=== PATIENT | male | born 1980 ===

== ENCOUNTER 2016-10-14 07:52 | Emergency (ER) | payer MEDICAID, OTHER ==
--- NOTE | 2016-10-14 08:22 | C.PDOC ---
History Of Present Illness 36 y/o male presents to the ED requesting detox from heroin. He reports using 10 bags IV /day for 5 months. Last use yesterday at 06:30. Patient also reports history of asthma and smoking cigarettes. Patient denies suicidal ideation, homicidal ideation, or other complaints. Time Seen by Provider: 10/14/16 07:56 Chief Complaint (Nursing): Substance Abuse History Per: Patient History/Exam Limitations: no limitations Onset/Duration Of Symptoms: Days, Gradual, Persistent Current Symptoms Are (Timing): Still Present Suicide/Self Injury Attempted (Context): None Modifying Factor(s): Other (heroin IV) Involuntary Hold By: None Recent travel outside of the [place]: No Past Medical History Reviewed: Historical Data, Nursing Documentation, Vital Signs Vital Signs: Last Vital Signs Temp 97.3 F L 10/14/16 07:55 Pulse 92 H 10/14/16 07:55 Resp 18 10/14/16 07:55 BP 122/78 10/14/16 07:55 Pulse Ox 97 10/14/16 08:43 - Medical History PMH: Anxiety, Asthma, Bronchitis, Pneumonia Surgical History: No Surg Hx - [facility] Procedures DETOXIFICATION SERVICES FOR SUBSTANCE ABUSE TREATMENT (08/20/16) GROUP WASTEWATER PROJECT MANAGER FOR SUBSTANCE ABUSE TREATMENT, PSYCHOEDUCATION (08/20/16) Family History: States: No Known Family Hx - Social History Hx Tobacco Use: Yes (heavy smoker) Hx Alcohol Use: No Hx Substance Use: Yes - Immunization History Hx Tetanus Toxoid Vaccination: No Hx Influenza Vaccination: No Hx Pneumococcal Vaccination: No Review Of Systems Except As Marked, All Systems Reviewed And Found Negative. Constitutional: Positive for: Other (requesting detox) Psych: Negative for: Suicidal ideation (or homicidal ideation) Physical Exam - Physical Exam Appears: Non-toxic, No Acute Distress Skin: Normal Color, Warm, Dry Head: Atraumatic, Normacephalic Eye(s): bilateral: Normal Inspection, PERRL Oral Mucosa: Moist Neck: Normal ROM, Supple Chest: Symmetrical Cardiovascular: Rhythm Regular Respiratory: No Rales, No Rhonchi, Wheezing (mild) Gastrointestinal/Abdominal: Normal Exam, Soft, No Tenderness Extremity: Normal ROM, No Swelling Neurological/Psych: Oriented x3, Normal Speech, Normal Cognition ED Course And Treatment O2 Sat by Pulse Oximetry: 97 (ra) Pulse Ox Interpretation: Normal Progress Note: Case discussed and patient evaluated by plastic worker and patient will be discharged to follow as outpatient Reassessment Condition: Unchanged Medical Decision Making Medical Decision Making: There are no Detox beds available at this time. Explained to patient no beds available and provided list of other detox centers and number to call at [facility] for availability. Please call [phone] or [phone] to inquire about our Detox availability , may speak to coordinator Kiersten. If you need to speak to someone immediately call Crisis Hotline [phone]. Disposition Counseled Patient/Family Regarding: Need For Followup - Disposition Referrals: [facility] [Outside] [facility] [Outside] Disposition: HOME/ ROUTINE Disposition Time: 08:40 Condition: STABLE Additional Instructions: Follow up with outpatient services as directed Instructions: Polysubstance Abuse (ED) - POA Present On Arrival: None - Clinical Impression Clinical Impression: Drug abuse, Drug dependence, Asthma - PA / FLOOR RUNNER / Resident Statement MD/DO has reviewed & agrees with the documentation as recorded. - Scribe Statement The provider has reviewed the documentation as recorded by the Scribe (Haritha Meyers) All medical record entries made by the Scribe were at my direction and personally dictated by me. I have reviewed the chart and agree that the record accurately reflects my personal performance of the history, physical exam, medical decision making, and the department course for this patient. I have also personally directed, reviewed, and agree with the discharge instructions and disposition.
[2016-10-14 08:25] VITALS: BP 122/78; PULSE 92; RESP 18; TEMP 97.3; O2SAT 97
== END 2016-10-14 08:40 | disposition home or self-care (01) ==
LOC: C.ER 07:52
DX: F11.20 Opioid dependence, uncomplicated (principal); J45.909 Unspecified asthma, uncomplicated

== ENCOUNTER 2016-10-17 00:08 | Observation (INO) | payer OTHER ==
[2016-10-17] MEDS ORDERED: Albuterol-Ipratrop 3 mg / 0.5 (3 ml) UD ONE ×2 (00:17→01:02)
[2016-10-17 00:28] VITALS: TEMP 98.4
[2016-10-17] MEDS ORDERED: Sodium Chloride 0.9% 1,000 ML IV ONE ×2 (00:32→03:08)
[2016-10-17] MEDS: Albuterol-Ipratrop 3 mg / 0.5 (3 ml) UD IH SCH ×3 (00:35→01:06)
--- NOTE | 2016-10-17 00:35 | C.PDOC ---
History Of Present Illness 36 y.o male with history of asthma and drug abuse brought into ED via EMS for evaluation of SOB. Patient states he was coughing persistently and was running to bathroom feeling about to vomit and he fell hitting his head. He reports "I passed out for few minutes". Patient continues to complain of wheezing and SOB, states he ran out of his nebulizer and prednisone. He additionally reports nausea. Denies any fever, chest pain, vomiting. Time Seen by Provider: 10/17/16 00:31 Chief Complaint (Nursing): Trauma History Per: Patient, EMS History/Exam Limitations: clinical condition Current Symptoms Are (Timing): Still Present Initiating Event: Out Of Medications Exacerbating Factor(s): Exertion, Coughing Current Respiratory Medications: See Home Med List Past Medical History Reviewed: Historical Data, Nursing Documentation, Vital Signs Vital Signs: Last Vital Signs Temp 98.4 F 10/17/16 00:21 Pulse 72 10/17/16 05:40 Resp 18 10/17/16 05:40 BP 110/58 L 10/17/16 05:40 Pulse Ox 97 10/17/16 05:40 - Medical History PMH: Anxiety, Asthma, Bronchitis, Pneumonia - [facility] Procedures DETOXIFICATION SERVICES FOR SUBSTANCE ABUSE TREATMENT (08/20/16) GROUP CAT DOG OR OTHER PET GROOMER FOR SUBSTANCE ABUSE TREATMENT, PSYCHOEDUCATION (08/20/16) Family History: States: Unknown Family Hx - Social History Hx Tobacco Use: Yes (heavy smoker) Hx Alcohol Use: No Hx Substance Use: Yes - Immunization History Hx Tetanus Toxoid Vaccination: Yes Hx Influenza Vaccination: Yes (08/2015) Hx Pneumococcal Vaccination: Yes Review Of Systems Constitutional: Positive for: Malaise. Negative for: Fever, Weakness ENT: Negative for: Ear Pain, Throat Pain Cardiovascular: Negative for: Chest Pain, Palpitations Respiratory: Positive for: Cough, Shortness of Breath, Wheezing Gastrointestinal: Positive for: Nausea. Negative for: Vomiting, Abdominal Pain , Diarrhea Skin: Negative for: Rash Neurological: Positive for: Headache. Negative for: Weakness, Numbness, Dizziness Physical Exam - Physical Exam Appears: Non-toxic, In Acute Distress, Other (Drowsy but arousable) Skin: Normal Color, Warm, Dry Head: Atraumatic, Normacephalic, No Tenderness, No Swelling, No Abrasion, No Laceration Eye(s): bilateral: Normal Inspection, PERRL, EOMI Ear(s): Bilateral: Normal (no erythema) Nose: Normal Oral Mucosa: Moist Throat: Normal, No Erythema, No Exudate, No Drooling Neck: Normal ROM Cardiovascular: Rhythm Regular, No Murmur Respiratory: No Rhonchi, Wheezing (bilaterally) Extremity: Normal ROM, No Deformity, No Swelling Neurological/Psych: Normal Speech Disoriented To: Time Gait: Unable To Assess ED Course And Treatment - Laboratory Results Result Diagrams: 10/17/16 01:15 10/17/16 01:15 Lab Interpretation: No Acute Changes O2 Sat by Pulse Oximetry: 87 Pulse Ox Interpretation: Abnormal - CT Scan/US Head Other Rad Studies (CT/US): Read By Radiologist (Tamie Caldwell MD), Radiology Report Reviewed CT/US Interpretation: No acute intracranial hemorrhage or suspicious mass effect Medical Decision Making Medical Decision Making: Impression: 36 y.o male with asthma and SOB Plan: * Labs * CXR * Duoneb, Solu-medrol * CT head Prior records reviewed: Patient seen in ED 10/14/16 looking for detox from heroin, no beds and discharged Patient was admitted 09/22/16 for pneumonia Progress: CXR shows persistent hilar/infrahilar consolidations. No effusion, pneumothorax or infiltrate. Labs reviewed and no acute changes from prior visits Upon reevaluation patient sleepy but arousable to verbal stimuli. Lung sounds improving. Will observe patient in ED ED OBSERVATION Discharge: Yes Date of observation admission: 10/17/16 Time of observation admission: 00:35 - Observation admission statement Patient is being placed in observation because:: Intoxication, Asthma - Goals of Observation Goals of observation are:: Sobriety, Duonebs - Progress Note Progress Note: 10/17/16 02:02 CT reviewed with no acute intracranial hemorrhage or abnormality as read by radiologist Dr Burdick. 10/17/16 03:33 Patient continues to sleep in no acute distress. O2 saturation has improved is 97%. Patient sleepy and wants to rest longer, will continue to observe 10/17/16 06:00 Patient has improved is alert oriented and in no distress. Patient feels comfortable going home and will be discharged with Rx. Disposition Counseled Patient/Family Regarding: Diagnosis, Need For Followup, Rx Given - Disposition Disposition: HOME/ ROUTINE Disposition Time: 06:01 Condition: STABLE - POA Present On Arrival: None - Clinical Impression Clinical Impression: Asthma exacerbation, Drug abuse
[2016-10-17] MEDS ORDERED: Sodium Chloride 0.9% 1,000 ML ONE ×2 (01:05→03:19)
[2016-10-17 01:18] LABS: BASO % 0.4 % (0.0-2.0); EOS # 0.7 K/uL (0.0-0.7); EOS % 5.5 % (0.0-4.0); HEMATOCRIT 39.2 % (35.0-51.0); LYMPH # 2.2 K/uL (1.0-4.3); LYMPH % 17.3 % (20.0-40.0); MEAN CELL VOLUME 94.9 fL (80.0-94.0); MEAN CORPUSCULAR HEMOGLOBIN 30.7 pg (27.0-31.0); MEAN CORPUSCULAR HGB CONC 32.3 g/dL (33.0-37.0); MEAN PLATELET VOLUME 8.3 fL (7.2-11.7); MONO # 1.1 K/uL (0.0-0.8); MONO % 8.5 % (0.0-10.0); RED CELL DISTRIBUTION WIDTH 13.9 % (11.5-14.5); WHITE BLOOD COUNT 12.8 K/uL (4.8-10.8)
[2016-10-17 01:32] LABS: CHLORIDE 98 mmol/L (98-107); SODIUM 137 mmol/L (132-148)
[2016-10-17 01:33] LABS: BILIRUBIN,TOTAL 0.3 mg/dL (0.2-1.3); GFR AFRICAN-AMERICAN > 60
[2016-10-17 01:34] LABS: ALB/GLOB RATIO 1.5 (1.0-2.1); ALCOHOL SERUM < 10 mg/dl (0-10); ALKALINE PHOSPHATASE 72 U/L (38-126); ALT/SGPT 79 U/L (21-72); AST/SGOT 39 U/L (17-59); BLOOD UREA NITROGEN 15 mg/dL (9-20); CALCIUM 8.5 mg/dl (8.6-10.4); CARBON DIOXIDE 27 mmol/L (22-30); GLUCOSE,RANDOM 145 mg/dL (75-110); TOTAL PROTEIN 6.6 g/dL (6.3-8.3)
[2016-10-17 02:12] LABS: RBC URINE < 1 /hpf (0-3); URINE BILIRUBIN NEGATIVE (NEGATIVE); URINE BLOOD NEGATIVE (NEGATIVE); URINE COLOR Yellow (YELLOW); URINE GLUCOSE (UA) NORMAL (Normal); URINE KETONE TRACE mg/dL (NEGATIVE); URINE LEUKOCYTE ESTERASE NEG Leu/uL (Negative); URINE PROTEIN 1+ mg/dL (NEGATIVE); WBC URINE 2 /hpf (0-5)
[2016-10-17 03:30] VITALS: RESP 18
[2016-10-17 05:41] VITALS: BP 110/58; PULSE 72
[2016-10-17 06:02] VITALS: O2SAT 87
--- NOTE | 2016-10-17 10:02 | CT ---
PROCEDURE: CT HEAD WITHOUT CONTRAST. HISTORY: possible syncope, sob, dizziness COMPARISON: None available. TECHNIQUE: Axial computed tomography images were obtained through the head/brain without intravenous contrast. Radiation dose: Total exam DLP = 976.61 mGy-cm. FINDINGS: HEMORRHAGE: No intracranial hemorrhage. BRAIN: No mass effect or edema. No atrophy or chronic microvascular ischemic changes. VENTRICLES: Unremarkable. No hydrocephalus. CALVARIUM: Unremarkable. PARANASAL SINUSES: Unremarkable as visualized. No significant inflammatory changes. MASTOID AIR CELLS: Unremarkable as visualized. No inflammatory changes. OTHER FINDINGS: None. IMPRESSION: No intracranial mass, hemorrhage or evidence of acute infarct. Unremarkable examination. Preliminary interpretation of this examination was reported by kompany at 1:59 a.m. on 10/17/2016. . There is concurrence of this report with the preliminary interpretation.
--- NOTE | 2016-10-17 15:15 | RAD ---
HISTORY: SOB COMPARISON: 09/22/2016 TECHNIQUE: Chest PA and lateral FINDINGS: LUNGS: No active pulmonary disease. PLEURA: No significant pleural effusion identified. No pneumothorax apparent. CARDIOVASCULAR: Normal. OSSEOUS STRUCTURES: No significant abnormalities. VISUALIZED UPPER ABDOMEN: Normal. OTHER FINDINGS: None. IMPRESSION: No active disease.
== END 2016-10-17 06:02 | disposition home or self-care (01) ==
LOC: C.ER 00:08 → C.9OBSV 00:35
PROVIDERS: ADMIT Emergency Medicine; ATTEND Emergency Medicine
DX: J45.901 Unspecified asthma with (acute) exacerbation (principal); Z87.891 Personal history of nicotine dependence; F14.10 Cocaine abuse, uncomplicated; F11.10 Opioid abuse, uncomplicated; Z87.01 Personal history of pneumonia (recurrent); Z68.21 Body mass index [BMI] 21.0-21.9, adult
CPT/HCPCS: 70450; 71020; 80053; 80320; 80324; 80345; 80346; 80349; 80353; 80358; 80361; 81001; 82948; 83992; 85025; 94640; 96374; 99285; G0378; J2930; J7040

== ENCOUNTER 2016-10-18 22:43 | Emergency (ER) | payer OTHER ==
[2016-10-18] MEDS ORDERED: Albuterol-Ipratrop 3 mg / 0.5 (3 ml) UD ONE (23:02)
[2016-10-18] MEDS ORDERED: Sodium Chloride 0.9% 1,000 ML IV ONE (23:03)
--- NOTE | 2016-10-18 23:06 | C.PDOC ---
History Of Present Illness 36 y/o male presents to ED with complaint of left upper chest wall pain and abdominal pain that started tonight. Patient reports history of heroin abuse, last dose being yesterday. Otherwise denies fever, chills, nausea, vomiting, diarrhea, or other complaints at this time. Time Seen by Provider: 10/18/16 23:03 Chief Complaint (Nursing): Abdominal Pain History Per: Patient History/Exam Limitations: no limitations Onset/Duration Of Symptoms: Hrs Current Symptoms Are (Timing): Still Present Location Of Pain/Discomfort: Diffuse Radiation Of Pain To:: None Quality Of Discomfort: "Pain" Associated Symptoms: denies: Fever, Nausea, Vomiting, Diarrhea, Urinary Symptoms Recent travel outside of the [place]: No Past Medical History Reviewed: Historical Data, Nursing Documentation, Vital Signs Vital Signs: Last Vital Signs Temp 97.5 F L 10/19/16 01:50 Pulse 60 10/19/16 01:50 Resp 20 10/19/16 01:50 BP 121/70 10/19/16 01:50 Pulse Ox 95 10/19/16 04:00 - Medical History PMH: Anxiety, Asthma, Bronchitis, Pneumonia - [facility] Procedures DETOXIFICATION SERVICES FOR SUBSTANCE ABUSE TREATMENT (08/20/16) GROUP SHINGLE INSPECTOR FOR SUBSTANCE ABUSE TREATMENT, PSYCHOEDUCATION (08/20/16) Family History: States: Unknown Family Hx - Social History Hx Tobacco Use: Yes (heavy smoker) Hx Alcohol Use: No Hx Substance Use: Yes - Immunization History Hx Tetanus Toxoid Vaccination: Yes Hx Influenza Vaccination: Yes (08/2015) Hx Pneumococcal Vaccination: Yes Review Of Systems Except As Marked, All Systems Reviewed And Found Negative. Constitutional: Negative for: Fever, Chills Respiratory: Negative for: Shortness of Breath, Wheezing Gastrointestinal: Positive for: Abdominal Pain. Negative for: Vomiting Musculoskeletal: Positive for: Other (chest wall pain ) Skin: Negative for: Rash Neurological: Negative for: Headache, Dizziness Psych: Negative for: Withdrawal Physical Exam - Physical Exam Appears: Non-toxic, No Acute Distress Skin: Normal Color, Warm, Dry Head: Atraumatic, Normacephalic Oral Mucosa: Moist Neck: Supple Chest: Symmetrical Cardiovascular: Rhythm Regular Respiratory: No Wheezing Gastrointestinal/Abdominal: Soft, Tenderness (RUQ), Organomegaly (enlarged liver ), No Guarding, No Rebound Back: Normal Inspection Extremity: Normal ROM, Capillary Refill (< 2 sec. ) Neurological/Psych: Oriented x3, Normal Speech, Normal Cognition ED Course And Treatment - Laboratory Results Result Diagrams: 10/18/16 23:19 10/18/16 23:19 ECG: Interpreted By Me, Viewed By Me ECG Rhythm: Sinus Bradycardia ECG Interpretation: No Acute Changes Interpretation Of ECG: J-pt elevation-early repolarixation, no acute change. normal tracings Rate From EC O2 Sat by Pulse Oximetry: 95 (RA) Pulse Ox Interpretation: Normal - Radiology CXR: Interpreted by Me, Viewed By Me CXR Interpretation: Yes: No Acute Disease, Other (NAD, normal CXR.). No: Infiltrates, Cardiomegaly - CT Scan/US RUQ Abdominal Ultrasound Other Rad Studies (CT/US): Read By Radiologist, Radiology Report Reviewed CT/US Interpretation: FINDINGS: Liver: Overall echogenicity of the liver is normal. There is a 10 x 6 x 10 mm hyperechoic focus in the. right lobe of the liver. There is hepatopedal flow in the main portal vein. Gallbladder: Gallbladder is distended with no stones, sludge or wall thickening. Common bile duct: Common bile duct measures 3.7 mm in diameter. Pancreas: Pancreas is unremarkable. Right kidney: Right kidney is unremarkable. Right kidney is unremarkable. Aorta: Visualized portions of the aorta and inferior vena cava are unremarkable. IMPRESSION: No gallstones or ductal dilatation; tiny hemangioma in the liver. Patient was not tender over the gallbladder Progress Note: Treated with Toradol, clonidine, IVFs. EKG, CxR, bloodwork, and abdominal ultrasound ordered. Just prior to being discharged, patient states he wants to hurt himself. Crisis notified and will further evaluate patient. Disposition Discussed With : Genoveva Ha Counseled Patient/Family Regarding: Diagnosis - Disposition Referrals: [facility] [Outside] Disposition: HOME/ ROUTINE Disposition Time: 01:32 Condition: STABLE Prescriptions: Famotidine [Pepcid] 20 mg PO BID #20 tab Instructions: Gastritis (GEN), Narcotic Abuse (ED) - POA Present On Arrival: None - Clinical Impression Clinical Impression: Opiate addiction, Major depressive disorder - Scribe Statement The provider has reviewed the documentation as recorded by the Vishla Kraus Provider Scribe Attestation: All medical record entries made by the Scribe were at my direction and personally dictated by me. I have reviewed the chart and agree that the record accurately reflects my personal performance of the history, physical exam, medical decision making, and the department course for this patient. I have also personally directed, reviewed, and agree with the discharge instructions and disposition.
[2016-10-18 23:22] LABS: BASO # 0.1 K/uL (0.0-0.2); BASO % 0.7 % (0.0-2.0); EOS # 0.2 K/uL (0.0-0.7); EOS % 1.6 % (0.0-4.0); HEMATOCRIT 37.4 % (35.0-51.0); LYMPH # 3.4 K/uL (1.0-4.3); LYMPH % 26.2 % (20.0-40.0); MEAN CELL VOLUME 94.4 fL (80.0-94.0); MEAN CORPUSCULAR HEMOGLOBIN 30.9 pg (27.0-31.0); MEAN CORPUSCULAR HGB CONC 32.7 g/dL (33.0-37.0); MEAN PLATELET VOLUME 8.2 fL (7.2-11.7); MONO # 1.1 K/uL (0.0-0.8); MONO % 8.3 % (0.0-10.0); NRBC % 0.1 % (0.0-2.0); RED CELL DISTRIBUTION WIDTH 13.7 % (11.5-14.5); WHITE BLOOD COUNT 12.9 K/uL (4.8-10.8)
[2016-10-18 23:28] LABS: CHLORIDE 99 mmol/L (98-107); POTASSIUM 4.1 mmol/L (3.6-5.2); SODIUM 138 mmol/L (132-148)
[2016-10-18 23:30] LABS: BILIRUBIN,TOTAL 0.3 mg/dL (0.2-1.3); GFR AFRICAN-AMERICAN > 60
[2016-10-18 23:31] LABS: ALB/GLOB RATIO 1.4 (1.0-2.1); ALKALINE PHOSPHATASE 70 U/L (38-126); ALT/SGPT 56 U/L (21-72); AST/SGOT 26 U/L (17-59); BLOOD UREA NITROGEN 16 mg/dL (9-20); CARBON DIOXIDE 31 mmol/L (22-30); GLUCOSE,RANDOM 86 mg/dL (75-110); TOTAL PROTEIN 6.1 g/dL (6.3-8.3)
[2016-10-18 23:41] LABS: RBC URINE < 1 /hpf (0-3); URINE BILIRUBIN NEGATIVE (NEGATIVE); URINE BLOOD NEGATIVE (NEGATIVE); URINE COLOR Yellow (YELLOW); URINE GLUCOSE (UA) NORMAL (Normal); URINE KETONE NEGATIVE (NEGATIVE); URINE LEUKOCYTE ESTERASE NEG Leu/uL (Negative); URINE PROTEIN NEGATIVE (NEGATIVE); URINE UROBILINOGEN NORMAL mg/dL (0.2-1.0); WBC URINE < 1 /hpf (0-5)
[2016-10-18] MEDS ORDERED: Sodium Chloride 0.9% 1,000 ML ONE (23:41)
--- NOTE | 2016-10-19 01:07 | US ---
EXAM: US Abdomen Limited, Right Upper Quadrant. CLINICAL HISTORY: 36 years old, male; Pain; Other: Ruq; Additional info: Ruq abd pain / tenderness TECHNIQUE: Real-time ultrasound of the right upper quadrant with image documentation. EXAM DATE/TIME: 10/19/2016 11:04 PM COMPARISON: There are no prior studies for comparison. FINDINGS: Liver: Overall echogenicity of the liver is normal. There is a 10 x 6 x 10 mm hyperechoic focus in the right lobe of the liver. There is hepatopedal flow in the main portal vein. Gallbladder: Gallbladder is distended with no stones, sludge or wall thickening. Common bile duct: Common bile duct measures 3.7 mm in diameter. Pancreas: Pancreas is unremarkable. Right kidney: Right kidney is unremarkable. Right kidney is unremarkable. Aorta: Visualized portions of the aorta and inferior vena cava are unremarkable. IMPRESSION: No gallstones or ductal dilatation; tiny hemangioma in the liver Patient was not tender over the gallbladder
[2016-10-19 06:00] VITALS: BP 117/66; PULSE 68; RESP 18; TEMP 97.9; O2SAT 97
--- NOTE | 2016-10-19 08:54 | RAD ---
HISTORY: left upper chest pain COMPARISON: No prior. TECHNIQUE: Chest PA and lateral FINDINGS: LUNGS: No active pulmonary disease. PLEURA: No significant pleural effusion identified. No pneumothorax apparent. CARDIOVASCULAR: Normal. OSSEOUS STRUCTURES: No significant abnormalities. VISUALIZED UPPER ABDOMEN: Normal. OTHER FINDINGS: None. IMPRESSION: No active disease.
--- NOTE | 2016-10-20 08:07 | CARD ---
APPROVED REPORT EKG Measurement Heart [id number] <Conclusion> Sinus bradycardia Early repolarization Otherwise normal ECG
== END 2016-10-19 06:20 | disposition home or self-care (01) ==
LOC: C.ER 22:43
DX: F11.20 Opioid dependence, uncomplicated (principal); F32.9 Major depressive disorder, single episode, unspecified
CPT/HCPCS: 71020; 76705; 80053; 80320; 80324; 80345; 80346; 80349; 80353; 80358; 80361; 81001; 83690; 83992; 84484; 85025; 85378; 93005; 96374; 99285; J1885; J7040

== ENCOUNTER 2016-10-19 06:49 | Inpatient (IN) | payer OTHER ==
[2016-10-19] MEDS ORDERED: Albuterol-Ipratrop 3 mg / 0.5 (3 ml) UD ONE ×2 (06:59→07:58)
[2016-10-19] MEDS ORDERED: Albuterol-Ipratrop 3 mg / 0.5 (3 ml) UD INH STA ×3 (07:21→07:22)
[2016-10-19] MEDS ORDERED: MethylPREDNISolone 40 mg Vial IVP STA (07:21)
--- NOTE | 2016-10-19 07:25 | C.PDOC ---
History Of Present Illness 36 year old male presents to the ED with complaints of SOB for a few days. He has been to the ER twice for re-evaluations with no improvement and notes a history of asthma. Patient denies fever or any other complaints at this time. Time Seen by Provider: 10/19/16 07:18 Chief Complaint (Nursing): Shortness Of Breath History Per: Patient History/Exam Limitations: no limitations Onset/Duration Of Symptoms: Days Current Symptoms Are (Timing): Still Present Associated Symptoms: denies: Fever, Sweating Past Medical History Vital Signs: Last Vital Signs Temp 97.3 F L 10/19/16 06:58 Pulse 125 H 10/19/16 06:58 Resp 20 10/19/16 07:03 BP 142/71 10/19/16 06:58 Pulse Ox 97 10/19/16 08:13 - Medical History PMH: Anxiety, Asthma, Bronchitis, Pneumonia Surgical History: Denies: Appendectomy, CABG, Carotid Endarterectomy, Cholecystectomy, Coronary Stent, Pacemaker, Tonsillectomy - [employer] Procedures DETOXIFICATION SERVICES FOR SUBSTANCE ABUSE TREATMENT (08/20/16) GROUP DURABILITY ENGINEER FOR SUBSTANCE ABUSE TREATMENT, PSYCHOEDUCATION (08/20/16) Family History: States: Unknown Family Hx - Social History Hx Tobacco Use: Yes (heavy smoker) Hx Alcohol Use: No Hx Substance Use: Yes (heroine) - Immunization History Hx Tetanus Toxoid Vaccination: Yes Hx Influenza Vaccination: Yes (08/2015) Hx Pneumococcal Vaccination: Yes Review Of Systems Constitutional: Negative for: Fever, Chills Respiratory: Positive for: Shortness of Breath Gastrointestinal: Negative for: Nausea, Vomiting, Abdominal Pain, Diarrhea Genitourinary: Negative for: Dysuria Physical Exam - Physical Exam Appears: Non-toxic, No Acute Distress Skin: Warm, Dry Neck: Supple Cardiovascular: Rhythm Regular, No Murmur Respiratory: No Accessory Muscle Use, No Rales, No Rhonchi, No Stridor, Wheezing (diffuse wheezing) Extremity: Normal ROM, No Tenderness Neurological/Psych: Oriented x3 ED Course And Treatment - Laboratory Results Result Diagrams: 10/19/16 07:49 10/19/16 07:49 O2 Sat by Pulse Oximetry: 97 Medical Decision Making Medical Decision Making: asthma exacerbation - not improving outpt, will send labs, nebs solumudrol- noted cxr from last night, neg as read by me. 815: pt with persistent wheezing, pt not improving outpt, failure of outpt managment. pt need admission for iv steriods Disposition - Disposition Disposition: HOSPITALIZED Disposition Time: 08:55 Condition: STABLE - Clinical Impression Clinical Impression: Exacerbation of asthma - Scribe Statement The provider has reviewed the documentation as recorded by the Scribe Dinorah Puente All medical record entries made by the Scribe were at my direction and personally dictated by me. I have reviewed the chart and agree that the record accurately reflects my personal performance of the history, physical exam, medical decision making, and the department course for this patient. I have also personally directed, reviewed, and agree with the discharge instructions and disposition. Decision To Admit - Pt Status Changed To: Hospital Disposition Of: Inpatient - Admit Certification Admit to Inpatient:: After my assessment, the patient will require hospitalization for at least two midnights. This is because of the severity of symptoms shown, intensity of services needed, and/or the medical risk in this patient being treated as an outpatient. - InPatient: Physician Admission Certification: I certify that this patient requires 2 or more midnights of care for the following reason:: pt with failure of outpt treatement, persistent wheeezing, needs iv steriods - . Bed Request Type: Regular Admitting Physician: Refugio Slater Patient Diagnosis: Exacerbation of asthma
[2016-10-19 07:55] LABS: BASO # 0.1 K/uL (0.0-0.2); BASO % 0.6 % (0.0-2.0); EOS # 0.4 K/uL (0.0-0.7); EOS % 3.1 % (0.0-4.0); HEMATOCRIT 35.6 % (35.0-51.0); LYMPH # 3.3 K/uL (1.0-4.3); MEAN CELL VOLUME 94.8 fL (80.0-94.0); MEAN CORPUSCULAR HEMOGLOBIN 31.4 pg (27.0-31.0); MEAN CORPUSCULAR HGB CONC 33.1 g/dL (33.0-37.0); MONO # 1.5 K/uL (0.0-0.8); MONO % 12.3 % (0.0-10.0); NRBC % 0.1 % (0.0-2.0); RED CELL DISTRIBUTION WIDTH 13.8 % (11.5-14.5); WHITE BLOOD COUNT 11.9 K/uL (4.8-10.8)
[2016-10-19 08:04] LABS: CHLORIDE 99 mmol/L (98-107); POTASSIUM 3.8 mmol/L (3.6-5.2); SODIUM 138 mmol/L (132-148)
[2016-10-19 08:06] LABS: BILIRUBIN,TOTAL 0.5 mg/dL (0.2-1.3); CARBON DIOXIDE 30 mmol/L (22-30); GFR AFRICAN-AMERICAN > 60
[2016-10-19 08:07] LABS: ALB/GLOB RATIO 1.4 (1.0-2.1); ALKALINE PHOSPHATASE 57 U/L (38-126); ALT/SGPT 49 U/L (21-72); AST/SGOT 25 U/L (17-59); BLOOD UREA NITROGEN 16 mg/dL (9-20); CALCIUM 8.7 mg/dl (8.6-10.4); GLUCOSE,RANDOM 67 mg/dL (75-110); TOTAL PROTEIN 5.6 g/dL (6.3-8.3)
--- NOTE | 2016-10-19 15:18 | CP.PCM.HP ---
History of Present Illness - History of Present Illness History of Present Illness: 36 years old male patient with past medical history of asthma bronchitis and pneumonia presented to emergency department with complaints of shortness of breath since last few days. No recent fever, nausea vomiting, chest pain, no palpitation, no increased sweating. No lower limb swelling. The patient had persistent wheezing, started on IV steroids. Present on Admission - Present on Admission Any Indicators Present on Admission: No Past Patient History - Infectious Disease Hx of Infectious Diseases: None - Past Medical History & Family History Past Medical History?: No - Past Social History Smoking Status: Light Smoker < 10 Cigarettes Daily - CARDIAC Hx Pacemaker: No - PULMONARY Hx Asthma: Yes Hx Bronchitis: Yes Hx Pneumonia: Yes - NEUROLOGICAL Hx Dementia: No Hx Migraine: No Hx Multiple Sclerosis: No Hx Parkinson's Disease: No Hx Seizures: No Hx Transient Ischemic Attacks (TIA): No - HEENT Hx HEENT Problems: No Hx Blind: No Hx Cataracts: No Hx Deafness: No Hx Difficulty Chewing: No Hx Epistaxis: No Hx Glaucoma: No Hx Macular Degeneration: No - RENAL Hx Chronic Kidney Disease: No Hx Kidney Stones: No - ENDOCRINE/METABOLIC Hx Hyperthyroidism: No Hx Hypothyroidism: No - HEMATOLOGICAL/ONCOLOGICAL Hx Human Immunodeficiency Virus (HIV): No Hx Sickle Cell Disease: No - INTEGUMENTARY Hx Dermatological Problems: No Hx Basil Cell: No Hx Barrera: No Hx Cellulitis: No Hx Eczema: No Hx Melanoma: No Hx Psoriasis: No Hx Squamous Cell: No - MUSCULOSKELETAL/RHEUMATOLOGICAL Hx Arthritis: No Hx Fractures: No Hx Osteoporosis: No Hx Rheumatoid Arthritis: No - GASTROINTESTINAL Hx Crohn's Disease: No Hx Diverticulitis: No Hx Gall Bladder Disease: No Hx Gastritis: No Hx Pancreatitis: No - GENITOURINARY/GYNECOLOGICAL Hx Sexually Transmitted Disorders: No - PSYCHIATRIC Hx Anxiety: Yes Hx Substance Use: Yes (heroine) - SURGICAL HISTORY Hx Appendectomy: No Hx Carotid Endarterectomy: No Hx Cholecystectomy: No Hx Coronary Artery Bypass Graft: No Hx Coronary Stent: No Hx Tonsillectomy: No - ANESTHESIA Hx Anesthesia: No Meds Allergies/Adverse Reactions: Allergies Allergy/AdvReac Type Severity Reaction Status Date / Time shellfish derived Allergy Verified 01/16/17 23:43 Results - Vital Signs Recent Vital Signs: Last Vital Signs Temp 98.2 F 10/19/16 13:00 Pulse 77 10/19/16 13:00 Resp 18 10/19/16 13:00 BP 132/66 10/19/16 13:00 Pulse Ox 97 10/19/16 13:00 - Labs Result Diagrams: 10/19/16 07:49 10/19/16 07:49 Assessment & Plan (1) Asthma Status: Acute (2) Asthma exacerbation Status: Acute (3) Asthma with status asthmaticus Status: Acute (4) Bronchitis Status: Acute (5) Bronchitis Status: Acute (6) Community acquired pneumonia Status: Acute (7) Depression Status: Acute (8) Depression Status: Acute (9) Drug dependence Status: Acute (10) Exacerbation of asthma Status: Acute (11) Gastritis Status: Acute (12) Left against medical advice Status: Acute (13) Major depressive disorder Status: Acute (14) Medical assessment Status: Acute (15) Nausea Status: Acute (16) Opiate addiction Status: Acute (17) Opioid abuse Status: Acute (18) Pneumonia Status: Acute (19) Pneumonia Status: Acute (20) Status asthmaticus Status: Acute (21) Upper respiratory infection Status: Acute (22) Cellulitis, leg Status: Chronic (23) Hepatitis C Status: Chronic (24) Heroin dependence Status: Chronic (25) Hordeolum externum (stye) Status: Resolved (26) Medication reaction Status: Resolved - Assessment and Plan (Free Text) Plan: protonix lovenox admit to [facility] consult katharine vogt as orderd
[2016-10-19] MEDS: MethylPREDNISolone 40 mg Vial IVP SCH ×2 (19:22→22:54)
[2016-10-19] MEDS: Albuterol-Ipratrop 3 mg / 0.5 (3 ml) UD INH SCH (22:06)
[2016-10-19] MEDS: Fluticasone-Salmeterol 250-50mcg Diskus INH SCH (22:06)
[2016-10-20] MEDS: Albuterol-Ipratrop 3 mg / 0.5 (3 ml) UD INH SCH ×4 (01:28→20:10)
[2016-10-20] MEDS: MethylPREDNISolone 40 mg Vial IVP SCH ×3 (05:29→22:09)
--- NOTE | 2016-10-20 08:23 | CP.PCM.CON ---
History of Present Illness - History of Present Illness History of Present Illness: Chief complaint: Shortness of breath History present illness: 36-year-old male with history of drug abuse, history of bronchial asthma came to the office with worsening shortness of breath. Patient was having severe worsening, severe cough, and chest tightness. ICU evaluation was called for possible impending status at asthmaticus. Patient was being treated in the emergency room, received multiple broncho- dilators, patient also received corticosteroids. Patient showing some improvement in currently. Less accessory muscle usage, air entry is much better. Currently patient is able to complete a sentence Review of Systems - Review of Systems All systems: reviewed and no additional remarkable complaints except Review of Systems: Denies any headache, complaining of cough, chest tightness, wheezing, no leg swelling Past Patient History - Infectious Disease Hx of Infectious Diseases: None - Past Medical History & Family History Past Medical History?: No - Past Social History Smoking Status: Heavy Smoker > 10 Cigarettes Daily - CARDIAC Hx Pacemaker: No - PULMONARY Hx Asthma: Yes Hx Bronchitis: Yes Hx Pneumonia: Yes - NEUROLOGICAL Hx Dementia: No Hx Migraine: No Hx Multiple Sclerosis: No Hx Parkinson's Disease: No Hx Seizures: No Hx Transient Ischemic Attacks (TIA): No - HEENT Hx HEENT Problems: No Hx Blind: No Hx Cataracts: No Hx Deafness: No Hx Difficulty Chewing: No Hx Epistaxis: No Hx Glaucoma: No Hx Macular Degeneration: No - RENAL Hx Chronic Kidney Disease: No Hx Kidney Stones: No - ENDOCRINE/METABOLIC Hx Hyperthyroidism: No Hx Hypothyroidism: No - HEMATOLOGICAL/ONCOLOGICAL Hx Human Immunodeficiency Virus (HIV): No Hx Sickle Cell Disease: No - INTEGUMENTARY Hx Dermatological Problems: No Hx Basil Cell: No Hx Barrera: No Hx Cellulitis: No Hx Eczema: No Hx Melanoma: No Hx Psoriasis: No Hx Squamous Cell: No - MUSCULOSKELETAL/RHEUMATOLOGICAL Hx Arthritis: No Hx Falls: No (denies) Hx Fractures: No Hx Osteoporosis: No Hx Rheumatoid Arthritis: No - GASTROINTESTINAL Hx Crohn's Disease: No Hx Diverticulitis: No Hx Gall Bladder Disease: No Hx Gastritis: No Hx Pancreatitis: No - GENITOURINARY/GYNECOLOGICAL Hx Sexually Transmitted Disorders: No - PSYCHIATRIC Hx Anxiety: Yes Hx Substance Use: Yes (heroine) - SURGICAL HISTORY Hx Appendectomy: No Hx Carotid Endarterectomy: No Hx Cholecystectomy: No Hx Coronary Artery Bypass Graft: No Hx Coronary Stent: No Hx Tonsillectomy: No - ANESTHESIA Hx Anesthesia: No Meds Allergies/Adverse Reactions: Allergies Allergy/AdvReac Type Severity Reaction Status Date / Time shellfish derived Allergy Verified 11/30/16 03:14 - Medications Medications: Current Medications Albuterol/Ipratropium (Duoneb 3 Mg/0.5 Mg (3 Ml) Ud) 3 ml INH RQ6 [facility] Last Admin: 10/20/16 07:42 Dose: 3 ml Enoxaparin Sodium (Lovenox) 40 mg SC DAILY [facility] Gabapentin (Neurontin) 300 mg PO TID PRN PRN Reason: Pain, moderate (4-7) Influenza Virus Vaccine (Afluria) 45 mcg IM .ONCE ONE Stop: 10/20/16 10:01 Methylprednisolone (Solu-Medrol) 40 mg IVP Q12 [facility] Montelukast Sodium (Singulair) 10 mg PO HS [facility] Last Admin: 10/19/16 21:38 Dose: 10 mg Moxifloxacin HCl (Avelox) 400 mg PO DAILY [facility] Last Admin: 10/19/16 12:48 Dose: 400 mg Pantoprazole Sodium (Protonix Ec Tab) 40 mg PO DAILY [facility] Pneumococcal Polyvalent Vaccine (Pneumovax 23 Vaccine) 0.5 ml IM .ONCE ONE Stop: 10/20/16 10:01 Fluticasone/Salmeterol (Advair Diskus 250/50) 1 puff INH RQ12 [facility] Last Admin: 10/19/16 22:06 Dose: Not Given Trazodone HCl (Desyrel) 100 mg PO DAILY [facility] Physical Exam - Constitutional Additional comments: Vital signs reviewed No neck vein distention noted ilateral wheezing noted CVS regular heart sound, no murmur noted Abdomen soft, nontender. 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 Intravenous drug abuser. Currently doing okay. Patient does not do the ICU. Continue the current treatment. Bronchi dilators corticosteroids antiallergic medication. Advised him to quit smoking. Patient can be managed in the floor
[2016-10-20] MEDS: Fluticasone-Salmeterol 250-50mcg Diskus INH SCH ×2 (09:23→20:10)
[2016-10-20] MEDS ORDERED: Pneumococcal 23-Valent Vaccine IM ONE (10:00)
[2016-10-20] MEDS ORDERED: Influenza Virus Vaccine 45 mcg/0.5 ml Syr IM ONE (10:00)
--- NOTE | 2016-10-20 10:32 | CP.PCM.PN ---
Subjective - Date & Time of Evaluation Date of Evaluation: 10/20/16 Time of Evaluation: 11:00 - Subjective Subjective: clinically same Objective - Vital Signs/Intake and Output Vital Signs (last 24 hours): Temp Pulse Resp BP Pulse Ox 98.1 F 87 20 137/85 96 10/20/16 07:15 10/20/16 07:15 10/20/16 07:15 10/20/16 07:15 10/20/16 07:15 Intake and Output: 10/20/16 10/20/16 06:59 18:59 Intake Total 680 Balance 680 - Medications Medications: Current Medications Albuterol/Ipratropium (Duoneb 3 Mg/0.5 Mg (3 Ml) Ud) 3 ml INH RQ6 [facility] Last Admin: 10/20/16 07:42 Dose: 3 ml Enoxaparin Sodium (Lovenox) 40 mg SC DAILY [facility] Gabapentin (Neurontin) 300 mg PO TID PRN PRN Reason: Pain, moderate (4-7) Methylprednisolone (Solu-Medrol) 40 mg IVP Q12 [facility] Montelukast Sodium (Singulair) 10 mg PO HS [facility] Last Admin: 10/19/16 21:38 Dose: 10 mg Moxifloxacin HCl (Avelox) 400 mg PO DAILY [facility] Last Admin: 10/19/16 12:48 Dose: 400 mg Pantoprazole Sodium (Protonix Ec Tab) 40 mg PO DAILY [facility] Fluticasone/Salmeterol (Advair Diskus 250/50) 1 puff INH RQ12 [facility] Last Admin: 10/20/16 09:23 Dose: 1 puff Trazodone HCl (Desyrel) 100 mg PO DAILY [facility] - Constitutional Appears: Well - Head Exam Head Exam: ATRAUMATIC, NORMAL INSPECTION, NORMOCEPHALIC - Eye Exam Eye Exam: EOMI, Normal appearance, PERRL Pupil Exam: NORMAL ACCOMODATION, PERRL - ENT Exam ENT Exam: Mucous Membranes Moist, Normal Exam - Neck Exam Neck Exam: Full ROM, Normal Inspection. absent: Lymphadenopathy - Respiratory Exam Respiratory Exam: Decreased Breath Sounds - Cardiovascular Exam Cardiovascular Exam: REGULAR RHYTHM, +S1, +S2 - GI/Abdominal Exam GI & Abdominal Exam: Soft, Diminished Bowel Sounds - Rectal Exam Rectal Exam: Deferred Assessment and Plan (1) Asthma Status: Acute (2) Asthma exacerbation Status: Acute (3) Asthma with status asthmaticus Status: Acute (4) Bronchitis Status: Acute (5) Bronchitis Status: Acute (6) Community acquired pneumonia Status: Acute (7) Depression Status: Acute (8) Depression Status: Acute (9) Drug dependence Status: Acute (10) Exacerbation of asthma Status: Acute (11) Gastritis Status: Acute (12) Left against medical advice Status: Acute (13) Major depressive disorder Status: Acute (14) Medical assessment Status: Acute (15) Nausea Status: Acute (16) Opiate addiction Status: Acute (17) Opioid abuse Status: Acute (18) Pneumonia Status: Acute (19) Pneumonia Status: Acute (20) Status asthmaticus Status: Acute (21) Upper respiratory infection Status: Acute (22) Cellulitis, leg Status: Chronic (23) Hepatitis C Status: Chronic (24) Heroin dependence Status: Chronic (25) Hordeolum externum (stye) Status: Resolved (26) Medication reaction Status: Resolved - Assessment and Plan (Free Text) Plan: Pulmonary consult Lovenox DuoNeb antibiotics Singulair Solu-Medrol Advised to quit smoking
--- NOTE | 2016-10-20 12:45 | PCM.PSYCH ---
Initial Psychiatric Evaluation - Initial Psychiatric Evaluation Type of Admission: Voluntary Legal Status: Capacity Chief Complaint (in patient's own words): "I was withdrawing" History of Present Illness and Precipitating Events: he is seen, chart reviewed, case discussed. 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 He is single and has one child, 3 years old, living in [place] with the mother. He is currently homeless but was living in [place] with his aunt and cousin. 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 Patient reports that he has been using heroin on and off since 2013. He reports that his use became "heavy" after detox again as he relapsed quickly. He uses 10 -12 bags of heroin intravenously. He uses cocaine sometimes but denies other illicit drug use including pain killers, marijuana, and alcohol. He admits to marijuana use when he was younger. He is an occasional cigarette smoker stating he only smokes when he is high from heroin. He states that he started using heroin because he "got curious". He denies any current withdrawal symptoms. Past Psych Hx: none Fam Psych Hx: none Fam Drug Hx: Father, alcoholism PMH: Asthma Current Medications: Active Medications Generic Name Dose Route Start Last Admin Trade Name Freq PRN Reason Stop Dose Admin Albuterol/Ipratropium 3 ml 10/19/16 14:00 10/20/16 07:42 Duoneb 3 Mg/0.5 Mg (3 Ml) Ud INH 3 ml RQ6 [facility] Administration Enoxaparin Sodium 40 mg 10/20/16 10:00 Lovenox SC DAILY [facility] Gabapentin 300 mg 10/19/16 18:44 Neurontin PO TID PRN Pain, moderate (4-7) Methylprednisolone 40 mg 10/20/16 10:00 Solu-Medrol IVP Q12 [facility] Montelukast Sodium 10 mg 10/19/16 22:00 10/19/16 21:38 Singulair PO 10 mg HS [facility] Administration Moxifloxacin HCl 400 mg 10/19/16 12:30 10/19/16 12:48 Avelox PO 400 mg DAILY [facility] Administration Pantoprazole Sodium 40 mg 10/20/16 10:00 Protonix Ec Tab PO DAILY [facility] Fluticasone/Salmeterol 1 puff 10/19/16 20:00 10/20/16 09:23 Advair Diskus 250/50 INH 1 puff RQ12 [facility] Administration Trazodone HCl 100 mg 10/20/16 10:00 Desyrel PO DAILY [facility] Past Psychiatric History - Past Psychiatric History Previous Treatment History: None Pertinent Medical Hx (Current Medical&Sleep Prob, Allergies): Allergies Allergy/AdvReac Type Severity Reaction Status Date / Time shellfish derived Allergy Verified 09/12/16 23:37 traZODone [Desyrel] 100 mg PO DAILY 09/14/16 Gabapentin [Neurontin] 400 mg PO TID PRN 09/22/16 Albuterol HFA [Ventolin HFA 90 mcg/actuation (8 g)] 0.09 mg IH Q4 PRN #1 inhaler 09/26/16 Albuterol 0.083% [Albuterol 0.083% Inhal Claudia (2.5 mg/3 ml) UD] 2.5 mg IH Q4 # 100 neb 10/17/16 Albuterol HFA [Ventolin HFA 90 mcg/actuation (8 g)] 1 puff IH Q4 #1 puff Prednisone 50 mg PO DAILY #5 tablet 10/17/16 Famotidine [Pepcid] 20 mg PO BID #20 tab 10/19/16 Review of Systems - Neurological Neurological: UNREMARKABLE - Psychiatric Psychiatric: Abnormal Sleep Pattern, Anxiety, Irritability. absent: Hallucinations, Homicidal Ideation, Suicidal Ideation Mental Status Examination - Personal Presentation Personal Presentation: Looks stated age - Affect Affect: Constricted - Motor Activity Motor Activity: Calm - Reliability in Providing Information Reliability in Providing Information: Good - Speech Speech: Organized - Mood Mood: Anxious - Formal Thought Process Formal Thought Process: No Impairment - Cognitive Functions Orientation: Person, Place, Situation, Time Sensorium: Alert Attention/Concentration: Attentive Estimate of Intelligence: Average Judgement: Intact, as evidence by: Insight regarding need for hospitalization Memory: Recent intact, as evidence by: Ability to recall events of the day, Remote intact, as evidenced by: Abilit to recall sig. life events - Risk Risk: Withdrawal, Diminished functioning - Strength & Assets Inventory Strength & Assets Inventory: Cooperative - Limitations Limitations: Living alone DSM 5 DX - DSM 5 DSM 5 Diagnosis: Opioid withdrawal opioid use d/o - severe Cocaine use d/o - severe - Recommended/Plan of Treatment Treatment Recommendations and Plan of Treatment: Methadone detox Support and psychoeducation As need medications Seroquel for insomnia and anxiety and irritability Gabapentin for anxiety [facility] [place] Patient agreed 33 min
[2016-10-20] MEDS: Pantoprazole 40 mg EC Tab PO SCH (12:51)
[2016-10-20] MEDS: Enoxaparin 40 mg Syringe SC SCH (12:51)
[2016-10-21] MEDS: Albuterol-Ipratrop 3 mg / 0.5 (3 ml) UD INH SCH ×5 (01:35→19:34)
[2016-10-21] MEDS: Fluticasone-Salmeterol 250-50mcg Diskus INH SCH ×2 (07:37→19:34)
[2016-10-21] MEDS: Pantoprazole 40 mg EC Tab PO SCH (11:14)
[2016-10-21] MEDS: Enoxaparin 40 mg Syringe SC SCH (11:15)
[2016-10-21] MEDS: MethylPREDNISolone 40 mg Vial IVP SCH ×2 (11:16→21:15)
--- NOTE | 2016-10-21 15:07 | PCM.PYCHPN ---
Psychiatric Progress Note - Psychiatric Progress Note Patient seen today, length of contact: 16 min Patient Chief Complaint: "I am shaky" Problems Identified/Issues Discussed: The patient is seen, chart reviewed and case discussed. 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 He is somewhat better and detox is going well. However, he still feels anxious and shaky. Ativan ordered. 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 Aftercare discussed, again, [facility] recommended. Medication Change: Yes (Add Ativan) Medical Record Reviewed: Yes Mental Status Examination - Cognitive Function Orientation: Person, Place, Situation, Time Memory: Intact Attention: Poor Concentration: Poor Association: WNL Fund of Knowledge: WNL - Mood Mood: Anxious - Affect Affect: Constricted - Speech Speech: Appropriate - Formal Thought Process Formal Thought Process: No Impairment - Suicidal Ideation Suicidal Ideation: No - Homicidal Ideation Homicidal Ideation: No Goal/Treatment Plan - Goal/Treatment Plan Need for Continued Stay: Discharge may exacerbated symptoms, Severe functional impairment Progress Toward Problem(s) and Goals/Treatment Plan: Methadone detox ending tomorrow As needed Ativan 1 mg, not more than 3 times a day Support and psychoeducation As need medications Seroquel for insomnia and anxiety and irritability Gabapentin for anxiety Refer to [facility] in [place]. Patient agreed
--- NOTE | 2016-10-21 18:29 | CP.PCM.PN ---
Subjective - Date & Time of Evaluation Date of Evaluation: 10/21/16 Time of Evaluation: 11:20 - Subjective Subjective: clinically same Objective - Vital Signs/Intake and Output Vital Signs (last 24 hours): Temp Pulse Resp BP Pulse Ox 98.3 F 104 H 20 122/74 95 10/21/16 15:00 10/21/16 15:00 10/21/16 15:00 10/21/16 15:00 10/21/16 15:00 Intake and Output: 10/21/16 10/21/16 06:59 18:59 Intake Total 700 Balance 700 - Medications Medications: Current Medications Albuterol/Ipratropium (Duoneb 3 Mg/0.5 Mg (3 Ml) Ud) 3 ml INH RQ6 [facility] Last Admin: 10/21/16 13:25 Dose: 3 ml Enoxaparin Sodium (Lovenox) 40 mg SC DAILY [facility] Last Admin: 10/21/16 11:15 Dose: Not Given Gabapentin (Neurontin) 300 mg PO TID [facility] Last Admin: 10/21/16 17:21 Dose: 300 mg Lorazepam (Ativan) 1 mg PO Q8H PRN PRN Reason: anxiety or agitation Methadone HCl (Methadone) 5 mg PO ONCE ONE Stop: 10/22/16 09:01 Methylprednisolone (Solu-Medrol) 40 mg IVP Q12 [facility] Last Admin: 10/21/16 11:16 Dose: 40 mg Montelukast Sodium (Singulair) 10 mg PO [facility] Last Admin: 10/20/16 21:47 Dose: 10 mg Moxifloxacin HCl (Avelox) 400 mg PO DAILY [facility] Last Admin: 10/21/16 11:15 Dose: 400 mg Pantoprazole Sodium (Protonix Ec Tab) 40 mg PO DAILY [facility] Last Admin: 10/21/16 11:14 Dose: 40 mg Quetiapine Fumarate (Seroquel) 100 mg PO [facility] Last Admin: 10/20/16 21:47 Dose: 100 mg Fluticasone/Salmeterol (Advair Diskus 250/50) 1 puff INH RQ12 [facility] Last Admin: 10/21/16 07:37 Dose: 1 puff Trazodone HCl (Desyrel) 100 mg PO [facility] - Constitutional Appears: Well - Head Exam Head Exam: ATRAUMATIC, NORMAL INSPECTION, NORMOCEPHALIC - Eye Exam Eye Exam: EOMI, Normal appearance, PERRL Pupil Exam: NORMAL ACCOMODATION, PERRL - ENT Exam ENT Exam: Mucous Membranes Moist, Normal Exam - Neck Exam Neck Exam: Full ROM, Normal Inspection. absent: Lymphadenopathy - Respiratory Exam Respiratory Exam: Decreased Breath Sounds - Cardiovascular Exam Cardiovascular Exam: REGULAR RHYTHM, +S1, +S2 - GI/Abdominal Exam GI & Abdominal Exam: Soft, Diminished Bowel Sounds - Rectal Exam Rectal Exam: Deferred Assessment and Plan (1) Asthma Status: Acute (2) Asthma exacerbation Status: Acute (3) Asthma with status asthmaticus Status: Acute (4) Bronchitis Status: Acute (5) Bronchitis Status: Acute (6) Community acquired pneumonia Status: Acute (7) Depression Status: Acute (8) Depression Status: Acute (9) Drug dependence Status: Acute (10) Exacerbation of asthma Status: Acute (11) Gastritis Status: Acute (12) Left against medical advice Status: Acute (13) Major depressive disorder Status: Acute (14) Medical assessment Status: Acute (15) Nausea Status: Acute (16) Opiate addiction Status: Acute (17) Opioid abuse Status: Acute (18) Pneumonia Status: Acute (19) Pneumonia Status: Acute (20) Status asthmaticus Status: Acute (21) Upper respiratory infection Status: Acute (22) Cellulitis, leg Status: Chronic (23) Hepatitis C Status: Chronic (24) Heroin dependence Status: Chronic (25) Hordeolum externum (stye) Status: Resolved (26) Medication reaction Status: Resolved - Assessment and Plan (Free Text) Plan: Continue same DuoNeb Pulmonary consult Lovenox Avelox Advair Smoking cessation counseling Seroquel
[2016-10-22] MEDS: Albuterol-Ipratrop 3 mg / 0.5 (3 ml) UD INH SCH ×4 (00:59→20:20)
[2016-10-22] MEDS: Fluticasone-Salmeterol 250-50mcg Diskus INH SCH ×3 (07:22→20:23)
[2016-10-22] MEDS: MethylPREDNISolone 40 mg Vial IVP SCH ×2 (10:30→21:25)
[2016-10-22] MEDS: Pantoprazole 40 mg EC Tab PO SCH (10:31)
[2016-10-22] MEDS: Enoxaparin 40 mg Syringe SC SCH ×2 (10:31→10:35)
--- NOTE | 2016-10-22 10:32 | CP.PCM.PN ---
<Osvaldo Jett H - Last Filed: 10/22/16 19:02> Subjective - Date & Time of Evaluation Date of Evaluation: 10/22/16 Time of Evaluation: 10:00 - Subjective Subjective: Dr. Elbert Slater service: Patient seen and examined in room. He reports a long history of asthma and IV heroin abuse. He says he does not take regular medication for asthma and does not follow up with anyone for it. He was having worsening shortness of breath before admission. However his breathing has improved significantly. He denies fever, chills, chest pain, shortness of breath, chest tightness, nausea, vomiting, or diarrhea. Objective - Vital Signs/Intake and Output Vital Signs (last 24 hours): Temp Pulse Resp BP Pulse Ox 97.5 F L 113 H 20 122/78 95 10/22/16 08:00 10/22/16 08:00 10/22/16 08:00 10/22/16 08:00 10/22/16 08:00 Intake and Output: 10/22/16 10/22/16 06:59 18:59 Intake Total 550 Balance 550 - Medications Medications: Current Medications Albuterol/Ipratropium (Duoneb 3 Mg/0.5 Mg (3 Ml) Ud) 3 ml INH RQ6 [facility] Last Admin: 10/22/16 07:22 Dose: 3 ml Enoxaparin Sodium (Lovenox) 40 mg SC DAILY [facility] Last Admin: 10/22/16 10:31 Dose: 40 mg Gabapentin (Neurontin) 300 mg PO TID [facility] Last Admin: 10/22/16 10:31 Dose: 300 mg Lorazepam (Ativan) 1 mg PO Q8H PRN PRN Reason: anxiety or agitation Methylprednisolone (Solu-Medrol) 40 mg IVP Q12 [facility] Last Admin: 10/22/16 10:30 Dose: 40 mg Montelukast Sodium (Singulair) 10 mg PO HS [facility] Last Admin: 10/21/16 21:15 Dose: 10 mg Moxifloxacin HCl (Avelox) 400 mg PO DAILY [facility] Last Admin: 10/22/16 10:31 Dose: 400 mg Pantoprazole Sodium (Protonix Ec Tab) 40 mg PO DAILY [facility] Last Admin: 10/22/16 10:31 Dose: 40 mg Quetiapine Fumarate (Seroquel) 100 mg PO HS [facility] Last Admin: 10/21/16 21:21 Dose: 100 mg Fluticasone/Salmeterol (Advair Diskus 250/50) 1 puff INH RQ12 [facility] Last Admin: 10/22/16 07:22 Dose: 1 puff Trazodone HCl (Desyrel) 100 mg PO [facility] Last Admin: 10/21/16 21:15 Dose: 100 mg - Constitutional Appears: Non-toxic, No Acute Distress - Head Exam Head Exam: NORMAL INSPECTION - Eye Exam Eye Exam: Normal appearance. absent: Nystagmus Pupil Exam: NORMAL ACCOMODATION - ENT Exam ENT Exam: Normal Exam - Respiratory Exam Respiratory Exam: Clear to Ausculation Bilateral. absent: Rales, Rhonchi, Wheezes - Cardiovascular Exam Cardiovascular Exam: REGULAR RHYTHM, RRR, +S1, +S2. absent: Gallop, Rubs - GI/Abdominal Exam GI & Abdominal Exam: Soft, Normal Bowel Sounds. absent: Tenderness - Extremities Exam Extremities Exam: Normal Inspection - Back Exam Back Exam: NORMAL INSPECTION - Psychiatric Exam Psychiatric exam: Anxious, Normal Affect, Normal Mood - Skin Skin Exam: Dry, Normal Color Assessment and Plan (1) Exacerbation of asthma Assessment & Plan: Duoneb treatment, steroids, discharge patient with medication, scripts are in the chart. Status: Acute (2) Community acquired pneumonia Assessment & Plan: continue IV Avelox Status: Acute (3) Heroin abuse Assessment & Plan: Patient on methadone, will have psych discharge patient on methadone. Status: Acute <Refugio Slater S - Last Filed: 10/23/16 00:18> Objective - Vital Signs/Intake and Output Vital Signs (last 24 hours): Temp Pulse Resp BP Pulse Ox 98.2 F 101 H 18 143/85 94 L 10/22/16 15:20 10/22/16 15:30 10/22/16 15:20 10/22/16 15:20 10/22/16 15:20 Intake and Output: 10/22/16 10/23/16 18:59 06:59 Intake Total 550 Balance 550 - Medications Medications: Current Medications Albuterol/Ipratropium (Duoneb 3 Mg/0.5 Mg (3 Ml) Ud) 3 ml INH RQ6 [facility] Last Admin: 10/22/16 20:20 Dose: 3 ml Enoxaparin Sodium (Lovenox) 40 mg SC DAILY [facility] Last Admin: 10/22/16 10:35 Dose: Not Given Gabapentin (Neurontin) 300 mg PO TID [facility] Last Admin: 10/22/16 18:42 Dose: 300 mg Lorazepam (Ativan) 1 mg PO Q8H PRN PRN Reason: anxiety or agitation Last Admin: 10/22/16 14:36 Dose: 1 mg Methylprednisolone (Solu-Medrol) 40 mg IVP Q12 [facility] Last Admin: 10/22/16 21:25 Dose: 40 mg Montelukast Sodium (Singulair) 10 mg PO HS [facility] Last Admin: 10/22/16 21:26 Dose: 10 mg Moxifloxacin HCl (Avelox) 400 mg PO DAILY [facility] Last Admin: 10/22/16 10:31 Dose: 400 mg Pantoprazole Sodium (Protonix Ec Tab) 40 mg PO DAILY [facility] Last Admin: 10/22/16 10:31 Dose: 40 mg Quetiapine Fumarate (Seroquel) 100 mg PO [facility] Last Admin: 10/22/16 21:26 Dose: 100 mg Fluticasone/Salmeterol (Advair Diskus 250/50) 1 puff INH RQ12 [facility] Last Admin: 10/22/16 20:23 Dose: 1 puff Trazodone HCl (Desyrel) 100 mg PO [facility] Last Admin: 10/22/16 21:26 Dose: 100 mg Attending/Attestation - Attestation I have personally seen and examined this patient.: Yes I have fully participated in the care of the patient.: Yes I have reviewed all pertinent clinical information, including history, physical exam and plan: Yes Notes (Text): case seen and discussed with staff adn resident mx agreed
--- NOTE | 2016-10-22 12:04 | CP.PCM.PN ---
Subjective - Date & Time of Evaluation Date of Evaluation: 10/22/16 Time of Evaluation: 11:40 - Subjective Subjective: clinically same Objective - Vital Signs/Intake and Output Vital Signs (last 24 hours): Temp Pulse Resp BP Pulse Ox 97.5 F L 113 H 20 122/78 95 10/22/16 08:00 10/22/16 08:00 10/22/16 08:00 10/22/16 08:00 10/22/16 08:00 Intake and Output: 10/22/16 10/22/16 06:59 18:59 Intake Total 550 Balance 550 - Medications Medications: Current Medications Albuterol/Ipratropium (Duoneb 3 Mg/0.5 Mg (3 Ml) Ud) 3 ml INH RQ6 [facility] Last Admin: 10/22/16 07:22 Dose: 3 ml Enoxaparin Sodium (Lovenox) 40 mg SC DAILY [facility] Last Admin: 10/22/16 10:35 Dose: Not Given Gabapentin (Neurontin) 300 mg PO TID [facility] Last Admin: 10/22/16 10:31 Dose: 300 mg Lorazepam (Ativan) 1 mg PO Q8H PRN PRN Reason: anxiety or agitation Methylprednisolone (Solu-Medrol) 40 mg IVP Q12 [facility] Last Admin: 10/22/16 10:30 Dose: 40 mg Montelukast Sodium (Singulair) 10 mg PO HS [facility] Last Admin: 10/21/16 21:15 Dose: 10 mg Moxifloxacin HCl (Avelox) 400 mg PO DAILY [facility] Last Admin: 10/22/16 10:31 Dose: 400 mg Pantoprazole Sodium (Protonix Ec Tab) 40 mg PO DAILY [facility] Last Admin: 10/22/16 10:31 Dose: 40 mg Quetiapine Fumarate (Seroquel) 100 mg PO HS [facility] Last Admin: 10/21/16 21:21 Dose: 100 mg Fluticasone/Salmeterol (Advair Diskus 250/50) 1 puff INH RQ12 [facility] Last Admin: 10/22/16 07:22 Dose: 1 puff Trazodone HCl (Desyrel) 100 mg PO HS [facility] Last Admin: 10/21/16 21:15 Dose: 100 mg - Constitutional Appears: Well - Head Exam Head Exam: ATRAUMATIC, NORMAL INSPECTION, NORMOCEPHALIC - Eye Exam Eye Exam: EOMI, Normal appearance, PERRL Pupil Exam: NORMAL ACCOMODATION, PERRL - ENT Exam ENT Exam: Mucous Membranes Moist, Normal Exam - Neck Exam Neck Exam: Full ROM, Normal Inspection. absent: Lymphadenopathy - Respiratory Exam Respiratory Exam: Decreased Breath Sounds - Cardiovascular Exam Cardiovascular Exam: REGULAR RHYTHM, +S1, +S2 - GI/Abdominal Exam GI & Abdominal Exam: Soft, Diminished Bowel Sounds - Rectal Exam Rectal Exam: Deferred Assessment and Plan (1) Asthma Status: Acute (2) Asthma exacerbation Status: Acute (3) Asthma with status asthmaticus Status: Acute (4) Bronchitis Status: Acute (5) Bronchitis Status: Acute (6) Community acquired pneumonia Status: Acute (7) Depression Status: Acute (8) Depression Status: Acute (9) Drug dependence Status: Acute (10) Exacerbation of asthma Status: Acute (11) Gastritis Status: Acute (12) Left against medical advice Status: Acute (13) Major depressive disorder Status: Acute (14) Medical assessment Status: Acute (15) Nausea Status: Acute (16) Opiate addiction Status: Acute (17) Opioid abuse Status: Acute (18) Pneumonia Status: Acute (19) Pneumonia Status: Acute (20) Status asthmaticus Status: Acute (21) Upper respiratory infection Status: Acute (22) Cellulitis, leg Status: Chronic (23) Hepatitis C Status: Chronic (24) Heroin dependence Status: Chronic (25) Hordeolum externum (stye) Status: Resolved (26) Medication reaction Status: Resolved - Assessment and Plan (Free Text) Plan: Breathing improved significantly No any other complaints Continue same DuoNeb DVT prophylaxis Solu-Medrol Avelox On methadone Talk with family
[2016-10-23 00:17] VITALS: O2SAT 97
[2016-10-23] MEDS: Albuterol-Ipratrop 3 mg / 0.5 (3 ml) UD INH SCH ×3 (01:03→11:56)
[2016-10-23] MEDS: Fluticasone-Salmeterol 250-50mcg Diskus INH SCH (07:25)
[2016-10-23 09:12] VITALS: BP 136/74; PULSE 84; RESP 18; TEMP 98.2
--- NOTE | 2016-10-23 10:04 | CP.PCM.PN ---
Subjective - Date & Time of Evaluation Date of Evaluation: 10/23/16 Time of Evaluation: 11:00 - Subjective Subjective: clinically same Objective - Vital Signs/Intake and Output Vital Signs (last 24 hours): Temp Pulse Resp BP Pulse Ox 98.2 F 84 18 136/74 97 10/23/16 08:00 10/23/16 08:00 10/23/16 08:00 10/23/16 08:00 10/23/16 08:00 - Medications Medications: Current Medications Albuterol/Ipratropium (Duoneb 3 Mg/0.5 Mg (3 Ml) Ud) 3 ml INH RQ6 [facility] Last Admin: 10/23/16 07:24 Dose: 3 ml Enoxaparin Sodium (Lovenox) 40 mg SC DAILY [facility] Last Admin: 10/22/16 10:35 Dose: Not Given Gabapentin (Neurontin) 300 mg PO TID [facility] Last Admin: 10/22/16 18:42 Dose: 300 mg Lorazepam (Ativan) 1 mg PO Q8H PRN PRN Reason: anxiety or agitation Last Admin: 10/22/16 14:36 Dose: 1 mg Methylprednisolone (Solu-Medrol) 40 mg IVP Q12 [facility] Last Admin: 10/22/16 21:25 Dose: 40 mg Montelukast Sodium (Singulair) 10 mg PO [facility] Last Admin: 10/22/16 21:26 Dose: 10 mg Moxifloxacin HCl (Avelox) 400 mg PO DAILY [facility] Last Admin: 10/22/16 10:31 Dose: 400 mg Pantoprazole Sodium (Protonix Ec Tab) 40 mg PO DAILY [facility] Last Admin: 10/22/16 10:31 Dose: 40 mg Quetiapine Fumarate (Seroquel) 100 mg PO HS [facility] Last Admin: 10/22/16 21:26 Dose: 100 mg Fluticasone/Salmeterol (Advair Diskus 250/50) 1 puff INH RQ12 [facility] Last Admin: 10/23/16 07:25 Dose: 1 puff Trazodone HCl (Desyrel) 100 mg PO HS [facility] Last Admin: 10/22/16 21:26 Dose: 100 mg - Constitutional Appears: Well - Head Exam Head Exam: ATRAUMATIC, NORMAL INSPECTION, NORMOCEPHALIC - Eye Exam Eye Exam: EOMI, Normal appearance, PERRL Pupil Exam: NORMAL ACCOMODATION, PERRL - ENT Exam ENT Exam: Mucous Membranes Moist, Normal Exam - Neck Exam Neck Exam: Full ROM, Normal Inspection. absent: Lymphadenopathy - Respiratory Exam Respiratory Exam: Decreased Breath Sounds - Cardiovascular Exam Cardiovascular Exam: REGULAR RHYTHM, +S1, +S2 - GI/Abdominal Exam GI & Abdominal Exam: Soft, Diminished Bowel Sounds - Rectal Exam Rectal Exam: Deferred Assessment and Plan (1) Asthma Status: Acute (2) Asthma exacerbation Status: Acute (3) Asthma with status asthmaticus Status: Acute (4) Bronchitis Status: Acute (5) Bronchitis Status: Acute (6) Community acquired pneumonia Status: Acute (7) Depression Status: Acute (8) Depression Status: Acute (9) Drug dependence Status: Acute (10) Exacerbation of asthma Status: Acute (11) Gastritis Status: Acute (12) Left against medical advice Status: Acute (13) Major depressive disorder Status: Acute (14) Medical assessment Status: Acute (15) Nausea Status: Acute (16) Opiate addiction Status: Acute (17) Opioid abuse Status: Acute (18) Pneumonia Status: Acute (19) Pneumonia Status: Acute (20) Status asthmaticus Status: Acute (21) Upper respiratory infection Status: Acute (22) Cellulitis, leg Status: Chronic (23) Hepatitis C Status: Chronic (24) Heroin dependence Status: Chronic (25) Hordeolum externum (stye) Status: Resolved (26) Medication reaction Status: Resolved - Assessment and Plan (Free Text) Plan: Cleared for discharge Continue current medications Follow-up with Dr. Sexton in 2 weeks Return to emergency department if symptoms recur
[2016-10-23] MEDS: MethylPREDNISolone 40 mg Vial IVP SCH (10:12)
[2016-10-23] MEDS: Pantoprazole 40 mg EC Tab PO SCH (10:12)
--- NOTE | 2016-10-23 14:43 | PCM.PYCHPN ---
Psychiatric Progress Note - Psychiatric Progress Note Patient seen today, length of contact: 15 min Patient Chief Complaint: "I still have some symptoms" Problems Identified/Issues Discussed: The pt is seen, chart reviewed, case discussed with staff. The pt is compliant with medications and reports no side-effects. Symptoms are improving but needs one more dose it seems - 5 mg ordered After care discussed, support and psychoeducation given. He is leaving today SD and CBT used Medication Change: Yes (add 5 mg methadone) Medical Record Reviewed: Yes Mental Status Examination - Cognitive Function Orientation: Person, Place, Situation, Time Memory: Intact Attention: Poor Concentration: Poor Association: WNL Fund of Knowledge: WNL - Mood Mood: Anxious - Affect Affect: Constricted - Speech Speech: Appropriate - Formal Thought Process Formal Thought Process: No Impairment - Suicidal Ideation Suicidal Ideation: No - Homicidal Ideation Homicidal Ideation: No Goal/Treatment Plan - Goal/Treatment Plan Need for Continued Stay: Discharge may exacerbated symptoms, Severe functional impairment Progress Toward Problem(s) and Goals/Treatment Plan: Cleared for d/c He is going to another program his CM found as he will NOT be accepted by [facility] if he was violated which he will find out today Support given
== END 2016-10-23 14:30 | disposition home or self-care (01) | DRG 96 ==
LOC: C.ER 06:49 → C.9E 08:55 → C.5T 14:14
PROVIDERS: ADMIT Internal Medicine Nephrology; ATTEND Internal Medicine Nephrology
PROC: HZ2ZZZZ Detoxification Services for Substance Abuse Treatment (ICD-10-PCS; principal; 2016-10-20)
PROC: HZ56ZZZ Individual Psychotherapy for Substance Abuse Treatment, Psychoeducation (ICD-10-PCS; 2016-10-20)
PROC: HZ59ZZZ Individual Psychotherapy for Substance Abuse Treatment, Supportive (ICD-10-PCS; 2016-10-20)
PROC: HZ32ZZZ Individual Counseling for Substance Abuse Treatment, Cognitive-Behavioral (ICD-10-PCS; 2016-10-20)
DX: J45.901 Unspecified asthma with (acute) exacerbation (principal); F11.23 Opioid dependence with withdrawal; F14.90 Cocaine use, unspecified, uncomplicated; F41.9 Anxiety disorder, unspecified; F17.210 Nicotine dependence, cigarettes, uncomplicated; G47.00 Insomnia, unspecified

== ENCOUNTER 2016-10-25 11:33 | Emergency (ER) | payer OTHER ==
[2016-10-25 11:38] VITALS: BP 120/81; PULSE 81; RESP 18; TEMP 97.4; O2SAT 94
[2016-10-25] MEDS ORDERED: Albuterol-Ipratrop 3 mg / 0.5 (3 ml) UD INH STA (12:09)
[2016-10-25] MEDS ORDERED: Albuterol-Ipratrop 3 mg / 0.5 (3 ml) UD ONE (12:19)
[2016-10-25 12:32] LABS: BASO # 0.1 K/uL (0.0-0.2); BASO % 0.4 % (0.0-2.0); EOS # 0.2 K/uL (0.0-0.7); EOS % 0.9 % (0.0-4.0); LYMPH % 22.2 % (20.0-40.0); MEAN CELL VOLUME 93.4 fL (80.0-94.0); MEAN CORPUSCULAR HEMOGLOBIN 30.8 pg (27.0-31.0); MEAN PLATELET VOLUME 7.8 fL (7.2-11.7); MONO # 1.7 K/uL (0.0-0.8); MONO % 9.2 % (0.0-10.0); NRBC % 0.1 % (0.0-2.0)
[2016-10-25 12:40] LABS: RBC URINE < 1 /hpf (0-3); URINE BILIRUBIN NEGATIVE (NEGATIVE); URINE BLOOD NEGATIVE (NEGATIVE); URINE COLOR Yellow (YELLOW); URINE GLUCOSE (UA) NORMAL (Normal); URINE KETONE NEGATIVE (NEGATIVE); URINE LEUKOCYTE ESTERASE NEG Leu/uL (Negative); URINE PROTEIN NEGATIVE (NEGATIVE); URINE UROBILINOGEN NORMAL mg/dL (0.2-1.0); WBC URINE < 1 /hpf (0-5)
[2016-10-25 12:43] LABS: CHLORIDE 94 mmol/L (98-107)
[2016-10-25 12:44] LABS: POTASSIUM 3.9 mmol/L (3.6-5.2); SODIUM 132 mmol/L (132-148)
[2016-10-25 12:46] LABS: ALB/GLOB RATIO 1.4 (1.0-2.1); ALKALINE PHOSPHATASE 71 U/L (38-126); AST/SGOT 29 U/L (17-59); BILIRUBIN,TOTAL 0.7 mg/dL (0.2-1.3); BLOOD UREA NITROGEN 26 mg/dL (9-20); CARBON DIOXIDE 28 mmol/L (22-30); GFR AFRICAN-AMERICAN > 60; TOTAL PROTEIN 6.1 g/dL (6.3-8.3)
[2016-10-25 12:47] LABS: ALCOHOL SERUM < 10 mg/dl (0-10); ALT/SGPT 46 U/L (21-72); CALCIUM 8.6 mg/dl (8.6-10.4); GLUCOSE,RANDOM 81 mg/dL (75-110)
--- NOTE | 2016-10-25 12:51 | C.PDOC ---
History Of Present Illness 36-year-old male, presents to the emergency department requests detox from heroin. Patient states he was discharged two days ago, and has not felt well since. Notes that he has relapsed. States he has associated occasional shortness of breath. Pt was discharged with nebulizer and Prednisone and has not used any of the medication. No other complaints at this time. Denies HI/SI. Time Seen by Provider: 10/25/16 12:03 Chief Complaint (Nursing): Psychiatric Evaluation History Per: Patient History/Exam Limitations: no limitations Current Symptoms Are (Timing): Still Present Past Medical History Reviewed: Historical Data, Nursing Documentation, Vital Signs Vital Signs: Last Vital Signs Temp 97.4 F L 10/25/16 11:37 Pulse 81 10/25/16 11:37 Resp 18 10/25/16 11:37 BP 120/81 10/25/16 11:37 Pulse Ox 94 L 10/25/16 15:31 - Medical History PMH: Anxiety, Asthma, Bronchitis, Depression, Pneumonia Denies: Alzheimer's Disease, Anemia, Arthritis, Atrial Fibrillation, Bipolar Disorder, Cardia Arrhythmia, CHF, COPD, Crohn's Disease, Dementia, Diabetes, Diverticulitis, Emphysema, Fractures, Gastritis, Gall Bladder Disease, Hepatitis , HIV, HTN, Hypercholesterolemia, Hyperthyroidism, Hypothyroidism, Kidney Stones , Migraine, Mitral Valve Prolapse, Multiple Sclerosis, Osteoporosis, Pancreatitis, Paranoia, Parkinson's Disease, Peripheral Edema, Post Traumatic Stress Disorder, Pulmonary Embolism, Chronic Kidney Disease, Rheumatoid Arthritis, Schizophrenia, Seizures, Sickle Cell Disease, Sexually Transmitted Disease, Sleep Apnea, TIA Surgical History: Denies: Appendectomy, CABG, Carotid Endarterectomy, Cholecystectomy, Coronary Stent, Pacemaker, Tonsillectomy - [facility] Procedures DETOXIFICATION SERVICES FOR SUBSTANCE ABUSE TREATMENT (08/20/16) GROUP PLUMBING MECHANIC FOR SUBSTANCE ABUSE TREATMENT, PSYCHOEDUCATION (08/20/16) Family History: States: Unknown Family Hx - Social History Hx Tobacco Use: Yes (heavy smoker) Hx Alcohol Use: Yes Hx Substance Use: Yes - Immunization History Hx Tetanus Toxoid Vaccination: Yes Hx Influenza Vaccination: Yes (08/2015) Hx Pneumococcal Vaccination: Yes Review Of Systems Except As Marked, All Systems Reviewed And Found Negative. Constitutional: Negative for: Fever, Chills Cardiovascular: Negative for: Chest Pain Respiratory: Negative for: Cough, Shortness of Breath Gastrointestinal: Negative for: Nausea, Vomiting Musculoskeletal: Negative for: Back Pain Skin: Negative for: Rash Neurological: Negative for: Weakness, Numbness Psych: Negative for: Suicidal ideation Physical Exam - Physical Exam Appears: Non-toxic, No Acute Distress Skin: Warm, Dry, No Rash, Other (track singh on B/L upper extremities) Head: Atraumatic, Normacephalic Eye(s): bilateral: Normal Inspection, EOMI Nose: Normal Oral Mucosa: Moist Lips: Normal Appearing Throat: Normal, No Erythema, No Exudate Neck: Normal ROM, Supple Chest: Symmetrical Cardiovascular: Rhythm Regular Respiratory: No Accessory Muscle Use, Wheezing (diffuse expiratory) Gastrointestinal/Abdominal: Soft, No Tenderness Extremity: Normal ROM Neurological/Psych: Oriented x3, Normal Speech ED Course And Treatment - Laboratory Results Result Diagrams: 10/25/16 12:27 10/25/16 12:27 ECG: Interpreted By Me, Viewed By Me ECG Rhythm: Sinus Bradycardia ECG Interpretation: No Acute Changes Rate From EC O2 Sat by Pulse Oximetry: 94 Progress Note: Plan: Bloodwork and UA ordered and reviewed. Patient treated with Duoneb and Prednisone. Pt was evaluated by barn worker, who informed pt that he did not meet criteria for admission. Pt left prior to re-evaluation. Labs evaluated, elevated WBC. Likely secondary to recent steriod use. Case discussed with Dr Lucero, agreed upon plan and discharge. Disposition - Disposition Disposition: ELOPEMENT - ER ONLY Disposition Time: 15:00 Condition: STABLE - Clinical Impression Clinical Impression: Opiate addiction, Asthma exacerbation - Scribe Statement The provider has reviewed the documentation as recorded by the Vishal Haile All medical record entries made by the Vishal were at my direction and personally dictated by me. I have reviewed the chart and agree that the record accurately reflects my personal performance of the history, physical exam, medical decision making, and the department course for this patient. I have also personally directed, reviewed, and agree with the discharge instructions and disposition.
== END 2016-10-25 14:02 | disposition left against medical advice (07) ==
LOC: C.ER 11:33
DX: F11.20 Opioid dependence, uncomplicated (principal); J45.901 Unspecified asthma with (acute) exacerbation; F17.210 Nicotine dependence, cigarettes, uncomplicated

== ENCOUNTER 2016-10-26 17:28 | Inpatient (IN) | payer MEDICAID, OTHER ==
[2016-10-26 18:22] VITALS: O2SAT 96
--- NOTE | 2016-10-26 19:51 | C.PDOC ---
History Of Present Illness 36 year old patient, with a past medical history of asthma, presents to the ED complaining of increased depression and anxiety. Patient reports he has no plan to harm himself or anyone else. He recently was being treated for anxiety, but not depression. Patient admits to heroin use by IV. Patient denies any pain, shortness of breath, or vomiting at this time. Time Seen by Provider: 10/26/16 19:19 Chief Complaint (Nursing): Psychiatric Evaluation History Per: Patient History/Exam Limitations: no limitations Onset/Duration Of Symptoms: Other Current Symptoms Are (Timing): Still Present Suicide/Self Injury Attempted (Context): None Modifying Factor(s): Other (Heroin) Associated Symptoms: Anxiety, Depression Recent travel outside of the [place]: No Past Medical History Reviewed: Historical Data, Nursing Documentation, Vital Signs Vital Signs: Last Vital Signs Temp 97.8 F 10/26/16 18:19 Pulse 85 10/26/16 18:19 Resp 18 10/26/16 18:19 BP 128/79 10/26/16 18:19 Pulse Ox 96 10/26/16 20:31 - Medical History PMH: Anxiety, Asthma, Bronchitis, Depression, Pneumonia - [facility] Procedures DETOXIFICATION SERVICES FOR SUBSTANCE ABUSE TREATMENT (10/19/16) GROUP RETAIL GENERAL MANAGER FOR SUBSTANCE ABUSE TREATMENT, PSYCHOEDUCATION (08/20/16) INDIV RETAIL GENERAL MANAGER FOR SUBSTANCE ABUSE, COGNITIVE BEHAVIORAL (10/19/16) INDIV PSYCHOTHERAPY FOR SUBSTANCE ABUSE TREATMENT, SUPPORT (10/19/16) INDIV PSYCHOTHERAPY FOR SUBSTANCE ABUSE, PSYCHOEDUCATION (10/19/16) Family History: States: Unknown Family Hx - Social History Hx Tobacco Use: Yes (heavy smoker) Hx Alcohol Use: Yes Hx Substance Use: Yes - Immunization History Hx Tetanus Toxoid Vaccination: Yes Hx Influenza Vaccination: Yes (08/2015) Hx Pneumococcal Vaccination: Yes Review Of Systems Except As Marked, All Systems Reviewed And Found Negative. Respiratory: Negative for: Shortness of Breath Gastrointestinal: Negative for: Vomiting Psych: Negative for: Suicidal ideation Physical Exam - Physical Exam Appears: Non-toxic, No Acute Distress Skin: Warm, Dry Head: Atraumatic, Normacephalic Neck: Supple Chest: Symmetrical Cardiovascular: Rhythm Regular, No Murmur Respiratory: No Rales, No Wheezing Gastrointestinal/Abdominal: Soft, No Tenderness Extremity: Normal ROM, No Pedal Edema Neurological/Psych: Oriented x3, Normal Speech, Normal Cognition ED Course And Treatment - Laboratory Results Result Diagrams: 10/26/16 19:58 10/26/16 19:58 O2 Sat by Pulse Oximetry: 96 (RA) Pulse Ox Interpretation: Normal Progress Note: Plan: -labs, crisis Medical Decision Making Medical Decision Making: Pt medically stable for PES evaluation / admission Pt seen by crisis and after discussion with dr Owen will be admitted to Disposition - Disposition Disposition: HOSPITALIZED Disposition Time: 20:42 Condition: FAIR - Clinical Impression Clinical Impression: Major depressive disorder, Opiate addiction - Scribe Statement The provider has reviewed the documentation as recorded by the Scribe Iza Slater Provider Attestation: All medical record entries made by the Scribe were at my direction and personally dictated by me. I have reviewed the chart and agree that the record accurately reflects my personal performance of the history, physical exam, medical decision making, and the department course for this patient. I have also personally directed, reviewed, and agree with the discharge instructions and disposition.
[2016-10-26 20:05] LABS: BASO % 0.1 % (0.0-2.0); EOS # 0.2 K/uL (0.0-0.7); HEMATOCRIT 45.4 % (35.0-51.0); LYMPH # 3.3 K/uL (1.0-4.3); LYMPH % 20.4 % (20.0-40.0); MEAN CELL VOLUME 94.1 fL (80.0-94.0); MEAN CORPUSCULAR HEMOGLOBIN 31.6 pg (27.0-31.0); MEAN CORPUSCULAR HGB CONC 33.5 g/dL (33.0-37.0); MEAN PLATELET VOLUME 8.5 fL (7.2-11.7); MONO # 1.4 K/uL (0.0-0.8); MONO % 8.7 % (0.0-10.0); NRBC % 0.1 % (0.0-2.0); RED CELL DISTRIBUTION WIDTH 13.7 % (11.5-14.5); WHITE BLOOD COUNT 16.3 K/uL (4.8-10.8)
[2016-10-26 20:10] LABS: CHLORIDE 94 mmol/L (98-107); RBC URINE < 1 /hpf (0-3); URINE BILIRUBIN NEGATIVE (NEGATIVE); URINE BLOOD NEGATIVE (NEGATIVE); URINE COLOR Yellow (YELLOW); URINE GLUCOSE (UA) NORMAL (Normal); URINE KETONE NEGATIVE (NEGATIVE); URINE LEUKOCYTE ESTERASE NEG Leu/uL (Negative); URINE PROTEIN NEGATIVE (NEGATIVE); WBC URINE 1 /hpf (0-5)
[2016-10-26 20:11] LABS: POTASSIUM 4.1 mmol/L (3.6-5.2); SODIUM 136 mmol/L (132-148)
[2016-10-26 20:13] LABS: ALB/GLOB RATIO 1.6 (1.0-2.1); ALKALINE PHOSPHATASE 104 U/L (38-126); AST/SGOT 40 U/L (17-59); BILIRUBIN,TOTAL 0.5 mg/dL (0.2-1.3); BLOOD UREA NITROGEN 28 mg/dL (9-20); CARBON DIOXIDE 28 mmol/L (22-30); GFR AFRICAN-AMERICAN > 60; TOTAL PROTEIN 7.1 g/dL (6.3-8.3)
[2016-10-26 20:14] LABS: ALCOHOL SERUM < 10 mg/dl (0-10); ALT/SGPT 69 U/L (21-72); GLUCOSE,RANDOM 127 mg/dL (75-110)
[2016-10-26] MEDS: Albuterol HFA 90 mcg/actuation (8 g) INH PRN (22:54)
[2016-10-27] MEDS: Fluticasone-Salmeterol 250-50mcg Diskus INH SCH ×2 (10:59→21:55)
--- NOTE | 2016-10-27 13:37 | PCM.PSYCH ---
Initial Psychiatric Evaluation - Initial Psychiatric Evaluation Type of Admission: Voluntary Legal Status: Capacity Chief Complaint (in patient's own words): "I am depressed" History of Present Illness and Precipitating Events: The p is seen, chart reviewed, case discussed. He is known to the commercial lines underwriter Patient is a 36 year old male. He is single and has one child, 3 years old, living in [place] with the mother. He is currently homeless but was living in [place] with his aunt and cousin. 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 Patient reports that he has been using heroin on and off since 2013. He reports that his use became "heavy" after detox again as he relapsed quickly. He uses 10 -12 bags of heroin intravenously. He uses cocaine sometimes but denies other illicit drug use including pain killers, marijuana, and alcohol. He admits to marijuana use when he was younger. He is an occasional cigarette smoker stating he only smokes when he is high from heroin. Of note, the pt was detoxed on the medical floor last week, and d/c'ed on Wednesday. He was there for asthma. He says he did not go to his PO, as he was supposed to, fearing he might get arrested ( he thinks he violated his probation and that there is a warrant for his arrest - however, he is not sure). Instead he got high over the weekend and got more depressed and suicidal again. No plans now. Past Psych Hx: none Fam Psych Hx: none Fam Drug Hx: Father, alcoholism PMH: Asthma Current Medications: Active Medications Generic Name Dose Route Start Last Admin Trade Name Freq PRN Reason Stop Dose Admin Albuterol 1 puff 10/26/16 22:34 10/26/16 22:54 Ventolin Hfa 90 Mcg/Actuation (8 G) INH 1 puff RQ4 PRN Administration Wheezing Escitalopram Oxalate 10 mg 10/27/16 13:45 Lexapro PO DAILY KAYLEE Haloperidol 5 mg 10/26/16 22:36 Haldol PO Q1H PRN agitation, max 4x/24h Hydroxyzine HCl 25 mg 10/26/16 22:36 Atarax PO Q4H PRN Anxiety Ibuprofen 600 mg 10/26/16 22:36 Motrin Tab PO Q6H PRN Pain, moderate (4-7) Methadone HCl 10 mg 10/27/16 13:45 Methadone PO 10/27/16 13:46 ONCE ONE Methadone HCl 5 mg 10/28/16 10:00 Methadone PO 10/30/16 10:01 DAILY KAYLEE Montelukast Sodium 10 mg 10/26/16 22:45 10/26/16 22:53 Singulair PO 10 mg HS KAYLEE Administration Quetiapine Fumarate 100 mg 10/26/16 22:45 10/26/16 22:53 Seroquel PO 100 mg HS KAYLEE Administration Fluticasone/Salmeterol 1 puff 10/27/16 08:00 10/27/16 10:59 Advair Diskus 250/50 INH 1 unit RQ12 KAYLEE Administration Past Psychiatric History - Past Psychiatric History Previous Treatment History: None Pertinent Medical Hx (Current Medical&Sleep Prob, Allergies): Allergies Allergy/AdvReac Type Severity Reaction Status Date / Time shellfish derived Allergy Verified 10/25/16 11:36 traZODone [Desyrel] 100 mg PO DAILY 09/14/16 Gabapentin [Neurontin] 400 mg PO TID PRN 09/22/16 Albuterol HFA [Ventolin HFA 90 mcg/actuation (8 g)] 0.09 mg IH Q4 PRN #1 inhaler 09/26/16 Albuterol 0.083% [Albuterol 0.083% Inhal Claudia (2.5 mg/3 ml) UD] 2.5 mg IH Q4 # 100 neb 10/22/16 Albuterol HFA [Ventolin HFA 90 mcg/actuation (8 g)] 1 puff IH Q4 #1 puff Famotidine [Pepcid] 20 mg PO BID #20 tab 10/22/16 Methylprednisolone [Medrol Dose Pack (21 tabs)] See Taper PO DAILY #21 mg Montelukast [Singulair] 10 mg PO HS #30 tab 10/22/16 Moxifloxacin [Avelox] 400 mg PO DAILY #5 tab 10/22/16 Review of Systems - Psychiatric Psychiatric: Abnormal Sleep Pattern, Anxiety, Depression, Difficulty Concentrating. absent: Hallucinations, Homicidal Ideation, Paranoia, Suicidal Ideation Mental Status Examination - Personal Presentation Personal Presentation: Looks stated age - Affect Affect: Constricted - Motor Activity Motor Activity: Calm - Reliability in Providing Information Reliability in Providing Information: Good - Speech Speech: Organized - Mood Mood: Depressed, Anxious - Formal Thought Process Formal Thought Process: No Impairment - Cognitive Functions Orientation: Person, Place, Situation, Time Sensorium: Alert Attention/Concentration: Attentive Estimate of Intelligence: Average Judgement: Intact, as evidence by: Insight regarding need for hospitalization Memory: Recent intact, as evidence by: Ability to recall events of the day, Remote intact, as evidenced by: Abilit to recall sig. life events - Risk Risk: Diminished functioning - Strength & Assets Inventory Strength & Assets Inventory: Cooperative - Limitations Limitations: Living alone DSM 5 DX - DSM 5 DSM 5 Diagnosis: MAjor depression, severe, recurrent, not-psychotic Opioid withdrawal Opioid use d/o - severe - Recommended/Plan of Treatment Treatment Recommendations and Plan of Treatment: Depression: - Lexapro - Seroquel - Supprt and cbt - Attend groups and activities Opioids: - Short opioid detox - Mi for abstinence - Refer to IOP (he can;t go to rehab with legal issues) 33 min Projected ELOS: 4-5 days Prognosis: good with treatment Discharge Plan and Discharge Criteria: no SI, signif dep, no wdw refer to IOP - Smoking Cessation Smoking Cessation Initiated: Yes
[2016-10-28] MEDS: Fluticasone-Salmeterol 250-50mcg Diskus INH SCH ×2 (13:17→21:25)
--- NOTE | 2016-10-28 22:20 | PCM.PYCHPN ---
Psychiatric Progress Note - Psychiatric Progress Note Patient seen today, length of contact: 16 min Patient Chief Complaint: "I am tired" Problems Identified/Issues Discussed: The pt is seen, chart reviewed, case discussed with staff. The pt is compliant with medications and reports no side-effects. Symptoms are improving but needs more time to stabilize. After care discussed, support and psychoeducation given. AR and CBT used briefly He is isolated and irae. Still not calling his PO Medication Change: No Medical Record Reviewed: Yes Mental Status Examination - Cognitive Function Orientation: Person, Place, Situation, Time Memory: Intact Attention: WNL Concentration: Poor Association: WNL Fund of Knowledge: WNL - Mood Mood: Depressed, Anxious - Affect Affect: Constricted - Speech Speech: Appropriate - Formal Thought Process Formal Thought Process: No Impairment - Suicidal Ideation Suicidal Ideation: No - Homicidal Ideation Homicidal Ideation: No Goal/Treatment Plan - Goal/Treatment Plan Need for Continued Stay: Discharge may exacerbated symptoms, Severe functional impairment Progress Toward Problem(s) and Goals/Treatment Plan: Depression: - Lexapro - Seroquel - Support and cbt - Attend groups and activities Opioids: - Short opioid detox - AR for abstinence - Refer to [facility] Estimated Date of D/C: 10/30/16
[2016-10-29] MEDS: Fluticasone-Salmeterol 250-50mcg Diskus INH SCH ×2 (10:49→22:14)
[2016-10-29] MEDS: Albuterol HFA 90 mcg/actuation (8 g) INH PRN (10:50)
--- NOTE | 2016-10-29 13:19 | PCM.PYCHPN ---
Psychiatric Progress Note - Psychiatric Progress Note Patient seen today, length of contact: 16 min Patient Chief Complaint: "I feel better today" Problems Identified/Issues Discussed: The pt is seen, chart reviewed, case discussed with staff. Patient is feeling better today. He is irritable and resists on calling his regulatory compliance officer due to fear of warrant. Pt states that he did not take his medications last night because he was sleepy. He states that he slept well the night before. After care discussed, support and psychoeducation given. Medical Problems: Asthma Medication Change: Yes (Methadone taper, Gabapentin, Montelukast Sodium, Fluticase/Salmeterol) Medical Record Reviewed: Yes Mental Status Examination - Cognitive Function Orientation: Person, Place, Situation, Time Memory: Intact Attention: WNL Concentration: WNL Association: WNL Fund of Knowledge: WNL - Mood Mood: Depressed (Feels better today ), Anxious - Affect Affect: Constricted - Speech Speech: Appropriate - Formal Thought Process Formal Thought Process: No Impairment - Suicidal Ideation Suicidal Ideation: No - Homicidal Ideation Homicidal Ideation: No Goal/Treatment Plan - Goal/Treatment Plan Need for Continued Stay: Remain at risks for inpatient hospitalization, Severe depression anxiety, Discharge may exacerbated symptoms Progress Toward Problem(s) and Goals/Treatment Plan: Depression: - Lexapro - Seroquel - Supprt and cbt - Attend groups and activities Opioids: - Short opioid detox - [place] for abstinence - Refer to IOP (he can;t go to rehab with legal issues) Estimated Date of D/C: 10/30/16 - Smoking Cessation Smoking Cessation Initiated: No
[2016-10-30] MEDS: Fluticasone-Salmeterol 250-50mcg Diskus INH SCH ×2 (09:31→21:14)
[2016-10-30] MEDS: Albuterol HFA 90 mcg/actuation (8 g) INH PRN (10:11)
--- NOTE | 2016-10-30 14:53 | PCM.PYCHPN ---
Psychiatric Progress Note - Psychiatric Progress Note Patient seen today, length of contact: 20 min Patient Chief Complaint: "I feel anxious" Problems Identified/Issues Discussed: The pt is seen, chart reviewed, case discussed with staff. Patient is currently irritable. He is defensive and shows anger when asked about his plans after discharge. He is anxious about speaking to his parol officer due to fear of a warrant. He refused to take Seroquel last night. After care discussed, support and psychoeduation given. Medical Problems: Asthma Medication Change: Yes (Methandone taper) Medical Record Reviewed: Yes Mental Status Examination - Cognitive Function Orientation: Person, Place, Situation, Time Memory: Intact Attention: WNL Concentration: WNL Association: WNL Fund of Knowledge: WNL - Mood Mood: Anxious, Other (Irritable) - Affect Additional comments: Labile - Speech Speech: Appropriate - Formal Thought Process Formal Thought Process: No Impairment - Suicidal Ideation Suicidal Ideation: No - Homicidal Ideation Homicidal Ideation: No Goal/Treatment Plan - Goal/Treatment Plan Need for Continued Stay: Remain at risks for inpatient hospitalization, Discharge may exacerbated symptoms Progress Toward Problem(s) and Goals/Treatment Plan: Depression: - Lexapro - Seroquel - Supprt and CBT - Attend groups and activities Opioids: - Short opioid detox - [place] for abstinence - Refer to IOP (he can't go to rehab with legal issues) Estimated Date of D/C: 11/02/16 (Needs assistance in contacting PO) - Smoking Cessation Smoking Cessation Initiated: No
[2016-10-31] MEDS: Fluticasone-Salmeterol 250-50mcg Diskus INH SCH ×2 (08:50→20:24)
--- NOTE | 2016-10-31 11:23 | PCM.PYCHPN ---
Psychiatric Progress Note - Psychiatric Progress Note Patient seen today, length of contact: 16 min Patient Chief Complaint: I'm experiencing withdrawal symptoms Problems Identified/Issues Discussed: Patient seen and evaluated, chart reviewed and discussed with the nurse. The patient reports improvement in his mood but still reports withdrawal symptoms including anxiety, headaches and sweating. As per the nurse yesterday he was feeling irritable and agitated pacing back and forth in the hallways. however he denies any suicidal ideation or homicidal ideation. He is taking medications and denied any side effects. Supportive therapy and psychoeducation were given. Medication Change: Yes (Methandone taper, one dose stat) Medical Record Reviewed: Yes Mental Status Examination - Cognitive Function Orientation: Person, Place, Situation, Time Memory: Intact Attention: WNL Concentration: WNL Association: WNL Fund of Knowledge: WNL - Mood Mood: Anxious, Other (Irritable) - Affect Affect: Constricted - Speech Speech: Appropriate - Formal Thought Process Formal Thought Process: No Impairment - Suicidal Ideation Suicidal Ideation: No - Homicidal Ideation Homicidal Ideation: No Goal/Treatment Plan - Goal/Treatment Plan Need for Continued Stay: Remain at risks for inpatient hospitalization, Discharge may exacerbated symptoms, Severe functional impairment Progress Toward Problem(s) and Goals/Treatment Plan: MAjor depression, severe, recurrent, not-psychotic Opioid withdrawal Opioid use d/o - severe Depression: - Lexapro - Seroquel - Supprt and cbt - Attend groups and activities Opioids: - Short opioid detox - [place] for abstinence - Refer to IOP (he can;t go to rehab with legal issues) Estimated Date of D/C: 11/02/16 (Needs assistance in contacting PO) - Smoking Cessation Smoking Cessation Initiated: No
[2016-11-01 07:23] VITALS: RESP 19
[2016-11-01] MEDS: Fluticasone-Salmeterol 250-50mcg Diskus INH SCH ×2 (09:05→21:04)
--- NOTE | 2016-11-01 15:45 | PCM.PYCHPN ---
Psychiatric Progress Note - Psychiatric Progress Note Patient seen today, length of contact: 16 min Patient Chief Complaint: I'm experiencing withdrawal symptoms Problems Identified/Issues Discussed: Patient seen and evaluated, chart reviewed and discussed with the nurse. The patient reports of anxiety and withdrawal symptoms including headaches and sweating. Patient is requesting an extra dose of methadone. Overall he is feeling better since yesterday and he denies any suicidal ideation or homicidal ideation. He is taking medications and denied any side effects. Supportive therapy and psychoeducation were given. Medication Change: Yes (Methandone taper, one dose stat, increase Neurontin) Medical Record Reviewed: Yes Mental Status Examination - Cognitive Function Orientation: Person, Place, Situation, Time Memory: Intact Attention: WNL Concentration: WNL Association: WNL Fund of Knowledge: WNL - Mood Mood: Anxious, Other (Irritable) - Affect Affect: Constricted - Speech Speech: Appropriate - Formal Thought Process Formal Thought Process: No Impairment - Suicidal Ideation Suicidal Ideation: No - Homicidal Ideation Homicidal Ideation: No Goal/Treatment Plan - Goal/Treatment Plan Need for Continued Stay: Remain at risks for inpatient hospitalization, Discharge may exacerbated symptoms, Severe functional impairment Progress Toward Problem(s) and Goals/Treatment Plan: MAjor depression, severe, recurrent, not-psychotic Opioid withdrawal Opioid use d/o - severe Depression: - Lexapro - Seroquel -increase Neurontin - Supprt and cbt - Attend groups and activities Opioids: - Short opioid detox - [place] for abstinence - Refer to IOP (he can;t go to rehab with legal issues) Estimated Date of D/C: 11/02/16 (Needs assistance in contacting PO) - Smoking Cessation Smoking Cessation Initiated: No
[2016-11-01] MEDS: Albuterol HFA 90 mcg/actuation (8 g) INH PRN (16:05)
[2016-11-02 07:58] VITALS: BP 104/61; PULSE 86; TEMP 97.9
--- NOTE | 2016-11-02 08:59 | PCM.PYCHDC ---
Mental Status Examination - Mental Status Examination Orientation: Person, Place, Situation, Time Memory: Intact Mood: Anxious, Other (Irritable) Affect: Broad Speech: Appropriate Attention: WNL Concentration: WNL Association: WNL Fund of Knowledge: WNL Formal Thought Process: No Impairment Suicidal Ideation: No Current Homicidal Ideation?: No Discharge Summary - Discharge Note Reason for Hospitalization: Major depression, severe, recurrent, not-psychotic Opioid withdrawal Opioid use d/o - severe Consultations:: List each consultation separately and include: 1. Reason for request. 2. Findings. 3. Follow-up Summary of Hospital Course include:: 1. Description of specific treatment plan utilized for patients during their course of treatmen. 2. Summarize the time- course for resolution of acute symptoms and/or regressed behaviors. 3. Describe issues identified and worked on during hospitalization. 4. Describe medication utilized. 5. Describe medical problems identified and treated. 6. Reassessment of suicide risk Summary of Hospital Course: The pt is seen, chart reviewed, case discussed. He is known to the appeals writer. Patient is a 36 year old male. He is single and has one child, 3 years old, living in [place] with the mother. He is currently homeless but was living in [place] with his aunt and cousin. 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 Patient reports that he has been using heroin on and off since 2013. He reports that his use became "heavy" after detox again as he relapsed quickly. He uses 10 -12 bags of heroin intravenously. He uses cocaine sometimes but denies other illicit drug use including pain killers, marijuana, and alcohol. He admits to marijuana use when he was younger. He is an occasional cigarette smoker stating he only smokes when he is high from heroin. Of note, the pt was detoxed on the medical floor last week, and d/c'ed on Wednesday. He was there for asthma. He says he did not go to his PO, as he was supposed to, fearing he might get arrested ( he thinks he violated his probation and that there is a warrant for his arrest - however, he is not sure). Instead he got high over the weekend and got more depressed and suicidal again. No plans now. Past Psych Hx: none Fam Psych Hx: none Fam Drug Hx: Father, alcoholism PMH: Asthma Pt seen, chart reviewed, case discussed with staff. Pt feels well today. He continues to be irritable. He states he feels shakes at times, but denies other symptoms. He is sleeping well. Pt denies auditory or visual hallucinations and suicidal thoughts. His plan after discharge is to stay at a [facility] and attend [facility] outpatient program here in [place]. He also plans on going back to work. - Final Diagnosis (DSM 5) Condition upon Discharge: FAIR DSM 5: Major depression, severe, recurrent, not-psychotic Opioid use d/o - severe Disposition: HOME/ ROUTINE Follow-up Treatment Plan: Follow-up Treatment Plan: Continue below meds Attend aftercare: [facility] outpatient program Use relapse prevention skills Attend NA Return to ER if experience suicidal ideation, homicidal ideation, agitation Prescriptions/Medication Reconciliation: Escitalopram [Lexapro] 10 mg PO DAILY #30 tab Gabapentin [Neurontin] 600 mg PO BID #60 tab QUEtiapine [Seroquel] 100 mg PO HS #30 tab Montelukast [Singulair] 10 mg PO QPM #30 tab Albuterol HFA [Ventolin HFA 90 mcg/actuation (8 g)] 1 puff INH RQ4 PRN #1 inhaler PRN Reason: Wheezing - Smoking Cessation Smoking Cessation Medication prescribed: No - Antipsychotic Medications Pt discharged on 2 or more routine antipsychotic medications: No
[2016-11-02] MEDS: Fluticasone-Salmeterol 250-50mcg Diskus INH SCH (10:02)
== END 2016-11-02 10:45 | disposition home or self-care (01) | DRG 744 ==
LOC: C.ER 17:28 → C.9E 20:41 → C.5E 21:06
PROVIDERS: ADMIT Psychiatry & Neurology Psychiatry; ATTEND Psychiatry & Neurology Psychiatry
PROC: HZ2ZZZZ Detoxification Services for Substance Abuse Treatment (ICD-10-PCS; principal; 2016-10-26)
PROC: HZ32ZZZ Individual Counseling for Substance Abuse Treatment, Cognitive-Behavioral (ICD-10-PCS; 2016-10-26)
PROC: HZ46ZZZ Group Counseling for Substance Abuse Treatment, Psychoeducation (ICD-10-PCS; 2016-10-26)
PROC: HZ56ZZZ Individual Psychotherapy for Substance Abuse Treatment, Psychoeducation (ICD-10-PCS; 2016-10-26)
PROC: HZ59ZZZ Individual Psychotherapy for Substance Abuse Treatment, Supportive (ICD-10-PCS; 2016-10-26)
DX: F11.23 Opioid dependence with withdrawal (principal); F33.2 Major depressive disorder, recurrent severe without psychotic features; R45.851 Suicidal ideations; F14.10 Cocaine abuse, uncomplicated; F41.9 Anxiety disorder, unspecified; Z59.0 Homelessness; J45.909 Unspecified asthma, uncomplicated; Z68.21 Body mass index [BMI] 21.0-21.9, adult; Z91.14 Patient's other noncompliance with medication regimen; F16.90 Hallucinogen use, unspecified, uncomplicated; F17.210 Nicotine dependence, cigarettes, uncomplicated; F60.9 Personality disorder, unspecified; Z76.5 Malingerer [conscious simulation]

== ENCOUNTER 2016-11-02 21:58 | Emergency (ER) | payer MEDICAID, OTHER ==
[2016-11-02 22:44] VITALS: BP 149/80; PULSE 93; RESP 20; TEMP 98.1; O2SAT 99
[2016-11-03] MEDS ORDERED: Albuterol-Ipratrop 3 mg / 0.5 (3 ml) UD ONE
[2016-11-03] MEDS ORDERED: Albuterol-Ipratrop 3 mg / 0.5 (3 ml) UD INH STA (00:08)
--- NOTE | 2016-11-03 00:46 | C.PDOC ---
History Of Present Illness 36 year old patient, with a past medical history of depression, pneumonia, anxiety, asthma, and bronchitis, presents to the ED complaining of spasms in his hands and feet. Patient reports he started new psych medications, but is unsure of the names. Patient requests an evaluation because he thinks his symptoms are related to his change in medications. Patient denies any lip swelling, tongue swelling, shortness of breath, chest tightness or rash. Patient also requests an Albuterol treatment. Time Seen by Provider: 11/02/16 23:00 Chief Complaint (Nursing): Medical Clearance History Per: Patient History/Exam Limitations: no limitations Onset/Duration Of Symptoms: Other Current Symptoms Are (Timing): Still Present Severity: Mild Reports Recently: Treated By A Physician Recent travel outside of the [place]: No Past Medical History Reviewed: Historical Data, Nursing Documentation, Vital Signs Vital Signs: Last Vital Signs Temp 98.1 F 11/02/16 22:39 Pulse 93 H 11/02/16 22:39 Resp 20 11/02/16 22:39 BP 149/80 11/02/16 22:39 Pulse Ox 99 11/03/16 06:04 - Medical History PMH: Anxiety, Asthma, Bronchitis, Depression, Pneumonia - [facility] Procedures DETOXIFICATION SERVICES FOR SUBSTANCE ABUSE TREATMENT (10/26/16) GROUP HEATER OPERATOR HELPER FOR SUBSTANCE ABUSE TREATMENT, PSYCHOEDUCATION (08/20/16) INDIV HEATER OPERATOR HELPER FOR SUBSTANCE ABUSE, COGNITIVE BEHAVIORAL (10/19/16) INDIV PSYCHOTHERAPY FOR SUBSTANCE ABUSE TREATMENT, SUPPORT (10/19/16) INDIV PSYCHOTHERAPY FOR SUBSTANCE ABUSE, PSYCHOEDUCATION (10/19/16) Family History: States: Unknown Family Hx - Social History Hx Tobacco Use: Yes (heavy smoker) Hx Alcohol Use: Yes Hx Substance Use: Yes - Immunization History Hx Tetanus Toxoid Vaccination: Yes Hx Influenza Vaccination: Yes (08/2015) Hx Pneumococcal Vaccination: Yes Review Of Systems Except As Marked, All Systems Reviewed And Found Negative. ENT: Negative for: Mouth Swelling (lip, tongue) Respiratory: Negative for: Shortness of Breath, Other (chest tightness) Musculoskeletal: Positive for: Other (spasms in hands and feet) Skin: Negative for: Rash Physical Exam - Physical Exam Appears: Non-toxic, No Acute Distress Skin: Warm, Dry Head: Atraumatic, Normacephalic Eye(s): bilateral: PERRL, EOMI Nose: Normal Oral Mucosa: Moist Tongue: Normal Appearing, No Swelling Lips: Normal Appearing, No Swelling Throat: Normal Neck: Normal ROM, Supple Chest: Symmetrical Cardiovascular: Rhythm Regular Respiratory: No Rales, No Rhonchi, Wheezing (expiratory) Back: Normal Inspection, No CVA Tenderness Extremity: Normal ROM Neurological/Psych: Oriented x3, Normal Motor, Normal Sensation ED Course And Treatment O2 Sat by Pulse Oximetry: 99 (RA) Pulse Ox Interpretation: Normal Progress Note: Benadryl and Duoneb given. Upon reassessment, it has been 2 hours since the Duoneb was given. Patient is sleeping comfortably in the ED without complications. Patient requested a sandwich. He was able to eat without any issues. Patient is in no acute distress. Patient is discharged and instructed to follow up with PMD. Return if symptoms worsen. Disposition Counseled Patient/Family Regarding: Diagnosis, Need For Followup, Rx Given - Disposition Referrals: PMD, PMD [Other] Disposition: HOME/ ROUTINE Disposition Time: 00:46 Condition: GOOD Additional Instructions: Please follow up with your psychiatrist for medication review Return to ER if worse Prescriptions: DiphenhydrAMINE [Benadryl] 25 mg PO QID #20 cap Forms: General Discharge Instructions, Work Excuse - Clinical Impression Clinical Impression: Medical assessment, Medication reaction - PA / INSPECTOR BOILER / Resident Statement MD/DO has reviewed & agrees with the documentation as recorded. - Scribe Statement The provider has reviewed the documentation as recorded by the Scribe Iza Slater All medical record entries made by the Scribe were at my direction and personally dictated by me. I have reviewed the chart and agree that the record accurately reflects my personal performance of the history, physical exam, medical decision making, and the department course for this patient. I have also personally directed, reviewed, and agree with the discharge instructions and disposition.
== END 2016-11-03 00:51 | disposition home or self-care (01) ==
LOC: C.ER 21:58
DX: T88.7XXA Unspecified adverse effect of drug or medicament, initial encounter (principal); T50.905A Adverse effect of unspecified drugs, medicaments and biological substances, initial encounter

== ENCOUNTER 2016-11-06 22:48 | Inpatient (IN) | payer MEDICAID, OTHER ==
--- NOTE | 2016-11-07 00:13 | C.PDOC ---
History Of Present Illness A 36 year old male presents to the emergency room with complaints of suicidal ideation that occurred today. Patient reports that he was just released from the psychiatric [facility]er[facility] at [facility] [place] on 11/02/16 and has been non-complaint with his medication. Patient states that he had a violent outburst at his girlfriend's place today and has thoughts of jumping in front [place] a [place] the [place]. Patient denies any homicidal ideation, fever, chills, nausea, vomiting, diarrhea, or any other complaints. Time Seen by Provider: 11/06/16 23:49 Chief Complaint (Nursing): Psychiatric Evaluation History Per: Patient History/Exam Limitations: no limitations Onset/Duration Of Symptoms: Hrs Current Symptoms Are (Timing): Still Present Suicide/Self Injury Attempted (Context): None Modifying Factor(s): None Severity: None Associated Symptoms: Suicidal Thoughts, Suicidal Plan Recent travel outside of the [place]: No Past Medical History Reviewed: Historical Data, Nursing Documentation, Vital Signs Vital Signs: Last Vital Signs Temp 97.8 F 11/07/16 02:59 Pulse 78 11/07/16 02:59 Resp 14 11/07/16 02:59 BP 113/76 11/07/16 02:59 Pulse Ox 99 11/07/16 06:51 - Medical History PMH: Anxiety, Asthma, Bronchitis, Depression, Pneumonia Denies: Alzheimer's Disease, Anemia, Arthritis, Atrial Fibrillation, Bipolar Disorder, Cardia Arrhythmia, CHF, COPD, Crohn's Disease, Dementia, Diabetes, Diverticulitis, Emphysema, Fractures, Gastritis, Gall Bladder Disease, Hepatitis , HIV, HTN, Hypercholesterolemia, Hyperthyroidism, Hypothyroidism, Kidney Stones , Migraine, Mitral Valve Prolapse, Multiple Sclerosis, Osteoporosis, Pancreatitis, Paranoia, Parkinson's Disease, Peripheral Edema, Post Traumatic Stress Disorder, Pulmonary Embolism, Chronic Kidney Disease, Rheumatoid Arthritis, Schizophrenia, Seizures, Sickle Cell Disease, Sexually Transmitted Disease, Sleep Apnea, TIA Surgical History: Denies: Appendectomy, CABG, Carotid Endarterectomy, Cholecystectomy, Coronary Stent, Pacemaker, Tonsillectomy - [facility] Procedures DETOXIFICATION SERVICES FOR SUBSTANCE ABUSE TREATMENT (10/26/16) GROUP DIRECTOR AUTO FOR SUBSTANCE ABUSE TREATMENT, PSYCHOEDUCATION (08/20/16) INDIV DIRECTOR AUTO FOR SUBSTANCE ABUSE, COGNITIVE BEHAVIORAL (10/19/16) INDIV PSYCHOTHERAPY FOR SUBSTANCE ABUSE TREATMENT, SUPPORT (10/19/16) INDIV PSYCHOTHERAPY FOR SUBSTANCE ABUSE, PSYCHOEDUCATION (10/19/16) Family History: States: Unknown Family Hx - Social History Hx Tobacco Use: Yes (heavy smoker) Hx Alcohol Use: Yes Hx Substance Use: Yes - Immunization History Hx Tetanus Toxoid Vaccination: Yes Hx Influenza Vaccination: Yes (08/2015) Hx Pneumococcal Vaccination: Yes Review Of Systems Except As Marked, All Systems Reviewed And Found Negative. Constitutional: Negative for: Fever, Chills Cardiovascular: Negative for: Chest Pain Respiratory: Negative for: Shortness of Breath Gastrointestinal: Negative for: Nausea, Vomiting, Diarrhea Psych: Positive for: Suicidal ideation Physical Exam - Physical Exam Additional Physical Exam Comments: Constitutional: No acute distress. Head: Normocephalic. Atraumatic. Eyes: PERRL. ENT: Moist mucous membranes. Neck: Supple. Cardiovascular: Regular rate. Chest: No tenderness. Respiratory: Clear to auscultation bilaterally. GI: Soft. Nontender. Nondistended. Back: No CVA tenderness. Musculoskeletal: No tenderness or swelling of extremities. Skin: No rash. Neurologic: Alert, no focal deficit. ED Course And Treatment - Laboratory Results Result Diagrams: 11/07/16 00:26 11/07/16 00:26 O2 Sat by Pulse Oximetry: 99 ED OBSERVATION Date of observation admission: 11/07/16 Time of observation admission: 00:00 - Observation admission statement Patient is being placed in observation because:: PCP use - Progress Note Progress Note: 0200 Sleeping, no distress. 0400 Sleeping, no distress. 0600 Dr. Owen will evaluate the patient this morning. Will sign out to ER day team at change of shift. Disposition - Disposition Disposition Time: 07:03 Condition: STABLE - Clinical Impression Clinical Impression: Depression - Scribe Statement The provider has reviewed the documentation as recorded by the Vishal Omer Provider Scribe Attestation: All medical record entries made by the Vishal were at my direction and personally dictated by me. I have reviewed the chart and agree that the record accurately reflects my personal performance of the history, physical exam, medical decision making, and the department course for this patient. I have also personally directed, reviewed, and agree with the discharge instructions and disposition.
[2016-11-07 00:30] LABS: BASO % 0.5 % (0.0-2.0); EOS # 0.2 K/uL (0.0-0.7); EOS % 2.9 % (0.0-4.0); HEMATOCRIT 40.4 % (35.0-51.0); LYMPH # 1.6 K/uL (1.0-4.3); MEAN CELL VOLUME 93.5 fL (80.0-94.0); MEAN CORPUSCULAR HEMOGLOBIN 31.5 pg (27.0-31.0); MEAN CORPUSCULAR HGB CONC 33.7 g/dL (33.0-37.0); MEAN PLATELET VOLUME 8.2 fL (7.2-11.7); MONO # 0.8 K/uL (0.0-0.8); MONO % 11.3 % (0.0-10.0); RED CELL DISTRIBUTION WIDTH 13.9 % (11.5-14.5); WHITE BLOOD COUNT 6.9 K/uL (4.8-10.8)
[2016-11-07 00:37] LABS: RBC URINE 1 /hpf (0-3); URINE BILIRUBIN NEGATIVE (NEGATIVE); URINE BLOOD NEGATIVE (NEGATIVE); URINE COLOR Yellow (YELLOW); URINE GLUCOSE (UA) NORMAL (Normal); URINE KETONE TRACE mg/dL (NEGATIVE); URINE LEUKOCYTE ESTERASE NEG Leu/uL (Negative); URINE PROTEIN NEGATIVE (NEGATIVE); WBC URINE 2 /hpf (0-5)
[2016-11-07 00:40] LABS: CHLORIDE 106 mmol/L (98-107); POTASSIUM 4.2 mmol/L (3.6-5.2); SODIUM 142 mmol/L (132-148)
[2016-11-07 00:42] LABS: BILIRUBIN,TOTAL 0.5 mg/dL (0.2-1.3); CARBON DIOXIDE 24 mmol/L (22-30); GFR AFRICAN-AMERICAN > 60
[2016-11-07 00:43] LABS: ALB/GLOB RATIO 1.4 (1.0-2.1); ALCOHOL SERUM < 10 mg/dl (0-10); ALKALINE PHOSPHATASE 72 U/L (38-126); ALT/SGPT 132 U/L (21-72); AST/SGOT 65 U/L (17-59); BLOOD UREA NITROGEN 13 mg/dL (9-20); CALCIUM 9.5 mg/dl (8.6-10.4); GLUCOSE,RANDOM 128 mg/dL (75-110); TOTAL PROTEIN 6.6 g/dL (6.3-8.3)
[2016-11-07] MEDS ORDERED: Albuterol HFA 90 mcg/actuation (8 g) INH PRN ×2 (09:11→09:16)
[2016-11-07] MEDS ORDERED: Albuterol-Ipratrop 3 mg / 0.5 (3 ml) UD IH PRN (09:13)
[2016-11-07] MEDS ORDERED: Aluminum Hydroxide/Magnesium Hydroxide Susp (30 mL) PO PRN (09:16)
[2016-11-07 09:29] VITALS: O2SAT 98
[2016-11-07] MEDS ORDERED: Albuterol-Ipratrop 3 mg / 0.5 (3 ml) UD INH PRN (12:42)
--- NOTE | 2016-11-07 13:15 | PCM.PSYCH ---
Initial Psychiatric Evaluation - Initial Psychiatric Evaluation Type of Admission: Voluntary Legal Status: Capacity Chief Complaint (in patient's own words): "I was suicidal" History of Present Illness and Precipitating Events: The p is seen, chart reviewed, case discussed. He is well-known to the machine sign writer Patient is a 36 year old male. He is single and has one child, 3 years old who is living in [place] with the mother. He is currently homeless but stays with a friend and he says he can go back. He was living in [place] with his aunt and cousin. 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 The patient was recently discharged from our psychiatric unit. He says that on Wednesday, day of discharge he was fine and went to his friend. The next day he found out that his mother and he relapsed thereafter. He didn't go to any program or take medications. He had been using couple of bags and he was not in withdrawal when he seen. He also used cocaine and he claims they laced it with PCP as he denies using regularly. He claims he felt suicidal because he " ruining his life" and that he sees his future very negative. He felt like jumping in front of light rail train. He contracts for safety and will follow safety plan. he may be malingering to get in as he is not giving consistent history. From previous admission: Patient reports that he has been using heroin on and off since 2013. He reports that his use became "heavy" after detox again as he relapsed quickly. He normally uses 10-12 bags of heroin intravenously. He uses cocaine sometimes but denies other illicit drug use including pain killers, marijuana, and alcohol. He admits to marijuana use when he was younger. He is an occasional cigarette smoker stating he only smokes when he is high from heroin. Past Psych Hx: none Fam Psych Hx: none Fam Drug Hx: Father, alcoholism PMH: Asthma Current Medications: Active Medications Generic Name Dose Route Start Last Admin Trade Name Freq PRN Reason Stop Dose Admin Al Hydrox/Mg Hydrox/Simethicone 30 ml 11/07/16 09:16 Maalox 30 Ml PO TID PRN Indigestion / Heartburn Albuterol 1 puff 11/07/16 09:16 Ventolin Hfa 90 Mcg/Actuation (8 G) INH RQ4 PRN SOB Albuterol/Ipratropium 3 ml 11/07/16 12:42 Duoneb 3 Mg/0.5 Mg (3 Ml) Ud INH RQ2 PRN severe shortness of breath Clonidine HCl 0.1 mg 11/07/16 09:16 Catapres PO Q8 PRN COWS Score More or Equal to 5 Escitalopram Oxalate 10 mg 11/07/16 10:00 Lexapro PO DAILY ON LICENSE OF [facility] Gabapentin 400 mg 11/07/16 10:00 Neurontin PO TID KAYLEE Loperamide HCl 2 mg 11/07/16 09:16 Imodium PO Q8 PRN Diarrhea Methadone HCl 10 mg 11/07/16 17:00 Methadone PO 11/07/16 17:01 ONCE ONE Methadone HCl 5 mg 11/08/16 10:00 Methadone PO 11/10/16 10:01 DAILY ON LICENSE OF [facility] Montelukast Sodium 10 mg 11/07/16 18:00 Singulair PO QPM ON LICENSE OF [facility] Ondansetron HCl 4 mg 11/07/16 09:16 Zofran Tab PO Q8 PRN Nausea/Vomiting Quetiapine Fumarate 50 mg 11/07/16 10:00 Seroquel PO DAILY ON LICENSE OF [facility] Quetiapine Fumarate 100 mg 11/07/16 18:00 Seroquel PO QPM KAYLEE Trazodone HCl 100 mg 11/07/16 09:11 Desyrel PO HS PRN Insomnia Past Psychiatric History - Past Psychiatric History Previous Treatment History: Inpatient Pertinent Medical Hx (Current Medical&Sleep Prob, Allergies): Allergies Allergy/AdvReac Type Severity Reaction Status Date / Time shellfish derived Allergy Verified 10/25/16 11:36 traZODone [Desyrel] 100 mg PO DAILY 09/14/16 Albuterol HFA [Ventolin HFA 90 mcg/actuation (8 g)] 1 puff INH RQ4 PRN #1 inhaler 11/02/16 Escitalopram [Lexapro] 10 mg PO DAILY #30 tab 11/02/16 Gabapentin [Neurontin] 600 mg PO BID #60 tab 11/02/16 Montelukast [Singulair] 10 mg PO QPM #30 tab 11/02/16 QUEtiapine [Seroquel] 100 mg PO HS #30 tab 11/02/16 DiphenhydrAMINE [Benadryl] 25 mg PO QID #20 cap 11/03/16 Review of Systems - Neurological Neurological: Sensory Deficit - Psychiatric Psychiatric: Abnormal Sleep Pattern, Anhedonia, Anxiety, Depression, Irritability, Mood Swings, Suicidal Ideation (not now). absent: Hallucinations , Homicidal Ideation, Paranoia Mental Status Examination - Personal Presentation Personal Presentation: Looks stated age - Affect Affect: Constricted - Motor Activity Motor Activity: Calm - Reliability in Providing Information Reliability in Providing Information: Fair - Speech Speech: Organized - Mood Mood: Depressed, Anxious - Formal Thought Process Formal Thought Process: No Impairment - Cognitive Functions Orientation: Person, Place, Situation, Time Sensorium: Alert Attention/Concentration: Attentive Estimate of Intelligence: Average Judgement: Imparied, as evidence by: Poor judgement, Intact, as evidence by: Insight regarding need for hospitalization Memory: Recent intact, as evidence by: Ability to recall events of the day, Remote intact, as evidenced by: Abilit to recall sig. life events - Risk Risk: Withdrawal, Diminished functioning - Strength & Assets Inventory Strength & Assets Inventory: Cooperative - Limitations Limitations: Living alone DSM 5 DX - DSM 5 DSM 5 Diagnosis: Major depression, recurrent, severe, nonpsychotic Opioid use disorders, severe Opioid withdrawal PCP use disorder cocaine use disorder Personality disorder, unspecified r/o malingering - Recommended/Plan of Treatment Treatment Recommendations and Plan of Treatment: Lexapro for depression Seroquel for irritability and depression Gabapentin for anxiety Methadone detox, short As needed medications Attend groups and activities [place] and CBT for abstinence and relapse prevention Support and psychoeducation Refer to IOP as the patient is refusing rehabilitation due to pending court date 32 minutes Projected ELOS: 4 days Prognosis: Good with treatment Discharge Plan and Discharge Criteria: No SI or significant depressive or withdrawal symptoms Refer to IOP - Smoking Cessation Smoking Cessation Initiated: Yes
--- NOTE | 2016-11-08 15:59 | PCM.PYCHPN ---
Psychiatric Progress Note - Psychiatric Progress Note Patient seen today, length of contact: 16 min Patient Chief Complaint: "I feel better today" Problems Identified/Issues Discussed: The pt is seen, chart reviewed, case discussed with staff. The pt is compliant with medications and reports no side-effects. Symptoms are improving but needs more time to stabilize. After care discussed, support and psychoeducation given. He is evasive and has his own agenda. PR and CBT used briefly. Medication Change: Yes (detox) Medical Record Reviewed: Yes Mental Status Examination - Cognitive Function Orientation: Person, Place, Situation, Time Memory: Intact Attention: WNL Concentration: WNL Association: WNL Fund of Knowledge: WNL - Mood Mood: Anxious - Affect Affect: Constricted - Speech Speech: Appropriate - Formal Thought Process Formal Thought Process: No Impairment - Suicidal Ideation Suicidal Ideation: No - Homicidal Ideation Homicidal Ideation: No Goal/Treatment Plan - Goal/Treatment Plan Need for Continued Stay: Discharge may exacerbated symptoms Progress Toward Problem(s) and Goals/Treatment Plan: Lexapro for depression Seroquel for irritability and depression Gabapentin for anxiety Methadone detox, short As needed medications Attend groups and activities PR and CBT for abstinence and relapse prevention Support and psychoeducation Refer to IOP Estimated Date of D/C: 11/10/16
--- NOTE | 2016-11-09 12:34 | PCM.PYCHPN ---
Psychiatric Progress Note - Psychiatric Progress Note Patient seen today, length of contact: 17 min Patient Chief Complaint: "I am anxious" Problems Identified/Issues Discussed: The pt is seen, chart reviewed, case discussed with staff. The pt is compliant with medications and reports no side-effects. Symptoms are improving but he still complains of anxiety. After care discussed, seen by the team. He will go to [facility] Support and psychoeducation given. FL and CBT used briefly. Medication Change: Yes (detox) Medical Record Reviewed: Yes Mental Status Examination - Cognitive Function Orientation: Person, Place, Situation, Time Memory: Intact Attention: WNL Concentration: WNL Association: WNL Fund of Knowledge: WNL - Mood Mood: Anxious - Affect Affect: Constricted - Speech Speech: Appropriate - Formal Thought Process Formal Thought Process: No Impairment - Suicidal Ideation Suicidal Ideation: No - Homicidal Ideation Homicidal Ideation: No Goal/Treatment Plan - Goal/Treatment Plan Need for Continued Stay: Discharge may exacerbated symptoms Progress Toward Problem(s) and Goals/Treatment Plan: Lexapro for depression Seroquel for irritability and depression Gabapentin for anxiety Methadone detox, short As needed medications Attend groups and activities FL and CBT for abstinence and relapse prevention Support and psychoeducation Estimated Date of D/C: 11/10/16
[2016-11-10 07:01] VITALS: BP 106/67; PULSE 56; RESP 20; TEMP 97.9
--- NOTE | 2016-11-10 12:10 | PCM.PYCHDC ---
Mental Status Examination - Mental Status Examination Orientation: Person, Place, Situation, Time Memory: Intact Mood: Neutral Affect: Constricted Speech: Appropriate Attention: WNL Concentration: WNL Association: WNL Fund of Knowledge: WNL Formal Thought Process: No Impairment Suicidal Ideation: No Current Homicidal Ideation?: No Discharge Summary - Discharge Note Reason for Hospitalization: Depression, heroin use Psychiatric History (includes Medical, Family, Personal Hx): Mlstly detox admissions, asthma Consultations:: List each consultation separately and include: 1. Reason for request. 2. Findings. 3. Follow-up Summary of Hospital Course include:: 1. Description of specific treatment plan utilized for patients during their course of treatmen. 2. Summarize the time- course for resolution of acute symptoms and/or regressed behaviors. 3. Describe issues identified and worked on during hospitalization. 4. Describe medication utilized. 5. Describe medical problems identified and treated. 6. Reassessment of suicide risk Summary of Hospital Course: The p is seen, chart reviewed, case discussed. 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 He is single and has one child, 3 years old who is living in [place] with the mother. He is currently homeless but stays with a friend and he says he can go back. He was living in [place] with his aunt and cousin. 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 The patient was recently discharged from our psychiatric unit. He says that on Wednesday, day of discharge he was fine and went to his friend. The next day he found out that his mother and he relapsed thereafter. He didn't go to any program or take medications. He had been using couple of bags and he was not in withdrawal when he seen. He also used cocaine and he claims they laced it with PCP as he denies using regularly. He claims he felt suicidal because he " ruining his life" and that he sees his future very negative. He felt like jumping in front of light rail train. He contracts for safety and will follow safety plan. he may be malingering to get in as he is not giving consistent history. From previous admission: Patient reports that he has been using heroin on and off since 2013. He reports that his use became "heavy" after detox again as he relapsed quickly. He normally uses 10-12 bags of heroin intravenously. He uses cocaine sometimes but denies other illicit drug use including pain killers, marijuana, and alcohol. He admits to marijuana use when he was younger. He is an occasional cigarette smoker stating he only smokes when he is high from heroin. Past Psych Hx: none Fam Psych Hx: none Fam Drug Hx: Father, alcoholism PMH: Asthma Hospital course: The pt was admitted and started on treatment with psychotherapy, support, psychoeducation and medications. [place] and CBT used. The pt attended groups and activities, as well as milieu therapy. All the risks and benefits of medications are discussed and the patient understood and agreed. He is again put on methadone taper, and he got an extra dose due to some remaining wdw sxs. He was med seeking at times. After care discussed with the patient. He had already made an appointment with [facility] program for today and is discharged there - Final Diagnosis (DSM 5) Condition upon Discharge: STABLE DSM 5: Major depression, recurrent, severe, non-psychotic Opioid use d/o - severe Opioid withdrawal PCP use d/o (he denies) Cocaine use do Personality d/o - severe r/o Malingering (of psych sxs) r/o Substance-induced depression Disposition: HOME/ ROUTINE Follow-up Treatment Plan: [facility] program But also consider CRC and suboxone treatment if [facility] cannot provide that Continue below medications after discharge. Use relapse prevention skills Return to ER or call 911 if suicidal, homicidal or symptoms relapse. Stay away from stress, alcohol and drugs.
== END 2016-11-10 10:44 | disposition home or self-care (01) | DRG 744 ==
LOC: C.ER 22:48 → OBSVTOIN 11-07 → C.9OBSV 11-07 → C.5E 11-07 09:04
PROVIDERS: ADMIT Psychiatry & Neurology Psychiatry; ATTEND Psychiatry & Neurology Psychiatry
PROC: HZ32ZZZ Individual Counseling for Substance Abuse Treatment, Cognitive-Behavioral (ICD-10-PCS; principal; 2016-11-08)
PROC: HZ2ZZZZ Detoxification Services for Substance Abuse Treatment (ICD-10-PCS; 2016-11-08)
PROC: HZ36ZZZ Individual Counseling for Substance Abuse Treatment, Psychoeducation (ICD-10-PCS; 2016-11-08)
PROC: HZ59ZZZ Individual Psychotherapy for Substance Abuse Treatment, Supportive (ICD-10-PCS; 2016-11-08)
PROC: HZ46ZZZ Group Counseling for Substance Abuse Treatment, Psychoeducation (ICD-10-PCS; 2016-11-08)
DX: F11.23 Opioid dependence with withdrawal (principal); F33.2 Major depressive disorder, recurrent severe without psychotic features; R45.851 Suicidal ideations; Z91.14 Patient's other noncompliance with medication regimen; F16.90 Hallucinogen use, unspecified, uncomplicated; F14.90 Cocaine use, unspecified, uncomplicated; F41.9 Anxiety disorder, unspecified; J45.909 Unspecified asthma, uncomplicated; F17.210 Nicotine dependence, cigarettes, uncomplicated; Z59.0 Homelessness; F60.9 Personality disorder, unspecified; Z76.5 Malingerer [conscious simulation]

== ENCOUNTER 2016-11-11 21:36 | Emergency (ER) | payer MEDICAID, OTHER ==
[2016-11-11 22:01] VITALS: BP 132/88; PULSE 90; RESP 18; TEMP 98; O2SAT 97
--- NOTE | 2016-11-11 22:29 | C.PDOC ---
History Of Present Illness 36 y/o male presents to ED requesting albuterol pump refill and nebulizer treatment. Patient reports that he left his inhaler in his girlfriend's car earlier tonight. Patient otherwise denies fever, chills, cough, SOB, chest tightness, chest pain, nausea, vomiting, or other associated symptoms. Time Seen by Provider: 11/11/16 22:19 Chief Complaint (Nursing): Medical Clearance History Per: Patient History/Exam Limitations: no limitations Current Symptoms Are (Timing): Still Present Recent travel outside of the [place]: No Past Medical History Reviewed: Historical Data, Nursing Documentation, Vital Signs Vital Signs: Last Vital Signs Temp 98 F 11/11/16 21:57 Pulse 90 11/11/16 21:57 Resp 18 11/11/16 21:57 BP 132/88 11/11/16 21:57 Pulse Ox 97 11/12/16 00:27 - Medical History PMH: Anxiety, Asthma, Bronchitis, Depression, Pneumonia - [facility] Procedures DETOXIFICATION SERVICES FOR SUBSTANCE ABUSE TREATMENT (11/07/16) GROUP FIRER LOW PRESSURE FOR SUBSTANCE ABUSE TREATMENT, PSYCHOEDUCATION (11/07/16) INDIV FIRER LOW PRESSURE FOR SUBSTANCE ABUSE TREATMENT, PSYCHOEDUCATION (11/07/16) INDIV FIRER LOW PRESSURE FOR SUBSTANCE ABUSE, COGNITIVE BEHAVIORAL (11/07/16) INDIV PSYCHOTHERAPY FOR SUBSTANCE ABUSE TREATMENT, SUPPORT (11/07/16) INDIV PSYCHOTHERAPY FOR SUBSTANCE ABUSE, PSYCHOEDUCATION (10/19/16) Family History: States: Unknown Family Hx - Social History Hx Tobacco Use: Yes (heavy smoker) Hx Alcohol Use: Yes Hx Substance Use: Yes - Immunization History Hx Tetanus Toxoid Vaccination: Yes Hx Influenza Vaccination: No (08/2015) Hx Pneumococcal Vaccination: Yes Review Of Systems Except As Marked, All Systems Reviewed And Found Negative. Constitutional: Negative for: Fever, Chills Cardiovascular: Negative for: Chest Pain Respiratory: Negative for: Cough, Shortness of Breath, Sputum, Wheezing Gastrointestinal: Negative for: Nausea, Vomiting Skin: Negative for: Rash Physical Exam - Physical Exam Appears: Non-toxic, No Acute Distress Skin: Normal Color, Warm, Dry Head: Normacephalic Eye(s): bilateral: Normal Inspection, PERRL Oral Mucosa: Moist Throat: Normal, No Erythema Chest: Symmetrical Cardiovascular: Rhythm Regular, No Murmur Respiratory: Normal Breath Sounds (CTA), No Rhonchi, No Wheezing Back: Normal Inspection Extremity: Normal ROM, Capillary Refill (< 2 sec. ) Neurological/Psych: Oriented x3, Normal Speech, Normal Cognition Gait: Steady ED Course And Treatment O2 Sat by Pulse Oximetry: 97 (RA) Pulse Ox Interpretation: Normal Progress Note: Patient given duoneb treatment as per request. On reevalulation, patient's lungs are CTA, and patient is in no acute distress. Advised to follow up with clinic/PMD within 1-2 days and to take medications as directed. Disposition Counseled Patient/Family Regarding: Diagnosis, Need For Followup, Rx Given - Disposition Disposition: HOME/ ROUTINE Disposition Time: 22:24 Condition: STABLE Additional Instructions: Please follow up with PMD Return to ER if worse Prescriptions: Albuterol HFA [Ventolin HFA 90 mcg/actuation (8 g)] 2 puff IH [id number] #1 Albuterol 0.083% [Albuterol 0.083% Inhal Claudia (2.5 mg/3 ml) UD] 2.5 mg IH TID # 100 neb Instructions: Asthma (ED) - Clinical Impression Clinical Impression: Asthma, Medication refill - PA / HEADING MACHINE OPERATOR / Resident Statement MD/DO has reviewed & agrees with the documentation as recorded. - Scribe Statement The provider has reviewed the documentation as recorded by the Vishal Kraus Provider Scribe Attestation: All medical record entries made by the Scribe were at my direction and personally dictated by me. I have reviewed the chart and agree that the record accurately reflects my personal performance of the history, physical exam, medical decision making, and the department course for this patient. I have also personally directed, reviewed, and agree with the discharge instructions and disposition.
[2016-11-11] MEDS ORDERED: Albuterol 0.083% Inhal Sol (2.5 mg/3 mL) UD IH STA (22:33)
[2016-11-11] MEDS ORDERED: Albuterol 0.083% Inhal Sol (2.5 mg/3 mL) UD ONE (22:37)
== END 2016-11-11 22:57 | disposition home or self-care (01) ==
LOC: C.ER 21:36
DX: J45.909 Unspecified asthma, uncomplicated (principal); F17.210 Nicotine dependence, cigarettes, uncomplicated; Z76.0 Encounter for issue of repeat prescription

== ENCOUNTER 2016-11-14 01:07 | Observation (INO) | payer OTHER ==
[2016-11-14 02:41] LABS: BASO % 0.5 % (0.0-2.0); EOS # 0.5 K/uL (0.0-0.7); HEMATOCRIT 38.8 % (35.0-51.0); LYMPH # 2.2 K/uL (1.0-4.3); LYMPH % 26.3 % (20.0-40.0); MEAN CELL VOLUME 94.2 fL (80.0-94.0); MEAN CORPUSCULAR HEMOGLOBIN 31.3 pg (27.0-31.0); MEAN CORPUSCULAR HGB CONC 33.2 g/dL (33.0-37.0); MEAN PLATELET VOLUME 8.4 fL (7.2-11.7); MONO % 11.4 % (0.0-10.0); RED CELL DISTRIBUTION WIDTH 14.1 % (11.5-14.5); WHITE BLOOD COUNT 8.4 K/uL (4.8-10.8)
[2016-11-14 02:41] LABS: URINE BILIRUBIN NEGATIVE (NEGATIVE); URINE BLOOD NEGATIVE (NEGATIVE); URINE COLOR Yellow (YELLOW); URINE GLUCOSE (UA) NORMAL (Normal); URINE KETONE NEGATIVE (NEGATIVE); URINE LEUKOCYTE ESTERASE NEG Leu/uL (Negative); URINE PROTEIN NEGATIVE (NEGATIVE); WBC URINE < 1 /hpf (0-5)
[2016-11-14 02:47] LABS: CHLORIDE 102 mmol/L (98-107)
[2016-11-14 02:48] LABS: POTASSIUM 4.1 mmol/L (3.6-5.2); SODIUM 141 mmol/L (132-148)
[2016-11-14 02:50] LABS: ALB/GLOB RATIO 1.6 (1.0-2.1); ALKALINE PHOSPHATASE 69 U/L (38-126); AST/SGOT 49 U/L (17-59); BILIRUBIN,TOTAL 0.5 mg/dL (0.2-1.3); BLOOD UREA NITROGEN 11 mg/dL (9-20); CARBON DIOXIDE 28 mmol/L (22-30); GFR AFRICAN-AMERICAN > 60; TOTAL PROTEIN 6.5 g/dL (6.3-8.3)
[2016-11-14 02:51] LABS: ALCOHOL SERUM < 10 mg/dl (0-10); ALT/SGPT 108 U/L (21-72); GLUCOSE,RANDOM 91 mg/dL (75-110)
--- NOTE | 2016-11-14 03:01 | C.PDOC ---
History Of Present Illness 36 yo male w/hx of depression, asthma, multisubstance abuse come in request psych evaluation due to aggressive behaviour, depression ad suicidal ideation. Pt admits, " was aggressive towards my family member and cant control my mood despite taking my psychiatric medication". Pt sts, " took 10 pills of codeine early today, my friend gave it to me". Otherwise, pt denies fever, chills, headache, dizziness, sore throat, CP, SOB, dyspnea, diaphoresis, abd. pain, N/V/ D, back pain, UTI sx. At present time, appears appropriate, not in any apparent distress. FYI: Records from previous ED visits review, multiple visits for past few months for psych evaluation, admissions. Last visit was on 11/07/16 when was seen due to same complaints and admitted to psych floor and released on 11/10/16. Time Seen by Provider: 11/14/16 01:47 Chief Complaint (Nursing): Psychiatric Evaluation History Per: Patient Past Medical History Reviewed: Historical Data, Nursing Documentation, Vital Signs Vital Signs: Last Vital Signs Temp 97.9 F 11/14/16 06:45 Pulse 66 11/14/16 06:45 Resp 18 11/14/16 06:45 BP 109/61 11/14/16 06:45 Pulse Ox 98 11/14/16 06:57 - Medical History PMH: Anxiety, Asthma, Bronchitis, Depression, Pneumonia Denies: Alzheimer's Disease, Anemia, Arthritis, Atrial Fibrillation, Bipolar Disorder, Cardia Arrhythmia, CHF, COPD, Crohn's Disease, Dementia, Diabetes, Diverticulitis, Emphysema, Fractures, Gastritis, Gall Bladder Disease, Hepatitis , HIV, HTN, Hypercholesterolemia, Hyperthyroidism, Hypothyroidism, Kidney Stones , Migraine, Mitral Valve Prolapse, Multiple Sclerosis, Osteoporosis, Pancreatitis, Paranoia, Parkinson's Disease, Peripheral Edema, Post Traumatic Stress Disorder, Pulmonary Embolism, Chronic Kidney Disease, Rheumatoid Arthritis, Schizophrenia, Seizures, Sickle Cell Disease, Sexually Transmitted Disease, Sleep Apnea, TIA Surgical History: Denies: Appendectomy, CABG, Carotid Endarterectomy, Cholecystectomy, Coronary Stent, Pacemaker, Tonsillectomy - [facility] Procedures DETOXIFICATION SERVICES FOR SUBSTANCE ABUSE TREATMENT (11/07/16) GROUP FAMILY MEDICINE PHYSICIAN ASSISTANT FOR SUBSTANCE ABUSE TREATMENT, PSYCHOEDUCATION (11/07/16) INDIV FAMILY MEDICINE PHYSICIAN ASSISTANT FOR SUBSTANCE ABUSE TREATMENT, PSYCHOEDUCATION (11/07/16) INDIV FAMILY MEDICINE PHYSICIAN ASSISTANT FOR SUBSTANCE ABUSE, COGNITIVE BEHAVIORAL (11/07/16) INDIV PSYCHOTHERAPY FOR SUBSTANCE ABUSE TREATMENT, SUPPORT (11/07/16) INDIV PSYCHOTHERAPY FOR SUBSTANCE ABUSE, PSYCHOEDUCATION (10/19/16) Family History: States: Unknown Family Hx - Social History Hx Tobacco Use: Yes (heavy smoker) Hx Alcohol Use: Yes Hx Substance Use: Yes - Immunization History Hx Tetanus Toxoid Vaccination: Yes Hx Influenza Vaccination: No (08/2015) Hx Pneumococcal Vaccination: Yes Review Of Systems Except As Marked, All Systems Reviewed And Found Negative. Constitutional: Negative for: Fever, Chills Eyes: Negative for: Vision Change ENT: Negative for: Throat Pain Cardiovascular: Negative for: Chest Pain, Palpitations, Edema, Light Headedness Respiratory: Negative for: Cough Gastrointestinal: Negative for: Nausea, Vomiting, Abdominal Pain Genitourinary: Negative for: Dysuria, Frequency Musculoskeletal: Negative for: Neck Pain, Back Pain Skin: Negative for: Rash Neurological: Negative for: Weakness, Numbness, Altered Mental Status, Headache , Dizziness Psych: Positive for: Anxiety, Suicidal ideation Physical Exam - Physical Exam Appears: Well, Non-toxic, No Acute Distress Skin: Normal Color, Warm, Dry, No Ecchymosis Eye(s): bilateral: PERRL Ear(s): Bilateral: Normal Nose: Normal, No Discharge Oral Mucosa: Moist, No Drooling Throat: Normal, No Erythema, No Exudate, No Drooling Neck: Normal, Normal ROM, Supple Cardiovascular: Rhythm Regular Respiratory: Normal Breath Sounds, No Stridor, No Wheezing Gastrointestinal/Abdominal: Normal Exam, Soft, No Tenderness, No Distention, No Guarding Back: Normal Inspection, No CVA Tenderness Extremity: Normal ROM, No Pedal Edema, No Deformity Neurological/Psych: Oriented x3, Normal Speech ED Course And Treatment - Laboratory Results Result Diagrams: 11/14/16 02:33 11/14/16 02:33 Lab Interpretation: No Changes Compared To Prior Results ECG: Interpreted By Me, Viewed By Me ECG Rhythm: Sinus Rhythm ECG Interpretation: Normal Interpretation Of ECG: SR@72/min, NAD, no acute T wave or ST-T changes. O2 Sat by Pulse Oximetry: 98 Pulse Ox Interpretation: Normal Medical Decision Making Medical Decision Making: AT 3:00 AM, PT IS MEDICALLY CLEARED FOR CRISIS INTERVIEW AND PSYCHIATRIC EVALUATION. ED OBSERVATION Discharge: Yes Date of observation admission: 11/14/16 Time of observation admission: 02:05 - Observation admission statement Patient is being placed in observation because:: Depressions, suicidal ideation, drug overdose - Goals of Observation Goals of observation are:: Diagnostics, crisis evaluation, dispo - Progress Note Progress Note: 11/14/16 At 3:50, pt resting comfortably in ED, not in any apparent distress. Afebrile, hemodynamicaly stable. neurologicaly intact. Blood work review and appears normal. Pt is medically cleared for crisis and psychiatric evaluation. At 4:20, pt sleeping, easily erosible to verbal stimuli. Neurologicaly intact. EKG- normal study. At 05:36, pt sleeping comfortably in Ed, not in any apparent distress. Neurologicaly intact. As per rider ticket worker, will evaluated patient in ED in few hours. At 06:56, rider ticket worker sts that case discussed with DR. Arriaga again who cleared patient for discharge now. On re-eval, pt is afebrile, hemodynamicaly stable. non-toxic. Ambulatory in ED with stable gait. Tolerate po well in Ed. Pt denies suicidal ideation or attempts now. Pt admits, " I need place to sleep , homeless now". Disposition Counseled Patient/Family Regarding: Studies Performed, Diagnosis, Need For Followup - Disposition Disposition: HOME/ ROUTINE Disposition Time: 06:57 Condition: STABLE - Clinical Impression Clinical Impression: Major depressive disorder
[2016-11-14 06:46] VITALS: BP 109/61; PULSE 66; RESP 18; TEMP 97.9
[2016-11-14 06:57] VITALS: O2SAT 98
--- NOTE | 2016-11-16 18:10 | CARD ---
APPROVED REPORT EKG Measurement Heart [id number] <Conclusion> Normal sinus rhythm Early repolarization Normal ECG
== END 2016-11-14 06:57 | disposition home or self-care (01) ==
LOC: C.ER 01:07 → C.9OBSV 02:05
PROVIDERS: ADMIT Emergency Medicine; ATTEND Emergency Medicine
DX: F11.120 Opioid abuse with intoxication, uncomplicated (principal); F32.9 Major depressive disorder, single episode, unspecified; J45.909 Unspecified asthma, uncomplicated; R45.851 Suicidal ideations; Z87.891 Personal history of nicotine dependence; Z68.21 Body mass index [BMI] 21.0-21.9, adult
CPT/HCPCS: 80053; 80320; 80324; 80345; 80346; 80349; 80353; 80358; 80361; 81001; 83992; 85025; 93005; 99285; G0378

== ENCOUNTER 2016-11-14 09:00 | Emergency (ER) | payer OTHER ==
--- NOTE | 2016-11-14 09:29 | C.PDOC ---
History Of Present Illness 36-year-old male presents to the emergency department w/ complaints of depression and thoughts of hurting himself - denies specific plan. Patient seen in ED at 03:00 this morning requesting psychiatric evaluation, he was evaluated by crisis at the time, and cleared for discharge. He has no physical complaints at this time. Pt admits to using Heroin IVDA. Time Seen by Provider: 11/14/16 09:06 Chief Complaint (Nursing): Substance Abuse History Per: Patient History/Exam Limitations: no limitations Onset/Duration Of Symptoms: Days Current Symptoms Are (Timing): Still Present Modifying Factor(s): Narcotics Severity: Moderate Past Medical History Reviewed: Historical Data, Nursing Documentation, Vital Signs Vital Signs: Last Vital Signs Temp 98.2 F 11/14/16 12:18 Pulse 87 11/14/16 12:18 Resp 16 11/14/16 12:18 BP 131/81 11/14/16 12:18 Pulse Ox 98 11/14/16 12:18 - Medical History PMH: Anxiety, Asthma, Bronchitis, Depression, Pneumonia Surgical History: No Surg Hx - [facility] Procedures DETOXIFICATION SERVICES FOR SUBSTANCE ABUSE TREATMENT (11/07/16) GROUP MECHANIC AND WELDER FOR SUBSTANCE ABUSE TREATMENT, PSYCHOEDUCATION (11/07/16) INDIV MECHANIC AND WELDER FOR SUBSTANCE ABUSE TREATMENT, PSYCHOEDUCATION (11/07/16) INDIV MECHANIC AND WELDER FOR SUBSTANCE ABUSE, COGNITIVE BEHAVIORAL (11/07/16) INDIV PSYCHOTHERAPY FOR SUBSTANCE ABUSE TREATMENT, SUPPORT (11/07/16) INDIV PSYCHOTHERAPY FOR SUBSTANCE ABUSE, PSYCHOEDUCATION (10/19/16) Family History: States: No Known Family Hx - Social History Hx Tobacco Use: Yes (heavy smoker) Hx Alcohol Use: Yes Hx Substance Use: Yes - Immunization History Hx Tetanus Toxoid Vaccination: Yes Hx Influenza Vaccination: No (08/2015) Hx Pneumococcal Vaccination: Yes Review Of Systems Except As Marked, All Systems Reviewed And Found Negative. Constitutional: Negative for: Fever, Chills Cardiovascular: Negative for: Chest Pain, Palpitations Respiratory: Negative for: Cough, Shortness of Breath Gastrointestinal: Negative for: Nausea, Vomiting, Abdominal Pain, Diarrhea Musculoskeletal: Negative for: Back Pain Skin: Negative for: Rash Psych: Positive for: Depression, Suicidal ideation Physical Exam - Physical Exam Appears: Well, Non-toxic, No Acute Distress Skin: Normal Color Head: Atraumatic, Normacephalic Eye(s): bilateral: Normal Inspection Oral Mucosa: Moist Neck: Normal ROM Cardiovascular: Rhythm Regular Respiratory: Normal Breath Sounds, No Accessory Muscle Use, No Rales, No Rhonchi , No Wheezing Gastrointestinal/Abdominal: Normal Exam, Bowel Sounds, Soft, No Tenderness Extremity: Normal ROM, No Pedal Edema, No Calf Tenderness, Other (left anterior/ lateral calf with area of erythema, no fluctuance/induration, no discharge) Extremity: Bilateral: Atraumatic Neurological/Psych: Oriented x3 ED Course And Treatment O2 Sat by Pulse Oximetry: 95 (RA) Pulse Ox Interpretation: Normal Progress Note: 12:00PM -Patient has been seen by crisis counselor, who discussed patient with hematology oncology consultant psychiatrist. Patient has been cleared for discharge from psychiatric [facility]. Patient will be getting discharged home with Rxs for Bactrim and Keflex for leg cellulitis. He was instructed to return to ED if symptoms worsen. Reevaluation Time: 12:05 Reassessment Condition: Improved Disposition Counseled Patient/Family Regarding: Studies Performed, Diagnosis, Need For Followup, Rx Given - Disposition Referrals: [facility] [Outside] Disposition: HOME/ ROUTINE Disposition Time: 12:00 Condition: STABLE Additional Instructions: FOLLOW UP WITH YOUR DOCTOR/CLINIC IN 1-2 DAYS USE MEDICATIONS DIRECTED RETURN TO ER IF SYMPTOMS WORSEN Instructions: Cellulitis (ED) Print Language: LATVIAN - POA Present On Arrival: None - Clinical Impression Clinical Impression: Cellulitis, leg, Heroin dependence, Depression - Scribe Statement The provider has reviewed the documentation as recorded by the Vishal Haile All medical record entries made by the Vishal were at my direction and personally dictated by me. I have reviewed the chart and agree that the record accurately reflects my personal performance of the history, physical exam, medical decision making, and the department course for this patient. I have also personally directed, reviewed, and agree with the discharge instructions and disposition.
[2016-11-14] MEDS ORDERED: Tmp-Smz 800 mg-160 mg DS Tab PO STA (10:07)
[2016-11-14] MEDS ORDERED: Tmp-Smz 800 mg-160 mg DS Tab ONE (10:46)
[2016-11-14 12:11] VITALS: BMI 21.9
[2016-11-14 12:26] VITALS: BP 131/81; PULSE 87; RESP 16; TEMP 98.2
[2016-11-17 16:22] VITALS: O2SAT 95
== END 2016-11-14 12:37 | disposition home or self-care (01) ==
LOC: C.ER 09:00
DX: F32.89 Other specified depressive episodes (principal); L03.116 Cellulitis of left lower limb; F11.20 Opioid dependence, uncomplicated; F17.210 Nicotine dependence, cigarettes, uncomplicated

== ENCOUNTER 2016-11-21 15:12 | Emergency (ER) | payer MEDICAID, OTHER ==
[2016-11-21 15:13] VITALS: BMI 21.9
--- NOTE | 2016-11-21 15:22 | C.PDOC ---
History Of Present Illness 36 year old male presents to the ED with complaints of epigastric abdominal pain for two days with symptoms of sharp and persistent epigastric pain and vomiting worsening over the last day prompting visit. Patient has had nausea and vomiting and one episode of loose stool. He is unable to tolerate anything by mouth today and states he feels feverish but has not taken his temperature. Patient has a history of asthma and did not use his asthma medication and states he is wheezing and feels short of breath. Patient denies any lightheadedness or dizziness. Time Seen by Provider: 11/21/16 15:14 Chief Complaint (Nursing): Abdominal Pain History Per: Patient History/Exam Limitations: no limitations Onset/Duration Of Symptoms: Days Current Symptoms Are (Timing): Still Present Location Of Pain/Discomfort: Epigastric Quality Of Discomfort: Sharp, "Pain" Associated Symptoms: Fever, Nausea, Vomiting, Diarrhea (one episode). denies: Chills Recent travel outside of the [place]: No Past Medical History Reviewed: Historical Data, Nursing Documentation, Vital Signs Vital Signs: Last Vital Signs Temp 98.4 F 11/21/16 20:00 Pulse 82 11/21/16 20:00 Resp 18 11/21/16 20:00 BP 114/74 11/21/16 20:00 Pulse Ox 100 11/21/16 20:00 - Medical History PMH: Anxiety, Asthma, Bronchitis, Depression, Pneumonia Surgical History: Denies: Appendectomy, CABG, Carotid Endarterectomy, Cholecystectomy, Coronary Stent, Tonsillectomy - [facility] Procedures DETOXIFICATION SERVICES FOR SUBSTANCE ABUSE TREATMENT (11/07/16) GROUP CUFF MATCHER FOR SUBSTANCE ABUSE TREATMENT, PSYCHOEDUCATION (11/16/16) GROUP PSYCHOTHERAPY (11/16/16) INDIV CUFF MATCHER FOR SUBSTANCE ABUSE TREATMENT, PSYCHOEDUCATION (11/16/16) INDIV CUFF MATCHER FOR SUBSTANCE ABUSE, COGNITIVE BEHAVIORAL (11/07/16) INDIV PSYCHOTHERAPY FOR SUBSTANCE ABUSE TREATMENT, SUPPORT (11/07/16) INDIV PSYCHOTHERAPY FOR SUBSTANCE ABUSE, PSYCHOEDUCATION (10/19/16) INDIVIDUAL PSYCHOTHERAPY, SUPPORTIVE (11/16/16) MEDICATION MANAGEMENT (11/16/16) MEDS MGMT FOR SUBSTANCE ABUSE TREATMENT, METHADONE MAINT (11/16/16) PHARMACOTHERAPY FOR SUBSTANCE ABUSE, METHADONE MAINT (11/16/16) Family History: States: Unknown Family Hx - Social History Hx Tobacco Use: Yes (heavy smoker) Hx Alcohol Use: No Hx Substance Use: Yes - Immunization History Hx Tetanus Toxoid Vaccination: Yes Hx Influenza Vaccination: No (08/2015) Hx Pneumococcal Vaccination: Yes Review Of Systems Constitutional: Positive for: Fever. Negative for: Chills, Sweats Cardiovascular: Negative for: Chest Pain, Palpitations Respiratory: Positive for: Shortness of Breath, Wheezing. Negative for: Cough Gastrointestinal: Positive for: Nausea, Vomiting, Abdominal Pain, Diarrhea Genitourinary: Negative for: Dysuria, Hematuria Physical Exam - Physical Exam Appears: Non-toxic, No Acute Distress Skin: Warm, Dry Head: Normacephalic Eye(s): bilateral: Normal Inspection Ear(s): Bilateral: Normal Oral Mucosa: Dry Neck: Normal ROM, Supple Chest: Symmetrical, No Deformity Cardiovascular: Rhythm Regular Respiratory: No Accessory Muscle Use, No Rales, No Rhonchi, No Stridor, Wheezing (diffuse wheezing ), Other (no SOB upon examination ) Gastrointestinal/Abdominal: Soft, Tenderness (epigastric tenderness), No Distention, No Guarding, No Rebound Extremity: Normal ROM, No Tenderness Neurological/Psych: Oriented x3 ED Course And Treatment - Laboratory Results Result Diagrams: 11/21/16 15:50 11/21/16 15:50 Lab Interpretation: No Acute Changes Progress Note: 4:45 Patient still c/o nausea and vomiting after 1 liter of saline and Zofran 4mg IV. Additional fluid and medication ordered. 8:00 Patient continues to c/o epigastric pain with nausea and intermittent vomiting after additional Zofran. Reglan ordered. Reevaluation Time: 22:33 Reassessment Condition: Improved (Patient sleeping quietly. Feels better.) Disposition Counseled Patient/Family Regarding: Studies Performed, Diagnosis, Need For Followup, Rx Given - Disposition Referrals: [facility] at [facility] [Outside] Disposition: HOME/ ROUTINE Disposition Time: 22:33 Condition: IMPROVED Additional Instructions: Encourage plenty of fluids and keep your diet bland. Prescriptions: Esomeprazole Strontium 49.3 mg PO DAILY #30 capsule. Ondansetron ODT [Zofran ODT] 1 odt PO BID PRN #6 odt PRN Reason: Nausea/Vomiting Instructions: Gastritis (ED) - Clinical Impression Clinical Impression: Nausea, Vomiting, Gastritis - Scribe Statement The provider has reviewed the documentation as recorded by the Donaldibjeanne Puente All medical record entries made by the Vishal were at my direction and personally dictated by me. I have reviewed the chart and agree that the record accurately reflects my personal performance of the history, physical exam, medical decision making, and the department course for this patient. I have also personally directed, reviewed, and agree with the discharge instructions and disposition.
[2016-11-21] MEDS ORDERED: Sodium Chloride 0.9% 1,000 ML IV ONE ×2 (15:24→16:46)
[2016-11-21] MEDS ORDERED: Aluminum Hydroxide/Magnesium Hydroxide Susp (30 mL) PO STA (15:24)
[2016-11-21] MEDS ORDERED: Belladonna-Phenobarbital PO STA (15:24)
[2016-11-21] MEDS ORDERED: Albuterol 0.083% Inhal Sol (2.5 mg/3 mL) UD IH STA (15:25)
[2016-11-21] MEDS ORDERED: Belladonna-Phenobarbital ONE (15:35)
[2016-11-21] MEDS ORDERED: Sodium Chloride 0.9% 1,000 ML ONE ×2 (15:36→17:09)
[2016-11-21] MEDS ORDERED: Aluminum Hydroxide/Magnesium Hydroxide Susp (30 mL) ONE (15:36)
[2016-11-21] MEDS ORDERED: Albuterol 0.083% Inhal Sol (2.5 mg/3 mL) UD ONE (15:45)
[2016-11-21 15:54] LABS: BASO % 0.5 % (0.0-2.0); EOS # 0.1 K/uL (0.0-0.7); EOS % 1.4 % (0.0-4.0); HEMATOCRIT 42.1 % (35.0-51.0); LYMPH # 1.4 K/uL (1.0-4.3); MEAN CELL VOLUME 93.4 fL (80.0-94.0); MEAN CORPUSCULAR HEMOGLOBIN 30.4 pg (27.0-31.0); MEAN CORPUSCULAR HGB CONC 32.6 g/dL (33.0-37.0); MEAN PLATELET VOLUME 8.3 fL (7.2-11.7); MONO # 1.5 K/uL (0.0-0.8); MONO % 15.7 % (0.0-10.0); WHITE BLOOD COUNT 9.3 K/uL (4.8-10.8)
[2016-11-21 16:04] LABS: CHLORIDE 97 mmol/L (98-107); SODIUM 140 mmol/L (132-148)
[2016-11-21 16:06] LABS: GFR AFRICAN-AMERICAN > 60
[2016-11-21 16:07] LABS: ALB/GLOB RATIO 1.6 (1.0-2.1); ALKALINE PHOSPHATASE 71 U/L (38-126); ALT/SGPT 114 U/L (21-72); AST/SGOT 60 U/L (17-59); BILIRUBIN,TOTAL 0.7 mg/dL (0.2-1.3); BLOOD UREA NITROGEN 13 mg/dL (9-20); CALCIUM 9.2 mg/dl (8.6-10.4); CARBON DIOXIDE 27 mmol/L (22-30); GLUCOSE,RANDOM 91 mg/dL (75-110); TOTAL PROTEIN 7.3 g/dL (6.3-8.3)
[2016-11-21 22:10] LABS: RBC URINE < 1 /hpf (0-3); URINE BILIRUBIN NEGATIVE (NEGATIVE); URINE BLOOD NEGATIVE (NEGATIVE); URINE COLOR Colorless (YELLOW); URINE GLUCOSE (UA) NORMAL (Normal); URINE KETONE NEGATIVE (NEGATIVE); URINE LEUKOCYTE ESTERASE NEG Leu/uL (Negative); URINE PROTEIN NEGATIVE (NEGATIVE); URINE UROBILINOGEN NORMAL mg/dL (0.2-1.0); WBC URINE < 1 /hpf (0-5)
[2016-11-21 22:45] VITALS: BP 112/72; PULSE 91; RESP 16; TEMP 98; O2SAT 96
== END 2016-11-21 22:45 | disposition home or self-care (01) ==
LOC: C.ER 15:12
DX: K29.70 Gastritis, unspecified, without bleeding (principal)
CPT/HCPCS: 80053; 81001; 83690; 85025; 94150; 94640; 96361; 96374; 96375; 96376; 99284; C9113; J2405; J2765; J7040

== ENCOUNTER 2016-11-25 22:13 | Emergency (ER) | payer MEDICAID, OTHER ==
[2016-11-25 22:14] VITALS: BMI 21.9
[2016-11-25 22:23] VITALS: BP 128/75; PULSE 96; TEMP 100.4; O2SAT 96
--- NOTE | 2016-11-25 23:30 | C.PDOC ---
History Of Present Illness Patient is a 36 year old male who presents to the ER with a complaint of fever, body aches, and a mild cough. Patient denies any SOB, chest pain, nausea, or vomiting. Time Seen by Provider: 11/25/16 22:44 Chief Complaint (Nursing): Flu-like Symptoms History Per: Patient History/Exam Limitations: no limitations Onset/Duration Of Symptoms: Hrs Current Symptoms Are (Timing): Still Present Location Of Pain: Diffuse Myalgias Sick Contacts (Context): None Associated Symptoms: Fever, Cough (Mild), Myalgias. denies: Nausea, Vomiting Ear Symptoms: Bilateral: None Recent travel outside of the [place]: No Past Medical History Reviewed: Historical Data, Nursing Documentation, Vital Signs Vital Signs: Last Vital Signs Temp 100.4 F H 11/25/16 22:20 Pulse 96 H 11/25/16 22:20 Resp 20 11/25/16 23:37 BP 128/75 11/25/16 22:20 Pulse Ox 96 11/25/16 23:31 - Medical History PMH: Anxiety, Asthma, Bronchitis, Depression, Pneumonia Surgical History: No Surg Hx - [facility] Procedures DETOXIFICATION SERVICES FOR SUBSTANCE ABUSE TREATMENT (11/07/16) GROUP OPTICS ENGINEER FOR SUBSTANCE ABUSE TREATMENT, PSYCHOEDUCATION (11/16/16) GROUP PSYCHOTHERAPY (11/16/16) INDIV OPTICS ENGINEER FOR SUBSTANCE ABUSE TREATMENT, PSYCHOEDUCATION (11/16/16) INDIV OPTICS ENGINEER FOR SUBSTANCE ABUSE, COGNITIVE BEHAVIORAL (11/07/16) INDIV PSYCHOTHERAPY FOR SUBSTANCE ABUSE TREATMENT, SUPPORT (11/07/16) INDIV PSYCHOTHERAPY FOR SUBSTANCE ABUSE, PSYCHOEDUCATION (10/19/16) INDIVIDUAL PSYCHOTHERAPY, SUPPORTIVE (11/16/16) MEDICATION MANAGEMENT (11/16/16) MEDS MGMT FOR SUBSTANCE ABUSE TREATMENT, METHADONE MAINT (11/16/16) PHARMACOTHERAPY FOR SUBSTANCE ABUSE, METHADONE MAINT (11/16/16) Family History: States: Unknown Family Hx - Social History Hx Tobacco Use: Yes (heavy smoker) Hx Alcohol Use: No Hx Substance Use: Yes - Immunization History Hx Tetanus Toxoid Vaccination: Yes Hx Influenza Vaccination: No (08/2015) Hx Pneumococcal Vaccination: Yes Review Of Systems Constitutional: Positive for: Fever. Negative for: Chills Cardiovascular: Negative for: Chest Pain Respiratory: Positive for: Cough (Mild). Negative for: Shortness of Breath Gastrointestinal: Negative for: Nausea, Vomiting Musculoskeletal: Positive for: Other (Body aches) Physical Exam - Physical Exam Appears: Well, Non-toxic Skin: Normal Color, Warm, Dry Head: Atraumatic, Normacephalic Oral Mucosa: Moist Chest: Symmetrical, No Tenderness Cardiovascular: Rhythm Regular, No Murmur Respiratory: Normal Breath Sounds, No Rales, No Rhonchi, No Wheezing Gastrointestinal/Abdominal: Soft, No Tenderness Neurological/Psych: Oriented x3, Normal Speech, Normal Cognition ED Course And Treatment O2 Sat by Pulse Oximetry: 96 (Room air) Pulse Ox Interpretation: Normal Progress Note: Motrin administered. Upon reexamination, patient shows improvement, patient instructed to follow up with PMD, will be discharged home. Disposition Counseled Patient/Family Regarding: Diagnosis, Need For Followup, Rx Given - Disposition Referrals: [facility] [Outside] Disposition: HOME/ ROUTINE Disposition Time: 23:27 Condition: STABLE Additional Instructions: Please follow up in clinic Take meds as directed Return to ER if worse Prescriptions: Benzonatate [Tessalon Perles] 100 mg PO TID #20 sgl Ibuprofen [Motrin] 600 mg PO Q6H #20 tab predniSONE [Prednisone] 40 mg PO DAILY #10 tab Instructions: Upper Respiratory Infection (ED) - Clinical Impression Clinical Impression: Upper respiratory infection - Scribe Statement The provider has reviewed the documentation as recorded by the Scribjeanne Cameron All medical record entries made by the Scribe were at my direction and personally dictated by me. I have reviewed the chart and agree that the record accurately reflects my personal performance of the history, physical exam, medical decision making, and the department course for this patient. I have also personally directed, reviewed, and agree with the discharge instructions and disposition.
[2016-11-25 23:38] VITALS: RESP 20
== END 2016-11-25 23:37 | disposition home or self-care (01) ==
LOC: C.ER 22:13
DX: J06.9 Acute upper respiratory infection, unspecified (principal); Z72.0 Tobacco use

== ENCOUNTER 2016-11-30 02:57 | Inpatient (IN) | payer MEDICAID, OTHER ==
[2016-11-30 02:58] VITALS: BMI 21.9
[2016-11-30] MEDS ORDERED: Sodium Chloride 0.9% 1,000 ML IV ONE ×3 (03:25→07:57)
--- NOTE | 2016-11-30 03:28 | C.PDOC ---
History Of Present Illness presents with cough, whitish sputum and occasion left sided chest pain with cough. Speaking in complete sentences., non compliant with meds Time Seen by Provider: 11/30/16 03:20 Chief Complaint (Nursing): Shortness Of Breath History Per: Patient History/Exam Limitations: no limitations Onset/Duration Of Symptoms: Days Current Symptoms Are (Timing): Still Present Initiating Event: Upper Respiratory Illness Quality: Dull, Aching Exacerbating Factor(s): Coughing Current Respiratory Medications: See Home Med List Severity: Mild Pain Scale Rating Of: 3 Associated Symptoms: Productive Cough (whitish sputum). denies: Fever, Chills, Dizziness Reports Recently: Seen In ED, Treated By A Physician Recent travel outside of the [place]: No Additional History Per: Patient Past Medical History Reviewed: Historical Data, Nursing Documentation, Vital Signs Vital Signs: Last Vital Signs Temp 98.7 F 11/30/16 03:09 Pulse 103 H 11/30/16 03:09 Resp 20 11/30/16 03:25 BP 106/70 11/30/16 03:09 Pulse Ox 92 L 11/30/16 04:05 - Medical History PMH: Anxiety, Asthma, Bronchitis, Depression, Pneumonia Denies: Arthritis, Bipolar Disorder, Crohn's Disease, Diabetes, Diverticulitis, Fractures, Gastritis, Gall Bladder Disease, Hepatitis, HIV, HTN , Hyperthyroidism, Hypothyroidism, Kidney Stones, Osteoporosis, Pancreatitis, Post Traumatic Stress Disorder, Chronic Kidney Disease, Rheumatoid Arthritis, Schizophrenia, Seizures, Sexually Transmitted Disease, TIA Surgical History: Denies: Appendectomy, CABG, Carotid Endarterectomy, Cholecystectomy, Coronary Stent, Tonsillectomy - [facility] Procedures DETOXIFICATION SERVICES FOR SUBSTANCE ABUSE TREATMENT (11/07/16) GROUP ACTUARIAL ANALYST FOR SUBSTANCE ABUSE TREATMENT, PSYCHOEDUCATION (11/16/16) GROUP PSYCHOTHERAPY (11/16/16) INDIV ACTUARIAL ANALYST FOR SUBSTANCE ABUSE TREATMENT, PSYCHOEDUCATION (11/16/16) INDIV ACTUARIAL ANALYST FOR SUBSTANCE ABUSE, COGNITIVE BEHAVIORAL (11/07/16) INDIV PSYCHOTHERAPY FOR SUBSTANCE ABUSE TREATMENT, SUPPORT (11/07/16) INDIV PSYCHOTHERAPY FOR SUBSTANCE ABUSE, PSYCHOEDUCATION (10/19/16) INDIVIDUAL PSYCHOTHERAPY, SUPPORTIVE (11/16/16) MEDICATION MANAGEMENT (11/16/16) MEDS MGMT FOR SUBSTANCE ABUSE TREATMENT, METHADONE MAINT (11/16/16) PHARMACOTHERAPY FOR SUBSTANCE ABUSE, METHADONE MAINT (11/16/16) Family History: States: No Known Family Hx - Social History Hx Tobacco Use: Yes (heavy smoker) Hx Alcohol Use: No Hx Substance Use: Yes - Immunization History Hx Tetanus Toxoid Vaccination: Yes Hx Influenza Vaccination: No (08/2015) Hx Pneumococcal Vaccination: Yes Review Of Systems Constitutional: Negative for: Fever, Chills Eyes: Negative for: Redness ENT: Negative for: Throat Pain Cardiovascular: Negative for: Chest Pain Respiratory: Positive for: Cough, Shortness of Breath Gastrointestinal: Negative for: Nausea, Vomiting Genitourinary: Negative for: Frequency Musculoskeletal: Negative for: Back Pain Skin: Negative for: Rash, Lesions, Jaundice Neurological: Negative for: Weakness Psych: Negative for: Anxiety Physical Exam - Physical Exam Appears: Non-toxic, No Acute Distress Skin: Warm, Dry Head: Normacephalic Eye(s): bilateral: Normal Inspection Nose: Normal Oral Mucosa: Moist Neck: Supple Chest: Symmetrical Cardiovascular: Rhythm Regular Respiratory: No Rales, Rhonchi (bases L>R) Gastrointestinal/Abdominal: Soft, No Tenderness, No Distention Back: Normal Inspection Extremity: Normal ROM Extremity: Bilateral: Atraumatic Neurological/Psych: Oriented x3, Normal Speech, Normal Cognition Gait: Steady ED Course And Treatment - Laboratory Results Result Diagrams: 11/30/16 04:01 11/30/16 04:01 O2 Sat by Pulse Oximetry: 92 Pulse Ox Interpretation: Abnormal (placed on oxygen 2 l NC) - Radiology CXR: Interpreted by Me, Viewed By Me CXR Interpretation: Yes: Infiltrates (rll), Other (new from 11/16/16). No: Fracture, Pnemothorax Progress Note: blood work, nebs Disposition Discussed With : Refugio Slater Comment: accepted the pt on his service and took over the care at 4 AM Doctor Will See Patient In The: Hospital Counseled Patient/Family Regarding: Studies Performed, Diagnosis - Disposition Disposition: HOSPITALIZED Disposition Time: 03:25 Condition: FAIR - Clinical Impression Clinical Impression: Pneumonia Decision To Admit - Pt Status Changed To: Hospital Disposition Of: Inpatient - Admit Certification Admit to Inpatient:: After my assessment, the patient will require hospitalization for at least two midnights. This is because of the severity of symptoms shown, intensity of services needed, and/or the medical risk in this patient being treated as an outpatient. - InPatient: Physician Admission Certification: I certify that this patient requires 2 or more midnights of care for the following reason:: After my assessment, the patient will require hospitalization for at least two midnights. This is because of the severity of symptoms shown, intensity of services needed, and/or the medical risk in this patient being treated as an outpatient. - . Bed Request Type: Regular Admitting Physician: Refugio Slater Patient Diagnosis: Pneumonia
[2016-11-30] MEDS ORDERED: Piperacillin/Tazobact 3.375 gm 100 ML IVPB STA (03:43)
[2016-11-30 04:06] LABS: BASO # 0.1 K/uL (0.0-0.2); BASO % 0.5 % (0.0-2.0); EOS # 0.2 K/uL (0.0-0.7); EOS % 0.8 % (0.0-4.0); HEMATOCRIT 39.2 % (35.0-51.0); LYMPH # 2.2 K/uL (1.0-4.3); LYMPH % 7.5 % (20.0-40.0); MEAN CELL VOLUME 90.7 fL (80.0-94.0); MEAN CORPUSCULAR HEMOGLOBIN 30.2 pg (27.0-31.0); MEAN CORPUSCULAR HGB CONC 33.3 g/dL (33.0-37.0); MEAN PLATELET VOLUME 7.8 fL (7.2-11.7); MONO # 2.7 K/uL (0.0-0.8); MONO % 9.1 % (0.0-10.0); PLATELET COUNT 372 K/uL (130-400); RED CELL DISTRIBUTION WIDTH 14.1 % (11.5-14.5); WHITE BLOOD COUNT 29.2 K/uL (4.8-10.8)
[2016-11-30] MEDS: Albuterol-Ipratrop 3 mg / 0.5 (3 ml) UD IH SCH ×3 (04:07→04:21)
[2016-11-30] MEDS ORDERED: Albuterol-Ipratrop 3 mg / 0.5 (3 ml) UD ONE ×2 (04:08→08:07)
[2016-11-30] MEDS ORDERED: Piperacillin/Tazobact 3.375 gm 100 ML IVPB ONE ×2 (04:08→14:25)
[2016-11-30] MEDS ORDERED: Sodium Chloride 0.9% 1,000 ML ONE ×4 (04:08→09:50)
[2016-11-30 04:13] LABS: CHLORIDE 95 mmol/L (98-107)
[2016-11-30 04:14] LABS: SODIUM 138 mmol/L (132-148)
[2016-11-30 04:16] LABS: ALB/GLOB RATIO 1.1 (1.0-2.1); ALKALINE PHOSPHATASE 76 U/L (38-126); ALT/SGPT 62 U/L (21-72); AST/SGOT 38 U/L (17-59); BILIRUBIN,TOTAL 0.8 mg/dL (0.2-1.3); BLOOD UREA NITROGEN 11 mg/dL (9-20); CARBON DIOXIDE 28 mmol/L (22-30); GFR AFRICAN-AMERICAN > 60; TOTAL PROTEIN 7.3 g/dL (6.3-8.3)
[2016-11-30 04:17] LABS: CALCIUM 8.6 mg/dl (8.6-10.4); GLUCOSE,RANDOM 105 mg/dL (75-110)
[2016-11-30 04:53] LABS: EOSINOPHIL 1 % (0-4); METAMYELOCYTE 3 % (0-0); MYELOCYTE 2 % (0-0); NEUTROPHIL 68 % (50-75); REACTIVE LYMPHOCYTES 1 % (0-0); TOTAL CELLS COUNTED 100
[2016-11-30] MEDS: Albuterol-Ipratrop 3 mg / 0.5 (3 ml) UD INH SCH ×2 (05:59→08:14)
[2016-11-30] MEDS ORDERED: Azithromycin 500mg/250ML NS 500 MG/250 ML BAG IVPB SCH (09:15)
--- NOTE | 2016-11-30 09:39 | RAD ---
HISTORY: SOB COMPARISON: 11/16/2016 TECHNIQUE: PA and lateral chest radiographs FINDINGS: LUNGS: Bilateral opacities at the lung bases, right greater than left. These are new since prior examination. Likely pneumonia. No congestive change. PLEURA: Very small left pleural effusion. CARDIOVASCULAR: Normal heart size. No congestive change. OSSEOUS STRUCTURES: No significant abnormalities. VISUALIZED UPPER ABDOMEN: Normal. OTHER FINDINGS: None. IMPRESSION: Bibasilar infiltrates new since prior examination of 11/16/2016. Likely pneumonia. 1 of these infiltrates is in the lower lobe and the other is a either lingula or middle lobe.
[2016-11-30] MEDS ORDERED: Azithromycin 500mg/250ML NS 500 MG/250 ML BAG IVPB ONE (10:24)
[2016-11-30 10:33] LABS: VENOUS BLOOD GAS BASE EXCESS 2.4 mmol/L (0.0-2.0); VENOUS BLOOD GAS PCO2 42 mmHg (40-60); VENOUS BLOOD PH 7.42 (7.32-7.43)
[2016-11-30] MEDS: Pantoprazole 40 mg EC Tab PO SCH (10:35)
[2016-11-30] MEDS: Enoxaparin 40 mg Syringe SC SCH (10:38)
[2016-11-30] MEDS ORDERED: Albuterol-Ipratrop 3 mg / 0.5 (3 ml) UD INH SCH (12:00)
[2016-11-30] MEDS ORDERED: Aluminum Hydroxide/Magnesium Hydroxide Susp (30 mL) PO PRN (12:17)
--- NOTE | 2016-11-30 12:19 | PCM.PSYCH ---
Initial Psychiatric Evaluation - Initial Psychiatric Evaluation Type of Admission: Voluntary Legal Status: Capacity Chief Complaint (in patient's own words): "I'm withdrawing" History of Present Illness and Precipitating Events: The pt is seen, chart reviewed and case discussed. Consult was requested for his opioid withdrawal He is well-known to the advertising copywriter from several recent psych admissions or consults. Patient is a 36 year old male. He is single and has one child, 3 years old who is living in [place] with the mother. He is currently homeless but he is happy to be placed at [facility] half-way in [place]. He claims [facility] comes there for treatment and also he found a new job recently. However, he did relapse the next day after d/c from 5E end of October and is using 12 bags a day, IV. Now in withdrawal (COWS>10) as his last use was yesterday. Pt needs maintenance treatment but he is too ambivalent. Not as depressed but mildly agitated and anxious. Not suicidal. No AVH/del. He is here for pneumonia? Past Psychiatric History: Several psych admissions all substance-related ( induced) Family Psychiatric History: None Family Drug History: Father-alcoholism Past Medical History: Asthma Current Medications: Active Medications Generic Name Dose Route Start Last Admin Trade Name Freq PRN Reason Stop Dose Admin Acetaminophen 650 mg 11/30/16 11:19 Tylenol 325mg Tab PO Q6 PRN Pain, moderate (4-7) Albuterol/Ipratropium 3 ml 11/30/16 12:00 Duoneb 3 Mg/0.5 Mg (3 Ml) Ud INH 11/30/16 14:00 RQ4 KAYLEE Enoxaparin Sodium 40 mg 11/30/16 10:00 11/30/16 10:38 Lovenox SC Not Given DAILY KAYLEE Piperacillin Sod/Tazobactam Sod 2.25 gm in 50 mls @ 100 mls/hr 11/30/16 14:00 Zosyn 2.25 Gm Iv Premix IVPB Q8 KAYLEE Azithromycin 500 mg in 250 mls @ 167 mls/hr 11/30/16 09:15 11/30/16 10:30 Zithromax 500mg In Ns Addvantage IVPB 167 mls/hr Q24H KAYLEE Administration Ketorolac Tromethamine 15 mg 11/30/16 11:21 Toradol IVP Q6 PRN Pain, severe (8-10) Methadone HCl 0 mg 12/01/16 09:00 Methadone PO 12/04/16 08:59 Q24H KAYLEE Taper Pantoprazole Sodium 40 mg 11/30/16 10:00 11/30/16 10:35 Protonix Ec Tab PO 40 mg DAILY KAYLEE Administration Past Psychiatric History - Past Psychiatric History Previous Treatment History: Inpatient Pertinent Medical Hx (Current Medical&Sleep Prob, Allergies): Allergies Allergy/AdvReac Type Severity Reaction Status Date / Time shellfish derived Allergy Verified 11/30/16 03:14 Ibuprofen [Motrin] 600 mg PO Q6H #20 tab 11/25/16 Review of Systems - Psychiatric Psychiatric: Abnormal Sleep Pattern, Anhedonia, Anxiety, Behavioral Changes, Change in Appetite, Difficulty Concentrating, Irritability. absent: Auditory Hallucinations, Depression, Hallucinations, Homicidal Ideation, Suicidal Ideation Mental Status Examination - Personal Presentation Personal Presentation: Looks stated age - Affect Affect: Constricted - Motor Activity Motor Activity: Psychomotor Agitation - Reliability in Providing Information Reliability in Providing Information: Fair - Speech Speech: Organized - Mood Mood: Anxious, Other (irate) - Formal Thought Process Formal Thought Process: No Impairment - Obsessions/Compulsions Obsessions: No - Cognitive Functions Orientation: Person, Place, Situation, Time Sensorium: Drowsy Attention/Concentration: Easily distracted Abstract Thinking: [place] Estimate of Intelligence: Average Judgement: Intact, as evidence by: Insight regarding need for hospitalization Memory: Recent intact, as evidence by: Ability to recall events of the day, Remote intact, as evidenced by: Abilit to recall sig. life events - Risk Risk: Withdrawal, Diminished functioning - Strength & Assets Inventory Strength & Assets Inventory: Cooperative - Limitations Limitations: Living alone DSM 5 DX - DSM 5 DSM 5 Diagnosis: Opioid withdrawal Opioid use d/o - severe Major depression, recurrent, mild r/o personality d/o - unspecified - Recommended/Plan of Treatment Treatment Recommendations and Plan of Treatment: Major depression, recurrent, severe, non-psychotic Pt is non-compliant with meds Seroquel for irritability and depression Gabapentin for anxiety Support and Psychoeducation given Opioid use d/o - severe CBT Psychoeducation Supportive therapy Use IL for abstinence Refer to suboxone or Vivitrol treatments Opioid withdrawal-severe CBT Psychoeducation Supportive therapy, individual therapy Methadone taper started 32 min
--- NOTE | 2016-11-30 14:06 | CP.PCM.HP ---
History of Present Illness - History of Present Illness History of Present Illness: 36-year-old male patient with past medical history of bronchitis, Asthma, pneumonia presented to the ED with complaint of cough, whitish sputum and occasional left-sided chest pain with cougNo history of fever patient's came to the emergency room received a DuoNeb treatment patient did not get better although patient was able to speak in full sentences yet decided to admit the patient. No nausea no vomiting no diarrhea no urinary discomfort no headache Speaking in complete sentences. Not compliant with medication. Present on Admission - Present on Admission Any Indicators Present on Admission: No Past Patient History - Infectious Disease Hx of Infectious Diseases: None - Past Medical History & Family History Past Medical History?: No - Past Social History Smoking Status: Heavy Smoker > 10 Cigarettes Daily - CARDIAC Hx Hypertension: No - PULMONARY Hx Asthma: Yes Hx Bronchitis: Yes Hx Pneumonia: Yes - NEUROLOGICAL Hx Seizures: No Hx Transient Ischemic Attacks (TIA): No - HEENT Hx HEENT Problems: No Hx Cataracts: No Hx Deafness: No Hx Difficulty Chewing: No Hx Epistaxis: No Hx Glaucoma: No Hx Macular Degeneration: No - RENAL Hx Chronic Kidney Disease: No Hx Kidney Stones: No - ENDOCRINE/METABOLIC Hx Hyperthyroidism: No Hx Hypothyroidism: No - HEMATOLOGICAL/ONCOLOGICAL Hx Human Immunodeficiency Virus (HIV): No - INTEGUMENTARY Hx Dermatological Problems: No Hx Basil Cell: No Hx Barrera: No Hx Cellulitis: No Hx Eczema: No Hx Melanoma: No Hx Psoriasis: No Hx Squamous Cell: No - MUSCULOSKELETAL/RHEUMATOLOGICAL Hx Arthritis: No Hx Fractures: No Hx Osteoporosis: No Hx Rheumatoid Arthritis: No - GASTROINTESTINAL Hx Crohn's Disease: No Hx Diverticulitis: No Hx Gall Bladder Disease: No Hx Gastritis: No Hx Pancreatitis: No - GENITOURINARY/GYNECOLOGICAL Hx Sexually Transmitted Disorders: No - PSYCHIATRIC Hx Anxiety: Yes Hx Bipolar Disorder: No Hx Depression: Yes Hx Post Traumatic Stress Disorder: No Hx Schizophrenia: No Hx Substance Use: Yes - SURGICAL HISTORY Hx Appendectomy: No Hx Carotid Endarterectomy: No Hx Cholecystectomy: No Hx Coronary Artery Bypass Graft: No Hx Coronary Stent: No Hx Tonsillectomy: No - ANESTHESIA Hx Anesthesia: No Meds Allergies/Adverse Reactions: Allergies Allergy/AdvReac Type Severity Reaction Status Date / Time shellfish derived Allergy RASH Verified 02/24/17 03:11 Physical Exam - Constitutional Appears: Well - Head Exam Head Exam: ATRAUMATIC, NORMAL INSPECTION, NORMOCEPHALIC - Eye Exam Eye Exam: EOMI, Normal appearance, PERRL Pupil Exam: NORMAL ACCOMODATION, PERRL - ENT Exam ENT Exam: Mucous Membranes Moist, Normal Exam - Neck Exam Neck exam: Positive for: Normal Inspection - Respiratory Exam Respiratory Exam: Decreased Breath Sounds - Cardiovascular Exam Cardiovascular Exam: REGULAR RHYTHM, +S1, +S2 - GI/Abdominal Exam GI & Abdominal Exam: Diminished Bowel Sounds, Soft - Rectal Exam Rectal Exam: Deferred Results - Vital Signs Recent Vital Signs: Last Vital Signs Temp 97.9 F 11/30/16 12:05 Pulse 84 11/30/16 12:05 Resp 18 11/30/16 12:05 BP 116/70 11/30/16 12:05 Pulse Ox 98 11/30/16 12:05 - Labs Result Diagrams: 12/05/16 11:59 12/05/16 11:59 Labs: Laboratory Results - last 24 hr 11/30/16 10:30 pO2 54 VBG pH 7.42 VBG pCO2 42 VBG HCO3 26.6 VBG Total CO2 28.5 H VBG O2 Sat (Calc) 89.2 H VBG Base Excess 2.4 H VBG Potassium 4.4 Sodium 139.0 Chloride 105.0 Glucose 103 Lactate 1.2 Venous Blood Potassium 4.4 Assessment & Plan (1) Asthma Status: Acute (2) Asthma Status: Acute (3) Asthma exacerbation Status: Acute (4) Asthma with status asthmaticus Status: Acute (5) Bronchitis Status: Acute (6) Bronchitis Status: Acute (7) Bronchitis Status: Acute (8) Community acquired pneumonia Status: Acute (9) Depression Status: Acute (10) Depression Status: Acute (11) Drug dependence Status: Acute (12) Exacerbation of asthma Status: Acute (13) Gastritis Status: Acute (14) Left against medical advice Status: Acute (15) Major depressive disorder Status: Acute (16) Medical assessment Status: Acute (17) Nausea Status: Acute (18) Opiate addiction Status: Acute (19) Opioid abuse Status: Acute (20) Pneumonia Status: Acute (21) Pneumonia Status: Acute (22) Status asthmaticus Status: Acute (23) Upper respiratory infection Status: Acute (24) Cellulitis, leg Status: Chronic (25) Hepatitis C Status: Chronic (26) Heroin dependence Status: Chronic (27) Hordeolum externum (stye) Status: Resolved (28) Medication reaction Status: Resolved - Assessment and Plan (Free Text) Plan: Consult pulmonology MiraLAX DuoNeb Lovenox Neurontin Piperacillin sod/tazobactam Azithromycin Zofran Protonix
[2016-11-30] MEDS: D5W IVPB SCH ×2 (14:30→22:20)
[2016-11-30] MEDS: TAZO IVPB SCH ×2 (14:30→22:20)
[2016-11-30] MEDS: PIPERACILL IVPB SCH ×2 (14:30→22:20)
[2016-11-30] MEDS ORDERED: Albuterol-Ipratrop 3 mg / 0.5 (3 ml) UD INH STA (22:40)
[2016-12-01] MEDS: Albuterol-Ipratrop 3 mg / 0.5 (3 ml) UD INH SCH ×4 (02:00→20:22)
[2016-12-01] MEDS: D5W IVPB SCH ×3 (06:07→21:23)
[2016-12-01] MEDS: PIPERACILL IVPB SCH ×3 (06:07→21:23)
[2016-12-01] MEDS: TAZO IVPB SCH ×3 (06:07→21:23)
[2016-12-01] MEDS: Azithromycin 500 MG in Sodium Chloride 0.9% 250 ML IVPB SCH (09:30)
[2016-12-01] MEDS: Pantoprazole 40 mg EC Tab PO SCH (10:44)
[2016-12-01] MEDS: Enoxaparin 40 mg Syringe SC SCH (10:44)
--- NOTE | 2016-12-01 15:53 | CP.PCM.PN ---
Subjective - Date & Time of Evaluation Date of Evaluation: 12/01/16 Time of Evaluation: 12:20 - Subjective Subjective: clinically same Objective - Vital Signs/Intake and Output Vital Signs (last 24 hours): Temp Pulse Resp BP Pulse Ox 98.1 F 80 18 109/71 96 12/01/16 07:40 12/01/16 07:40 12/01/16 07:40 12/01/16 07:40 12/01/16 07:40 Intake and Output: 12/01/16 12/01/16 06:59 18:59 Intake Total 350 350 Balance 350 350 - Medications Medications: Current Medications Acetaminophen (Tylenol 325mg Tab) 650 mg PO Q6 PRN PRN Reason: Pain, moderate (4-7) Last Admin: 11/30/16 18:06 Dose: 650 mg Al Hydrox/Mg Hydrox/Simethicone (Maalox 30 Ml) 30 ml PO TID PRN PRN Reason: Indigestion / Heartburn Albuterol/Ipratropium (Duoneb 3 Mg/0.5 Mg (3 Ml) Ud) 3 ml INH RQ6 [facility] Last Admin: 12/01/16 14:32 Dose: 3 ml Clonidine HCl (Catapres) 0.1 mg PO Q8 PRN PRN Reason: COWS Score More or Equal to 5 Enoxaparin Sodium (Lovenox) 40 mg SC DAILY [facility] Last Admin: 12/01/16 10:44 Dose: 40 mg Gabapentin (Neurontin) 300 mg PO TID [facility] Last Admin: 12/01/16 13:20 Dose: 300 mg Piperacillin Sod/Tazobactam Sod (Zosyn 2.25 Gm Iv Premix) 2.25 gm in 50 mls @ 100 mls/hr IVPB Q8 [facility] Last Admin: 12/01/16 13:20 Dose: 100 mls/hr Azithromycin 500 mg/ Sodium (Chloride) 250 mls @ 167 mls/hr IVPB Q24H [facility] Last Admin: 12/01/16 09:30 Dose: 167 mls/hr Ketorolac Tromethamine (Toradol) 15 mg IVP Q6 PRN PRN Reason: Pain, severe (8-10) Last Admin: 12/01/16 02:16 Dose: 15 mg Loperamide HCl (Imodium) 2 mg PO Q8 PRN PRN Reason: Diarrhea Methadone HCl (Methadone) 10 mg PO Q24H [facility] PRN Reason: Taper Stop: 12/04/16 08:59 Last Admin: 12/01/16 10:44 Dose: 10 mg Ondansetron HCl (Zofran Tab) 4 mg PO Q8 PRN PRN Reason: Nausea/Vomiting Last Admin: 12/01/16 10:44 Dose: 4 mg Pantoprazole Sodium (Protonix Ec Tab) 40 mg PO DAILY [facility] Last Admin: 12/01/16 10:44 Dose: 40 mg Quetiapine Fumarate (Seroquel) 100 mg PO HS [facility] Last Admin: 11/30/16 22:19 Dose: 100 mg - Constitutional Appears: Well - Head Exam Head Exam: ATRAUMATIC, NORMAL INSPECTION, NORMOCEPHALIC - Eye Exam Eye Exam: EOMI, Normal appearance, PERRL Pupil Exam: NORMAL ACCOMODATION, PERRL - ENT Exam ENT Exam: Mucous Membranes Moist, Normal Exam - Neck Exam Neck Exam: Full ROM, Normal Inspection. absent: Lymphadenopathy - Respiratory Exam Respiratory Exam: Decreased Breath Sounds - Cardiovascular Exam Cardiovascular Exam: REGULAR RHYTHM, +S1, +S2 - GI/Abdominal Exam GI & Abdominal Exam: Soft, Diminished Bowel Sounds - Rectal Exam Rectal Exam: Deferred Assessment and Plan (1) Asthma Status: Acute (2) Asthma Status: Acute (3) Asthma exacerbation Status: Acute (4) Asthma with status asthmaticus Status: Acute (5) Bronchitis Status: Acute (6) Bronchitis Status: Acute (7) Bronchitis Status: Acute (8) Community acquired pneumonia Status: Acute (9) Depression Status: Acute (10) Depression Status: Acute (11) Drug dependence Status: Acute (12) Exacerbation of asthma Status: Acute (13) Gastritis Status: Acute (14) Left against medical advice Status: Acute (15) Major depressive disorder Status: Acute (16) Medical assessment Status: Acute (17) Nausea Status: Acute (18) Opiate addiction Status: Acute (19) Opioid abuse Status: Acute (20) Pneumonia Status: Acute (21) Pneumonia Status: Acute (22) Status asthmaticus Status: Acute (23) Upper respiratory infection Status: Acute (24) Cellulitis, leg Status: Chronic (25) Hepatitis C Status: Chronic (26) Heroin dependence Status: Chronic (27) Hordeolum externum (stye) Status: Resolved (28) Medication reaction Status: Resolved - Assessment and Plan (Free Text) Plan: Follow-up pulmonology Follow-up psychiatry Chest x-ray showed pneumonia WBC 29.2 with left shift and 8 bands excellent continue antibiotics Blood culture pending Javier Rodríguez Lovelida Neurontin Zofran
[2016-12-02] MEDS: Albuterol-Ipratrop 3 mg / 0.5 (3 ml) UD INH SCH ×3 (02:23→19:37)
[2016-12-02] MEDS: PIPERACILL IVPB SCH ×3 (05:56→21:24)
[2016-12-02] MEDS: D5W IVPB SCH ×3 (05:56→21:24)
[2016-12-02] MEDS: TAZO IVPB SCH ×3 (05:56→21:24)
[2016-12-02 09:23] LABS: BASO # 0.1 K/uL (0.0-0.2); BASO % 0.6 % (0.0-2.0); EOS # 0.4 K/uL (0.0-0.7); HEMATOCRIT 40.1 % (35.0-51.0); LYMPH # 2.2 K/uL (1.0-4.3); LYMPH % 14.7 % (20.0-40.0); MEAN CELL VOLUME 93.1 fL (80.0-94.0); MEAN CORPUSCULAR HEMOGLOBIN 30.2 pg (27.0-31.0); MEAN CORPUSCULAR HGB CONC 32.5 g/dL (33.0-37.0); MEAN PLATELET VOLUME 7.7 fL (7.2-11.7); MONO % 6.8 % (0.0-10.0); RED CELL DISTRIBUTION WIDTH 14.4 % (11.5-14.5); WHITE BLOOD COUNT 15.1 K/uL (4.8-10.8)
[2016-12-02] MEDS: Azithromycin 500 MG in Sodium Chloride 0.9% 250 ML IVPB SCH (10:02)
[2016-12-02] MEDS: Pantoprazole 40 mg EC Tab PO SCH (10:03)
[2016-12-02] MEDS: Enoxaparin 40 mg Syringe SC SCH (10:03)
[2016-12-02 10:10] LABS: CHLORIDE 100 mmol/L (98-107); POTASSIUM 4.1 mmol/L (3.6-5.2); SODIUM 137 mmol/L (132-148)
[2016-12-02 10:12] LABS: ALB/GLOB RATIO 0.9 (1.0-2.1); ALKALINE PHOSPHATASE 69 U/L (38-126); AST/SGOT 37 U/L (17-59); BILIRUBIN,TOTAL 0.6 mg/dL (0.2-1.3); CARBON DIOXIDE 26 mmol/L (22-30); GFR AFRICAN-AMERICAN > 60; TOTAL PROTEIN 6.9 g/dL (6.3-8.3)
[2016-12-02 10:13] LABS: ALT/SGPT 46 U/L (21-72); BLOOD UREA NITROGEN 12 mg/dL (9-20); CALCIUM 8.6 mg/dl (8.6-10.4); GLUCOSE,RANDOM 93 mg/dL (75-110)
--- NOTE | 2016-12-02 11:04 | RAD ---
HISTORY: dx pneumonia COMPARISON: Comparison is made to 11/30/2016 FINDINGS: LUNGS: Interval worsening of opacities and infiltrates at the lower lobes since the previous exam. PLEURA: Interval appearance of small to moderate right pleural effusion. Blunting of the left costophrenic angle is also again noted PE CARDIOVASCULAR: Normal. OSSEOUS STRUCTURES: No significant abnormalities. VISUALIZED UPPER ABDOMEN: Normal. OTHER FINDINGS: None. IMPRESSION: Worsening opacities and the lower lobe since the previous exam. New right-sided pleural effusion.
--- NOTE | 2016-12-02 15:22 | CP.PCM.HP ---
<Rhona Mancini - Last Filed: 12/02/16 15:18> History of Present Illness - History of Present Illness History of Present Illness: CC: "I have been coughing" HPI: Patient is a 36 year old male with PMHx of asthma, heroin use disorder, and Hepatitis C who presented to the ED on 11/30/16 with complaint of shortness of breath and productive cough. The patient was recently discharged from [address] [place] [address] on 11/19 after he had suicidal ideations. He was also treated for IV heroin abuse while in the hospital. Patient has been in detox/ rehab several times. He was supposed to follow up with [facility] for methadone treatment but the patient never went. The patient uses 12 bags of heroin daily. He denies other drug use. Patient relapsed on heroin after discharge and was in active withdrawal in the ED. The patient states that since his discharge on 11/19 he started developing a cough and exacerbation of his asthma. He lives in a residential and only uses Duonebs. He states that he uses duonebs around the clock. Patient admits that his asthma is not well controlled. He was diagnosed with reactive airway disease as a child and his asthma worsened into adulthood. The patient was intubated for asthma exacerbation in 2013 in [place] for 3 days. He was seeing a [facility] at one time but has not followed up since 2013. Patient was hospitalized in 08/2016 for pneumonia as well. Patient has a history of non- compliance and does not fill his medications. Patient currently complains of left lateral chest pain that is presents only during coughing. He says the pain is sharp and non-radiating. Pt also complains of dyspnea on exertion even when he is ambulating a few steps to the bathroom. Since admission the patient was started on IV antibiotics which he states has helped his cough. However, pt still complains of shortness of breath. The patient denies fever, chills, nausea, vomiting, diarrhea, abdominal pain, palpitations, headache, dizziness, unsteady gait, focal weakness. He admits to sweats but denies tremor from withdrawal. Pt currently denies suicidal/homicidal ideations. PMD: none PMHx: asthma, heroin use disorder, and Hepatitis C PSHx: denies FHx: Mom- asthma Social Hx: tobacco: 1/2 PPD x 5 years; alcohol: denies; recreational drugs: heroin - injects 12 bags daily Allergies: shellfish Present on Admission - Present on Admission Any Indicators Present on Admission: No Review of Systems - Constitutional Constitutional: As Per HPI, Night Sweats - EENT Eyes: As Per HPI. absent: Blurred Vision, Change in Vision Ears: As Per HPI. absent: Dizziness Nose/Mouth/Throat: As Per HPI. absent: Sore Throat - Cardiovascular Cardiovascular: As Per HPI, Dyspnea on Exertion. absent: Chest Pain, Leg Edema , Lightheadedness, Orthopnea, Palpitations - Respiratory Respiratory: As Per HPI, Cough, Dyspnea on Exertion, Excessive Mucous Production. absent: Hemoptysis, Wheezing - Gastrointestinal Gastrointestinal: As Per HPI. absent: Abdominal Pain, Diarrhea, Heartburn, Nausea, Vomiting - Genitourinary Genitourinary: As Per HPI. absent: Change in Urinary Stream, Difficulty Urinating - Musculoskeletal Musculoskeletal: As Per HPI. absent: Muscle Weakness, Numbness Additional comments: left lateral chest pain with coughing - Integumentary Integumentary: As Per HPI. absent: New Lesions, Rash - Neurological Neurological: As Per HPI. absent: Dizziness, Numbness, Headaches, Syncope, Tingling, Weakness - Psychiatric Psychiatric: As Per HPI. absent: Anxiety, Depression - Endocrine Endocrine: As Per HPI Past Patient History - Infectious Disease Hx of Infectious Diseases: None - Past Medical History & Family History Past Medical History?: No - Past Social History Smoking Status: Heavy Smoker > 10 Cigarettes Daily - CARDIAC Hx Cardiac Disorders: No Hx Hypertension: No - PULMONARY Hx Respiratory Disorders: Yes Hx Asthma: Yes Hx Bronchitis: Yes Hx Pneumonia: Yes - NEUROLOGICAL Hx Neurological Disorder: No Hx Seizures: No Hx Transient Ischemic Attacks (TIA): No - HEENT Hx HEENT Problems: No Hx Cataracts: No Hx Deafness: No Hx Difficulty Chewing: No Hx Epistaxis: No Hx Glaucoma: No Hx Macular Degeneration: No - RENAL Hx Chronic Kidney Disease: No Hx Kidney Stones: No - ENDOCRINE/METABOLIC Hx Endocrine Disorders: No Hx Hyperthyroidism: No Hx Hypothyroidism: No - HEMATOLOGICAL/ONCOLOGICAL Hx Blood Disorders: No Hx Human Immunodeficiency Virus (HIV): No - INTEGUMENTARY Hx Dermatological Problems: No Hx Basil Cell: No Hx Barrera: No Hx Cellulitis: No Hx Eczema: No Hx Melanoma: No Hx Psoriasis: No Hx Squamous Cell: No - MUSCULOSKELETAL/RHEUMATOLOGICAL Hx Falls: No - GASTROINTESTINAL Hx Gastrointestinal Disorders: No Hx Crohn's Disease: No Hx Diverticulitis: No Hx Gall Bladder Disease: No Hx Gastritis: No Hx Pancreatitis: No - GENITOURINARY/GYNECOLOGICAL Hx Genitourinary Disorders: No Hx Sexually Transmitted Disorders: No - PSYCHIATRIC Hx Substance Use: Yes ("I take heroin daily") - SURGICAL HISTORY Hx Surgeries: No Hx Appendectomy: No Hx Carotid Endarterectomy: No Hx Cholecystectomy: No Hx Coronary Artery Bypass Graft: No Hx Coronary Stent: No Hx Tonsillectomy: No - ANESTHESIA Hx Anesthesia: No Meds Allergies/Adverse Reactions: Allergies Allergy/AdvReac Type Severity Reaction Status Date / Time shellfish derived Allergy Verified 11/30/16 03:14 Physical Exam - Constitutional Appears: Non-toxic, No Acute Distress - Head Exam Head Exam: ATRAUMATIC, NORMOCEPHALIC - Eye Exam Eye Exam: EOMI, Normal appearance Pupil Exam: NORMAL ACCOMODATION - ENT Exam ENT Exam: Mucous Membranes Moist, Normal Exam - Neck Exam Neck exam: Positive for: Normal Inspection - Respiratory Exam Respiratory Exam: Chest Wall Tenderness (left lateral ttp ), Rales (bilateral lower lobes ), Rhonchi, NORMAL BREATHING PATTERN. absent: Accessory Muscle Use , Respiratory Distress - Cardiovascular Exam Cardiovascular Exam: REGULAR RHYTHM, +S1, +S2. absent: Irregular Rhythm, Systolic Murmur - GI/Abdominal Exam GI & Abdominal Exam: Normal Bowel Sounds, Soft. absent: Distended, Firm, Guarding, Tenderness - Extremities Exam Extremities exam: Positive for: normal inspection. Negative for: pedal edema - Back Exam Back exam: NORMAL INSPECTION - Neurological Exam Neurological exam: Alert, CN II-XII Intact, Oriented x3 - Psychiatric Exam Psychiatric exam: Normal Affect, Normal Mood - Skin Skin Exam: Dry, Intact, Normal Color, Warm Results - Vital Signs Recent Vital Signs: Last Vital Signs Temp 97.6 F 12/02/16 14:23 Pulse 85 12/02/16 14:23 Resp 20 12/02/16 14:23 BP 115/76 12/02/16 14:23 Pulse Ox 95 12/02/16 14:23 - Labs Result Diagrams: 12/02/16 09:06 12/02/16 09:06 Labs: Laboratory Results - last 24 hr 12/02/16 12/02/16 09:06 09:06 WBC 15.1 H RBC 4.30 L Hgb 13.0 Hct 40.1 MCV 93.1 D MCH 30.2 MCHC 32.5 L RDW 14.4 Plt Count 379 MPV 7.7 Neut % (Auto) 74.9 Lymph % (Auto) 14.7 L Forest % (Auto) 6.8 Eos % (Auto) 3.0 Baso % (Auto) 0.6 Neut # 11.3 H Lymph # 2.2 Forest # 1.0 H Eos # 0.4 Baso # 0.1 Sodium 137 Potassium 4.1 Chloride 100 Carbon Dioxide 26 Anion Gap 14 BUN 12 Creatinine 0.9 Est GFR ( Amer) > 60 Est GFR (Non-Af Amer) > 60 Random Glucose 93 Calcium 8.6 Total Bilirubin 0.6 AST 37 ALT 46 Alkaline Phosphatase 69 Total Protein 6.9 Albumin 3.4 L Globulin 3.6 Albumin/Globulin Ratio 0.9 L Assessment & Plan - Assessment and Plan (Free Text) Assessment: 1. Pneumonia Sepsis on admission in ED: Penumonia seen on CXR, WBC 29.2 with left shift and 8 bands, tachycardia, afebrile Likely hospital acquired due to recent admissions Azithromycin 500mg IV q24h and Zosyn 2.25 IV q8h Duonebs 3ml INH q6h with peak flow (11/30 peak flow pre 110 and post 140) Finish Mixer Dr Solo consulted- will f/u recommendations Blood culture negative x24 hours WBC 15.1, improving f/u procalcitonin, legionella, mycoplasma f/u CT Chest report 12/02/16 Chest X-ray: Worsening opacities and the lower lobe since the previous exam. New right-sided pleural effusion. 11/30/16 Chest X-ray: Bibasilar infiltrates new since prior examination. Likely pneumonia. 1 of these infiltrates is in the lower lobe and the other is a either lingula or middle lobe. 2. Asthma, moderate-persistent Hx intubation in the past, trigger anxiety Duonebs 3ml INH q6h with peak flow Finish Mixer Dr Solo consulted- will f/u recommendations Start Advair 250/50 INH q12h 3. Opioid use disorder Psych consulted Dr Owen- help appreciated Methadone taper (currently on 5mg daily) Zofran prn n/v Imodium prn diarrhea Gabapentin 300mg PO TID Discharge plan of follow up at [facility] Monitor for withdrawal symptoms 4. Hepatitis C Diagnosed September 2016 in hospital HIV negative 09/23/16 Patient advised to follow up with GI and ID as outpatient Avoid hepatotoxins 5. Hx Depression Seroquel 100mg PO HS Denies SI/HI 6. Prophylactic measures Lovenox 40mg SC daily SCDs Protonix 40mg PO daily <Carrie Mathew V - Last Filed: 12/02/16 23:07> Results - Vital Signs Recent Vital Signs: Last Vital Signs Temp 97.7 F 12/02/16 16:46 Pulse 93 H 12/02/16 16:46 Resp 20 12/02/16 16:46 BP 109/74 12/02/16 16:46 Pulse Ox 95 12/02/16 16:46 - Labs Result Diagrams: 12/02/16 09:06 12/02/16 09:06 Labs: Laboratory Results - last 24 hr 12/02/16 12/02/16 09:06 09:06 WBC 15.1 H RBC 4.30 L Hgb 13.0 Hct 40.1 MCV 93.1 D MCH 30.2 MCHC 32.5 L RDW 14.4 Plt Count 379 MPV 7.7 Neut % (Auto) 74.9 Lymph % (Auto) 14.7 L Forest % (Auto) 6.8 Eos % (Auto) 3.0 Baso % (Auto) 0.6 Neut # 11.3 H Lymph # 2.2 Forest # 1.0 H Eos # 0.4 Baso # 0.1 Sodium 137 Potassium 4.1 Chloride 100 Carbon Dioxide 26 Anion Gap 14 BUN 12 Creatinine 0.9 Est GFR ( Amer) > 60 Est GFR (Non-Af Amer) > 60 Random Glucose 93 Calcium 8.6 Total Bilirubin 0.6 AST 37 ALT 46 Alkaline Phosphatase 69 Total Protein 6.9 Albumin 3.4 L Globulin 3.6 Albumin/Globulin Ratio 0.9 L Attending/Attestation - Attestation I have personally seen and examined this patient.: Yes I have fully participated in the care of the patient.: Yes I have reviewed all pertinent clinical information: Yes Notes (Text): Patient transferred from private attending service to hospitalist service today. Patient is currently hospitalized for pneumonia and opiod wtihdrawal since . Discussed with day-time resident and examined, and labs and imaging reviewed with resident. Reviewed current orders and added additional orders per review. Patient ordered for CT Chest prior to transfer and completed today. Patient is clinically improving given his admitting labs and overall appearance today. Assessment/Plan 1. Sepsis Sepsis on admission in ED: Penumonia seen on CXR, WBC 29.2 with left shift and 8 bands, tachycardia, afebrile Likely hospital acquired due to recent admissions IV Abx Azithromycin 500mg IV q24h (active since 12/01/16) and Zosyn 2.25 IV q8h ( active since 11/30/16) Blood culture (11/30/16) negative x48 hours X2 Duonebs 3ml INH q6h with peak flow (11/30 peak flow pre 110 and post 140) Finish Mixer Dr Solo consulted- will f/u recommendations WBC 15.1, improving f/u procalcitonin, legionella, mycoplasma f/u CT Chest report Florastor 250mg PO bid 12/02/16 Chest X-ray: Worsening opacities and the lower lobe since the previous exam. New right-sided pleural effusion. 11/30/16 Chest X-ray: Bibasilar infiltrates new since prior examination. Likely pneumonia. 1 of these infiltrates is in the lower lobe and the other is a either lingula or middle lobe. 2.Pneumonia Sepsis on admission in ED: Penumonia seen on CXR, WBC 29.2 with left shift and 8 bands, tachycardia, afebrile Likely hospital acquired pneumonia due to recent admissions IV Abx Azithromycin 500mg IV q24h (active since 12/01/16) and Zosyn 2.25 IV q8h ( active since 11/30/16) Duonebs 3ml INH q6h with peak flow Finish Mixer Dr Solo consulted on board Blood culture (11/30/16) negative x48 hours X2 WBC 15.1, improving f/u procalcitonin, legionella, mycoplasma ordered f/u CT Chest report completed Florastor 250mg PO bid 12/02/16 Chest X-ray: Worsening opacities and the lower lobe since the previous exam. New right-sided pleural effusion. 11/30/16 Chest X-ray: Bibasilar infiltrates new since prior examination. Likely pneumonia. 1 of these infiltrates is in the lower lobe and the other is a either lingula or middle lobe. 3. Asthma, moderate-persistent Hx intubation in the past, trigger anxiety Duonebs 3ml INH q6h with peak flow Start Advair 250/50 INH [id number] Per Patient, patient is using nebulizers around the clock, history of childhood asthma, as well as triggers including anxiety, patient used to see brick burner head outpatient Finish Mixer Dr Solo consulted- will f/u recommendations Peak flow on admission: 110 and has improved following nebulizer treatment; latest recording 180 4. Opioid use disorder Psych consulted Dr Owen- help appreciated Methadone taper (currently on 5mg daily) Zofran prn n/v Imodium prn diarrhea Gabapentin 300mg PO TID Discharge plan of follow up at methadone clinic Monitor for withdrawal symptoms patient did not follow-up at [facility] per last discharge UDS: likely indicates methadone received during hospitalization 5. Hepatitis C Diagnosed September 2016 in hospital review of EMR HIV negative 09/23/16 Patient advised to follow up with GI and ID as outpatient Avoid hepatotoxins Ordered for HIV Patient is a currently IV drug user 6. Hx Depression Psych (Dr. Owen) on board-->help appreciated Seroquel 100mg PO HS Denies SI/HI 7. Prophylactic measures Lovenox 40mg SC daily-->patient is refusing, discussed with nurse, Diandra SCDs Protonix 40mg PO daily
--- NOTE | 2016-12-02 16:21 | CT ---
PROCEDURE: CT Chest without contrast HISTORY: incr. pleural effusion COMPARISON: None. TECHNIQUE: Contiguous axial images were obtained through the chest without intravenous contrast enhancement. Sagittal and coronal reconstructions were performed. Radiation dose (DLP): 358.5 mGy-cm. This CT exam was performed using one or more of the following dose reduction techniques: Automated exposure control, adjustment of the mA and/or kV according to patient size, and/or use of iterative reconstruction technique. FINDINGS: LUNGS: There are foci of airspace consolidation at the right middle lobe and bilateral lower lobes likely represent multifocal pneumonia. There are scattered small nodular opacities in the upper lobe and right middle lobe that also likely represent infectious process. MEDIASTINUM: Unremarkable thoracic aorta. No aneurysm. Normal sized heart. Main pulmonary artery unremarkable. No vascular congestion. Slightly prominent mediastinal lymph nodes are seen. PLEURA: Small left pleural effusion is noted. BONES: No fracture. No destructive lesion. UPPER ABDOMEN: Elevation of the right hemidiaphragm is noted. Hepatomegaly is also noted. OTHER FINDINGS: None. IMPRESSION: Foci of airspace consolidation at the right middle lobe and bilateral lower lobes suspicious for multifocal pneumonia. Scattered nodular opacities in the upper lobes also likely represent infectious process and intrabronchial spread of infection. Small left pleural effusion. Slightly prominent mediastinal lymph nodes. Mild elevation of the right hemidiaphragm.
--- NOTE | 2016-12-02 17:55 | CP.PCM.CON ---
History of Present Illness - History of Present Illness History of Present Illness: Patient is a 36 year old male with PMHx of asthma, heroin use disorder, and Hepatitis C who presented to the ED on 11/30/16 with complaint of shortness of breath and productive cough. The patient was recently discharged from [address] [place] [address] on 11/19 after he had suicidal ideations. The patient states that since his discharge on 11/19 he started developing a cough and exacerbation of his asthma. He lives in a alf and only uses Duonebs. He states that he uses duonebs around the clock. Patient admits that his asthma is not well controlled. He was diagnosed with reactive airway disease as a child and his asthma worsened into adulthood. The patient was intubated for asthma exacerbation in 2013 in [place] for 3 days. He was seeing a Grief Counselor at one time but has not followed up since 2013. Patient was hospitalized in 08/2016 for pneumonia as well. Patient has a history of non- compliance and does not fill his medications. Patient currently complains of left lateral chest pain that is presents only during coughing. He says the pain is sharp and non-radiating. Pt also complains of dyspnea on exertion even when he is ambulating a few steps to the bathroom. Since admission the patient was started on IV antibiotics which he states has helped his cough. However, pt still complains of shortness of breath. The patient denies fever, chills, nausea, vomiting, diarrhea, abdominal pain, palpitations, headache, dizziness, unsteady gait, focal weakness. He admits to sweats but denies tremor from withdrawal. Pt currently denies suicidal/homicidal ideations. PMD: none PMHx: asthma, heroin use disorder, and Hepatitis C PSHx: denies FHx: Mom- asthma Social Hx: tobacco: 1/2 PPD x 5 years; alcohol: denies; recreational drugs: heroin - injects 12 bags daily Allergies: shellfish Review of Systems - Review of Systems All systems: reviewed and no additional remarkable complaints except (cough and shortness of breath) Past Patient History - Infectious Disease Hx of Infectious Diseases: None - Past Medical History & Family History Past Medical History?: No - Past Social History Smoking Status: Heavy Smoker > 10 Cigarettes Daily - CARDIAC Hx Cardiac Disorders: No Hx Hypertension: No - PULMONARY Hx Respiratory Disorders: Yes Hx Asthma: Yes Hx Bronchitis: Yes Hx Pneumonia: Yes - NEUROLOGICAL Hx Neurological Disorder: No Hx Seizures: No Hx Transient Ischemic Attacks (TIA): No - HEENT Hx HEENT Problems: No Hx Cataracts: No Hx Deafness: No Hx Difficulty Chewing: No Hx Epistaxis: No Hx Glaucoma: No Hx Macular Degeneration: No - RENAL Hx Chronic Kidney Disease: No Hx Kidney Stones: No - ENDOCRINE/METABOLIC Hx Endocrine Disorders: No Hx Hyperthyroidism: No Hx Hypothyroidism: No - HEMATOLOGICAL/ONCOLOGICAL Hx Blood Disorders: No Hx Human Immunodeficiency Virus (HIV): No - INTEGUMENTARY Hx Dermatological Problems: No Hx Basil Cell: No Hx Barrera: No Hx Cellulitis: No Hx Eczema: No Hx Melanoma: No Hx Psoriasis: No Hx Squamous Cell: No - MUSCULOSKELETAL/RHEUMATOLOGICAL Hx Falls: No - GASTROINTESTINAL Hx Gastrointestinal Disorders: No Hx Crohn's Disease: No Hx Diverticulitis: No Hx Gall Bladder Disease: No Hx Gastritis: No Hx Pancreatitis: No - GENITOURINARY/GYNECOLOGICAL Hx Genitourinary Disorders: No Hx Sexually Transmitted Disorders: No - PSYCHIATRIC Hx Substance Use: Yes ("I take heroin daily") - SURGICAL HISTORY Hx Surgeries: No Hx Appendectomy: No Hx Carotid Endarterectomy: No Hx Cholecystectomy: No Hx Coronary Artery Bypass Graft: No Hx Coronary Stent: No Hx Tonsillectomy: No - ANESTHESIA Hx Anesthesia: No Meds Allergies/Adverse Reactions: Allergies Allergy/AdvReac Type Severity Reaction Status Date / Time shellfish derived Allergy Verified 12/28/16 22:40 - Medications Medications: Current Medications Acetaminophen (Tylenol 325mg Tab) 650 mg PO Q6 PRN PRN Reason: Pain, moderate (4-7) Last Admin: 11/30/16 18:06 Dose: 650 mg Al Hydrox/Mg Hydrox/Simethicone (Maalox 30 Ml) 30 ml PO TID PRN PRN Reason: Indigestion / Heartburn Albuterol/Ipratropium (Duoneb 3 Mg/0.5 Mg (3 Ml) Ud) 3 ml INH RQ6 [facility] Last Admin: 12/02/16 08:11 Dose: 3 ml Clonidine HCl (Catapres) 0.1 mg PO Q8 PRN PRN Reason: COWS Score More or Equal to 5 Enoxaparin Sodium (Lovenox) 40 mg SC DAILY [facility] Last Admin: 12/02/16 10:03 Dose: Not Given Gabapentin (Neurontin) 300 mg PO TID [facility] Last Admin: 12/02/16 14:21 Dose: 300 mg Piperacillin Sod/Tazobactam Sod (Zosyn 2.25 Gm Iv Premix) 2.25 gm in 50 mls @ 100 mls/hr IVPB Q8 [facility] Last Admin: 12/02/16 15:50 Dose: 100 mls/hr Azithromycin 500 mg/ Sodium (Chloride) 250 mls @ 167 mls/hr IVPB Q24H [facility] Last Admin: 12/02/16 10:02 Dose: 167 mls/hr Loperamide HCl (Imodium) 2 mg PO Q8 PRN PRN Reason: Diarrhea Methadone HCl (Methadone) 5 mg PO Q24H [facility] PRN Reason: Taper Stop: 12/04/16 08:59 Last Admin: 12/02/16 09:13 Dose: 5 mg Ondansetron HCl (Zofran Tab) 4 mg PO Q8 PRN PRN Reason: Nausea/Vomiting Last Admin: 12/01/16 10:44 Dose: 4 mg Pantoprazole Sodium (Protonix Ec Tab) 40 mg PO DAILY [facility] Last Admin: 12/02/16 10:03 Dose: 40 mg Quetiapine Fumarate (Seroquel) 100 mg PO HS [facility] Last Admin: 12/01/16 21:23 Dose: 100 mg Fluticasone/Salmeterol (Advair Diskus 250/50) 1 puff INH RQ12 [facility] Physical Exam - Head Exam Head Exam: ATRAUMATIC, NORMOCEPHALIC - Eye Exam Eye Exam: Normal appearance - ENT Exam ENT Exam: Mucous Membranes Moist - Neck Exam Neck exam: Positive for: Normal Inspection - Respiratory Exam Respiratory Exam: Rhonchi, Wheezes - Cardiovascular Exam Cardiovascular Exam: REGULAR RHYTHM - GI/Abdominal Exam GI & Abdominal Exam: Normal Bowel Sounds Results - Vital Signs Recent Vital Signs: Last Vital Signs Temp 97.7 F 12/02/16 16:46 Pulse 93 H 12/02/16 16:46 Resp 20 12/02/16 16:46 BP 109/74 12/02/16 16:46 Pulse Ox 95 12/02/16 16:46 - Labs Result Diagrams: 12/05/16 11:59 12/05/16 11:59 Labs: Laboratory Results - last 24 hr 12/02/16 12/02/16 09:06 09:06 WBC 15.1 H RBC 4.30 L Hgb 13.0 Hct 40.1 MCV 93.1 D MCH 30.2 MCHC 32.5 L RDW 14.4 Plt Count 379 MPV 7.7 Neut % (Auto) 74.9 Lymph % (Auto) 14.7 L [place] % (Auto) 6.8 Eos % (Auto) 3.0 Baso % (Auto) 0.6 Neut # 11.3 H Lymph # 2.2 [place] # 1.0 H Eos # 0.4 Baso # 0.1 Sodium 137 Potassium 4.1 Chloride 100 Carbon Dioxide 26 Anion Gap 14 BUN 12 Creatinine 0.9 Est GFR ( Amer) > 60 Est GFR (Non-Af Amer) > 60 Random Glucose 93 Calcium 8.6 Total Bilirubin 0.6 AST 37 ALT 46 Alkaline Phosphatase 69 Total Protein 6.9 Albumin 3.4 L Globulin 3.6 Albumin/Globulin Ratio 0.9 L Assessment & Plan (1) Pneumonia Status: Acute Comment: Sepsis on admission in ED: Penumonia seen on CXR, WBC 29.2 with left shift and 8 bands, tachycardia, afebrile. Likely hospital acquired due to recent admissions. Azithromycin 500mg IV q24h and Zosyn 2.25 IV q8h. Duonebs 3ml INH q6h with peak flow (5/8 peak flow pre 110 and post 140). Blood culture negative x24 hours. WBC 15.1, improving. f/u procalcitonin, legionella, mycoplasma. f/u CT Chest report (2) Asthma exacerbation Status: Acute
--- NOTE | 2016-12-02 18:06 | CP.PCM.PN ---
Subjective - Date & Time of Evaluation Date of Evaluation: 12/02/16 Time of Evaluation: 11:20 - Subjective Subjective: clinically same Objective - Vital Signs/Intake and Output Vital Signs (last 24 hours): Temp Pulse Resp BP Pulse Ox 97.7 F 93 H 20 109/74 95 12/02/16 16:46 12/02/16 16:46 12/02/16 16:46 12/02/16 16:46 12/02/16 16:46 Intake and Output: 12/02/16 12/02/16 06:59 18:59 Intake Total 690 780 Balance 690 780 - Medications Medications: Current Medications Acetaminophen (Tylenol 325mg Tab) 650 mg PO Q6 PRN PRN Reason: Pain, moderate (4-7) Last Admin: 11/30/16 18:06 Dose: 650 mg Al Hydrox/Mg Hydrox/Simethicone (Maalox 30 Ml) 30 ml PO TID PRN PRN Reason: Indigestion / Heartburn Albuterol/Ipratropium (Duoneb 3 Mg/0.5 Mg (3 Ml) Ud) 3 ml INH RQ6 [facility] Last Admin: 12/02/16 08:11 Dose: 3 ml Clonidine HCl (Catapres) 0.1 mg PO Q8 PRN PRN Reason: COWS Score More or Equal to 5 Enoxaparin Sodium (Lovenox) 40 mg SC DAILY [facility] Last Admin: 12/02/16 10:03 Dose: Not Given Gabapentin (Neurontin) 300 mg PO TID [facility] Last Admin: 12/02/16 18:05 Dose: 300 mg Piperacillin Sod/Tazobactam Sod (Zosyn 2.25 Gm Iv Premix) 2.25 gm in 50 mls @ 100 mls/hr IVPB Q8 [facility] Last Admin: 12/02/16 15:50 Dose: 100 mls/hr Azithromycin 500 mg/ Sodium (Chloride) 250 mls @ 167 mls/hr IVPB Q24H [facility] Last Admin: 12/02/16 10:02 Dose: 167 mls/hr Loperamide HCl (Imodium) 2 mg PO Q8 PRN PRN Reason: Diarrhea Methadone HCl (Methadone) 5 mg PO Q24H [facility] PRN Reason: Taper Stop: 12/04/16 08:59 Last Admin: 12/02/16 09:13 Dose: 5 mg Ondansetron HCl (Zofran Tab) 4 mg PO Q8 PRN PRN Reason: Nausea/Vomiting Last Admin: 12/01/16 10:44 Dose: 4 mg Pantoprazole Sodium (Protonix Ec Tab) 40 mg PO DAILY [facility] Last Admin: 12/02/16 10:03 Dose: 40 mg Quetiapine Fumarate (Seroquel) 100 mg PO HS [facility] Last Admin: 12/01/16 21:23 Dose: 100 mg Fluticasone/Salmeterol (Advair Diskus 250/50) 1 puff INH RQ12 [facility] - Labs Labs: 12/02/16 09:06 12/02/16 09:06 - Constitutional Appears: Well - Head Exam Head Exam: ATRAUMATIC, NORMAL INSPECTION, NORMOCEPHALIC - Eye Exam Eye Exam: EOMI, Normal appearance, PERRL Pupil Exam: NORMAL ACCOMODATION, PERRL - ENT Exam ENT Exam: Mucous Membranes Moist, Normal Exam - Neck Exam Neck Exam: Full ROM, Normal Inspection. absent: Lymphadenopathy - Respiratory Exam Respiratory Exam: Decreased Breath Sounds - Cardiovascular Exam Cardiovascular Exam: REGULAR RHYTHM, +S1, +S2 - GI/Abdominal Exam GI & Abdominal Exam: Soft, Diminished Bowel Sounds - Rectal Exam Rectal Exam: Deferred Assessment and Plan (1) Asthma Status: Acute (2) Asthma Status: Acute (3) Asthma exacerbation Status: Acute (4) Asthma with status asthmaticus Status: Acute (5) Bronchitis Status: Acute (6) Bronchitis Status: Acute (7) Bronchitis Status: Acute (8) Community acquired pneumonia Status: Acute (9) Depression Status: Acute (10) Depression Status: Acute (11) Drug dependence Status: Acute (12) Exacerbation of asthma Status: Acute (13) Gastritis Status: Acute (14) Left against medical advice Status: Acute (15) Major depressive disorder Status: Acute (16) Medical assessment Status: Acute (17) Nausea Status: Acute (18) Opiate addiction Status: Acute (19) Opioid abuse Status: Acute (20) Pneumonia Status: Acute (21) Pneumonia Status: Acute (22) Status asthmaticus Status: Acute (23) Upper respiratory infection Status: Acute (24) Cellulitis, leg Status: Chronic (25) Hepatitis C Status: Chronic (26) Heroin dependence Status: Chronic (27) Hordeolum externum (stye) Status: Resolved (28) Medication reaction Status: Resolved - Assessment and Plan (Free Text) Plan: Follow With pulmonology Follow-up with psychiatry Blood culture negative after 48 hours Chest x-ray shows worsening opacities and the lower lobe since the previous exam Continue antibiotics DuoNeb Catapres Lovenox Neurontin Zofran
[2016-12-02] MEDS: Fluticasone-Salmeterol 250-50mcg Diskus INH SCH (19:36)
--- NOTE | 2016-12-03 00:21 | PCM.PYCHPN ---
Psychiatric Progress Note - Psychiatric Progress Note Patient seen today, length of contact: 15 min Patient Chief Complaint: "I'm still not OK" Problems Identified/Issues Discussed: The patient is seen, chart reviewed and case discussed. No acute withdrawal symptoms but he is worried about his symptoms after the detox ends. Aftercare discussed and the reason he keeps relapsing. MO used, support given, no other acute psych issues. Psych will sign off Medication Change: Yes (detox taper) Medical Record Reviewed: Yes Mental Status Examination - Cognitive Function Orientation: Person, Place, Situation, Time Memory: Intact Attention: WNL Concentration: Poor Association: WNL Fund of Knowledge: WNL - Mood Mood: Anxious - Affect Affect: Constricted - Speech Speech: Appropriate - Formal Thought Process Formal Thought Process: No Impairment - Suicidal Ideation Suicidal Ideation: No - Homicidal Ideation Homicidal Ideation: No Goal/Treatment Plan - Goal/Treatment Plan Need for Continued Stay: Discharge may exacerbated symptoms, Severe functional impairment Progress Toward Problem(s) and Goals/Treatment Plan: Major depression, recurrent, severe, non-psychotic Pt is non-compliant with meds Seroquel for irritability and depression Gabapentin for anxiety Support and Psychoeducation given Opioid use d/o - severe CBT Psychoeducation Supportive therapy Use MO for abstinence Refer to suboxone or Vivitrol treatments Opioid withdrawal-severe CBT Psychoeducation Supportive therapy, individual therapy Methadone taper
[2016-12-03] MEDS: Albuterol-Ipratrop 3 mg / 0.5 (3 ml) UD INH SCH ×4 (01:52→20:21)
[2016-12-03] MEDS: D5W IVPB SCH ×3 (05:44→21:53)
[2016-12-03] MEDS: PIPERACILL IVPB SCH ×3 (05:44→21:53)
[2016-12-03] MEDS: TAZO IVPB SCH ×3 (05:44→21:53)
[2016-12-03] MEDS: Fluticasone-Salmeterol 250-50mcg Diskus INH SCH ×2 (08:20→20:20)
[2016-12-03] MEDS: guaiFENesin 600 mg ER Tab PO SCH ×2 (11:48→18:21)
[2016-12-03] MEDS: Pantoprazole 40 mg EC Tab PO SCH (11:48)
[2016-12-03] MEDS: Enoxaparin 40 mg Syringe SC SCH (11:50)
[2016-12-03] MEDS: Azithromycin 500 MG in Sodium Chloride 0.9% 250 ML IVPB SCH (11:52)
--- NOTE | 2016-12-03 11:57 | CP.PCM.PN ---
Subjective - Date & Time of Evaluation Date of Evaluation: 12/03/16 Time of Evaluation: 09:20 - Subjective Subjective: patient seen and examined Complaining of pain left side of chest on deep inspiration also complaining off cough which is mostly dry CAT scan of the chest noted Afebrile Objective - Vital Signs/Intake and Output Vital Signs (last 24 hours): Temp Pulse Resp BP Pulse Ox 97.5 F L 76 19 97/61 L 95 12/03/16 08:49 12/03/16 08:49 12/03/16 08:49 12/03/16 08:49 12/03/16 08:49 Intake and Output: 12/03/16 12/03/16 06:59 18:59 Intake Total 500 Balance 500 - Medications Medications: Current Medications Acetaminophen (Tylenol 325mg Tab) 650 mg PO Q6 PRN PRN Reason: Pain, moderate (4-7) Last Admin: 12/03/16 06:48 Dose: 650 mg Al Hydrox/Mg Hydrox/Simethicone (Maalox 30 Ml) 30 ml PO TID PRN PRN Reason: Indigestion / Heartburn Albuterol/Ipratropium (Duoneb 3 Mg/0.5 Mg (3 Ml) Ud) 3 ml INH RQ6 [facility] Last Admin: 12/03/16 08:20 Dose: 3 ml Benzonatate (Tessalon Perles) 100 mg PO TID [facility] Last Admin: 12/03/16 11:48 Dose: 100 mg Clonidine HCl (Catapres) 0.1 mg PO Q8 PRN PRN Reason: COWS Score More or Equal to 5 Enoxaparin Sodium (Lovenox) 40 mg SC DAILY [facility] Last Admin: 12/03/16 11:50 Dose: Not Given Gabapentin (Neurontin) 300 mg PO TID [facility] Last Admin: 12/03/16 11:48 Dose: 300 mg Guaifenesin (Mucinex La) 600 mg PO BID [facility] Last Admin: 12/03/16 11:48 Dose: 600 mg Piperacillin Sod/Tazobactam Sod (Zosyn 2.25 Gm Iv Premix) 2.25 gm in 50 mls @ 100 mls/hr IVPB Q8 [facility] Last Admin: 12/03/16 05:44 Dose: 100 mls/hr Azithromycin 500 mg/ Sodium (Chloride) 250 mls @ 167 mls/hr IVPB Q24H [facility] Last Admin: 12/02/16 10:02 Dose: 167 mls/hr Loperamide HCl (Imodium) 2 mg PO Q8 PRN PRN Reason: Diarrhea Methadone HCl (Methadone) 5 mg PO Q24H [facility] PRN Reason: Taper Stop: 12/04/16 08:59 Last Admin: 12/03/16 11:49 Dose: 5 mg Ondansetron HCl (Zofran Tab) 4 mg PO Q8 PRN PRN Reason: Nausea/Vomiting Last Admin: 12/01/16 10:44 Dose: 4 mg Pantoprazole Sodium (Protonix Ec Tab) 40 mg PO DAILY [facility] Last Admin: 12/03/16 11:48 Dose: 40 mg Quetiapine Fumarate (Seroquel) 100 mg PO HS [facility] Last Admin: 12/02/16 21:24 Dose: 100 mg Saccharomyces Boulardii (Florastor) 250 mg PO BID [facility] Fluticasone/Salmeterol (Advair Diskus 250/50) 1 puff INH RQ12 [facility] Last Admin: 12/03/16 08:20 Dose: 1 puff - Labs Labs: 12/02/16 09:06 12/02/16 09:06 - Head Exam Head Exam: ATRAUMATIC, NORMOCEPHALIC - Eye Exam Eye Exam: Normal appearance - ENT Exam ENT Exam: Mucous Membranes Moist - Neck Exam Neck Exam: Normal Inspection - Respiratory Exam Respiratory Exam: Decreased Breath Sounds - Cardiovascular Exam Cardiovascular Exam: REGULAR RHYTHM - GI/Abdominal Exam GI & Abdominal Exam: Soft, Normal Bowel Sounds Assessment and Plan (1) Asthma exacerbation Status: Acute (2) Pneumonia Status: Acute
[2016-12-03 17:03] LABS: LEGIONELLA AG URINE NEGATIVE (NEGATIVE)
[2016-12-03] MEDS: Saccharomyces Boulardi 250 mg Cap PO SCH (18:21)
--- NOTE | 2016-12-03 18:50 | CP.PCM.PN ---
<Erik Figueroa - Last Filed: 12/03/16 18:47> Subjective - Date & Time of Evaluation Date of Evaluation: 12/03/16 Time of Evaluation: 09:15 - Subjective Subjective: Dr Figueroa PGY 1 Hospitalist Note Patient seen and evaluated at bedside. He reports he continues to have left sided pain and productive cough. He reports having diarrhea from withdrawing from heroin abuse. He says his breathing has improved with the breathing treatments but has been unable to walk to the bathroom and back without developing SOB. He denies any fever,chills, nausea, vomiting, palpitations, or leg pain. Per nursing, patient requested something stronger than Tylenol for pain. Objective - Vital Signs/Intake and Output Vital Signs (last 24 hours): Temp Pulse Resp BP Pulse Ox 97.5 F L 87 20 96/60 L 96 12/03/16 15:48 12/03/16 15:48 12/03/16 15:48 12/03/16 15:48 12/03/16 15:48 Intake and Output: 12/03/16 12/03/16 06:59 18:59 Intake Total 500 1380 Balance 500 1380 - Medications Medications: Current Medications Acetaminophen (Tylenol 325mg Tab) 650 mg PO Q6 PRN PRN Reason: Pain, moderate (4-7) Last Admin: 12/03/16 06:48 Dose: 650 mg Al Hydrox/Mg Hydrox/Simethicone (Maalox 30 Ml) 30 ml PO TID PRN PRN Reason: Indigestion / Heartburn Albuterol/Ipratropium (Duoneb 3 Mg/0.5 Mg (3 Ml) Ud) 3 ml INH RQ6 [facility] Last Admin: 12/03/16 14:22 Dose: 3 ml Benzonatate (Tessalon Perles) 100 mg PO TID [facility] Last Admin: 12/03/16 18:21 Dose: 100 mg Clonidine HCl (Catapres) 0.1 mg PO Q8 PRN PRN Reason: COWS Score More or Equal to 5 Enoxaparin Sodium (Lovenox) 40 mg SC DAILY [facility] Last Admin: 12/03/16 11:50 Dose: Not Given Gabapentin (Neurontin) 300 mg PO TID [facility] Last Admin: 12/03/16 18:21 Dose: 300 mg Guaifenesin (Mucinex La) 600 mg PO BID [facility] Last Admin: 12/03/16 18:21 Dose: 600 mg Piperacillin Sod/Tazobactam Sod (Zosyn 2.25 Gm Iv Premix) 2.25 gm in 50 mls @ 100 mls/hr IVPB Q8 [facility] Last Admin: 12/03/16 14:24 Dose: 100 mls/hr Azithromycin 500 mg/ Sodium (Chloride) 250 mls @ 167 mls/hr IVPB Q24H [facility] Last Admin: 12/03/16 11:52 Dose: 167 mls/hr Loperamide HCl (Imodium) 2 mg PO Q8 PRN PRN Reason: Diarrhea Methadone HCl (Methadone) 5 mg PO Q24H [facility] PRN Reason: Taper Stop: 12/04/16 08:59 Last Admin: 12/03/16 11:49 Dose: 5 mg Ondansetron HCl (Zofran Tab) 4 mg PO Q8 PRN PRN Reason: Nausea/Vomiting Last Admin: 12/01/16 10:44 Dose: 4 mg Pantoprazole Sodium (Protonix Ec Tab) 40 mg PO DAILY [facility] Last Admin: 12/03/16 11:48 Dose: 40 mg Quetiapine Fumarate (Seroquel) 100 mg PO HS [facility] Last Admin: 12/02/16 21:24 Dose: 100 mg Saccharomyces Boulardii (Florastor) 250 mg PO BID [facility] Last Admin: 12/03/16 18:21 Dose: 250 mg Fluticasone/Salmeterol (Advair Diskus 250/50) 1 puff INH RQ12 [facility] Last Admin: 12/03/16 08:20 Dose: 1 puff - Labs Labs: 12/02/16 09:06 12/02/16 09:06 - Constitutional Appears: Non-toxic, No Acute Distress - Head Exam Head Exam: ATRAUMATIC, NORMOCEPHALIC - Eye Exam Eye Exam: EOMI, Normal appearance, PERRL Pupil Exam: NORMAL ACCOMODATION, PERRL - ENT Exam ENT Exam: Mucous Membranes Moist, Normal Oropharynx - Neck Exam Neck Exam: Normal Inspection - Respiratory Exam Respiratory Exam: Chest Wall Tenderness (Ribs 5-7 on left), Decreased Breath Sounds (LLL), Rhonchi (LLL), NORMAL BREATHING PATTERN. absent: Rales - Cardiovascular Exam Cardiovascular Exam: REGULAR RHYTHM, +S1, +S2. absent: Gallop, Rubs, Murmur - GI/Abdominal Exam GI & Abdominal Exam: Soft, Normal Bowel Sounds. absent: Firm, Guarding, Tenderness - Back Exam Back Exam: NORMAL INSPECTION, tenderness (left ribs 5-7). absent: rash noted - Neurological Exam Neurological Exam: Alert, Awake, CN II-XII Intact, Oriented x3 - Psychiatric Exam Psychiatric exam: Anxious - Skin Skin Exam: Dry, Intact, Normal Color, Warm Assessment and Plan - Assessment and Plan (Free Text) Plan: Assessment/Plan Sepsis * Sepsis on admission in ED: Penumonia seen on CXR, WBC 29.2 with left shift and 8 bands, tachycardia, afebrile * Likely hospital acquired due to recent admissions * 11/30/16 Chest X-ray: Bibasilar infiltrates new since prior examination. Likely pneumonia. 1 of these infiltrates is in the lower lobe and the other is a either lingula or middle lobe. * 12/02/16 Chest X-ray: Worsening opacities and the lower lobe since the previous exam. New right-sided pleural effusion. * 12/02/[address] showed foci of airspace consolidation at right middle lobe and bilateral lower lobes suspicious for multifocal pneumonia. scattered nodular opacities in upper lobes, small left pleural effusion, slightly prominent mediastinal lymph nodes, [see full report] * IV Abx Azithromycin 500mg IV q24h (active since 12/01/16) and Zosyn 2.25 IV q8h (active since 11/30/16) * Blood culture (11/30/16) negative x48 hours X2 * Duonebs 3ml INH q6h with peak flow (11/30 peak flow pre 110 and post 140) * [facility] Dr Solo consulted- will f/u recommendations * WBC 15.1, improving * f/u procalcitonin, * legionella negative * mycoplasma pending * Florastor 250mg PO bid Pneumonia * Sepsis on admission in ED: Penumonia seen on CXR, WBC 29.2 with left shift and 8 bands, tachycardia, afebrile * Likely hospital acquired due to recent admissions * 11/30/16 Chest X-ray: Bibasilar infiltrates new since prior examination. Likely pneumonia. 1 of these infiltrates is in the lower lobe and the other is a either lingula or middle lobe. * 12/02/16 Chest X-ray: Worsening opacities and the lower lobe since the previous exam. New right-sided pleural effusion. * 12/02/[address] showed foci of airspace consolidation at right middle lobe and bilateral lower lobes suspicious for multifocal pneumonia. scattered nodular opacities in upper lobes, small left pleural effusion, slightly prominent mediastinal lymph nodes, [see full report] * IV Abx Azithromycin 500mg IV q24h (active since 12/01/16) and Zosyn 2.25 IV q8h (active since 11/30/16) * Blood culture (11/30/16) negative x48 hours X2 * Duonebs 3ml INH q6h with peak flow (11/30 peak flow pre 110 and post 140) * [facility] Dr Solo consulted- will f/u recommendations * WBC 15.1, improving * f/u procalcitonin, * legionella negative * mycoplasma pending * Florastor 250mg PO bid Asthma, moderate-persistent * Hx intubation in the past, trigger anxiety * Duonebs 3ml INH q6h with peak flow * Continue Advair 250/50 INH [id number] * Per Patient, patient is using nebulizers around the clock, history of childhood asthma, as well as triggers including anxiety, patient used to see body line finisher outpatient * [facility] Dr Solo consulted- will f/u recommendations * Peak flow on admission: 110 and has improved following nebulizer treatment; latest recording 180 Opioid use disorder * Psych consulted Dr Owen- help appreciated * Methadone taper (currently on 5mg daily) * Zofran prn n/v * Imodium prn diarrhea * Gabapentin 300mg PO TID * Discharge plan of follow up at methadone clinic * Monitor for withdrawal symptoms * patient did not follow-up at [facility] per last discharge * UDS: likely indicates methadone received during hospitalization Hepatitis C * Diagnosed September 2016 in hospital review of EMR * HIV negative 09/23/16 * Patient advised to follow up with GI and ID as outpatient * Avoid hepatotoxins * Ordered for HIV * Patient is a currently IV drug user Diarrhea * likely secondary to heroin withdrawals * f/u stool C.diff and culture Hx Depression * Psych (Dr. Owen) on board-->help appreciated * Seroquel 100mg PO HS * Denies SI/HI Prophylactic measures * Lovenox 40mg SC daily-->patient is refusing, discussed with nurse, Diandra * SCDs * Protonix 40mg PO daily Assessment and plan discussed with attending physician. <PepitoBoy zarateанна Shields - Last Filed: 12/06/16 21:14> Objective - Vital Signs/Intake and Output Vital Signs (last 24 hours): Temp Pulse Resp BP Pulse Ox 97.6 F 82 18 118/75 95 12/05/16 08:15 12/05/16 08:15 12/05/16 08:15 12/05/16 08:15 12/05/16 08:15 - Labs Labs: 12/05/16 11:59 12/05/16 11:59 Attending/Attestation - Attestation I have personally seen and examined this patient.: Yes I have fully participated in the care of the patient.: Yes I have reviewed all pertinent clinical information, including history, physical exam and plan: Yes Notes (Text): This late computer entry for 12/03/16. Patient seen, examined, and case discussed with day-time resident. Patient reports productive cough with pleuritic chest pain. Discussed with pulmonary recommended for NSAID to help relieve chest pain. Supportive therapy for cough including Mucinex and Tesslon perles in addition to IV antibiotics. Continue to monitor Assessment/Plan 1. Sepsis Sepsis on admission in ED: Danilo seen on CXR, WBC 29.2 with left shift and 8 bands, tachycardia, afebrile Likely hospital acquired due to recent admissions IV Abx Azithromycin 500mg IV q24h (active since 12/01/16) and Zosyn 2.25 IV q8h ( active since 11/30/16) Blood culture (11/30/16) negative x48 hours X2 Duonebs 3ml INH q6h with peak flow (11/30 peak flow pre 110 and post 140) [facility] Dr Solo consulted- will f/u recommendations Monitor white count and temperature f/u procalcitonin, legionella, mycoplasma CT Chest report (12/02/16): foci of airspace consolidation at the right middle lobe and bilateral lower lobes suspicious for multifocal pneumonia, Scattered nodular opacities in the upper lobes also likely represent infectious process and intrabronchial spread of infection. Small left pleural effusion. slightly prominent mediastinal lymph nodes. mild elevation of the right hemidiaphragm Florastor 250mg PO bid 12/02/16 Chest X-ray: Worsening opacities and the lower lobe since the previous exam. New right-sided pleural effusion. 11/30/16 Chest X-ray: Bibasilar infiltrates new since prior examination. Likely pneumonia. 1 of these infiltrates is in the lower lobe and the other is a either lingula or middle lobe. 2.Pneumonia Sepsis on admission in ED: Penumonia seen on CXR, WBC 29.2 with left shift and 8 bands, tachycardia, afebrile Likely hospital acquired pneumonia due to recent admissions IV Abx Azithromycin 500mg IV q24h (active since 12/01/16) and Zosyn 2.25 IV q8h ( active since 11/30/16) Duonebs 3ml INH q6h with peak flow [facility] Dr Solo consulted on board Blood culture (11/30/16) negative x48 hours X2 Monitor white count and temperature f/u procalcitonin, legionella, mycoplasma ordered CT Chest report (12/02/16): foci of airspace consolidation at the right middle lobe and bilateral lower lobes suspicious for multifocal pneumonia, Scattered nodular opacities in the upper lobes also likely represent infectious process and intrabronchial spread of infection. Small left pleural effusion. slightly prominent mediastinal lymph nodes. mild elevation of the right hemidiaphragm Florastor 250mg PO bid 12/02/16 Chest X-ray: Worsening opacities and the lower lobe since the previous exam. New right-sided pleural effusion. 11/30/16 Chest X-ray: Bibasilar infiltrates new since prior examination. Likely pneumonia. 1 of these infiltrates is in the lower lobe and the other is a either lingula or middle lobe. 3. Asthma, moderate-persistent Hx intubation in the past, trigger anxiety Duonebs 3ml INH q6h with peak flow Start Advair 250/50 INH [id number] Per Patient, patient is using nebulizers around the clock, history of childhood asthma, as well as triggers including anxiety, patient used to see body line finisher outpatient [facility] Dr Solo consulted- will f/u recommendations Peak flow on admission: 110 and has improved following nebulizer treatment; latest recording 180 4. Opioid use disorder Psych consulted Dr Owen- help appreciated Methadone taper Zofran prn n/v Imodium prn diarrhea Gabapentin 300mg PO TID Discharge plan of follow up at methadone clinic Monitor for withdrawal symptoms patient did not follow-up at [facility] per last discharge UDS: likely indicates methadone received during hospitalization 5. Hepatitis C Diagnosed September 2016 in hospital review of EMR HIV negative 09/23/16 Patient advised to follow up with GI and ID as outpatient; patient has pending appointment with GI per discussion with patient Avoid hepatotoxins Ordered for HIV Patient is a currently IV drug user 6. Hx Depression Psych (Dr. Owen) on board-->help appreciated Seroquel 100mg PO HS Denies SI/HI 7. Prophylactic measures Lovenox 40mg SC daily-->patient is refusing, discussed with nurse, Diandra previously SCDs Protonix 40mg PO daily 8. Diarrhea Likely secondary to withdrawal from heroin ordered for C. dif and stool studies in light of recent antibiotic use
[2016-12-03 20:19] LABS: PROCALCITONIN SERUM 0.06 NG/ML (0.19-0.49)
[2016-12-04] MEDS: Albuterol-Ipratrop 3 mg / 0.5 (3 ml) UD INH SCH ×4 (02:21→19:28)
[2016-12-04] MEDS: TAZO IVPB SCH ×3 (05:43→21:53)
[2016-12-04] MEDS: D5W IVPB SCH ×3 (05:43→21:53)
[2016-12-04] MEDS: PIPERACILL IVPB SCH ×3 (05:43→21:53)
[2016-12-04] MEDS: Fluticasone-Salmeterol 250-50mcg Diskus INH SCH ×2 (08:39→19:28)
[2016-12-04] MEDS: Enoxaparin 40 mg Syringe SC SCH (10:51)
[2016-12-04] MEDS: Sodium Chloride 0.9% 1,000 ML IV SCH ×2 (10:53→21:11)
[2016-12-04] MEDS: Saccharomyces Boulardi 250 mg Cap PO SCH ×2 (10:53→18:21)
[2016-12-04] MEDS: Azithromycin 500 MG in Sodium Chloride 0.9% 250 ML IVPB SCH (10:54)
[2016-12-04] MEDS: guaiFENesin 600 mg ER Tab PO SCH ×2 (10:55→18:22)
[2016-12-04] MEDS: Pantoprazole 40 mg EC Tab PO SCH (10:55)
[2016-12-04 11:14] LABS: BASO % 0.6 % (0.0-2.0); EOS # 0.6 K/uL (0.0-0.7); EOS % 7.2 % (0.0-4.0); HEMATOCRIT 41.1 % (35.0-51.0); LYMPH % 23.8 % (20.0-40.0); MEAN CELL VOLUME 92.9 fL (80.0-94.0); MEAN CORPUSCULAR HEMOGLOBIN 30.8 pg (27.0-31.0); MEAN CORPUSCULAR HGB CONC 33.2 g/dL (33.0-37.0); MEAN PLATELET VOLUME 7.6 fL (7.2-11.7); MONO # 0.7 K/uL (0.0-0.8); MONO % 8.5 % (0.0-10.0); RED CELL DISTRIBUTION WIDTH 14.3 % (11.5-14.5); WHITE BLOOD COUNT 8.4 K/uL (4.8-10.8)
[2016-12-04 11:26] LABS: CHLORIDE 102 mmol/L (98-107); POTASSIUM 4.3 mmol/L (3.6-5.2); SODIUM 138 mmol/L (132-148)
[2016-12-04 11:28] LABS: GFR AFRICAN-AMERICAN > 60
[2016-12-04 11:29] LABS: ALKALINE PHOSPHATASE 87 U/L (38-126); ALT/SGPT 68 U/L (21-72); AST/SGOT 46 U/L (17-59); BILIRUBIN,TOTAL 0.5 mg/dL (0.2-1.3); BLOOD UREA NITROGEN 17 mg/dL (9-20); CALCIUM 9.2 mg/dl (8.6-10.4); CARBON DIOXIDE 25 mmol/L (22-30); GLUCOSE,RANDOM 101 mg/dL (75-110); PHOSPHOROUS 3.4 mg/dL (2.5-4.5); TOTAL PROTEIN 7.6 g/dL (6.3-8.3)
--- NOTE | 2016-12-04 21:08 | CP.PCM.PN ---
<Erik Figueroa - Last Filed: 12/04/16 21:05> Subjective - Date & Time of Evaluation Date of Evaluation: 12/04/16 Time of Evaluation: 08:00 - Subjective Subjective: Dr. Figueroa PGY 1 Hospitalist Note The patient was seen today morning and was evaluated at bedside. Today, he reports improved but continuing left-sided pain associated with inspiration, cough, and yellow sputum production. He states that compared to yesterday, the pain has improved but is still present. In addition, he reports that his diarrhea secondary to opioid withdrawal has also improved. Today, he had 1 loose bowel movement vs. 3-4 loose bowel movements yesterday. He reports left- sided pain, pain on inspiration, cough, sputum production, nausea, vomiting x1, and diarrhea. He denies fever, chills, palpitations, and leg pain. Objective - Vital Signs/Intake and Output Vital Signs (last 24 hours): Temp Pulse Resp BP Pulse Ox 98.1 F 81 20 106/66 95 12/04/16 15:35 12/04/16 15:35 12/04/16 15:35 12/04/16 15:35 12/04/16 15:35 Intake and Output: 12/04/16 12/05/16 18:59 06:59 Intake Total 1100 400 Balance 1100 400 - Medications Medications: Current Medications Acetaminophen (Tylenol 325mg Tab) 650 mg PO Q6 PRN PRN Reason: Pain, moderate (4-7) Last Admin: 12/03/16 06:48 Dose: 650 mg Al Hydrox/Mg Hydrox/Simethicone (Maalox 30 Ml) 30 ml PO TID PRN PRN Reason: Indigestion / Heartburn Albuterol/Ipratropium (Duoneb 3 Mg/0.5 Mg (3 Ml) Ud) 3 ml INH RQ6 [facility] Last Admin: 12/04/16 19:28 Dose: 3 ml Benzonatate (Tessalon Perles) 100 mg PO TID [facility] Last Admin: 12/04/16 18:22 Dose: 100 mg Clonidine HCl (Catapres) 0.1 mg PO Q8 PRN PRN Reason: COWS Score More or Equal to 5 Enoxaparin Sodium (Lovenox) 40 mg SC DAILY [facility] Last Admin: 12/04/16 10:51 Dose: Not Given Gabapentin (Neurontin) 300 mg PO TID [facility] Last Admin: 12/04/16 18:21 Dose: 300 mg Guaifenesin (Mucinex La) 600 mg PO BID [facility] Last Admin: 12/04/16 18:22 Dose: 600 mg Piperacillin Sod/Tazobactam Sod (Zosyn 2.25 Gm Iv Premix) 2.25 gm in 50 mls @ 100 mls/hr IVPB Q8 [facility] Last Admin: 12/04/16 13:58 Dose: 100 mls/hr Azithromycin 500 mg/ Sodium (Chloride) 250 mls @ 167 mls/hr IVPB Q24H [facility] Last Admin: 12/04/16 10:54 Dose: 167 mls/hr Sodium Chloride (Sodium Chloride 0.9%) 1,000 mls @ 100 mls/hr IV .Q10H [facility] Last Admin: 12/04/16 10:53 Dose: 100 mls/hr Ketorolac Tromethamine (Toradol) 10 mg PO Q6 PRN PRN Reason: Pain, moderate (4-7) Loperamide HCl (Imodium) 2 mg PO Q8 PRN PRN Reason: Diarrhea Ondansetron HCl (Zofran Tab) 4 mg PO Q8 PRN PRN Reason: Nausea/Vomiting Last Admin: 12/01/16 10:44 Dose: 4 mg Pantoprazole Sodium (Protonix Ec Tab) 40 mg PO DAILY [facility] Last Admin: 12/04/16 10:55 Dose: 40 mg Quetiapine Fumarate (Seroquel) 100 mg PO HS [facility] Last Admin: 12/03/16 21:00 Dose: 100 mg Saccharomyces Boulardii (Florastor) 250 mg PO BID [facility] Last Admin: 12/04/16 18:21 Dose: 250 mg Fluticasone/Salmeterol (Advair Diskus 250/50) 1 puff INH RQ12 [facility] Last Admin: 12/04/16 19:28 Dose: 1 puff - Labs Labs: 12/04/16 11:07 12/04/16 11:07 - Head Exam Head Exam: ATRAUMATIC, NORMOCEPHALIC - Eye Exam Eye Exam: EOMI, Normal appearance, PERRL Pupil Exam: NORMAL ACCOMODATION, PERRL - ENT Exam ENT Exam: Mucous Membranes Moist. absent: Normal Oropharynx (poor dentition) - Neck Exam Neck Exam: Normal Inspection - Respiratory Exam Respiratory Exam: Clear to Ausculation Bilateral, Rales (LLL), NORMAL BREATHING PATTERN. absent: Rhonchi, Wheezes - Cardiovascular Exam Cardiovascular Exam: REGULAR RHYTHM, +S1, +S2. absent: Gallop, Rubs, Murmur - GI/Abdominal Exam GI & Abdominal Exam: Soft. absent: Firm, Guarding, Tenderness, Normal Bowel Sounds - Extremities Exam Extremities Exam: Normal Capillary Refill, Normal Inspection. absent: Pedal Edema, Tenderness - Back Exam Back Exam: NORMAL INSPECTION. absent: rash noted, tenderness - Neurological Exam Neurological Exam: Alert, Awake, CN II-XII Intact, Normal Gait, Oriented x3 - Psychiatric Exam Psychiatric exam: Normal Affect, Normal Mood - Skin Skin Exam: Dry, Intact, Normal Color, Warm Assessment and Plan - Assessment and Plan (Free Text) Plan: Sepsis * Sepsis on admission in ED: Penumonia seen on CXR, WBC 29.2 with left shift and 8 bands, tachycardia, afebrile * Likely hospital acquired due to recent admissions * 11/30/16 Chest X-ray: Bibasilar infiltrates new since prior examination. Likely pneumonia. 1 of these infiltrates is in the lower lobe and the other is a either lingula or middle lobe. * 12/02/16 Chest X-ray: Worsening opacities and the lower lobe since the previous exam. New right-sided pleural effusion. * 12/02/[address] showed foci of airspace consolidation at right middle lobe and bilateral lower lobes suspicious for multifocal pneumonia. scattered nodular opacities in upper lobes, small left pleural effusion, slightly prominent mediastinal lymph nodes, [see full report] * IV Abx Azithromycin 500mg IV q24h (active since 12/01/16) and Zosyn 2.25 IV q8h (active since 11/30/16) * Blood culture (11/30/16) negative x48 hours X2 * Duonebs 3ml INH q6h with peak flow (11/30 peak flow pre 110 and post 140) * Chipper Dr Solo consulted- will f/u recommendations * WBC 8.1, improving * procalcitonin negative * legionella negative * mycoplasma negative * Florastor 250mg PO bid Pneumonia * Sepsis on admission in ED: Penumonia seen on CXR, WBC 29.2 with left shift and 8 bands, tachycardia, afebrile * Likely hospital acquired due to recent admissions * 11/30/16 Chest X-ray: Bibasilar infiltrates new since prior examination. Likely pneumonia. 1 of these infiltrates is in the lower lobe and the other is a either lingula or middle lobe. * 12/02/16 Chest X-ray: Worsening opacities and the lower lobe since the previous exam. New right-sided pleural effusion. * 12/02/[address] showed foci of airspace consolidation at right middle lobe and bilateral lower lobes suspicious for multifocal pneumonia. scattered nodular opacities in upper lobes, small left pleural effusion, slightly prominent mediastinal lymph nodes, [see full report] * IV Abx Azithromycin 500mg IV q24h (active since 12/01/16) and Zosyn 2.25 IV q8h (active since 11/30/16) * Blood culture (11/30/16) negative x48 hours X2 * Duonebs 3ml INH q6h with peak flow (11/30 peak flow pre 110 and post 140) * Chipper Dr Solo consulted- will f/u recommendations * WBC 8.1, improving * procalcitonin negative * legionella negative * mycoplasma negative * Florastor 250mg PO bid Asthma, moderate-persistent * Hx intubation in the past, trigger anxiety * Duonebs 3ml INH q6h with peak flow * Continue Advair 250/50 INH [id number] * Per Patient, patient is using nebulizers around the clock, history of childhood asthma, as well as triggers including anxiety, 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 * Chipper Dr Solo consulted- will f/u recommendations * Peak flow on admission: 110 and has improved following nebulizer treatment; latest recording 180 Opioid use disorder * Psych consulted Dr Owen- help appreciated * Methadone taper (currently on 5mg daily) * Zofran prn n/v * Imodium prn diarrhea * Gabapentin 300mg PO TID * Discharge plan of follow up at methadone clinic * Monitor for withdrawal symptoms * patient did not follow-up at [facility] per last discharge * UDS: likely indicates methadone received during hospitalization Hepatitis C * Diagnosed September 2016 in hospital review of EMR * HIV negative 09/23/16 * Patient advised to follow up with GI and ID as outpatient * Avoid hepatotoxins * Ordered for HIV * Patient is a currently IV drug user Diarrhea * likely secondary to heroin withdrawals * f/u stool C.diff and culture Hx Depression * Psych (Dr. Owen) on board-->help appreciated * Seroquel 100mg PO HS * Denies SI/HI Prophylactic measures * Lovenox 40mg SC daily-->patient is refusing, discussed with nurse, Diandra * SCDs * Protonix 40mg PO daily Assessment and plan discussed with attending physician. <Carrie Mathew V - Last Filed: 12/06/16 21:18> Objective - Vital Signs/Intake and Output Vital Signs (last 24 hours): Temp Pulse Resp BP Pulse Ox 97.6 F 82 18 118/75 95 12/05/16 08:15 12/05/16 08:15 12/05/16 08:15 12/05/16 08:15 12/05/16 08:15 - Labs Labs: 12/05/16 11:59 12/05/16 11:59 Attending/Attestation - Attestation I have personally seen and examined this patient.: Yes I have fully participated in the care of the patient.: Yes I have reviewed all pertinent clinical information, including history, physical exam and plan: Yes Notes (Text): This is late computer entry for 12/04/16. Patient seen, examined, and case discussed with day-time resident. Patient reports diarrhea is less compared to yesterday. Patient's white count has normalized while on IV antibiotics. Patient placed on NSAID for pleuritic chest pain secondary to cough from pneumonia. Assessment/Plan 1. Sepsis Sepsis on admission in ED: Penumonia seen on CXR, WBC 29.2 with left shift and 8 bands, tachycardia, afebrile Likely hospital acquired due to recent admissions IV Abx Azithromycin 500mg IV q24h (active since 12/01/16) and Zosyn 2.25 IV q8h ( active since 11/30/16) Blood culture (11/30/16) negative thus far Duonebs 3ml INH q6h with peak flow (11/30 peak flow pre 110 and post 140) Chipper Dr Solo consulted- will f/u recommendations Monitor white count and temperature CT Chest report (12/02/16): foci of airspace consolidation at the right middle lobe and bilateral lower lobes suspicious for multifocal pneumonia, Scattered nodular opacities in the upper lobes also likely represent infectious process and intrabronchial spread of infection. Small left pleural effusion. slightly prominent mediastinal lymph nodes. mild elevation of the right hemidiaphragm Florastor 250mg PO bid WBC 8.1, improving procalcitonin negative legionella negative mycoplasma negative 12/02/16 Chest X-ray: Worsening opacities and the lower lobe since the previous exam. New right-sided pleural effusion. 11/30/16 Chest X-ray: Bibasilar infiltrates new since prior examination. Likely pneumonia. 1 of these infiltrates is in the lower lobe and the other is a either lingula or middle lobe. 2.Pneumonia Sepsis on admission in ED: Penumonia seen on CXR, WBC 29.2 with left shift and 8 bands, tachycardia, afebrile Likely hospital acquired pneumonia due to recent admissions IV Abx Azithromycin 500mg IV q24h (active since 12/01/16) and Zosyn 2.25 IV q8h ( active since 11/30/16) Duonebs 3ml INH q6h with peak flow Chipper Dr Solo consulted on board Blood culture (11/30/16) negative thus far Monitor white count and temperature WBC 8.1, improving procalcitonin negative legionella negative mycoplasma negative CT Chest report (12/02/16): foci of airspace consolidation at the right middle lobe and bilateral lower lobes suspicious for multifocal pneumonia, Scattered nodular opacities in the upper lobes also likely represent infectious process and intrabronchial spread of infection. Small left pleural effusion. slightly prominent mediastinal lymph nodes. mild elevation of the right hemidiaphragm Florastor 250mg PO bid 12/02/16 Chest X-ray: Worsening opacities and the lower lobe since the previous exam. New right-sided pleural effusion. 11/30/16 Chest X-ray: Bibasilar infiltrates new since prior examination. Likely pneumonia. 1 of these infiltrates is in the lower lobe and the other is a either lingula or middle lobe. 3. 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 Opioid use disorder Psych consulted Dr Owen- help appreciated Methadone taper per psych Zofran prn n/v Imodium prn diarrhea Gabapentin 300mg PO TID Discharge plan of follow up at methadone clinic Monitor for withdrawal symptoms patient did not follow-up at [facility] per last discharge UDS: likely indicates methadone received during hospitalization 5. Hepatitis C Diagnosed September 2016 in hospital review of EMR HIV negative 09/23/16 Patient advised to follow up with GI and ID as outpatient; patient has pending appointment with GI per discussion with patient Avoid hepatotoxins Ordered for HIV Patient is a currently IV drug user 6. Hx Depression Psych (Dr. Owen) on board-->help appreciated Seroquel 100mg PO HS Denies SI/HI 7. Prophylactic measures Lovenox 40mg SC daily-->patient is refusing, discussed with nurse, Diandra previously SCDs Protonix 40mg PO daily 8. Diarrhea Likely secondary to withdrawal from heroin ordered for C. dif and stool studies in light of recent antibiotic use reduced in frequency
[2016-12-05] MEDS: Albuterol-Ipratrop 3 mg / 0.5 (3 ml) UD INH SCH ×3 (01:38→14:05)
[2016-12-05] MEDS: Sodium Chloride 0.9% 1,000 ML IV SCH (04:03)
[2016-12-05] MEDS: TAZO IVPB SCH ×2 (06:00→13:42)
[2016-12-05] MEDS: D5W IVPB SCH ×2 (06:00→13:42)
[2016-12-05] MEDS: PIPERACILL IVPB SCH ×2 (06:00→13:42)
[2016-12-05] MEDS: Fluticasone-Salmeterol 250-50mcg Diskus INH SCH (07:45)
[2016-12-05 08:16] VITALS: BP 118/75; PULSE 82; RESP 18; TEMP 97.6; O2SAT 95
[2016-12-05] MEDS: Azithromycin 500 MG in Sodium Chloride 0.9% 250 ML IVPB SCH (10:43)
[2016-12-05] MEDS: Pantoprazole 40 mg EC Tab PO SCH (10:44)
[2016-12-05] MEDS: Enoxaparin 40 mg Syringe SC SCH (10:44)
[2016-12-05] MEDS: guaiFENesin 600 mg ER Tab PO SCH (10:44)
[2016-12-05] MEDS: Saccharomyces Boulardi 250 mg Cap PO SCH (10:44)
[2016-12-05 12:13] LABS: BASO # 0.1 K/uL (0.0-0.2); BASO % 0.7 % (0.0-2.0); EOS # 0.4 K/uL (0.0-0.7); EOS % 5.6 % (0.0-4.0); HEMATOCRIT 38.1 % (35.0-51.0); LYMPH # 1.8 K/uL (1.0-4.3); MEAN CELL VOLUME 92.9 fL (80.0-94.0); MEAN CORPUSCULAR HEMOGLOBIN 30.5 pg (27.0-31.0); MEAN CORPUSCULAR HGB CONC 32.8 g/dL (33.0-37.0); MEAN PLATELET VOLUME 7.6 fL (7.2-11.7); MONO # 0.6 K/uL (0.0-0.8); MONO % 8.2 % (0.0-10.0); NRBC % 0.1 % (0.0-2.0); RED CELL DISTRIBUTION WIDTH 14.1 % (11.5-14.5); WHITE BLOOD COUNT 7.2 K/uL (4.8-10.8)
[2016-12-05 12:15] LABS: CHLORIDE 107 mmol/L (98-107); POTASSIUM 3.9 mmol/L (3.6-5.2); SODIUM 140 mmol/L (132-148)
[2016-12-05 12:17] LABS: ALKALINE PHOSPHATASE 75 U/L (38-126); ALT/SGPT 62 U/L (21-72); AST/SGOT 45 U/L (17-59); BILIRUBIN,TOTAL 0.5 mg/dL (0.2-1.3); BLOOD UREA NITROGEN 14 mg/dL (9-20); CARBON DIOXIDE 25 mmol/L (22-30); GFR AFRICAN-AMERICAN > 60; TOTAL PROTEIN 6.7 g/dL (6.3-8.3)
[2016-12-05 12:18] LABS: CALCIUM 8.7 mg/dl (8.6-10.4); GLUCOSE,RANDOM 107 mg/dL (75-110); PHOSPHOROUS 2.9 mg/dL (2.5-4.5)
--- NOTE | 2016-12-05 14:17 | CP.PCM.DIS ---
<Alexi Weber - Last Filed: 12/05/16 18:15> Provider - Provider Date of Admission: 11/30/16 05:36 Attending physician: Carrie Mathew DO Consults: Consults: Dr. Edil Owen Time Spent in preparation of Discharge (in minutes): 45 Hospital Course - Lab Results Lab Results: Micro Results 12/03/16 12:24 Sputum Gram Stain - Final 12/03/16 12:24 Sputum Sputum Culture - Final NORMAL ORAL AURELIO 11/30/16 19:30 Blood Blood Culture - Preliminary NO GROWTH AFTER 4 DAYS 11/30/16 19:30 Blood Blood Culture - Preliminary NO GROWTH AFTER 4 DAYS Most Recent Lab Values WBC 7.2 K/uL (4.8-10.8) 12/05/16 11:59 RBC 4.10 Mil/uL (4.40-5.90) L 12/05/16 11:59 Hgb 12.5 g/dL (12.0-18.0) 12/05/16 11:59 Hct 38.1 % (35.0-51.0) 12/05/16 11:59 MCV 92.9 fL (80.0-94.0) 12/05/16 11:59 MCH 30.5 pg (27.0-31.0) 12/05/16 11:59 MCHC 32.8 g/dL (33.0-37.0) L 12/05/16 11:59 RDW 14.1 % (11.5-14.5) 12/05/16 11:59 Plt Count 389 K/uL (130-400) 12/05/16 11:59 MPV 7.6 fL (7.2-11.7) 12/05/16 11:59 Neut % (Auto) 60.5 % (50.0-75.0) 12/05/16 11:59 Lymph % (Auto) 25.0 % (20.0-40.0) 12/05/16 11:59 Placer % (Auto) 8.2 % (0.0-10.0) 12/05/16 11:59 Eos % (Auto) 5.6 % (0.0-4.0) H 12/05/16 11:59 Baso % (Auto) 0.7 % (0.0-2.0) 12/05/16 11:59 Neut # 4.4 K/uL (1.8-7.0) 12/05/16 11:59 Lymph # 1.8 K/uL (1.0-4.3) 12/05/16 11:59 Placer # 0.6 K/uL (0.0-0.8) 12/05/16 11:59 Eos # 0.4 K/uL (0.0-0.7) 12/05/16 11:59 Baso # 0.1 K/uL (0.0-0.2) 12/05/16 11:59 Neutrophils % (Manual) 68 % (50-75) 11/30/16 04:01 Band Neutrophils % 8 % (0-2) H 11/30/16 04:01 Lymphocytes % (Manual) 8 % (20-40) L 11/30/16 04:01 Reactive Lymphs % 1 % (0-0) H 11/30/16 04:01 Monocytes % (Manual) 9 % (0-10) 11/30/16 04:01 Eosinophils % (Manual) 1 % (0-4) 11/30/16 04:01 Metamyelocytes % 3 % (0-0) H 11/30/16 04:01 Myelocytes % 2 % (0-0) H 11/30/16 04:01 Toxic Granulation Present 11/30/16 04:01 Platelet Estimate Normal (NORMAL) 11/30/16 04:01 RBC Morphology Normal 11/30/16 04:01 pO2 54 mm/Hg (30-55) 11/30/16 10:30 VBG pH 7.42 (7.32-7.43) 11/30/16 10:30 VBG pCO2 42 mmHg (40-60) 11/30/16 10:30 VBG HCO3 26.6 mmol/L 11/30/16 10:30 VBG Total CO2 28.5 mmol/L (22-28) H 11/30/16 10:30 VBG O2 Sat (Calc) 89.2 % (40-65) H 11/30/16 10:30 VBG Base Excess 2.4 mmol/L (0.0-2.0) H 11/30/16 10:30 VBG Potassium 4.4 mmol/L (3.6-5.2) 11/30/16 10:30 Sodium 139.0 mmol/l (132-148) 11/30/16 10:30 Chloride 105.0 mmol/L (98-107) 11/30/16 10:30 Glucose 103 mg/dl (75-110) 11/30/16 10:30 Lactate 1.2 mmol/L (0.7-2.1) 11/30/16 10:30 Sodium 140 mmol/L (132-148) 12/05/16 11:59 Potassium 3.9 mmol/L (3.6-5.2) 12/05/16 11:59 Chloride 107 mmol/L (98-107) 12/05/16 11:59 Carbon Dioxide 25 mmol/L (22-30) 12/05/16 11:59 Anion Gap 13 (10-20) 12/05/16 11:59 BUN 14 mg/dL (9-20) 12/05/16 11:59 Creatinine 0.9 MG/DL (0.8-1.5) 12/05/16 11:59 Est GFR ( Amer) > 60 12/05/16 11:59 Est GFR (Non-Af Amer) > 60 12/05/16 11:59 Random Glucose 107 mg/dL (75-110) 12/05/16 11:59 Calcium 8.7 mg/dl (8.6-10.4) 12/05/16 11:59 Phosphorus 2.9 mg/dL (2.5-4.5) 12/05/16 11:59 Magnesium 2.0 mg/dL (1.6-2.3) 12/05/16 11:59 Total Bilirubin 0.5 mg/dL (0.2-1.3) 12/05/16 11:59 AST 45 U/L (17-59) 12/05/16 11:59 ALT 62 U/L (21-72) 12/05/16 11:59 Alkaline Phosphatase 75 U/L (38-126) 12/05/16 11:59 Total Protein 6.7 g/dL (6.3-8.3) 12/05/16 11:59 Albumin 3.3 g/dL (3.5-5.0) L 12/05/16 11:59 Globulin 3.4 gm/dL (2.2-3.9) 12/05/16 11:59 Albumin/Globulin Ratio 1.0 (1.0-2.1) 12/05/16 11:59 Procalcitonin 0.06 NG/ML (0.19-0.49) L 12/03/16 15:51 Venous Blood Potassium 4.4 mmol/L (3.6-5.2) 11/30/16 10:30 Urine Opiates Screen Positive (NEGATIVE) 11/30/16 18:27 Urine Methadone Screen Positive (NEGATIVE) 11/30/16 18:27 Ur Barbiturates Screen Negative (NEGATIVE) 11/30/16 18:27 Ur Phencyclidine Scrn Negative (NEGATIVE) 11/30/16 18:27 Ur Amphetamines Screen Negative (NEGATIVE) 11/30/16 18:27 U Benzodiazepines Scrn Negative (NEGATIVE) 11/30/16 18:27 U Oth Cocaine Metabols Negative (NEGATIVE) 11/30/16 18:27 U Cannabinoids Screen Negative (NEGATIVE) 11/30/16 18:27 HIV 1&2 Antibody Screen Negative (NEGATIVE) 12/04/16 07:52 Ur L.pneumophila Ag Negative (NEGATIVE) 12/03/16 15:51 Mycoplasma pneumon IgM Negative (NEGATIVE) 12/03/16 15:51 - Hospital Course Hospital Course: Attending: Dr. Mathew Admit- 11-30-16 VT date- 12-05-16 Procedures- none Complications - none Discharge diagnoses 1. Pneumonia 2. Asthma 3. Opioid use 4. Hep c 5. Diarrhea 6. Depression Consults Pulm- Edil Psych- [place] HPI: see h/p Lab data: see lab data section Hospital course: Sepsis * Sepsis on admission in ED: Penumonia seen on CXR, WBC 29.2 with left shift and 8 bands, tachycardia, afebrile * Likely hospital acquired due to recent admissions * 11/30/16 Chest X-ray: Bibasilar infiltrates new since prior examination. Likely pneumonia. 1 of these infiltrates is in the lower lobe and the other is a either lingula or middle lobe. * 12/02/16 Chest X-ray: Worsening opacities and the lower lobe since the previous exam. New right-sided pleural effusion. * 12/02/[address] showed foci of airspace consolidation at right middle lobe and bilateral lower lobes suspicious for multifocal pneumonia. scattered nodular opacities in upper lobes, small left pleural effusion, slightly prominent mediastinal lymph nodes, [see full report] * IV Abx Azithromycin 500mg IV q24h (active since 12/01/16) and Zosyn 2.25 IV q8h (active since 11/30/16)>>> discharged on z pack * Blood culture (11/30/16) negative x4 days X2 * Duonebs 3ml INH q6h with peak flow (5/8 peak flow pre 110 and post 140) * [facility] [employer] Dr Solo consulted- will f/u recommendations * WBC improving * procalcitonin negative * legionella negative * mycoplasma negative * Florastor 250mg PO bid>>> will need to take abx with yogurt upon dc Pneumonia * Sepsis on admission in ED: Penumonia seen on CXR, WBC 29.2 with left shift and 8 bands, tachycardia, afebrile * Likely hospital acquired due to recent admissions * 11/30/16 Chest X-ray: Bibasilar infiltrates new since prior examination. Likely pneumonia. 1 of these infiltrates is in the lower lobe and the other is a either lingula or middle lobe. * 12/02/16 Chest X-ray: Worsening opacities and the lower lobe since the previous exam. New right-sided pleural effusion. * 12/02/[address] showed foci of airspace consolidation at right middle lobe and bilateral lower lobes suspicious for multifocal pneumonia. scattered nodular opacities in upper lobes, small left pleural effusion, slightly prominent mediastinal lymph nodes, [see full report] * IV Abx Azithromycin 500mg IV q24h (active since 12/01/16) and Zosyn 2.25 IV q8h (active since 11/30/16)>>> dc on zpack * Blood culture (11/30/16) negative x4 days X2 * Duonebs 3ml INH q6h with peak flow (5/8 peak flow pre 110 and post 140) * [employer] Dr Solo consulted- will f/u recommendations * WBC improved * procalcitonin negative * legionella negative * mycoplasma negative * Florastor 250mg PO bid>>> take abx with yogurt Asthma, moderate-persistent * Hx intubation in the past, trigger anxiety * Duonebs 3ml INH q6h with peak flow * Continue Advair 250/50 INH [id number]>> dc on albuterol and fluticasone * Per Patient, patient is using nebulizers around the clock, history of childhood asthma, as well as triggers including anxiety, patient used to see blower mechanic outpatient * [facility] [employer] Dr Solo consulted- will f/u recommendations * Peak flow on admission: 110 and has improved following nebulizer treatment; latest recording 180 Opioid use disorder * Psych consulted Dr Owen- help appreciated * Methadone taper (currently on 5mg daily)>>> tapered off * Zofran prn n/v * Imodium prn diarrhea * Gabapentin 300mg PO TID >>> will give rx for 2 weeks * Discharge plan of follow up at methadone clinic * Monitor for withdrawal symptoms * patient did not follow-up at [facility] per last discharge * UDS: likely indicates methadone received during hospitalization Hepatitis C * Diagnosed September 2016 in hospital review of EMR * HIV negative 09/23/16 * Patient advised to follow up with GI and ID as outpatient * Avoid hepatotoxins * Ordered for HIV>>> negative * Patient is a currently IV drug user Diarrhea * likely secondary to heroin withdrawals * f/u stool C.diff and culture Hx Depression * Psych (Dr. Owen) on board-->help appreciated * Seroquel 100mg PO HS * Denies SI/HI Prophylactic measures * Lovenox 40mg SC daily-->patient is refusing, discussed with nurse, Diandra * SCDs * Protonix 40mg PO daily Discharge instructions F/u with PMD shortly. Please return if condition worsens. Rx for zpack, gabapentin, and fluticasone to take. Please take all meds as indictated. f/u in methadone clinic. Discharge meds 1. tylenol 650 mg q 6 prn 2. Z pack 250 PO daily 3. Flovent 1 puff q 12 KAYLEE 4. Neurontin 300 mg TID x 2 weeks 5. Seroquel 100 HS 6. Albuterol inhaler 2 puffs q 4 PRN - Date & Time of H&P Date of H&P: 11/30/16 Time of H&P: 14:05 Discharge Exam - Head Exam Head Exam: ATRAUMATIC, NORMOCEPHALIC - Eye Exam Eye Exam: EOMI - ENT Exam ENT Exam: Mucous Membranes Moist - Neck Exam Neck exam: Full Rom, Normal Inspection - Respiratory Exam Respiratory Exam: Rhonchi - Cardiovascular Exam Cardiovascular Exam: REGULAR RHYTHM, +S1, +S2 - GI/Abdominal Exam GI & Abdominal Exam: Normal Bowel Sounds - Extremities Exam Extremities exam: full ROM, normal inspection - Back Exam Back exam: NORMAL INSPECTION - Neurological Exam Neurological exam: Alert, Oriented x3 - Psychiatric Exam Psychiatric exam: Normal Affect, Normal Mood - Skin Skin Exam: Dry, Intact, Normal Color, Warm Discharge Plan - Discharge Medications Prescriptions: Azithromycin [Z-Freedom] 250 mg PO DAILY #6 tab Fluticasone Propionate [Flovent Hfa] 0.11 mg IH DAILY #1 ml Gabapentin [Neurontin] 300 mg PO TID 14 Days - Follow Up Plan Condition: STABLE Disposition: HOME/ ROUTINE Instructions: Pneumococcal Vaccine for Adults (DC), Pneumococcal Vaccine for Adults (GEN), Pneumonia (DC), Pneumonia (GEN) Additional Instructions: seek emergency treatment if with shortness of breath , chest pain . follow up [facility] ([phone]) (basement floor ) for appt in 1 week . Referrals: Carrie Mathew DO [Staff Provider] - <Carrie Mathew V - Last Filed: 12/06/16 21:34> Provider - Provider Date of Admission: 11/30/16 05:36 Attending physician: Carrie Mathew DO Hospital Course - Lab Results Lab Results: Micro Results 11/30/16 19:30 Blood Blood Culture - Final NO GROWTH AFTER 5 DAYS 11/30/16 19:30 Blood Gram Stain - Final TEST NOT PERFORMED 11/30/16 19:30 Blood Blood Culture - Final NO GROWTH AFTER 5 DAYS 11/30/16 19:30 Blood Gram Stain - Final TEST NOT PERFORMED 12/03/16 10:38 Other: Please Indicate Mycobacterial Culture - Preliminary 12/03/16 12:24 Sputum Gram Stain - Final 12/03/16 12:24 Sputum Sputum Culture - Final NORMAL ORAL AURELIO Most Recent Lab Values WBC 7.2 K/uL (4.8-10.8) 12/05/16 11:59 RBC 4.10 Mil/uL (4.40-5.90) L 12/05/16 11:59 Hgb 12.5 g/dL (12.0-18.0) 12/05/16 11:59 Hct 38.1 % (35.0-51.0) 12/05/16 11:59 MCV 92.9 fL (80.0-94.0) 12/05/16 11:59 MCH 30.5 pg (27.0-31.0) 12/05/16 11:59 MCHC 32.8 g/dL (33.0-37.0) L 12/05/16 11:59 RDW 14.1 % (11.5-14.5) 12/05/16 11:59 Plt Count 389 K/uL (130-400) 12/05/16 11:59 MPV 7.6 fL (7.2-11.7) 12/05/16 11:59 Neut % (Auto) 60.5 % (50.0-75.0) 12/05/16 11:59 Lymph % (Auto) 25.0 % (20.0-40.0) 12/05/16 11:59 Placer % (Auto) 8.2 % (0.0-10.0) 12/05/16 11:59 Eos % (Auto) 5.6 % (0.0-4.0) H 12/05/16 11:59 Baso % (Auto) 0.7 % (0.0-2.0) 12/05/16 11:59 Neut # 4.4 K/uL (1.8-7.0) 12/05/16 11:59 Lymph # 1.8 K/uL (1.0-4.3) 12/05/16 11:59 Placer # 0.6 K/uL (0.0-0.8) 12/05/16 11:59 Eos # 0.4 K/uL (0.0-0.7) 12/05/16 11:59 Baso # 0.1 K/uL (0.0-0.2) 12/05/16 11:59 Neutrophils % (Manual) 68 % (50-75) 11/30/16 04:01 Band Neutrophils % 8 % (0-2) H 11/30/16 04:01 Lymphocytes % (Manual) 8 % (20-40) L 11/30/16 04:01 Reactive Lymphs % 1 % (0-0) H 11/30/16 04:01 Monocytes % (Manual) 9 % (0-10) 11/30/16 04:01 Eosinophils % (Manual) 1 % (0-4) 11/30/16 04:01 Metamyelocytes % 3 % (0-0) H 11/30/16 04:01 Myelocytes % 2 % (0-0) H 11/30/16 04:01 Toxic Granulation Present 11/30/16 04:01 Platelet Estimate Normal (NORMAL) 11/30/16 04:01 RBC Morphology Normal 11/30/16 04:01 pO2 54 mm/Hg (30-55) 11/30/16 10:30 VBG pH 7.42 (7.32-7.43) 11/30/16 10:30 VBG pCO2 42 mmHg (40-60) 11/30/16 10:30 VBG HCO3 26.6 mmol/L 11/30/16 10:30 VBG Total CO2 28.5 mmol/L (22-28) H 11/30/16 10:30 VBG O2 Sat (Calc) 89.2 % (40-65) H 11/30/16 10:30 VBG Base Excess 2.4 mmol/L (0.0-2.0) H 11/30/16 10:30 VBG Potassium 4.4 mmol/L (3.6-5.2) 11/30/16 10:30 Sodium 139.0 mmol/l (132-148) 11/30/16 10:30 Chloride 105.0 mmol/L (98-107) 11/30/16 10:30 Glucose 103 mg/dl (75-110) 11/30/16 10:30 Lactate 1.2 mmol/L (0.7-2.1) 11/30/16 10:30 Sodium 140 mmol/L (132-148) 12/05/16 11:59 Potassium 3.9 mmol/L (3.6-5.2) 12/05/16 11:59 Chloride 107 mmol/L (98-107) 12/05/16 11:59 Carbon Dioxide 25 mmol/L (22-30) 12/05/16 11:59 Anion Gap 13 (10-20) 12/05/16 11:59 BUN 14 mg/dL (9-20) 12/05/16 11:59 Creatinine 0.9 MG/DL (0.8-1.5) 12/05/16 11:59 Est GFR ( Amer) > 60 12/05/16 11:59 Est GFR (Non-Af Amer) > 60 12/05/16 11:59 Random Glucose 107 mg/dL (75-110) 12/05/16 11:59 Calcium 8.7 mg/dl (8.6-10.4) 12/05/16 11:59 Phosphorus 2.9 mg/dL (2.5-4.5) 12/05/16 11:59 Magnesium 2.0 mg/dL (1.6-2.3) 12/05/16 11:59 Total Bilirubin 0.5 mg/dL (0.2-1.3) 12/05/16 11:59 AST 45 U/L (17-59) 12/05/16 11:59 ALT 62 U/L (21-72) 12/05/16 11:59 Alkaline Phosphatase 75 U/L (38-126) 12/05/16 11:59 Total Protein 6.7 g/dL (6.3-8.3) 12/05/16 11:59 Albumin 3.3 g/dL (3.5-5.0) L 12/05/16 11:59 Globulin 3.4 gm/dL (2.2-3.9) 12/05/16 11:59 Albumin/Globulin Ratio 1.0 (1.0-2.1) 12/05/16 11:59 Procalcitonin 0.06 NG/ML (0.19-0.49) L 12/03/16 15:51 Venous Blood Potassium 4.4 mmol/L (3.6-5.2) 11/30/16 10:30 Urine Opiates Screen Positive (NEGATIVE) 11/30/16 18:27 Urine Methadone Screen Positive (NEGATIVE) 11/30/16 18:27 Ur Barbiturates Screen Negative (NEGATIVE) 11/30/16 18:27 Ur Phencyclidine Scrn Negative (NEGATIVE) 11/30/16 18:27 Ur Amphetamines Screen Negative (NEGATIVE) 11/30/16 18:27 U Benzodiazepines Scrn Negative (NEGATIVE) 11/30/16 18:27 U Oth Cocaine Metabols Negative (NEGATIVE) 11/30/16 18:27 U Cannabinoids Screen Negative (NEGATIVE) 11/30/16 18:27 HIV 1&2 Antibody Screen Negative (NEGATIVE) 12/04/16 07:52 Ur L.pneumophila Ag Negative (NEGATIVE) 12/03/16 15:51 Mycoplasma pneumon IgM Negative (NEGATIVE) 12/03/16 15:51 Attending/Attestation - Attestation I have personally seen and examined this patient.: Yes I have fully participated in the care of the patient.: Yes I have reviewed all pertinent clinical information, including history, physical exam and plan: Yes Notes (Text): This is late computer entry for 12/05/16. Patient is doing well. Breathing better. White count and is afebrile. Patient is medically stable for discharge. Patient discharged to [facility] and recommended to follow-up at the clinic. Per psych, patient to follow-up with [facility] which patient reports he will. Discharge order and discharge instructions discussed with medical sociologist. Prescriptions upon discharge: 1. tylenol 650 mg q 6 prn (OTC) 2. Z pack (Dispense 1/no refills) 3. Flovent 1 puff q 12 hours KAYLEE (Dispense 1); replaced Advair given patient is homeless unable to afford medications at this time 4. Neurontin 300 mg TID x 2 weeks only /no refills 5. Seroquel 100 HS (30/ no refills 6. Albuterol inhaler 2 puffs q 4 PRN shortness of breathe (1/no refill) Discussed with pulmonary, patient is stable for discharge. This is a summary of patient's hospitalization. Please see EMR for further details Assessment/Plan 1. Sepsis Sepsis on admission in ED: Penumonia seen on CXR, WBC 29.2 with left shift and 8 bands, tachycardia, afebrile Likely hospital acquired due to recent admissions IV Abx Azithromycin 500mg IV q24h (active since 12/01/16) and Zosyn 2.25 IV q8h ( active since 11/30/16)-->Z-pack on discharge Blood culture (11/30/16) negative Duonebs 3ml INH q6h with peak flow (11/30 peak flow pre 110 and post 140) [employer] [address] Solo consulted- will f/u recommendations Monitor white count and temperature CT Chest report (12/02/16): foci of airspace consolidation at the right middle lobe and bilateral lower lobes suspicious for multifocal pneumonia, Scattered nodular opacities in the upper lobes also likely represent infectious process and intrabronchial spread of infection. Small left pleural effusion. slightly prominent mediastinal lymph nodes. mild elevation of the right hemidiaphragm Florastor 250mg PO bid WBC 8.1, improving procalcitonin negative legionella negative mycoplasma negative 12/02/16 Chest X-ray: Worsening opacities and the lower lobe since the previous exam. New right-sided pleural effusion. 11/30/16 Chest X-ray: Bibasilar infiltrates new since prior examination. Likely pneumonia. 1 of these infiltrates is in the lower lobe and the other is a either lingula or middle lobe. 2.Pneumonia Sepsis on admission in ED: Penumonia seen on CXR, WBC 29.2 with left shift and 8 bands, tachycardia, afebrile Likely hospital acquired pneumonia due to recent admissions IV Abx Azithromycin 500mg IV q24h (active since 12/01/16) and Zosyn 2.25 IV q8h ( active since 11/30/16)-->Z-pack on discharge Duonebs 3ml INH q6h with peak flow [employer] Dr Solo consulted on board Blood culture (11/30/16) negative Monitor white count and temperature WBC 8.1, improving procalcitonin negative legionella negative mycoplasma negative CT Chest report (12/02/16): foci of airspace consolidation at the right middle lobe and bilateral lower lobes suspicious for multifocal pneumonia, Scattered nodular opacities in the upper lobes also likely represent infectious process and intrabronchial spread of infection. Small left pleural effusion. slightly prominent mediastinal lymph nodes. mild elevation of the right hemidiaphragm Florastor 250mg PO bid 12/02/16 Chest X-ray: Worsening opacities and the lower lobe since the previous exam. New right-sided pleural effusion. 11/30/16 Chest X-ray: Bibasilar infiltrates new since prior examination. Likely pneumonia. 1 of these infiltrates is in the lower lobe and the other is a either lingula or middle lobe. 3. Asthma, moderate-persistent Hx intubation in the past, trigger anxiety Duonebs 3ml INH q6h with peak flow Start Advair 250/50 INH [id number] Per Patient, patient is using nebulizers around the clock, history of childhood asthma, as well as triggers including anxiety, patient used to see blower mechanic outpatient [employer] Dr Solo consulted- will f/u recommendations Peak flow on admission: 110 and has improved following nebulizer treatment; latest recording 180 Upon discharge, patient discharge on Albuterol and Fluctiasone pumps 4. Opioid use disorder Psych consulted Dr Owen- help appreciated Methadone taper per psych Zofran prn n/v Imodium prn diarrhea Gabapentin 300mg PO TID Discharge plan of follow up at methadone clinic Monitor for withdrawal symptoms patient did not follow-up at [facility] per last discharge UDS: likely indicates methadone received during hospitalization Upon discharge, patient to follow-up with [facility] per psych which is in place and patient confirms he will go to. 5. Hepatitis C Diagnosed September 2016 in hospital review of EMR HIV negative 09/23/16 Patient advised to follow up with GI and ID as outpatient; patient has pending appointment with GI per discussion with patient Avoid hepatotoxins HIV: negative Patient is a currently IV drug user 6. Hx Depression Psych (Dr. Owen) on board-->help appreciated Seroquel 100mg PO HS (1 month supply upon discharge) Denies SI/HI 7. Prophylactic measures Lovenox 40mg SC daily-->patient is refusing, discussed with nurse, Diandra previously SCDs Protonix 40mg PO daily 8. Diarrhea resolved per patient
== END 2016-12-05 15:05 | disposition home or self-care (01) | DRG 584 ==
LOC: C.ER 02:57 → C.9E 05:36 → C.5T 16:38
PROVIDERS: ADMIT Hospitalist; ATTEND Hospitalist
PROC: HZ2ZZZZ Detoxification Services for Substance Abuse Treatment (ICD-10-PCS; principal; 2016-11-30)
PROC: HZ32ZZZ Individual Counseling for Substance Abuse Treatment, Cognitive-Behavioral (ICD-10-PCS; 2016-11-30)
PROC: HZ36ZZZ Individual Counseling for Substance Abuse Treatment, Psychoeducation (ICD-10-PCS; 2016-11-30)
PROC: HZ59ZZZ Individual Psychotherapy for Substance Abuse Treatment, Supportive (ICD-10-PCS; 2016-11-30)
DX: A41.9 Sepsis, unspecified organism (principal); J18.9 Pneumonia, unspecified organism; J90 Pleural effusion, not elsewhere classified; F33.0 Major depressive disorder, recurrent, mild; F11.23 Opioid dependence with withdrawal; B19.20 Unspecified viral hepatitis C without hepatic coma; R65.20 Severe sepsis without septic shock; J45.909 Unspecified asthma, uncomplicated; F41.9 Anxiety disorder, unspecified; F17.210 Nicotine dependence, cigarettes, uncomplicated; Z59.0 Homelessness; Z91.14 Patient's other noncompliance with medication regimen

== ENCOUNTER 2016-12-16 13:15 | Inpatient (IN) | payer MEDICAID, OTHER ==
[2016-12-16 13:16] VITALS: BMI 21.9
[2016-12-16] MEDS ORDERED: Albuterol 0.083% Inhal Sol (2.5 mg/3 mL) UD IH STA (13:48)
[2016-12-16] MEDS ORDERED: Albuterol-Ipratrop 3 mg / 0.5 (3 ml) UD IH STA (13:48)
[2016-12-16] MEDS ORDERED: Albuterol 0.083% Inhal Sol (2.5 mg/3 mL) UD ONE (13:56)
--- NOTE | 2016-12-16 14:03 | C.PDOC ---
History Of Present Illness 36 year old patient, with a past medical history of Anxiety, Asthma, Bronchitis , Depression, and Pneumonia, presents to the ED complaining of shortness of breath that began yesterday. Patient states he has been using Ventolin without relief. He also complains of fever and a productive cough with dark brown sputum. He notes he had several episodes of vomiting yesterday. Patient denies abdominal pain, diarrhea, urinary symptoms, palpitations, numbness, weakness, headache or dizziness. Patient has a history of heroin abuse. He was recently hospitalized here for bilateral pneumonia. For several days, he was given IV antibiotics and discharged with Zithromax and inhalers. Patient states he stopped smoking cigarettes since then, but he still uses heroin. Time Seen by Provider: 12/16/16 13:33 Chief Complaint (Nursing): Respiratory Distress History Per: Patient History/Exam Limitations: no limitations Onset/Duration Of Symptoms: Days (yesterday) Current Symptoms Are (Timing): Still Present Quality: Tightness Exacerbating Factor(s): Coughing Current Respiratory Medications: See Home Med List Severity: Mild Pain Scale Rating Of: 3 Associated Symptoms: Fever, Productive Cough Reports Recently: Hospitalized Recent travel outside of the [place]: No Past Medical History Reviewed: Historical Data, Nursing Documentation, Vital Signs Vital Signs: Last Vital Signs Temp 98.5 F 12/16/16 13:20 Pulse 81 12/16/16 13:20 Resp 22 12/16/16 14:33 BP 123/85 12/16/16 13:20 Pulse Ox 95 12/16/16 14:15 - Medical History PMH: Anxiety, Asthma, Bronchitis, Depression, Pneumonia - [facility] Procedures DETOXIFICATION SERVICES FOR SUBSTANCE ABUSE TREATMENT (11/30/16) GROUP ROVING WEIGHT GAUGER FOR SUBSTANCE ABUSE TREATMENT, PSYCHOEDUCATION (11/16/16) GROUP PSYCHOTHERAPY (11/16/16) INDIV ROVING WEIGHT GAUGER FOR SUBSTANCE ABUSE TREATMENT, PSYCHOEDUCATION (11/30/16) INDIV ROVING WEIGHT GAUGER FOR SUBSTANCE ABUSE, COGNITIVE BEHAVIORAL (11/30/16) INDIV PSYCHOTHERAPY FOR SUBSTANCE ABUSE TREATMENT, SUPPORT (11/30/16) INDIV PSYCHOTHERAPY FOR SUBSTANCE ABUSE, PSYCHOEDUCATION (10/19/16) INDIVIDUAL PSYCHOTHERAPY, SUPPORTIVE (11/16/16) MEDICATION MANAGEMENT (11/16/16) MEDS MGMT FOR SUBSTANCE ABUSE TREATMENT, METHADONE MAINT (11/16/16) PHARMACOTHERAPY FOR SUBSTANCE ABUSE, METHADONE MAINT (11/16/16) Family History: States: Unknown Family Hx - Social History Hx Tobacco Use: Yes (heavy smoker) Hx Alcohol Use: No Hx Substance Use: Yes - Immunization History Hx Tetanus Toxoid Vaccination: Yes Hx Influenza Vaccination: Yes (08/2015) Hx Pneumococcal Vaccination: Yes Review Of Systems Except As Marked, All Systems Reviewed And Found Negative. Constitutional: Positive for: Fever Cardiovascular: Negative for: Palpitations Respiratory: Positive for: Cough (with dark brown sputum), Shortness of Breath Gastrointestinal: Positive for: Vomiting. Negative for: Abdominal Pain, Diarrhea Genitourinary: Negative for: Dysuria, Hematuria Neurological: Negative for: Weakness, Numbness, Headache, Dizziness Physical Exam - Physical Exam Appears: Non-toxic, No Acute Distress, Other (comfortable) Skin: Warm, Dry, No Diaphoretic Head: Atraumatic, Normacephalic Eye(s): bilateral: Normal Inspection, PERRL, EOMI Ear(s): Bilateral: Normal Nose: Normal Oral Mucosa: Moist Throat: Normal, No Erythema Neck: Normal ROM, Supple Chest: Symmetrical, No Tenderness, Other (chest tightness) Cardiovascular: Rhythm Regular Respiratory: No Rales, No Rhonchi, Wheezing (inspiratory and expiratory; prolonged expiration) Gastrointestinal/Abdominal: Soft, No Tenderness Back: Normal Inspection Extremity: Normal ROM, No Pedal Edema Neurological/Psych: Oriented x3, Normal Speech, Normal Cognition Gait: Steady ED Course And Treatment - Laboratory Results Result Diagrams: 12/16/16 14:24 12/16/16 14:24 Lab Interpretation: No Acute Changes O2 Sat by Pulse Oximetry: 95 (room air) Pulse Ox Interpretation: Normal - Radiology CXR: Viewed By Me, Read By Radiologist CXR Interpretation: Yes: Infiltrates (Persistent RML infiltrate ), Other (Left costophrenic angle blunting) Reevaluation Time: 16:36 Reassessment Condition: Improved (Patient has less wheezing but still feels short of breath. He continues to have diffuse inspiratory and expiratory wheezing diffusely.) - Physician Consult Information Time Consulting Physician Contacted: 16:37 Physician Contacted: Carrie Mathew Outcome Of Conversation: Patient to be admitted for asthma exacerbation and persistent pneumonia. Medical Decision Making Medical Decision Making: Plan: * Labs * Chest x-ray * Albuterol * Solu-Medrol * Duoneb Disposition - Disposition Disposition: HOSPITALIZED Disposition Time: 16:38 Condition: IMPROVED - POA Present On Arrival: None Core Measure Indicators: Pneumonia - Clinical Impression Clinical Impression: Asthma with status asthmaticus, Pneumonia - Scribe Statement The provider has reviewed the documentation as recorded by the Scribe Iza Slater Provider Attestation: All medical record entries made by the Scribe were at my direction and personally dictated by me. I have reviewed the chart and agree that the record accurately reflects my personal performance of the history, physical exam, medical decision making, and the department course for this patient. I have also personally directed, reviewed, and agree with the discharge instructions and disposition.
[2016-12-16 14:28] LABS: BASO # 0.1 K/uL (0.0-0.2); BASO % 1.1 % (0.0-2.0); EOS # 0.8 K/uL (0.0-0.7); EOS % 8.3 % (0.0-4.0); HEMATOCRIT 39.4 % (35.0-51.0); LYMPH # 1.3 K/uL (1.0-4.3); LYMPH % 13.8 % (20.0-40.0); MEAN CELL VOLUME 91.6 fL (80.0-94.0); MEAN CORPUSCULAR HGB CONC 33.9 g/dL (33.0-37.0); MEAN PLATELET VOLUME 7.8 fL (7.2-11.7); MONO # 0.7 K/uL (0.0-0.8); MONO % 7.6 % (0.0-10.0); NRBC % 0.1 % (0.0-2.0); RED CELL DISTRIBUTION WIDTH 14.5 % (11.5-14.5); WHITE BLOOD COUNT 9.2 K/uL (4.8-10.8)
[2016-12-16 14:38] LABS: CHLORIDE 100 mmol/L (98-107)
[2016-12-16 14:39] LABS: POTASSIUM 4.2 mmol/L (3.6-5.2); SODIUM 137 mmol/L (132-148)
[2016-12-16 14:41] LABS: ALB/GLOB RATIO 1.3 (1.0-2.1); ALKALINE PHOSPHATASE 94 U/L (38-126); AST/SGOT 53 U/L (17-59); BILIRUBIN,TOTAL 0.8 mg/dL (0.2-1.3); BLOOD UREA NITROGEN 9 mg/dL (9-20); CARBON DIOXIDE 27 mmol/L (22-30); GFR AFRICAN-AMERICAN > 60; TOTAL PROTEIN 7.1 g/dL (6.3-8.3)
[2016-12-16 14:42] LABS: ALT/SGPT 93 U/L (21-72); CALCIUM 9.2 mg/dl (8.6-10.4); GLUCOSE,RANDOM 85 mg/dL (75-110)
--- NOTE | 2016-12-16 15:03 | RAD ---
HISTORY: SOB COMPARISON: Comparison is made to the previous study dated 12/02/2016 TECHNIQUE: Chest PA and lateral FINDINGS: LUNGS: Infiltrate noted inferior to the right hilum. Mild hyperinflation of the lungs. PLEURA: Blunting of the left costophrenic angle is again noted could be due to pleural effusion or pleural thickening. CARDIOVASCULAR: Normal. OSSEOUS STRUCTURES: No significant abnormalities. VISUALIZED UPPER ABDOMEN: Normal. OTHER FINDINGS: None. IMPRESSION: Infiltrate inferior to the right hilum is noted. Re- demonstration of blunting of the left costophrenic angle.
[2016-12-16 17:16] VITALS: RESP 20
[2016-12-16] MEDS: Moxifloxacin IV 400mg/250ml NS 400 MG/250 ML BAG IVPB SCH (17:40)
--- NOTE | 2016-12-16 17:56 | CP.PCM.HP ---
<EricLalit footeolas - Last Filed: 12/16/16 18:06> History of Present Illness - History of Present Illness History of Present Illness: This is a 36 yo male with past medical hx of asthma, pneumonia and heroin abuse presenting with chief complaint of sob. Pt has been having sob for 2 days. It has been getting worse. Pt was recently discharged from [facility] for similar issues. He reports productive cough with yellowish brown color. He reports subjective fever and chills. He cannot report any environmental triggers for his asthma but he knows his cigarette smoking worsens it. He was woken up from sleep 2 days ago when the sob started. He only uses an albuterol pump prn for his asthma. He has used it over 10 times per day over the past 2 days. Denies chest pain, vomiting, diarrhea, hematuria, change in stools, bloody stools. PMH: Asthma, heroin abuse, pneumonia PSH: None Allergies: NKDA Current meds: seroquel, albuterol FH: asthma in family Social hx: Smokes 3 cigs/day for over 10 yrs. Past hx of heavy drinking. Active heroin user. Has been abusing for 4 yrs now. Lives in [facility]dc in [place]. Present on Admission - Present on Admission Any Indicators Present on Admission: No History of DVT/PE: No History of Uncontrolled Diabetes: No Urinary Catheter: No Decubitus Ulcer Present: No Review of Systems - Review of Systems All systems: reviewed and no additional remarkable complaints except Review of Systems: Negative except as stated in HPI. Past Patient History - Infectious Disease Hx of Infectious Diseases: None - Past Medical History & Family History Past Medical History?: Yes Pertinent Family History: asthma in family - Past Social History Smoking Status: Light Smoker < 10 Cigarettes Daily Chewing Tobacco Use: No Cigar Use: No Alcohol: None Drugs: Opiates Home Situation {Lives}: Homeless Domestic Violence: Negative - CARDIAC Hx Hypertension: No - PULMONARY Hx Asthma: Yes Hx Bronchitis: Yes Hx Pneumonia: Yes - NEUROLOGICAL Hx Seizures: No Hx Transient Ischemic Attacks (TIA): No - HEENT Hx HEENT Problems: No Hx Cataracts: No Hx Deafness: No Hx Difficulty Chewing: No Hx Epistaxis: No Hx Glaucoma: No Hx Macular Degeneration: No - RENAL Hx Chronic Kidney Disease: No Hx Kidney Stones: No - ENDOCRINE/METABOLIC Hx Hyperthyroidism: No Hx Hypothyroidism: No - HEMATOLOGICAL/ONCOLOGICAL Hx Human Immunodeficiency Virus (HIV): No - INTEGUMENTARY Hx Dermatological Problems: No Hx Basil Cell: No Hx Barrera: No Hx Cellulitis: No Hx Eczema: No Hx Melanoma: No Hx Psoriasis: No Hx Squamous Cell: No - MUSCULOSKELETAL/RHEUMATOLOGICAL Hx Arthritis: No Hx Fractures: No Hx Osteoporosis: No Hx Rheumatoid Arthritis: No - GASTROINTESTINAL Hx Crohn's Disease: No Hx Diverticulitis: No Hx Gall Bladder Disease: No Hx Gastritis: No Hx Pancreatitis: No - GENITOURINARY/GYNECOLOGICAL Hx Sexually Transmitted Disorders: No - PSYCHIATRIC Hx Anxiety: Yes Hx Depression: Yes Hx Substance Use: Yes - SURGICAL HISTORY Hx Appendectomy: No Hx Carotid Endarterectomy: No Hx Cholecystectomy: No Hx Coronary Artery Bypass Graft: No Hx Coronary Stent: No Hx Tonsillectomy: No - ANESTHESIA Hx Anesthesia: No Meds Allergies/Adverse Reactions: Allergies Allergy/AdvReac Type Severity Reaction Status Date / Time shellfish derived Allergy Verified 11/30/16 03:14 Physical Exam - Constitutional Appears: Non-toxic, No Acute Distress - Head Exam Head Exam: ATRAUMATIC, NORMAL INSPECTION, NORMOCEPHALIC - Eye Exam Eye Exam: EOMI - ENT Exam ENT Exam: Mucous Membranes Moist - Neck Exam Neck exam: Positive for: Full Rom, Normal Inspection - Respiratory Exam Respiratory Exam: Wheezes. absent: Respiratory Distress, NORMAL BREATHING PATTERN - Cardiovascular Exam Cardiovascular Exam: +S1, +S2 - GI/Abdominal Exam GI & Abdominal Exam: Normal Bowel Sounds, Soft. absent: Tenderness - Extremities Exam Extremities exam: Positive for: full ROM. Negative for: normal inspection Additional comments: Track singh along left arm - Neurological Exam Neurological exam: Alert, CN II-XII Intact, Oriented x3 - Psychiatric Exam Psychiatric exam: Normal Affect, Normal Mood - Skin Skin Exam: Dry, Intact, Normal Color, Warm Results - Vital Signs Recent Vital Signs: Last Vital Signs Temp 98.6 F 12/16/16 17:15 Pulse 83 12/16/16 17:15 Resp 20 12/16/16 17:15 BP 127/80 12/16/16 17:15 Pulse Ox 95 12/16/16 16:38 - Labs Result Diagrams: 12/16/16 14:24 12/16/16 14:24 Assessment & Plan - Assessment and Plan (Free Text) Assessment: This is a 36 yo male with past medical hx of asthma, pna, heroin abuse presenting with sob secondary to 1. Asthma exacerbation -duonebs q6 hrs elly -solumedrol IV 40 mg q 12 hrs -CXR shows infiltrate right hilum -will order am labs, afebrile, no leukocytosis 2. Infiltrate on cxr -will start avelox iv daily -monitor for clinical progress -blood and sputum cultures pending 3. Heroin abuse -methadone 10 mg today -methadone 10 mg in am -will order urine drug screen -will order serum alcohol level 4. GI/DVT ppx -protonix 40 mg daily -SCDs discussed with Dr. Mann <Mejia Mann - Last Filed: 12/17/16 16:10> Results - Vital Signs Recent Vital Signs: Last Vital Signs Temp 98 F 12/17/16 07:55 Pulse 105 H 12/17/16 07:55 Resp 20 12/17/16 07:55 BP 114/67 12/17/16 07:55 Pulse Ox 96 12/17/16 07:55 - Labs Result Diagrams: 12/17/16 07:53 12/17/16 07:53 Labs: Laboratory Results - last 24 hr 12/16/16 12/17/16 12/17/16 18:58 07:35 07:53 WBC 6.6 RBC 4.41 Hgb 13.5 Hct 40.5 MCV 91.7 MCH 30.6 MCHC 33.4 RDW 14.6 H Plt Count 359 MPV 8.2 Neut % (Auto) 87.6 H Lymph % (Auto) 10.1 L [place] % (Auto) 2.1 Eos % (Auto) 0.0 Baso % (Auto) 0.2 Neut # 5.8 Lymph # 0.7 L [place] # 0.1 Eos # 0.0 Baso # 0.0 Sodium Potassium Chloride Carbon Dioxide Anion Gap BUN Creatinine Est GFR ( Amer) Est GFR (Non-Af Amer) Random Glucose Calcium Phosphorus Magnesium Total Bilirubin AST ALT Alkaline Phosphatase Total Protein Albumin Globulin Albumin/Globulin Ratio Urine Opiates Screen Positive Urine Methadone Screen Negative Ur Barbiturates Screen Negative Ur Phencyclidine Scrn Negative Ur Amphetamines Screen Negative U Benzodiazepines Scrn Negative U Oth Cocaine Metabols Negative U Cannabinoids Screen Negative Alcohol, Quantitative < 10 12/17/16 07:53 WBC RBC Hgb Hct MCV MCH MCHC RDW Plt Count MPV Neut % (Auto) Lymph % (Auto) [place] % (Auto) Eos % (Auto) Baso % (Auto) Neut # Lymph # [place] # Eos # Baso # Sodium 136 Potassium 4.6 Chloride 101 Carbon Dioxide 27 Anion Gap 13 BUN 16 Creatinine 0.8 Est GFR ( Amer) > 60 Est GFR (Non-Af Amer) > 60 Random Glucose 124 H Calcium 9.1 Phosphorus 4.5 Magnesium 2.1 Total Bilirubin 0.7 AST 41 ALT 78 H Alkaline Phosphatase 80 Total Protein 7.1 Albumin 3.8 Globulin 3.3 Albumin/Globulin Ratio 1.2 Urine Opiates Screen Urine Methadone Screen Ur Barbiturates Screen Ur Phencyclidine Scrn Ur Amphetamines Screen U Benzodiazepines Scrn U Oth Cocaine Metabols U Cannabinoids Screen Alcohol, Quantitative Attending/Attestation - Attestation I have personally seen and examined this patient.: Yes I have fully participated in the care of the patient.: Yes I have reviewed all pertinent clinical information: Yes Notes (Text): 12/17/16 16:10 Patient was seen and examined at bedside with the resident. Patient complains of for cough and shortness of breath. We'll admit the patient for acute asthma exacerbation, pneumonia, heroin abuse. I reviewed patient's medical records, chart, labs, and urine studies. I discussed the plan of care with the resident and agree with the above history and physical and assessment/plan by the resident.
[2016-12-16] MEDS ORDERED: Albuterol-Ipratrop 3 mg / 0.5 (3 ml) UD INH PRN (18:07)
[2016-12-16] MEDS: Albuterol-Ipratrop 3 mg / 0.5 (3 ml) UD INH SCH (19:51)
[2016-12-16] MEDS: MethylPREDNISolone 40 mg Vial IV SCH (22:27)
[2016-12-17] MEDS: Albuterol-Ipratrop 3 mg / 0.5 (3 ml) UD INH SCH ×4 (01:46→19:00)
[2016-12-17 08:06] LABS: BASO % 0.2 % (0.0-2.0); HEMATOCRIT 40.5 % (35.0-51.0); LYMPH # 0.7 K/uL (1.0-4.3); LYMPH % 10.1 % (20.0-40.0); MEAN CELL VOLUME 91.7 fL (80.0-94.0); MEAN CORPUSCULAR HEMOGLOBIN 30.6 pg (27.0-31.0); MEAN CORPUSCULAR HGB CONC 33.4 g/dL (33.0-37.0); MEAN PLATELET VOLUME 8.2 fL (7.2-11.7); MONO # 0.1 K/uL (0.0-0.8); MONO % 2.1 % (0.0-10.0); RED CELL DISTRIBUTION WIDTH 14.6 % (11.5-14.5); WHITE BLOOD COUNT 6.6 K/uL (4.8-10.8)
[2016-12-17 08:24] LABS: CHLORIDE 101 mmol/L (98-107)
[2016-12-17 08:25] LABS: POTASSIUM 4.6 mmol/L (3.6-5.2); SODIUM 136 mmol/L (132-148)
[2016-12-17 08:27] LABS: ALB/GLOB RATIO 1.2 (1.0-2.1); ALKALINE PHOSPHATASE 80 U/L (38-126); ALT/SGPT 78 U/L (21-72); AST/SGOT 41 U/L (17-59); BILIRUBIN,TOTAL 0.7 mg/dL (0.2-1.3); BLOOD UREA NITROGEN 16 mg/dL (9-20); CARBON DIOXIDE 27 mmol/L (22-30); GFR AFRICAN-AMERICAN > 60; TOTAL PROTEIN 7.1 g/dL (6.3-8.3)
[2016-12-17 08:28] LABS: CALCIUM 9.1 mg/dl (8.6-10.4); GLUCOSE,RANDOM 124 mg/dL (75-110); MAGNESIUM 2.1 mg/dL (1.6-2.3); PHOSPHOROUS 4.5 mg/dL (2.5-4.5)
[2016-12-17] MEDS: Saccharomyces Boulardi 250 mg Cap PO SCH ×2 (09:27→18:32)
[2016-12-17] MEDS: Pantoprazole 40 mg EC Tab PO SCH (09:27)
[2016-12-17] MEDS: MethylPREDNISolone 40 mg Vial IV SCH ×2 (09:27→21:28)
--- NOTE | 2016-12-17 14:16 | CP.PCM.PN ---
<Alexi Weber - Last Filed: 12/17/16 14:17> Subjective - Date & Time of Evaluation Date of Evaluation: 12/17/16 Time of Evaluation: 14:15 - Subjective Subjective: Med progress note. Attending: Dr. Mann Pt seen and examined at bedside. No acute distress. No events overnight. Pt changed to regular diet. Feels still some sob with feeling some fevers, no vomiting or diarrhea. Objective - Vital Signs/Intake and Output Vital Signs (last 24 hours): Temp Pulse Resp BP Pulse Ox 98 F 105 H 20 114/67 96 12/17/16 07:55 12/17/16 07:55 12/17/16 07:55 12/17/16 07:55 12/17/16 07:55 Intake and Output: 12/17/16 12/17/16 06:59 18:59 Intake Total 500 Balance 500 - Medications Medications: Current Medications Albuterol/Ipratropium (Duoneb 3 Mg/0.5 Mg (3 Ml) Ud) 3 ml INH RQ6 [facility] Last Admin: 12/17/16 07:58 Dose: 3 ml Albuterol/Ipratropium (Duoneb 3 Mg/0.5 Mg (3 Ml) Ud) 3 ml INH RQ4 PRN PRN Reason: Shortness of Breath Moxifloxacin HCl (Avelox Iv 400mg/250ml Ns) 400 mg in 250 mls @ 167 mls/hr IVPB Q24H [facility] Last Admin: 12/16/16 17:40 Dose: 167 mls/hr Methylprednisolone (Solu-Medrol) 40 mg IV Q12 [facility] Last Admin: 12/17/16 09:27 Dose: 40 mg Pantoprazole Sodium (Protonix Ec Tab) 40 mg PO DAILY [facility] Last Admin: 12/17/16 09:27 Dose: 40 mg Pneumococcal Polyvalent Vaccine (Pneumovax 23 Vaccine) 0.5 ml IM .ONCE ONE Stop: 12/18/16 19:00 Saccharomyces Boulardii (Florastor) 250 mg PO BID [facility] Last Admin: 12/17/16 09:27 Dose: 250 mg - Labs Labs: 12/17/16 07:53 12/17/16 07:53 - Constitutional Appears: Non-toxic, No Acute Distress - Head Exam Head Exam: ATRAUMATIC, NORMAL INSPECTION, NORMOCEPHALIC - Eye Exam Eye Exam: EOMI - ENT Exam ENT Exam: Mucous Membranes Moist - Neck Exam Neck Exam: Full ROM, Normal Inspection - Respiratory Exam Respiratory Exam: Wheezes. absent: Respiratory Distress, NORMAL BREATHING PATTERN - Cardiovascular Exam Cardiovascular Exam: +S1, +S2 - GI/Abdominal Exam GI & Abdominal Exam: Soft, Normal Bowel Sounds. absent: Tenderness - Extremities Exam Extremities Exam: Full ROM. absent: Normal Inspection Additional comments: Track singh left arm - Neurological Exam Neurological Exam: Alert, Awake, Oriented x3 - Psychiatric Exam Psychiatric exam: Agitated - Skin Skin Exam: Dry, Intact, Normal Color, Warm Assessment and Plan - Assessment and Plan (Free Text) Assessment: This is a 36 yo male with past medical hx of asthma, pna, heroin abuse presenting with sob secondary to 1. Asthma exacerbation -duonebs q6 hrs elly -solumedrol IV 40 mg q 12 hrs -CXR shows infiltrate right hilum -no white count, afebrile, VSS 2. Infiltrate on cxr -continue avelox iv daily -monitor for clinical progress -blood and sputum cultures pending 3. Heroin abuse -methadone 10 mg in am today -will order urine drug screen>> positive for opiates -will order serum alcohol level>>>> negative 4. GI/DVT ppx -protonix 40 mg daily -SCDs discussed with Dr. Mann <Mejia Mann - Last Filed: 12/17/16 17:58> Objective - Vital Signs/Intake and Output Vital Signs (last 24 hours): Temp Pulse Resp BP Pulse Ox 98.4 F 81 20 120/62 95 12/17/16 16:00 12/17/16 16:00 12/17/16 16:00 12/17/16 16:00 12/17/16 16:00 Intake and Output: 12/17/16 12/17/16 06:59 18:59 Intake Total 500 900 Balance 500 900 - Medications Medications: Current Medications Albuterol/Ipratropium (Duoneb 3 Mg/0.5 Mg (3 Ml) Ud) 3 ml INH RQ6 [facility] Last Admin: 12/17/16 07:58 Dose: 3 ml Albuterol/Ipratropium (Duoneb 3 Mg/0.5 Mg (3 Ml) Ud) 3 ml INH RQ4 PRN PRN Reason: Shortness of Breath Guaifenesin (Robitussin) 100 mg PO Q4H PRN PRN Reason: Cough Last Admin: 12/17/16 17:19 Dose: 100 mg Moxifloxacin HCl (Avelox Iv 400mg/250ml Ns) 400 mg in 250 mls @ 167 mls/hr IVPB Q24H [facility] Last Admin: 12/16/16 17:40 Dose: 167 mls/hr Methylprednisolone (Solu-Medrol) 40 mg IV Q12 [facility] Last Admin: 12/17/16 09:27 Dose: 40 mg Pantoprazole Sodium (Protonix Ec Tab) 40 mg PO DAILY [facility] Last Admin: 12/17/16 09:27 Dose: 40 mg Pneumococcal Polyvalent Vaccine (Pneumovax 23 Vaccine) 0.5 ml IM .ONCE ONE Stop: 12/18/16 19:00 Saccharomyces Boulardii (Florastor) 250 mg PO BID [facility] Last Admin: 12/17/16 09:27 Dose: 250 mg - Labs Labs: 12/17/16 07:53 12/17/16 07:53 Attending/Attestation - Attestation I have personally seen and examined this patient.: Yes I have fully participated in the care of the patient.: Yes I have reviewed all pertinent clinical information, including history, physical exam and plan: Yes Notes (Text): 12/17/16 17:58 Patient was seen and examined at bedside with the resident Still has significant wheezing We will continue current management for asthma exacerbation and pneumonia Patient also received methadone for heroin withdrawal I discussed the plan of care with the resident and I agree with the above history and physical and assessment/plan by the resident.
[2016-12-17] MEDS: guaiFENesin 100 mg/5 ml Syrup UD PO PRN (17:19)
[2016-12-17] MEDS: Moxifloxacin IV 400mg/250ml NS 400 MG/250 ML BAG IVPB SCH (17:59)
[2016-12-18] MEDS: Albuterol-Ipratrop 3 mg / 0.5 (3 ml) UD INH SCH ×4 (01:21→19:00)
[2016-12-18] MEDS ORDERED: DiphenhydrAMINE 12.5 mg/5 ml LIQ UD (5 ml) PO STA (01:37)
[2016-12-18 07:36] LABS: BASO % 0.2 % (0.0-2.0); HEMATOCRIT 39.5 % (35.0-51.0); LYMPH # 0.8 K/uL (1.0-4.3); LYMPH % 6.3 % (20.0-40.0); MEAN CELL VOLUME 92.3 fL (80.0-94.0); MEAN CORPUSCULAR HEMOGLOBIN 30.8 pg (27.0-31.0); MEAN CORPUSCULAR HGB CONC 33.3 g/dL (33.0-37.0); MEAN PLATELET VOLUME 8.2 fL (7.2-11.7); MONO # 0.7 K/uL (0.0-0.8); MONO % 5.6 % (0.0-10.0); PLATELET COUNT 300 K/uL (130-400); RED CELL DISTRIBUTION WIDTH 14.5 % (11.5-14.5)
[2016-12-18 07:39] LABS: WHITE BLOOD COUNT 12.2 K/uL (4.8-10.8)
[2016-12-18 07:58] LABS: CHLORIDE 100 mmol/L (98-107); SODIUM 138 mmol/L (132-148)
[2016-12-18 07:59] LABS: POTASSIUM 4.7 mmol/L (3.6-5.2)
[2016-12-18 08:00] LABS: GFR AFRICAN-AMERICAN > 60
[2016-12-18 08:01] LABS: ALB/GLOB RATIO 1.3 (1.0-2.1); ALKALINE PHOSPHATASE 71 U/L (38-126); ALT/SGPT 59 U/L (21-72); AST/SGOT 26 U/L (17-59); BILIRUBIN,TOTAL 0.5 mg/dL (0.2-1.3); BLOOD UREA NITROGEN 19 mg/dL (9-20); CARBON DIOXIDE 28 mmol/L (22-30); GLUCOSE,RANDOM 123 mg/dL (75-110); PHOSPHOROUS 4.5 mg/dL (2.5-4.5); TOTAL PROTEIN 6.6 g/dL (6.3-8.3)
[2016-12-18 08:02] LABS: CALCIUM 8.9 mg/dl (8.6-10.4); MAGNESIUM 2.2 mg/dL (1.6-2.3)
[2016-12-18 08:11] LABS: TOTAL CELLS COUNTED 100
[2016-12-18 08:13] LABS: NEUTROPHIL 77 % (50-75)
[2016-12-18 08:14] LABS: LARGE PLATELETS PRESENT
[2016-12-18] MEDS: Saccharomyces Boulardi 250 mg Cap PO SCH ×2 (11:11→18:18)
[2016-12-18] MEDS: Pantoprazole 40 mg EC Tab PO SCH (11:11)
[2016-12-18] MEDS: MethylPREDNISolone 40 mg Vial IV SCH ×2 (11:11→21:31)
[2016-12-18] MEDS: guaiFENesin 100 mg/5 ml Syrup UD PO PRN (11:22)
--- NOTE | 2016-12-18 14:41 | CP.PCM.PN ---
<JohnnietinaParkerKimberly - Last Filed: 12/18/16 14:37> Subjective - Date & Time of Evaluation Date of Evaluation: 12/18/16 Time of Evaluation: 10:00 - Subjective Subjective: Medicine Note for Dr. Mann, Patient was seen and examined at bedside. Patient reported his breathing is better but still needs to have the NC on during the night and day. Patient requested that his methadone be given. Denied fever, chills, headache, chest pain, abdominal pain, or urinary symptoms. Objective - Vital Signs/Intake and Output Vital Signs (last 24 hours): Temp Pulse Resp BP Pulse Ox 97.6 F 70 20 130/79 96 12/18/16 07:00 12/18/16 07:00 12/18/16 07:00 12/18/16 07:00 12/18/16 07:00 Intake and Output: 12/18/16 12/18/16 06:59 18:59 Intake Total 980 Balance 980 - Medications Medications: Current Medications Albuterol/Ipratropium (Duoneb 3 Mg/0.5 Mg (3 Ml) Ud) 3 ml INH RQ6 [facility] Last Admin: 12/18/16 13:36 Dose: 3 ml Albuterol/Ipratropium (Duoneb 3 Mg/0.5 Mg (3 Ml) Ud) 3 ml INH RQ4 PRN PRN Reason: Shortness of Breath Guaifenesin (Robitussin) 100 mg PO Q4H PRN PRN Reason: Cough Last Admin: 12/18/16 11:22 Dose: 100 mg Moxifloxacin HCl (Avelox Iv 400mg/250ml Ns) 400 mg in 250 mls @ 167 mls/hr IVPB Q24H [facility] Last Admin: 12/17/16 17:59 Dose: 167 mls/hr Methylprednisolone (Solu-Medrol) 40 mg IV Q12 [facility] Last Admin: 12/18/16 11:11 Dose: 40 mg Pantoprazole Sodium (Protonix Ec Tab) 40 mg PO DAILY [facility] Last Admin: 12/18/16 11:11 Dose: 40 mg Pneumococcal Polyvalent Vaccine (Pneumovax 23 Vaccine) 0.5 ml IM .ONCE ONE Stop: 12/18/16 19:00 Saccharomyces Boulardii (Florastor) 250 mg PO BID [facility] Last Admin: 12/18/16 11:11 Dose: 250 mg Zolpidem Tartrate (Ambien) 5 mg PO HS PRN PRN Reason: Insomnia - Labs Labs: 12/18/16 07:25 12/18/16 07:25 - Constitutional Appears: No Acute Distress - Head Exam Head Exam: NORMAL INSPECTION, NORMOCEPHALIC - ENT Exam ENT Exam: Mucous Membranes Moist - Respiratory Exam Respiratory Exam: Wheezes - Cardiovascular Exam Cardiovascular Exam: REGULAR RHYTHM - GI/Abdominal Exam GI & Abdominal Exam: Soft, Normal Bowel Sounds. absent: Distended, Tenderness - Extremities Exam Extremities Exam: Normal Inspection. absent: Pedal Edema, Tenderness - Neurological Exam Neurological Exam: Alert, Awake, Oriented x3 - Skin Skin Exam: Dry, Intact, Normal Color, Warm Assessment and Plan - Assessment and Plan (Free Text) Plan: 1. Asthma exacerbation -duonebs q6 hrs elly -solumedrol IV 40 mg q 12 hrs -CXR shows infiltrate right hilum -afebrile, VSS, leukocytosis most likely due to steroids 2. Pneumonia - infiltrate seen on CXR -continue avelox iv daily -monitor for clinical progress -blood and sputum cultures pending 3. Heroin abuse -methadone 5 mg -will order urine drug screen>> positive for opiates -will order serum alcohol level>>>> negative 4. GI/DVT ppx -protonix 40 mg daily -SCDs <Mejia Mann - Last Filed: 12/18/16 16:04> Objective - Vital Signs/Intake and Output Vital Signs (last 24 hours): Temp Pulse Resp BP Pulse Ox 97.6 F 70 20 130/79 96 12/18/16 07:00 12/18/16 07:00 12/18/16 07:00 12/18/16 07:00 12/18/16 07:00 Intake and Output: 12/18/16 12/18/16 06:59 18:59 Intake Total 980 Balance 980 - Medications Medications: Current Medications Albuterol/Ipratropium (Duoneb 3 Mg/0.5 Mg (3 Ml) Ud) 3 ml INH RQ6 [facility] Last Admin: 12/18/16 13:36 Dose: 3 ml Albuterol/Ipratropium (Duoneb 3 Mg/0.5 Mg (3 Ml) Ud) 3 ml INH RQ4 PRN PRN Reason: Shortness of Breath Guaifenesin (Robitussin) 100 mg PO Q4H PRN PRN Reason: Cough Last Admin: 12/18/16 11:22 Dose: 100 mg Moxifloxacin HCl (Avelox Iv 400mg/250ml Ns) 400 mg in 250 mls @ 167 mls/hr IVPB Q24H [facility] Last Admin: 12/17/16 17:59 Dose: 167 mls/hr Methylprednisolone (Solu-Medrol) 40 mg IV Q12 [facility] Last Admin: 12/18/16 11:11 Dose: 40 mg Pantoprazole Sodium (Protonix Ec Tab) 40 mg PO DAILY [facility] Last Admin: 12/18/16 11:11 Dose: 40 mg Pneumococcal Polyvalent Vaccine (Pneumovax 23 Vaccine) 0.5 ml IM .ONCE ONE Stop: 12/18/16 19:00 Saccharomyces Boulardii (Florastor) 250 mg PO BID [facility] Last Admin: 12/18/16 11:11 Dose: 250 mg Zolpidem Tartrate (Ambien) 5 mg PO HS PRN PRN Reason: Insomnia - Labs Labs: 12/18/16 07:25 12/18/16 07:25 Attending/Attestation - Attestation I have personally seen and examined this patient.: Yes I have fully participated in the care of the patient.: Yes I have reviewed all pertinent clinical information, including history, physical exam and plan: Yes Notes (Text): 12/18/16 16:02 Patient was seen and examined at bedside with the resident. Patient still has significant wheezing. We will continue steroids and nebulizing treatment. Patient also on treatment for pneumonia with IV antibiotics. Patient is on Avelox. Continue methadone taper for treatment of heroin abuse. Patient received 5 mg of methadone today. I reviewed patient's chart, medical records: Labs, imaging studies and I discussed the plan of care with the resident. I agree with the above history and physical and assessment/plan by the resident.
[2016-12-18] MEDS: Moxifloxacin IV 400mg/250ml NS 400 MG/250 ML BAG IVPB SCH (18:18)
[2016-12-18] MEDS ORDERED: Pneumococcal 23-Valent Vaccine IM ONE (18:59)
[2016-12-19] MEDS: Albuterol-Ipratrop 3 mg / 0.5 (3 ml) UD INH SCH ×4 (01:56→19:39)
--- NOTE | 2016-12-19 03:16 | CP.PCM.PN ---
<Alexi Weber - Last Filed: 12/19/16 03:17> Subjective - Date & Time of Evaluation Date of Evaluation: 12/19/16 Time of Evaluation: 03:15 - Subjective Subjective: Medicine progress note. Attending: Dr. Mann Pt seen and examined at bedside. No acute distress. No events so far overnight. Pt has been sleeping well and tolerating diet. He has been able to sleep without use of nasal cannula. Denies fevers, chills, chest pain, sob, syncope, dysuria, hematuria, vomiting, diarrhea. Objective - Vital Signs/Intake and Output Vital Signs (last 24 hours): Temp Pulse Resp BP Pulse Ox 98.2 F 64 20 132/79 95 12/19/16 00:15 12/19/16 00:15 12/19/16 00:15 12/19/16 00:15 12/19/16 00:15 - Medications Medications: Current Medications Albuterol/Ipratropium (Duoneb 3 Mg/0.5 Mg (3 Ml) Ud) 3 ml INH RQ6 ELLY Last Admin: 12/19/16 01:56 Dose: 3 ml Albuterol/Ipratropium (Duoneb 3 Mg/0.5 Mg (3 Ml) Ud) 3 ml INH RQ4 PRN PRN Reason: Shortness of Breath Guaifenesin (Robitussin) 100 mg PO Q4H PRN PRN Reason: Cough Last Admin: 12/18/16 11:22 Dose: 100 mg Moxifloxacin HCl (Avelox Iv 400mg/250ml Ns) 400 mg in 250 mls @ 167 mls/hr IVPB Q24H [facility] Last Admin: 12/18/16 18:18 Dose: 167 mls/hr Methylprednisolone (Solu-Medrol) 40 mg IV Q12 ELLY Last Admin: 12/18/16 21:31 Dose: 40 mg Pantoprazole Sodium (Protonix Ec Tab) 40 mg PO DAILY [facility] Last Admin: 12/18/16 11:11 Dose: 40 mg Saccharomyces Boulardii (Florastor) 250 mg PO BID [facility] Last Admin: 12/18/16 18:18 Dose: 250 mg Zolpidem Tartrate (Ambien) 5 mg PO HS PRN PRN Reason: Insomnia - Labs Labs: 12/18/16 07:25 12/18/16 07:25 - Constitutional Appears: Non-toxic, No Acute Distress - Head Exam Head Exam: ATRAUMATIC, NORMAL INSPECTION, NORMOCEPHALIC - Eye Exam Eye Exam: EOMI - ENT Exam ENT Exam: Mucous Membranes Moist - Neck Exam Neck Exam: Full ROM, Normal Inspection - Respiratory Exam Respiratory Exam: Wheezes. absent: Respiratory Distress - Cardiovascular Exam Cardiovascular Exam: +S1, +S2 - GI/Abdominal Exam GI & Abdominal Exam: Tenderness, Normal Bowel Sounds Additional comments: Mild diffuse tenderness - Extremities Exam Extremities Exam: Full ROM. absent: Normal Inspection Additional comments: Track singh left arm - Neurological Exam Neurological Exam: Alert, Awake, Oriented x3 - Psychiatric Exam Psychiatric exam: Flat Affect - Skin Skin Exam: Dry, Intact, Normal Color, Warm Assessment and Plan - Assessment and Plan (Free Text) Assessment: This is a 36 yo male presenting with 1. Asthma exacerbation -duonebs q6 hrs elly, q4 hrs prn -solumedrol IV 40 mg q 12 hrs -CXR shows infiltrate right hilum -afebrile, VSS, leukocytosis most likely due to steroids -pt still wheezing, continue to monitor 2. Pneumonia - infiltrate seen on CXR -continue avelox iv daily -will continue florastor -monitor for clinical progress -blood cultures negative x 48 hrs, sputum cultures pending 3. Heroin abuse -methadone 5 mg, continue methadone taper -will order urine drug screen>> positive for opiates -will order serum alcohol level>>>> negative 4. GI/DVT ppx -protonix 40 mg daily -SCDs -regular diet to be discussed with Dr. Mann <Mejia Mann - Last Filed: 12/19/16 15:02> Objective - Vital Signs/Intake and Output Vital Signs (last 24 hours): Temp Pulse Resp BP Pulse Ox 98.3 F 69 20 127/74 95 12/19/16 08:16 12/19/16 08:16 12/19/16 08:16 12/19/16 08:16 12/19/16 08:16 Intake and Output: 12/19/16 12/19/16 06:59 18:59 Intake Total 440 Balance 440 - Medications Medications: Current Medications Albuterol/Ipratropium (Duoneb 3 Mg/0.5 Mg (3 Ml) Ud) 3 ml INH RQ6 ELLY Last Admin: 12/19/16 13:57 Dose: 3 ml Albuterol/Ipratropium (Duoneb 3 Mg/0.5 Mg (3 Ml) Ud) 3 ml INH RQ4 PRN PRN Reason: Shortness of Breath Guaifenesin (Robitussin) 100 mg PO Q4H PRN PRN Reason: Cough Last Admin: 12/19/16 09:20 Dose: 100 mg Moxifloxacin HCl (Avelox Iv 400mg/250ml Ns) 400 mg in 250 mls @ 167 mls/hr IVPB Q24H [facility] Last Admin: 12/18/16 18:18 Dose: 167 mls/hr Methylprednisolone (Solu-Medrol) 40 mg IV Q12 [facility] Last Admin: 12/19/16 09:21 Dose: 40 mg Pantoprazole Sodium (Protonix Ec Tab) 40 mg PO DAILY [facility] Last Admin: 12/19/16 09:20 Dose: 40 mg Saccharomyces Boulardii (Florastor) 250 mg PO BID [facility] Last Admin: 12/19/16 09:20 Dose: 250 mg Zolpidem Tartrate (Ambien) 5 mg PO HS PRN PRN Reason: Insomnia - Labs Labs: 12/19/16 07:46 12/19/16 07:46 Attending/Attestation - Attestation I have personally seen and examined this patient.: Yes I have fully participated in the care of the patient.: Yes I have reviewed all pertinent clinical information, including history, physical exam and plan: Yes Notes (Text): 12/19/16 15:02 Patient was seen and examined at bedside with the resident States that breathing is improving. We will continue antibiotics and steroids Patient is also on methadone taper for heroin withdrawal I discussed the plan of care with the resident and agree with the above history and physical and assessment/plan by the resident.
[2016-12-19 08:06] LABS: CHLORIDE 103 mmol/L (98-107); SODIUM 139 mmol/L (132-148)
[2016-12-19 08:07] LABS: POTASSIUM 4.4 mmol/L (3.6-5.2)
[2016-12-19 08:09] LABS: ALB/GLOB RATIO 1.2 (1.0-2.1); ALKALINE PHOSPHATASE 72 U/L (38-126); ALT/SGPT 46 U/L (21-72); AST/SGOT 16 U/L (17-59); BILIRUBIN,TOTAL 0.6 mg/dL (0.2-1.3); BLOOD UREA NITROGEN 20 mg/dL (9-20); CALCIUM 8.8 mg/dl (8.6-10.4); CARBON DIOXIDE 24 mmol/L (22-30); GFR AFRICAN-AMERICAN > 60; GLUCOSE,RANDOM 119 mg/dL (75-110); TOTAL PROTEIN 6.7 g/dL (6.3-8.3)
[2016-12-19 08:10] LABS: HEMATOCRIT 40.4 % (35.0-51.0); MEAN CELL VOLUME 92.4 fL (80.0-94.0); MEAN CORPUSCULAR HEMOGLOBIN 31.1 pg (27.0-31.0); MEAN CORPUSCULAR HGB CONC 33.6 g/dL (33.0-37.0); MEAN PLATELET VOLUME 8.3 fL (7.2-11.7); RED CELL DISTRIBUTION WIDTH 14.4 % (11.5-14.5); WHITE BLOOD COUNT 10.4 K/uL (4.8-10.8)
[2016-12-19] MEDS: Pantoprazole 40 mg EC Tab PO SCH (09:20)
[2016-12-19] MEDS: Saccharomyces Boulardi 250 mg Cap PO SCH ×2 (09:20→17:15)
[2016-12-19] MEDS: guaiFENesin 100 mg/5 ml Syrup UD PO PRN (09:20)
[2016-12-19] MEDS: MethylPREDNISolone 40 mg Vial IV SCH ×2 (09:21→21:48)
[2016-12-19] MEDS: Moxifloxacin IV 400mg/250ml NS 400 MG/250 ML BAG IVPB SCH (17:15)
[2016-12-20] MEDS: Albuterol-Ipratrop 3 mg / 0.5 (3 ml) UD INH SCH ×2 (01:17→08:41)
--- NOTE | 2016-12-20 03:34 | CP.PCM.PN ---
<Alexi Weber - Last Filed: 12/20/16 03:35> Subjective - Date & Time of Evaluation Date of Evaluation: 12/20/16 Time of Evaluation: 03:35 - Subjective Subjective: Medicine progress note. Attending: Dr. Mann Pt seen and examined at bedside. No acute distress. No events so far overnight. Pt has been sleeping well and tolerating diet. He has been able to sleep without use of nasal cannula, but is choosing to use it now. Denies chest pain, sob, syncope, dysuria, hematuria, vomiting, diarrhea. He does report feeling like he is still going through withdrawal. Objective - Vital Signs/Intake and Output Vital Signs (last 24 hours): Temp Pulse Resp BP Pulse Ox 98.3 F 69 20 125/75 97 12/20/16 00:38 12/20/16 00:38 12/20/16 00:38 12/20/16 00:38 12/20/16 00:38 Intake and Output: 12/19/16 12/20/16 18:59 06:59 Intake Total 440 Balance 440 - Medications Medications: Current Medications Albuterol/Ipratropium (Duoneb 3 Mg/0.5 Mg (3 Ml) Ud) 3 ml INH RQ6 ELLY Last Admin: 12/20/16 01:17 Dose: 3 ml Albuterol/Ipratropium (Duoneb 3 Mg/0.5 Mg (3 Ml) Ud) 3 ml INH RQ4 PRN PRN Reason: Shortness of Breath Guaifenesin (Robitussin) 100 mg PO Q4H PRN PRN Reason: Cough Last Admin: 12/19/16 09:20 Dose: 100 mg Moxifloxacin HCl (Avelox Iv 400mg/250ml Ns) 400 mg in 250 mls @ 167 mls/hr IVPB Q24H [facility] Last Admin: 12/19/16 17:15 Dose: 167 mls/hr Methylprednisolone (Solu-Medrol) 40 mg IV Q12 [facility] Last Admin: 12/19/16 21:48 Dose: 40 mg Pantoprazole Sodium (Protonix Ec Tab) 40 mg PO DAILY [facility] Last Admin: 12/19/16 09:20 Dose: 40 mg Saccharomyces Boulardii (Florastor) 250 mg PO BID [facility] Last Admin: 12/19/16 17:15 Dose: 250 mg Zolpidem Tartrate (Ambien) 5 mg PO HS PRN PRN Reason: Insomnia Last Admin: 12/19/16 21:49 Dose: 5 mg - Labs Labs: 12/19/16 07:46 12/19/16 07:46 - Constitutional Appears: Non-toxic, No Acute Distress - Head Exam Head Exam: ATRAUMATIC, NORMAL INSPECTION, NORMOCEPHALIC - Eye Exam Eye Exam: EOMI - ENT Exam ENT Exam: Mucous Membranes Moist - Neck Exam Neck Exam: Full ROM, Normal Inspection - Respiratory Exam Respiratory Exam: Decreased Breath Sounds. absent: Respiratory Distress - Cardiovascular Exam Cardiovascular Exam: +S1, +S2 - GI/Abdominal Exam GI & Abdominal Exam: Soft, Normal Bowel Sounds. absent: Tenderness - Extremities Exam Extremities Exam: Full ROM. absent: Normal Inspection Additional comments: Track singh upper extremity - Neurological Exam Neurological Exam: Alert, Awake, Oriented x3 - Psychiatric Exam Psychiatric exam: Anxious - Skin Skin Exam: Dry, Intact, Normal Color, Warm Assessment and Plan - Assessment and Plan (Free Text) Assessment: This is a 36 yo male presenting with 1. Asthma exacerbation -duonebs q6 hrs elly, q4 hrs prn -solumedrol IV 40 mg q 12 hrs -CXR shows infiltrate right hilum -afebrile, VSS, leukocytosis most likely due to steroids -pt still wheezing but clinically showing signs of improvement, continue to monitor 2. Pneumonia - infiltrate seen on CXR -continue avelox iv daily -will continue florastor -monitor for clinical progress -blood cultures negative x 72 hrs, sputum cultures pending 3. Heroin abuse -methadone 5 mg given morning of 12/19, continue methadone taper -will order urine drug screen>> positive for opiates -will order serum alcohol level>>>> negative -one dose of xanax given morning of 12/19 4. GI/DVT ppx -protonix 40 mg daily -SCDs -regular diet to be discussed with Dr. Mann <Mejia Mann - Last Filed: 12/20/16 13:56> Objective - Vital Signs/Intake and Output Vital Signs (last 24 hours): Temp Pulse Resp BP Pulse Ox 97.5 F L 75 20 126/83 91 L 12/20/16 08:13 12/20/16 08:13 12/20/16 08:13 12/20/16 08:13 12/20/16 08:13 - Labs Labs: 12/20/16 07:56 12/20/16 07:56 Attending/Attestation - Attestation I have personally seen and examined this patient.: Yes I have fully participated in the care of the patient.: Yes I have reviewed all pertinent clinical information, including history, physical exam and plan: Yes Notes (Text): Patient signed out AMA before I could examine the patient
[2016-12-20 08:08] LABS: HEMATOCRIT 43.3 % (35.0-51.0); MEAN CELL VOLUME 91.5 fL (80.0-94.0); MEAN CORPUSCULAR HEMOGLOBIN 30.7 pg (27.0-31.0); MEAN CORPUSCULAR HGB CONC 33.5 g/dL (33.0-37.0); MEAN PLATELET VOLUME 9.2 fL (7.2-11.7); RED CELL DISTRIBUTION WIDTH 14.3 % (11.5-14.5); WHITE BLOOD COUNT 11.7 K/uL (4.8-10.8)
[2016-12-20 08:14] VITALS: BP 126/83; PULSE 75; TEMP 97.5; O2SAT 91
[2016-12-20 08:22] LABS: CHLORIDE 102 mmol/L (98-107); POTASSIUM 4.4 mmol/L (3.6-5.2); SODIUM 137 mmol/L (132-148)
[2016-12-20 08:24] LABS: GFR AFRICAN-AMERICAN > 60
[2016-12-20 08:25] LABS: ALB/GLOB RATIO 1.2 (1.0-2.1); ALKALINE PHOSPHATASE 80 U/L (38-126); ALT/SGPT 45 U/L (21-72); AST/SGOT 20 U/L (17-59); BILIRUBIN,TOTAL 0.8 mg/dL (0.2-1.3); BLOOD UREA NITROGEN 18 mg/dL (9-20); CALCIUM 9.2 mg/dl (8.6-10.4); CARBON DIOXIDE 24 mmol/L (22-30); GLUCOSE,RANDOM 129 mg/dL (75-110); TOTAL PROTEIN 6.9 g/dL (6.3-8.3)
[2016-12-20] MEDS: Pantoprazole 40 mg EC Tab PO SCH (09:00)
[2016-12-20] MEDS: Saccharomyces Boulardi 250 mg Cap PO SCH (09:00)
[2016-12-20] MEDS: MethylPREDNISolone 40 mg Vial IV SCH (09:01)
[2016-12-20] MEDS: guaiFENesin 100 mg/5 ml Syrup UD PO PRN (10:00)
--- NOTE | 2016-12-20 17:51 | CP.PCM.DIS ---
Provider - Provider Date of Admission: 12/16/16 16:38 Attending physician: Mejia Mann MD Time Spent in preparation of Discharge (in minutes): 45 Hospital Course - Lab Results Lab Results: Micro Results 12/18/16 06:00 Sputum Gram Stain - Final 12/18/16 06:00 Sputum Sputum Culture - Final NORMAL ORAL AURELIO 12/16/16 16:50 Blood Blood Culture - Preliminary NO GROWTH AFTER 3 DAYS 12/16/16 16:50 Blood Blood Culture - Preliminary NO GROWTH AFTER 3 DAYS Most Recent Lab Values WBC 11.7 K/uL (4.8-10.8) H 12/20/16 07:56 RBC 4.73 Mil/uL (4.40-5.90) 12/20/16 07:56 Hgb 14.5 g/dL (12.0-18.0) 12/20/16 07:56 Hct 43.3 % (35.0-51.0) 12/20/16 07:56 MCV 91.5 fL (80.0-94.0) 12/20/16 07:56 MCH 30.7 pg (27.0-31.0) 12/20/16 07:56 MCHC 33.5 g/dL (33.0-37.0) 12/20/16 07:56 RDW 14.3 % (11.5-14.5) 12/20/16 07:56 Plt Count 277 K/uL (130-400) 12/20/16 07:56 MPV 9.2 fL (7.2-11.7) 12/20/16 07:56 Neut % (Auto) 87.9 % (50.0-75.0) H 12/18/16 07:25 Lymph % (Auto) 6.3 % (20.0-40.0) L 12/18/16 07:25 [place] % (Auto) 5.6 % (0.0-10.0) 12/18/16 07:25 Eos % (Auto) 0.0 % (0.0-4.0) 12/18/16 07:25 Baso % (Auto) 0.2 % (0.0-2.0) 12/18/16 07:25 Neut # 10.8 K/uL (1.8-7.0) H 12/18/16 07:25 Lymph # 0.8 K/uL (1.0-4.3) L 12/18/16 07:25 [place] # 0.7 K/uL (0.0-0.8) 12/18/16 07:25 Eos # 0.0 K/uL (0.0-0.7) 12/18/16 07:25 Baso # 0.0 K/uL (0.0-0.2) 12/18/16 07:25 Neutrophils % (Manual) 77 % (50-75) H 12/18/16 07:25 Band Neutrophils % 8 % (0-2) H 12/18/16 07:25 Lymphocytes % (Manual) 9 % (20-40) L 12/18/16 07:25 Reactive Lymphs % TEST NOT PERFORMED 12/18/16 07:25 Monocytes % (Manual) 6 % (0-10) 12/18/16 07:25 Differential Comment 12/20/16 07:56 Platelet Estimate Normal (NORMAL) 12/18/16 07:25 Large Platelets Present 12/18/16 07:25 RBC Morphology Normal 12/18/16 07:25 Sodium 137 mmol/L (132-148) 12/20/16 07:56 Potassium 4.4 mmol/L (3.6-5.2) 12/20/16 07:56 Chloride 102 mmol/L (98-107) 12/20/16 07:56 Carbon Dioxide 24 mmol/L (22-30) 12/20/16 07:56 Anion Gap 16 (10-20) 12/20/16 07:56 BUN 18 mg/dL (9-20) 12/20/16 07:56 Creatinine 0.8 MG/DL (0.8-1.5) 12/20/16 07:56 Est GFR ( Amer) > 60 12/20/16 07:56 Est GFR (Non-Af Amer) > 60 12/20/16 07:56 Random Glucose 129 mg/dL (75-110) H 12/20/16 07:56 Calcium 9.2 mg/dl (8.6-10.4) 12/20/16 07:56 Phosphorus 4.5 mg/dL (2.5-4.5) 12/18/16 07:25 Magnesium 2.2 mg/dL (1.6-2.3) 12/18/16 07:25 Total Bilirubin 0.8 mg/dL (0.2-1.3) 12/20/16 07:56 AST 20 U/L (17-59) 12/20/16 07:56 ALT 45 U/L (21-72) 12/20/16 07:56 Alkaline Phosphatase 80 U/L (38-126) 12/20/16 07:56 Total Protein 6.9 g/dL (6.3-8.3) 12/20/16 07:56 Albumin 3.8 g/dL (3.5-5.0) 12/20/16 07:56 Globulin 3.1 gm/dL (2.2-3.9) 12/20/16 07:56 Albumin/Globulin Ratio 1.2 (1.0-2.1) 12/20/16 07:56 Urine Opiates Screen Positive (NEGATIVE) 12/17/16 07:35 Urine Methadone Screen Negative (NEGATIVE) 12/17/16 07:35 Ur Barbiturates Screen Negative (NEGATIVE) 12/17/16 07:35 Ur Phencyclidine Scrn Negative (NEGATIVE) 12/17/16 07:35 Ur Amphetamines Screen Negative (NEGATIVE) 12/17/16 07:35 U Benzodiazepines Scrn Negative (NEGATIVE) 12/17/16 07:35 U Oth Cocaine Metabols Negative (NEGATIVE) 12/17/16 07:35 U Cannabinoids Screen Negative (NEGATIVE) 12/17/16 07:35 Alcohol, Quantitative < 10 mg/dl (0-10) 12/16/16 18:58 - Hospital Course Hospital Course: Upon Admission 36 yo male with past medical hx of asthma, pneumonia and heroin abuse presenting with chief complaint of sob. Pt has been having sob for 2 days. It has been getting worse. Pt was recently discharged from [facility] for similar issues. He reports productive cough with yellowish brown color. He reports subjective fever and chills. He cannot report any environmental triggers for his asthma but he knows his cigarette smoking worsens it. He was woken up from sleep 2 days ago when the sob started. He only uses an albuterol pump prn for his asthma. He has used it over 10 times per day over the past 2 days. Denies chest pain, vomiting, diarrhea, hematuria, change in stools, bloody stools. Patient was admitted for acute asthma exacerbation. CXR showed infiltrate right hilum and patient was started on Avelox. Patient was started on a methadone taper for heroin abuse and duoneb and solumedrol for asthma. Patient was clinically improving but on 12/20 he decided to sign out against medical advice and refused a physical exam prior to doing so. Upon Discharge Patient signed out AMA. Patient was counseled in great detail regarding the risks of leaving against medical advice. Nurse at bedside witnessed. Discharge Exam - Head Exam Additional comments: PATIENT REFUSED PHYSICAL EXAM UPON SIGNING OUT AGAINST MEDICAL ADVICE Discharge Plan - Follow Up Plan Condition: IMPROVED Disposition: AGAINST MEDICAL ADVICE
== END 2016-12-20 11:45 | disposition left against medical advice (07) | DRG 96 ==
LOC: C.ER 13:15 → C.9E 16:38 → C.3T 17:07
PROVIDERS: ADMIT Internal Medicine; ATTEND Internal Medicine
DX: J45.902 Unspecified asthma with status asthmaticus (principal); J18.9 Pneumonia, unspecified organism; F11.23 Opioid dependence with withdrawal; F10.10 Alcohol abuse, uncomplicated; F17.210 Nicotine dependence, cigarettes, uncomplicated

== ENCOUNTER 2016-12-28 22:21 | Inpatient (IN) | payer MEDICAID, OTHER ==
[2016-12-28 22:21] VITALS: BMI 21.9
[2016-12-28] MEDS ORDERED: Sodium Chloride 0.9% 1,000 ML IV ONE (23:06)
[2016-12-28] MEDS ORDERED: Albuterol-Ipratrop 3 mg / 0.5 (3 ml) UD INH STA (23:07)
[2016-12-28] MEDS ORDERED: Sodium Chloride 0.9% 1,000 ML ONE (23:34)
[2016-12-28 23:35] LABS: BASO % 0.3 % (0.0-2.0); EOS # 0.6 K/uL (0.0-0.7); EOS % 5.6 % (0.0-4.0); HEMATOCRIT 39.9 % (35.0-51.0); LYMPH # 2.2 K/uL (1.0-4.3); LYMPH % 20.1 % (20.0-40.0); MEAN CELL VOLUME 92.4 fL (80.0-94.0); MEAN CORPUSCULAR HEMOGLOBIN 30.4 pg (27.0-31.0); MEAN CORPUSCULAR HGB CONC 32.9 g/dL (33.0-37.0); MEAN PLATELET VOLUME 8.6 fL (7.2-11.7); MONO # 1.5 K/uL (0.0-0.8); MONO % 13.1 % (0.0-10.0); RED CELL DISTRIBUTION WIDTH 14.5 % (11.5-14.5)
[2016-12-28] MEDS ORDERED: Albuterol-Ipratrop 3 mg / 0.5 (3 ml) UD ONE (23:36)
[2016-12-28 23:41] LABS: CHLORIDE 101 mmol/L (98-107)
[2016-12-28 23:42] LABS: POTASSIUM 4.1 mmol/L (3.6-5.2); SODIUM 139 mmol/L (132-148)
[2016-12-28 23:44] LABS: ALB/GLOB RATIO 1.3 (1.0-2.1); AST/SGOT 31 U/L (17-59); BILIRUBIN,TOTAL 0.5 mg/dL (0.2-1.3); BLOOD UREA NITROGEN 18 mg/dL (9-20); CARBON DIOXIDE 28 mmol/L (22-30); GFR AFRICAN-AMERICAN > 60; TOTAL PROTEIN 6.9 g/dL (6.3-8.3)
[2016-12-28 23:45] LABS: ALKALINE PHOSPHATASE 72 U/L (38-126); ALT/SGPT 53 U/L (21-72); CALCIUM 8.8 mg/dl (8.6-10.4); GLUCOSE,RANDOM 101 mg/dL (75-110)
--- NOTE | 2016-12-29 01:35 | C.PDOC ---
History Of Present Illness Patient is a 36 year old male with a PMHx of asthma who presents to the ER with a complaint of SOB, productive cough with yellow sputum and wheezing for the last few days. Patient reports having PNA one month ago. Denies fever or chills. Chief Complaint (Nursing): Shortness Of Breath History Per: Patient History/Exam Limitations: no limitations Onset/Duration Of Symptoms: Days Current Symptoms Are (Timing): Still Present Initiating Event: Other (Not known) Current Respiratory Medications: None Associated Symptoms: Productive Cough (Yellow sputum), Other (Wheezing). denies : Fever, Chills Recent travel outside of the [place]: No Past Medical History Reviewed: Historical Data, Nursing Documentation, Vital Signs Vital Signs: Last Vital Signs Temp 97.9 F 12/28/16 22:35 Pulse 105 H 12/28/16 22:35 Resp 20 12/28/16 23:15 BP 140/85 12/28/16 22:35 Pulse Ox 95 12/29/16 02:10 - Medical History PMH: Anxiety, Asthma, Bronchitis, Depression, Pneumonia Surgical History: No Surg Hx - [facility] Procedures DETOXIFICATION SERVICES FOR SUBSTANCE ABUSE TREATMENT (11/30/16) GROUP LAB MANAGER FOR SUBSTANCE ABUSE TREATMENT, PSYCHOEDUCATION (11/16/16) GROUP PSYCHOTHERAPY (11/16/16) INDIV LAB MANAGER FOR SUBSTANCE ABUSE TREATMENT, PSYCHOEDUCATION (11/30/16) INDIV LAB MANAGER FOR SUBSTANCE ABUSE, COGNITIVE BEHAVIORAL (11/30/16) INDIV PSYCHOTHERAPY FOR SUBSTANCE ABUSE TREATMENT, SUPPORT (11/30/16) INDIV PSYCHOTHERAPY FOR SUBSTANCE ABUSE, PSYCHOEDUCATION (10/19/16) INDIVIDUAL PSYCHOTHERAPY, SUPPORTIVE (11/16/16) MEDICATION MANAGEMENT (11/16/16) MEDS MGMT FOR SUBSTANCE ABUSE TREATMENT, METHADONE MAINT (11/16/16) PHARMACOTHERAPY FOR SUBSTANCE ABUSE, METHADONE MAINT (11/16/16) Family History: States: Unknown Family Hx - Social History Hx Tobacco Use: Yes (heavy smoker) Hx Alcohol Use: No Hx Substance Use: No - Immunization History Hx Tetanus Toxoid Vaccination: No Hx Influenza Vaccination: No (08/2015) Hx Pneumococcal Vaccination: No Review Of Systems Constitutional: Negative for: Fever, Chills Respiratory: Positive for: Cough, Shortness of Breath, Sputum (Yellow), Wheezing Physical Exam - Physical Exam Appears: Non-toxic Skin: Normal Color, Warm, Dry Head: Atraumatic, Normacephalic Oral Mucosa: Moist Chest: Symmetrical, No Tenderness Cardiovascular: Rhythm Regular, No Murmur Respiratory: No Accessory Muscle Use, No Rales, No Rhonchi, Wheezing (Bilateral) , Other (SOB) Neurological/Psych: Oriented x3, Normal Speech, Normal Cognition ED Course And Treatment - Laboratory Results Result Diagrams: 12/28/16 23:30 12/28/16 23:30 O2 Sat by Pulse Oximetry: 95 (Room air) Pulse Ox Interpretation: Normal - Radiology CXR: Viewed By Me, Read By Radiologist CXR Interpretation: Yes: Other (Persistent opacities in the lower lobes bilaterally and questionable subtle cavitating opacity versus confluent opacities in the left upper lobe. Please correlate with clinical and lab data.) Progress Note: Blood work, chest CT w/o contrast and CXR ordered. solumedrol, nebulizer treatment and IV fluids administered. Disposition Discussed With Dr.: Wilfrido Alarcon Doctor Will See Patient In The: Hospital Counseled Patient/Family Regarding: Diagnosis - Disposition Disposition: HOSPITALIZED Disposition Time: 02:41 Condition: STABLE - POA Present On Arrival: None - Clinical Impression Clinical Impression: Asthma exacerbation, Pneumonia - Scribe Statement The provider has reviewed the documentation as recorded by the Scribjeanne Cameron All medical record entries made by the Donaldibjeanne were at my direction and personally dictated by me. I have reviewed the chart and agree that the record accurately reflects my personal performance of the history, physical exam, medical decision making, and the department course for this patient. I have also personally directed, reviewed, and agree with the discharge instructions and disposition.
[2016-12-29 02:27] LABS: ABG ALLEN TEST POS; ARTERIAL BLOOD HGB O2 SAT 87.4 % (95.0-98.0); CARBOXYHEMOGLOBIN 6.7 % (0.5-1.5); DRAW SITE RR; HHB 4.4 % (0.0-5.0); METHEMOGLOBIN 1.5 % (0.0-3.0)
[2016-12-29] MEDS ORDERED: cefTRIAXone IV 1 gm in Dextros 50 ML IVPB ONE ×2 (02:32→02:39)
[2016-12-29] MEDS ORDERED: Azithromycin 500mg/250ML NS 500 MG/250 ML BAG IV STA (02:33)
[2016-12-29] MEDS ORDERED: Magnesium Sulfate 1 gm in D5W 1 GM/100 ML BAG IVPB ONE ×2 (02:36→03:09)
[2016-12-29] MEDS ORDERED: Albuterol-Ipratrop 3 mg / 0.5 (3 ml) UD INH PRN (02:42)
[2016-12-29] MEDS ORDERED: Azithromycin 500mg/250ML NS 500 MG/250 ML BAG IVPB ONE (04:53)
[2016-12-29] MEDS ORDERED: MethylPREDNISolone 40 mg Vial IVP SCH (06:00)
--- NOTE | 2016-12-29 08:40 | RAD ---
HISTORY: SOB COMPARISON: 12/16/2016 TECHNIQUE: Chest PA and lateral FINDINGS: LUNGS: Mild venous congestion. Right hilar prominence. Consolidative changes at the left lung base. PLEURA: No significant pleural effusion identified. No pneumothorax apparent. CARDIOVASCULAR: Normal. OSSEOUS STRUCTURES: No significant abnormalities. VISUALIZED UPPER ABDOMEN: Normal. OTHER FINDINGS: None. IMPRESSION: Mild venous congestion. Right hilar prominence. Consolidative changes at the left lung base.
--- NOTE | 2016-12-29 10:37 | CT ---
PROCEDURE: CT chest dated 12/29/2016. HISTORY: Persistent opacities of lower lobes, cavitating? COMPARISON: None. TECHNIQUE: Contiguous axial images were obtained through the chest without intravenous contrast enhancement. Sagittal and coronal reconstructions were performed. Radiation dose (DLP): 343.76 mGy-cm. This CT exam was performed using one or more of the following dose reduction techniques: Automated exposure control, adjustment of the mA and/or kV according to patient size, and/or use of iterative reconstruction technique. FINDINGS: LUNGS: Previously noted middle lobe, left lung base including lingular region airspace consolidation improved however there is some residual minor consolidation changes and/or atelectasis in these locations including the lingular region. There is a small area of consolidation/ atelectasis in the left upper lobe however no definitive cavitary lesions are identified. MEDIASTINUM: Heart is mildly enlarged. No significant pericardial effusion. Ascending thoracic aorta measures approximately 2.7 cm and descending thoracic aorta measures approximately 2.13 cm. Pulmonary trunk is mildly prominent measuring approximately 2.9 cm. Rule out underlying mild pulmonary arterial hypertension. Few small nonspecific mediastinal lymph nodes. Evaluation for hilar adenopathy is limited due to the lack of circulating intravenous contrast material. There is a small hiatal hernia with slight wall thickening of the distal esophagus that could be due to protrusion of gastric mucosa. Possibility of esophagitis not excluded. Central airways are midline and patent. PLEURA: No evidence of significant pleural effusion. No evidence of pneumothorax BONES: Osseous structures appear intact without evidence of acute compression fractures nor retropulsed fragments however note made of multilevel mild fish-mouth endplate deformities with mild chronic anterior wedge deformities of several of these upper -mid thoracic segments. In addition, there is a small discrete Schmorl's node superior endplate of the T7 segment with mild chronic anterior wedging of this segment as well. UPPER ABDOMEN: There is a large amount of food debris within the stomach. In addition, there also appears to be large amount of stool in the hepatic flexure, transverse colon and splenic flexure regions suggesting constipation. OTHER FINDINGS: None. IMPRESSION: Interval improvement previously noted patchy airspace consolidation changes scattered throughout the middle lobe, left lung base and lingular region. There is a new vague at small area of airspace consolidation/atelectasis left upper lobe. No evidence of effusion or pneumothorax. There are no cavitary lesions. See above discussion for additional findings and details.
[2016-12-29] MEDS: cefTRIAXone IV 1 gm in Dextros 50 ML IVPB SCH (11:55)
--- NOTE | 2016-12-29 13:15 | CP.PCM.HP ---
History of Present Illness - History of Present Illness History of Present Illness: COMPREHENSIVE HISTORY & PHYSICAL EXAM HPI Patient is a 36 year old male with a PMHx of asthma who presents to the ER with a complaint of SOB, productive cough with yellow sputum and wheezing for the last few days. Patient reports having PNA one month ago. Denies fever or chills. PAST HIST. PERSONAL HIST: Smoking. Ny Alcohol. N Allergy N Travel_- . IVDA , LAST 1 DAY FAMILY HIST : ROS : Constitutional: Negative for weight change, chills, night sweats, fatigue and usage of assist device. Eyes: Negative for redness, swelling, itching, discharge, vision changes, blurry vision, double vision, glaucoma, cataracts, Ears: Negative for hearing loss, ringing, , tinnitus, vertigo Nose: Negative for rhinorrhea, stuffiness, sniffing, itching, postnasal drip, discoloration, nasal congestion and epistaxis. Throat: Negative for throat clearing, sore throat, hoarseness, difficulty swallowing and difficulty speaking. Respiratory: POS for cough, chest tightness, sputum or phlegm, chronic cough, NO hemoptysis, , snoring at night, pleuritic chest pain and daytime somnolence. Cardiovascular: Negative for chest pain, palpitations, orthopnea, PND, Edema of legs, leg cramps, angina, claudication, , irregular heartbeat, Neurology: Negative for irritability, muscle weakness, numbness and tingling, seizures, tremors, migraines, slurred speech, syncope, memory loss, mood changes , recurrent headaches Gastrointestinal: Negative for difficulty swallowing, diarrhea, constipation, black stools, rectal bleeding, nausea, flatulence, reflux, poor appetite, changes in bowel habits, abdominal pain Genitourinary: Negative for frequent urination, hematuria, discharge, incontinence, urinary retention, frequent UTI, Psychiatric: Negative for depression, anxiety/panic, suicidal tendencies, Musculoskeletal: Negative for swollen joints, back pain, , neck pain, morning stiffness of joints, . Skin: Negative for rash, ulcers, itching, dry skin and pigmented lesions. P/E: Constitutional: Appears stated age and in no apparent distress. Head: Normocephalic. Ears: External ear canals patent without inflammation. Tympanic membranes intact with normal light reflex and landmark. Eyes: Pupils are central, bilaterally equal, symmetrical and reacts to light with normal movements and no icterus or pallor. Nose: External nares are patent. Mucosa is pink Mouth-Throat: Good general appearance and condition. No post-pharyngeal/oropharyngeal erythema and tonsillar hypertrophy. Good dental hygiene. Neck-Lymphatic: Neck is supple with normal ROM, no thyromegaly, lymph nodes or masses. JVD is normal with no carotid bruit. Lungs: ONEL WHEEZING Cardiovascular: S1 and S2 are normal with no murmurs, gallops and rub. GI Exam: No hepatomegaly. Abdomen is soft and non-tender. No Organomegaly , masses or hernias are evident and bowel sounds are normal and active. Neurology: Higher function and all cranial nerves intact, with no gross motor or sensory deficit. Superficial and deep reflexes are normal with downwards planters. No cerebellar deficit with normal gait. Musculoskeletal: No tender spots with normal curvature of the spine with no swelling or restricted ROM of the small and large joints. Extremities: Homans sign absent. Intact pulses with no pitting edema, calf tenderness or skin color changes. Skin: No rash, eruptions or abnormal skin pigmentation LAB/RADIOLOGY: ASSESMENT : ACUTE EXACERBATION OF B ASTHMA RESP INFECTION DRUG ABUSE PLAN: SEE ORDERS Present on Admission - Present on Admission Any Indicators Present on Admission: No Past Patient History - Infectious Disease Hx of Infectious Diseases: None - Past Medical History & Family History Past Medical History?: Yes - Past Social History Smoking Status: Heavy Smoker > 10 Cigarettes Daily - CARDIAC Hx Hypertension: No - PULMONARY Hx Asthma: Yes Hx Bronchitis: Yes Hx Pneumonia: Yes - NEUROLOGICAL Hx Seizures: No Hx Transient Ischemic Attacks (TIA): No - HEENT Hx HEENT Problems: No Hx Cataracts: No Hx Deafness: No Hx Difficulty Chewing: No Hx Epistaxis: No Hx Glaucoma: No Hx Macular Degeneration: No - RENAL Hx Chronic Kidney Disease: No Hx Kidney Stones: No - ENDOCRINE/METABOLIC Hx Hyperthyroidism: No Hx Hypothyroidism: No - HEMATOLOGICAL/ONCOLOGICAL Hx Human Immunodeficiency Virus (HIV): No - INTEGUMENTARY Hx Dermatological Problems: No Hx Basil Cell: No Hx Barrera: No Hx Cellulitis: No Hx Eczema: No Hx Melanoma: No Hx Psoriasis: No Hx Squamous Cell: No - MUSCULOSKELETAL/RHEUMATOLOGICAL Hx Arthritis: No Hx Falls: No Hx Fractures: No Hx Osteoporosis: No Hx Rheumatoid Arthritis: No - GASTROINTESTINAL Hx Crohn's Disease: No Hx Diverticulitis: No Hx Gall Bladder Disease: No Hx Gastritis: No Hx Pancreatitis: No - GENITOURINARY/GYNECOLOGICAL Hx Sexually Transmitted Disorders: No - PSYCHIATRIC Hx Anxiety: Yes Hx Depression: Yes Hx Substance Use: Yes (heroin) - SURGICAL HISTORY Hx Appendectomy: No Hx Carotid Endarterectomy: No Hx Cholecystectomy: No Hx Coronary Artery Bypass Graft: No Hx Coronary Stent: No Hx Tonsillectomy: No - ANESTHESIA Hx Anesthesia: No Meds Allergies/Adverse Reactions: Allergies Allergy/AdvReac Type Severity Reaction Status Date / Time shellfish derived Allergy Verified 12/28/16 22:40 Results - Vital Signs Recent Vital Signs: Last Vital Signs Temp 97.9 F 12/29/16 06:41 Pulse 70 12/29/16 08:07 Resp 18 12/29/16 08:07 BP 106/69 12/29/16 08:07 Pulse Ox 70 L 12/29/16 08:07 - Labs Result Diagrams: 12/28/16 23:30 12/28/16 23:30
--- NOTE | 2016-12-29 13:30 | PCM.PSYCH ---
Initial Psychiatric Evaluation - Initial Psychiatric Evaluation Type of Admission: Voluntary Legal Status: Capacity Chief Complaint (in patient's own words): "I used again" History of Present Illness and Precipitating Events: The pt is seen, chart reviewed and case discussed He is known from numerous previoius psych, detox and medicine admissions. This time consult is asked, again, for his opioid withdrawal. Patient reports that he has been using heroin on and off since 2013. He reports that he relapsed day after he was dc'ed from a week ago. He normally uses 10- 12 bags of heroin intravenously. He uses cocaine sometimes but denies other illicit drug use including pain killers, marijuana, and alcohol. PCP was positive once. He admits to marijuana use when he was younger. He is an occasional cigarette smoker stating he only smokes when he is high from heroin. He feels down b/c of ongoing relapses. He thinks he should go to a [facility] rehab or [facility] now. Past Psych Hx: few admissions this year, for depression, but likely malingering or substance-induced Fam Psych Hx: none Fam Drug Hx: Father's alcoholism PMH: Asthma Current Medications: Active Medications Generic Name Dose Route Start Last Admin Trade Name Freq PRN Reason Stop Dose Admin Albuterol/Ipratropium 3 ml 12/29/16 02:42 12/29/16 13:18 Duoneb 3 Mg/0.5 Mg (3 Ml) Ud INH 3 ml Q4H PRN Administration Shortness of Breath Ceftriaxone Sodium 50 mls @ 100 mls/hr 12/29/16 10:00 12/29/16 11:55 Rocephin Iv 1 Gm Duplex IVPB 100 mls/hr DAILY KAYLEE Administration Methylprednisolone 60 mg 12/29/16 10:00 12/29/16 12:52 Solu-Medrol IVP 60 mg Q6 KAYLEE Administration Past Psychiatric History - Past Psychiatric History Previous Treatment History: Inpatient Pertinent Medical Hx (Current Medical&Sleep Prob, Allergies): Allergies Allergy/AdvReac Type Severity Reaction Status Date / Time shellfish derived Allergy Verified 12/28/16 22:40 Albuterol Sulfate [Proventil Hfa] 0.09 mg IH PRN PRN 12/16/16 Review of Systems - Psychiatric Psychiatric: Abnormal Sleep Pattern, Anhedonia, Anxiety, Difficulty Concentrating. absent: Hallucinations, Homicidal Ideation, Paranoia, Suicidal Ideation Mental Status Examination - Personal Presentation Personal Presentation: Looks stated age - Affect Affect: Constricted - Motor Activity Motor Activity: Calm - Reliability in Providing Information Reliability in Providing Information: Fair - Speech Speech: Organized - Mood Mood: Depressed, Anxious - Formal Thought Process Formal Thought Process: No Impairment - Cognitive Functions Orientation: Person, Place, Situation, Time Sensorium: Alert Attention/Concentration: Attentive Estimate of Intelligence: Average Judgement: Intact, as evidence by: Insight regarding need for hospitalization Memory: Recent intact, as evidence by: Ability to recall events of the day, Remote intact, as evidenced by: Abilit to recall sig. life events - Risk Risk: Withdrawal, Diminished functioning - Strength & Assets Inventory Strength & Assets Inventory: Intelligence, Life experience, Cooperative - Limitations Limitations: Living alone DSM 5 DX - DSM 5 DSM 5 Diagnosis: Depressive d/o - unspecified Opioid use disorders, severe Opioid withdrawal cocaine use disorder Personality disorder, unspecified - Recommended/Plan of Treatment Treatment Recommendations and Plan of Treatment: [facility] detox Seroquel gabapentin for anxiety Support and psychoed OK for abstinence 32 min
[2016-12-29] MEDS ORDERED: Aluminum Hydroxide/Magnesium Hydroxide Susp (30 mL) PO PRN (13:31)
[2016-12-30 07:25] LABS: BASO % 0.1 % (0.0-2.0); HEMATOCRIT 40.5 % (35.0-51.0); LYMPH % 5.6 % (20.0-40.0); MEAN CELL VOLUME 91.1 fL (80.0-94.0); MEAN CORPUSCULAR HEMOGLOBIN 30.1 pg (27.0-31.0); MEAN CORPUSCULAR HGB CONC 33.1 g/dL (33.0-37.0); MEAN PLATELET VOLUME 8.7 fL (7.2-11.7); MONO # 0.5 K/uL (0.0-0.8); MONO % 2.7 % (0.0-10.0); PLATELET COUNT 250 K/uL (130-400); RED CELL DISTRIBUTION WIDTH 13.9 % (11.5-14.5)
[2016-12-30 07:40] LABS: CHLORIDE 106 mmol/L (98-107); POTASSIUM 3.7 mmol/L (3.6-5.2); SODIUM 141 mmol/L (132-148)
[2016-12-30 07:42] LABS: ALB/GLOB RATIO 1.2 (1.0-2.1); ALKALINE PHOSPHATASE 82 U/L (38-126); AST/SGOT 20 U/L (17-59); BILIRUBIN,TOTAL 0.5 mg/dL (0.2-1.3); CARBON DIOXIDE 24 mmol/L (22-30); GFR AFRICAN-AMERICAN > 60; TOTAL PROTEIN 6.4 g/dL (6.3-8.3)
[2016-12-30 07:43] LABS: ALT/SGPT 44 U/L (21-72); BLOOD UREA NITROGEN 15 mg/dL (9-20); CALCIUM 8.7 mg/dl (8.6-10.4); GLUCOSE,RANDOM 125 mg/dL (75-110)
[2016-12-30] MEDS: cefTRIAXone IV 1 gm in Dextros 50 ML IVPB SCH (09:03)
[2016-12-30 09:41] LABS: NEUTROPHIL 86 % (50-75); TOTAL CELLS COUNTED 100
[2016-12-30] MEDS: Albuterol-Ipratrop 3 mg / 0.5 (3 ml) UD INH PRN (11:00)
--- NOTE | 2016-12-30 13:07 | CP.PCM.PN ---
Subjective - Date & Time of Evaluation Date of Evaluation: 12/30/16 Time of Evaluation: 13:06 - Subjective Subjective: LESS SOB COUGH O/E WHEEZING CPT Objective - Vital Signs/Intake and Output Vital Signs (last 24 hours): Temp Pulse Resp BP Pulse Ox 98.4 F 95 H 18 141/79 96 12/30/16 08:00 12/30/16 12:00 12/30/16 08:00 12/30/16 12:00 12/30/16 08:00 - Medications Medications: Current Medications Al Hydrox/Mg Hydrox/Simethicone (Maalox 30 Ml) 30 ml PO TID PRN PRN Reason: Indigestion / Heartburn Albuterol/Ipratropium (Duoneb 3 Mg/0.5 Mg (3 Ml) Ud) 3 ml INH RQ4 PRN PRN Reason: Shortness of Breath Last Admin: 12/30/16 11:00 Dose: 3 ml Clonidine HCl (Catapres) 0.1 mg PO Q8 PRN PRN Reason: COWS Score More or Equal to 5 Last Admin: 12/30/16 12:05 Dose: 0.1 mg Gabapentin (Neurontin) 300 mg PO BID KAYLEE Last Admin: 12/30/16 09:02 Dose: 300 mg Ceftriaxone Sodium (Rocephin Iv 1 Gm Duplex) 50 mls @ 100 mls/hr IVPB DAILY KAYLEE Last Admin: 12/30/16 09:03 Dose: 100 mls/hr Loperamide HCl (Imodium) 2 mg PO Q8 PRN PRN Reason: Diarrhea Methylprednisolone (Solu-Medrol) 60 mg IVP Q6 KAYLEE Last Admin: 12/30/16 12:06 Dose: 60 mg Ondansetron HCl (Zofran Tab) 4 mg PO Q8 PRN PRN Reason: Nausea/Vomiting Quetiapine Fumarate (Seroquel) 100 mg PO HS KAYLEE Last Admin: 12/29/16 22:36 Dose: 100 mg - Labs Labs: 12/30/16 06:53 12/30/16 06:53
[2016-12-30 17:38] VITALS: RESP 20
--- NOTE | 2016-12-30 20:01 | CP.PCM.CON ---
History of Present Illness - History of Present Illness History of Present Illness: INFECTIOUS DISEASE CONSULTATION: HPI: his is a 36 yo male with past medical hx of asthma, pneumonia and heroin abuse, HEPATITIS C, presenting with chief complaint of sob. Pt has been having sob for 2 days. It has been getting worse. Pt was recently discharged from [facility] for similar issues. He reports productive cough with yellowish brown color. He reports subjective fever and chills. He cannot report any environmental triggers for his asthma but he knows his cigarette smoking worsens it. He only uses an albuterol pump prn for his asthma. He Denies chest pain, vomiting, diarrhea, hematuria, change in stools, bloody stools. CHEST X-RAY ON ADMISSION SHOWED PATCHY BILATERAL INFILTRATES LEFT-SIDED MORE THAN THE RIGHT. patient was started on broad-spectrum antibiotics including IV ceftriaxone 1 g once a day and Zithromax 500 IV piggyback once a day daily. Infectious disease consultation requested by PMD for further evaluation. Patient admits to cough with yellowish phlegm. Patient went for CT of the chest without contrast today and was found to have patchy airspace consolidative changes throughout right middle lobe,left lung base/left lingular region and new left upper lobe the consolidation/ atelectasis. No effusion was seen Patient presently on IV ceftriaxone and IV Zithromax. PATIENT HAD wbc COUNT OF 18.0 AND HIS RENAL FUNCTIONS ARE STABLE. PATIENT WAS RECENTLY HOSPITALIZED AT [facility] 12/16/16 TO 12/20/16 FOR SIMILAR REASONS BUT SIGNED OUT AMA. : PMH: Anxiety, Asthma, Bronchitis, Depression, Pneumonia,hepatitis C. Surgical History: No Surg Hx - [facility] DETOXIFICATION SERVICES FOR SUBSTANCE ABUSE TREATMENT (11/30/16) GROUP RECAPPER FOR SUBSTANCE ABUSE TREATMENT, PSYCHOEDUCATION (11/16/16) GROUP PSYCHOTHERAPY (11/16/16) INDIV RECAPPER FOR SUBSTANCE ABUSE TREATMENT, PSYCHOEDUCATION (11/30/16) INDIV RECAPPER FOR SUBSTANCE ABUSE, COGNITIVE BEHAVIORAL (11/30/16) INDIV PSYCHOTHERAPY FOR SUBSTANCE ABUSE TREATMENT, SUPPORT (11/30/16) INDIV PSYCHOTHERAPY FOR SUBSTANCE ABUSE, PSYCHOEDUCATION (10/19/16) INDIVIDUAL PSYCHOTHERAPY, SUPPORTIVE (11/16/16) MEDICATION MANAGEMENT (11/16/16) MEDS MGMT FOR SUBSTANCE ABUSE TREATMENT, METHADONE MAINT (11/16/16) PHARMACOTHERAPY FOR SUBSTANCE ABUSE, METHADONE MAINT (11/16/16) Family History: States: Unknown Family Hx - Social History Hx Tobacco Use: Yes (heavy smoker) Hx Alcohol Use: No Hx Substance Use: No - Immunization History Hx Tetanus Toxoid Vaccination: No Hx Influenza Vaccination: No (08/2015) Hx Pneumococcal Vaccination: No Review of Systems - Constitutional Constitutional: absent: Chills, Fever - EENT Eyes: absent: Change in Vision Nose/Mouth/Throat: Dry Mouth (FOLLOW) - Cardiovascular Cardiovascular: Chest Pain, Dyspnea, Dyspnea on Exertion - Respiratory Respiratory: Cough, Chest Congestion, Pain with Coughing - Gastrointestinal Gastrointestinal: Diarrhea. absent: Nausea, Vomiting - Genitourinary Genitourinary: absent: Dysuria, Hematuria (FURTHER) - Neurological Neurological: absent: Focal Weakness, Headaches - Psychiatric Psychiatric: Anxiety - Hematologic/Lymphatic Hematologic: As Per HPI. absent: Easy Bleeding, Lymphadenopathy Past Patient History - Infectious Disease Hx of Infectious Diseases: None - Past Medical History & Family History Past Medical History?: Yes - Past Social History Smoking Status: Heavy Smoker > 10 Cigarettes Daily - CARDIAC Hx Hypertension: No - PULMONARY Hx Asthma: Yes Hx Bronchitis: Yes Hx Pneumonia: Yes - NEUROLOGICAL Hx Seizures: No Hx Transient Ischemic Attacks (TIA): No - HEENT Hx HEENT Problems: No Hx Cataracts: No Hx Deafness: No Hx Difficulty Chewing: No Hx Epistaxis: No Hx Glaucoma: No Hx Macular Degeneration: No - RENAL Hx Chronic Kidney Disease: No Hx Kidney Stones: No - ENDOCRINE/METABOLIC Hx Hyperthyroidism: No Hx Hypothyroidism: No - HEMATOLOGICAL/ONCOLOGICAL Hx Human Immunodeficiency Virus (HIV): No - INTEGUMENTARY Hx Dermatological Problems: No Hx Basil Cell: No Hx Barrera: No Hx Cellulitis: No Hx Eczema: No Hx Melanoma: No Hx Psoriasis: No Hx Squamous Cell: No - MUSCULOSKELETAL/RHEUMATOLOGICAL Hx Arthritis: No Hx Falls: No Hx Fractures: No Hx Osteoporosis: No Hx Rheumatoid Arthritis: No - GASTROINTESTINAL Hx Crohn's Disease: No Hx Diverticulitis: No Hx Gall Bladder Disease: No Hx Gastritis: No Hx Pancreatitis: No - GENITOURINARY/GYNECOLOGICAL Hx Sexually Transmitted Disorders: No - PSYCHIATRIC Hx Anxiety: Yes Hx Depression: Yes Hx Substance Use: Yes (heroin) - SURGICAL HISTORY Hx Appendectomy: No Hx Carotid Endarterectomy: No Hx Cholecystectomy: No Hx Coronary Artery Bypass Graft: No Hx Coronary Stent: No Hx Tonsillectomy: No - ANESTHESIA Hx Anesthesia: No Meds Allergies/Adverse Reactions: Allergies Allergy/AdvReac Type Severity Reaction Status Date / Time shellfish derived Allergy Verified 12/28/16 22:40 - Medications Medications: Current Medications Al Hydrox/Mg Hydrox/Simethicone (Maalox 30 Ml) 30 ml PO TID PRN PRN Reason: Indigestion / Heartburn Albuterol/Ipratropium (Duoneb 3 Mg/0.5 Mg (3 Ml) Ud) 3 ml INH RQ4 PRN PRN Reason: Shortness of Breath Last Admin: 12/30/16 11:00 Dose: 3 ml Clonidine HCl (Catapres) 0.1 mg PO Q8 PRN PRN Reason: COWS Score More or Equal to 5 Last Admin: 12/30/16 12:05 Dose: 0.1 mg Gabapentin (Neurontin) 300 mg PO BID [facility] Last Admin: 12/30/16 17:33 Dose: 300 mg Hydroxyzine HCl (Atarax) 50 mg PO Q6H PRN PRN Reason: Anxiety Last Admin: 12/30/16 17:35 Dose: 50 mg Ceftriaxone Sodium (Rocephin Iv 1 Gm Duplex) 50 mls @ 100 mls/hr IVPB DAILY [facility] Last Admin: 12/30/16 09:03 Dose: 100 mls/hr Loperamide HCl (Imodium) 2 mg PO Q8 PRN PRN Reason: Diarrhea Lorazepam (Ativan) 1 mg PO Q6H [facility] Last Admin: 12/30/16 17:35 Dose: 1 mg Methylprednisolone (Solu-Medrol) 60 mg IVP Q6 [facility] Last Admin: 12/30/16 17:37 Dose: Not Given Ondansetron HCl (Zofran Tab) 4 mg PO Q8 PRN PRN Reason: Nausea/Vomiting Quetiapine Fumarate (Seroquel) 100 mg PO HS [facility] Last Admin: 12/29/16 22:36 Dose: 100 mg Physical Exam - Constitutional Appears: No Acute Distress - Head Exam Head Exam: NORMAL INSPECTION - Eye Exam Eye Exam: EOMI, PERRL - ENT Exam ENT Exam: Normal Oropharynx - Neck Exam Neck exam: Positive for: Normal Inspection. Negative for: Meningismus - Respiratory Exam Respiratory Exam: Prolonged Expiratory Phase (b/l.), Rhonchi - Cardiovascular Exam Cardiovascular Exam: REGULAR RHYTHM, +S1, +S2 - GI/Abdominal Exam GI & Abdominal Exam: Normal Bowel Sounds, Soft. absent: Organomegaly, Tenderness - Extremities Exam Extremities exam: Positive for: pedal pulses present. Negative for: calf tenderness, pedal edema - Neurological Exam Neurological exam: Alert, CN II-XII Intact, Oriented x3, Reflexes Normal - Psychiatric Exam Psychiatric exam: Normal Mood - Skin Skin Exam: Normal Color, Warm Results - Vital Signs Recent Vital Signs: Last Vital Signs Temp 98.4 F 12/30/16 17:37 Pulse 100 H 12/30/16 17:37 Resp 20 12/30/16 17:37 BP 148/73 12/30/16 17:37 Pulse Ox 93 L 12/30/16 17:37 - Labs Result Diagrams: 12/30/16 06:53 12/30/16 06:53 Labs: Laboratory Results - last 24 hr 12/30/16 12/30/16 06:53 06:53 WBC 18.0 H D RBC 4.44 Hgb 13.4 Hct 40.5 MCV 91.1 MCH 30.1 MCHC 33.1 RDW 13.9 Plt Count 250 MPV 8.7 Neut % (Auto) 91.6 H Lymph % (Auto) 5.6 L Bradford % (Auto) 2.7 Eos % (Auto) 0.0 Baso % (Auto) 0.1 Neut # 16.5 H Lymph # 1.0 Bradford # 0.5 Eos # 0.0 Baso # 0.0 Neutrophils % (Manual) 86 H Band Neutrophils % 12 H* Lymphocytes % (Manual) 2 L Monocytes % (Manual) TEST NOT PERFORMED Toxic Granulation Present Platelet Estimate Normal RBC Morphology Normal Sodium 141 Potassium 3.7 Chloride 106 Carbon Dioxide 24 Anion Gap 14 BUN 15 Creatinine 0.8 Est GFR ( Amer) > 60 Est GFR (Non-Af Amer) > 60 Random Glucose 125 H Calcium 8.7 Total Bilirubin 0.5 AST 20 ALT 44 Alkaline Phosphatase 82 Total Protein 6.4 Albumin 3.5 Globulin 3.0 Albumin/Globulin Ratio 1.2 - Imaging and Cardiology CT scan - chest Status: Report reviewed by me (see full report.) Assessment & Plan (1) Pneumonia Status: Acute (2) Asthma exacerbation Status: Acute (3) Depression Status: Acute (4) Heroin dependence Status: Acute (5) Hepatitis C Status: Acute - Assessment and Plan (Free Text) Plan: PLAN; PANCULTURE ESR,CRP. ATYPICAL TITRES MRSA SCREEN SPUTUM GM .STAIN AND CULTURE CONTINUE IV ROCEPHIN 1GM IV Q 12HRLY.12/29 ADD IV DOXYCYCLINE 100MG IVPB [id number] FOR ATYPICAL PATHOGENS. 12/30/16 WILL F/U WITH YOU. PSYCH ON BOARD.
[2016-12-31] MEDS: Albuterol-Ipratrop 3 mg / 0.5 (3 ml) UD INH PRN ×2 (09:12→12:39)
--- NOTE | 2016-12-31 11:08 | PCM.PYCHPN ---
Psychiatric Progress Note - Psychiatric Progress Note Patient seen today, length of contact: 16 min Patient Chief Complaint: "I need more meds" Problems Identified/Issues Discussed: The patient is seen, chart reviewed and case discussed. Yesterday he was complaining of anxiety and Atarax was ordered. Later on, he kept asking for more medications and Dr. Arriaga was contacted and he got Ativan. Today, again, he is seeking more meds and demanding that he gets Xanax. Track Repair Person told him that he is on methadone and also he has a severe addiction problem and Xanax is not the appropriate choice. Track Repair Person increased gabapentin, increased Seroquel so he can sleep better and he will continue with 50 mg q6h Atarax. Otherwise, he is improving and will finish his methadone detox today. He is not suicidal or homicidal. He is vague about his after care plans , whcih is not good as he relapsed numerous times this year alone. He could only stay clean days. LA used Medication Change: Yes (see HPI) Medical Record Reviewed: Yes Mental Status Examination - Cognitive Function Orientation: Person, Place, Situation, Time Memory: Intact Attention: Poor Concentration: Poor Association: WNL Fund of Knowledge: WNL - Mood Mood: Depressed, Anxious - Affect Affect: Constricted - Speech Speech: Appropriate - Formal Thought Process Formal Thought Process: No Impairment - Suicidal Ideation Suicidal Ideation: No - Homicidal Ideation Homicidal Ideation: No Goal/Treatment Plan - Goal/Treatment Plan Need for Continued Stay: Discharge may exacerbated symptoms, Severe functional impairment Progress Toward Problem(s) and Goals/Treatment Plan: [facility] detox Seroquel increased to 200 mg hs gabapentin for anxiety increased Support and psychoeducation LA for abstinence
--- NOTE | 2016-12-31 13:16 | CP.PCM.PN ---
Subjective - Date & Time of Evaluation Date of Evaluation: 12/31/16 Time of Evaluation: 13:12 - Subjective Subjective: CHIEF COMPLAINTS TODAY : WITHDRAWAL SYMPTOMS SOB ROS. HEENT : N. Resp : POS cough, wheezing ,pleuritic CP ,or hemoptysis Cardio : No anginal CP, PND, orthopnea, palpitation GI : No abd.pain, n/v ,diarrhea or GI bleeding . CHEMISTRY QUALITY CONTROL TECHNICIAN : No headache, vertigo, focal deficit. Musculoskel : No joint swelling , Derm : No rash Psych : Normal affect. Ext : No swelling ,calf pain PE. Pt. is alert awake in no distress. V.S As noted in the chart Head ,ear nose,throat and eyes : Normal. Neck : Supple with normal carotids. Lungs: ONEL WHEEZING Heart : S1 & S2 normal with S4. No murmur. Abd : Soft non tender with normal bowel sounds. Neuro : Moves all ext. with no localized deficit. Ext : No edema with intact pulses.Non tender calves Derm : No rashes or decubitus ulcer. LABS/RADIOLOGY: ASSESSMENT/PLAN : CONT IV AB /STEROIDS Objective - Vital Signs/Intake and Output Vital Signs (last 24 hours): Temp Pulse Resp BP Pulse Ox 98.6 F 71 20 134/60 98 12/31/16 11:33 12/31/16 11:33 12/31/16 11:33 12/31/16 11:33 12/31/16 11:33 Intake and Output: 12/31/16 12/31/16 11:59 23:59 Intake Total 680 Balance 680 - Medications Medications: Current Medications Al Hydrox/Mg Hydrox/Simethicone (Maalox 30 Ml) 30 ml PO TID PRN PRN Reason: Indigestion / Heartburn Albuterol/Ipratropium (Duoneb 3 Mg/0.5 Mg (3 Ml) Ud) 3 ml INH RQ4 PRN PRN Reason: Shortness of Breath Last Admin: 12/31/16 12:39 Dose: 3 ml Clonidine HCl (Catapres) 0.1 mg PO Q8 PRN PRN Reason: COWS Score More or Equal to 5 Last Admin: 12/30/16 12:05 Dose: 0.1 mg Gabapentin (Neurontin) 300 mg PO TID KAYLEE Last Admin: 12/31/16 13:04 Dose: 300 mg Hydroxyzine HCl (Atarax) 50 mg PO Q6H PRN PRN Reason: Anxiety Last Admin: 12/31/16 13:02 Dose: 50 mg Ceftriaxone Sodium 1 gm/ (Sodium Chloride) 100 mls @ 100 mls/hr IVPB Q12H KAYLEE Last Admin: 12/31/16 10:16 Dose: 100 mls/hr Doxycycline Hyclate 100 mg/ (Sodium Chloride) 100 mls @ 100 mls/hr IVPB Q12H KAYLEE Last Admin: 12/31/16 12:51 Dose: 100 mls/hr Loperamide HCl (Imodium) 2 mg PO Q8 PRN PRN Reason: Diarrhea Methylprednisolone (Solu-Medrol) 60 mg IVP Q6 KAYLEE Last Admin: 12/31/16 11:30 Dose: 60 mg Ondansetron HCl (Zofran Tab) 4 mg PO Q8 PRN PRN Reason: Nausea/Vomiting Quetiapine Fumarate (Seroquel) 200 mg PO HS KAYLEE - Labs Labs: 12/30/16 06:53 12/30/16 06:53
--- NOTE | 2016-12-31 22:53 | CP.PCM.PN ---
Subjective - Date & Time of Evaluation Date of Evaluation: 12/31/16 Time of Evaluation: 22:53 - Subjective Subjective: AFEBRILE, AMBULATING DENIES CHEST PAIN/OR SHORTNESS OF BREATH. C/O difficulty FALLING ASLEEP AND WANTS MORE MEDICATIONS SPECIALLY XANAX. SEEN BY PSYCH AND MEDICATIONS ADJUSTED. P.KAREN IS A DRUG SEEKER Objective - Vital Signs/Intake and Output Vital Signs (last 24 hours): Temp Pulse Resp BP Pulse Ox 97.7 F 77 20 152/81 H 96 12/31/16 15:27 12/31/16 15:27 12/31/16 15:27 12/31/16 15:27 12/31/16 15:27 Intake and Output: 12/31/16 01/01/17 18:59 06:59 Intake Total 680 Balance 680 - Medications Medications: Current Medications Al Hydrox/Mg Hydrox/Simethicone (Maalox 30 Ml) 30 ml PO TID PRN PRN Reason: Indigestion / Heartburn Albuterol/Ipratropium (Duoneb 3 Mg/0.5 Mg (3 Ml) Ud) 3 ml INH RQ4 PRN PRN Reason: Shortness of Breath Last Admin: 12/31/16 12:39 Dose: 3 ml Clonidine HCl (Catapres) 0.1 mg PO Q8 PRN PRN Reason: COWS Score More or Equal to 5 Last Admin: 12/30/16 12:05 Dose: 0.1 mg Gabapentin (Neurontin) 300 mg PO TID KAYLEE Last Admin: 12/31/16 18:50 Dose: 300 mg Hydroxyzine HCl (Atarax) 50 mg PO Q6H PRN PRN Reason: Anxiety Last Admin: 12/31/16 13:02 Dose: 50 mg Ceftriaxone Sodium 1 gm/ (Sodium Chloride) 100 mls @ 100 mls/hr IVPB Q12H KAYLEE Last Admin: 12/31/16 10:16 Dose: 100 mls/hr Doxycycline Hyclate 100 mg/ (Sodium Chloride) 100 mls @ 100 mls/hr IVPB Q12H [facility] Last Admin: 12/31/16 12:51 Dose: 100 mls/hr Loperamide HCl (Imodium) 2 mg PO Q8 PRN PRN Reason: Diarrhea Methylprednisolone (Solu-Medrol) 60 mg IVP Q6 KAYLEE Last Admin: 12/31/16 21:14 Dose: Not Given Ondansetron HCl (Zofran Tab) 4 mg PO Q8 PRN PRN Reason: Nausea/Vomiting Quetiapine Fumarate (Seroquel) 200 mg PO HS [facility] - Labs Labs: 12/30/16 06:53 12/30/16 06:53 - Constitutional Appears: No Acute Distress - Eye Exam Eye Exam: EOMI, PERRL - ENT Exam ENT Exam: Normal Oropharynx - Neck Exam Neck Exam: Normal Inspection - Respiratory Exam Respiratory Exam: Rhonchi (BILATERALLY.) - Cardiovascular Exam Cardiovascular Exam: REGULAR RHYTHM, +S1, +S2 - GI/Abdominal Exam GI & Abdominal Exam: Soft, Normal Bowel Sounds - Extremities Exam Extremities Exam: absent: Calf Tenderness, Pedal Edema (iv NEEDLE TRACKS NOTED ON LEFT FOREARM.) - Neurological Exam Neurological Exam: Awake, CN II-XII Intact, Normal Gait, Oriented x3, Reflexes Normal - Psychiatric Exam Psychiatric exam: Normal Mood - Skin Skin Exam: Normal Color, Warm Assessment and Plan (1) Pneumonia Status: Acute (2) Asthma exacerbation Status: Acute (3) Depression Status: Acute (4) Heroin dependence Status: Acute (5) Hepatitis C Status: Acute - Assessment and Plan (Free Text) Plan: CONTINUE IV ROCEPHIN 1GM IV Q 12HRLY.12/29 ADD IV DOXYCYCLINE 100MG IVPB [id number] FOR ATYPICAL PATHOGENS. 12/30/16 F/U SPUTUM CULTURES AND BLOOD CULTURES. WILL F/U WITH YOU. PSYCH ON BOARD.
[2017-01-01 00:46] VITALS: O2SAT 95
[2017-01-01] MEDS: Albuterol-Ipratrop 3 mg / 0.5 (3 ml) UD INH PRN (07:54)
[2017-01-01 08:09] LABS: BASO % 0.1 % (0.0-2.0); LYMPH % 4.7 % (20.0-40.0); MEAN CELL VOLUME 90.8 fL (80.0-94.0); MEAN CORPUSCULAR HGB CONC 33.1 g/dL (33.0-37.0); MEAN PLATELET VOLUME 8.7 fL (7.2-11.7); MONO # 0.7 K/uL (0.0-0.8); MONO % 3.1 % (0.0-10.0); PLATELET COUNT 214 K/uL (130-400); RED CELL DISTRIBUTION WIDTH 14.3 % (11.5-14.5)
[2017-01-01 08:16] VITALS: BP 175/86; PULSE 56; TEMP 98.1
[2017-01-01 08:25] LABS: CHLORIDE 102 mmol/L (98-107)
[2017-01-01 08:26] LABS: SODIUM 140 mmol/L (132-148)
[2017-01-01 08:29] LABS: ALB/GLOB RATIO 1.3 (1.0-2.1); ALKALINE PHOSPHATASE 90 U/L (38-126); ALT/SGPT 41 U/L (21-72); AST/SGOT 14 U/L (17-59); BILIRUBIN,DIRECT 0.4 mg/dL (0.0-0.4); BILIRUBIN,TOTAL 0.4 mg/dL (0.2-1.3); BLOOD UREA NITROGEN 14 mg/dL (9-20); CARBON DIOXIDE 26 mmol/L (22-30); GFR AFRICAN-AMERICAN > 60; GLUCOSE,RANDOM 128 mg/dL (75-110); TOTAL PROTEIN 5.9 g/dL (6.3-8.3)
[2017-01-01 08:30] LABS: CALCIUM 8.5 mg/dl (8.6-10.4)
[2017-01-01 08:32] LABS: POTASSIUM 3.7 mmol/L (3.6-5.2)
[2017-01-01 09:03] LABS: CRYOGLOBULIN NEGATIVE (NEGATIVE)
[2017-01-01 10:34] LABS: NEUTROPHIL 94 % (50-75); TOTAL CELLS COUNTED 100
--- NOTE | 2017-01-01 12:56 | PCM.PYCHPN ---
Psychiatric Progress Note - Psychiatric Progress Note Patient seen today, length of contact: 16 min Patient Chief Complaint: "I am in withdrawal" Problems Identified/Issues Discussed: The patient is seen, chart reviewed and case discussed. He signed out AMA today b/c he claimed he was not helped enough, ie he was not given enough methaodne (despite 3 doses given without any severe wdw sxs) He also said he wanted to leave bc he wanted to attend a [facility] in [facility], that he had heard about No SI, HI, AVH or del Personality d.o traits are in full force today, ie cursed at the entry writer at the last minute when his extra/additional methadone dose is denied (b/c he was about to walk out the door) Support given nevertheless. Medication Change: Yes (see HPI) Medical Record Reviewed: Yes Mental Status Examination - Cognitive Function Orientation: Person, Place, Situation, Time Memory: Intact Attention: Poor Concentration: Poor Association: WNL Fund of Knowledge: WNL - Mood Mood: Depressed, Anxious - Affect Affect: Constricted - Speech Speech: Appropriate - Formal Thought Process Formal Thought Process: No Impairment - Suicidal Ideation Suicidal Ideation: No - Homicidal Ideation Homicidal Ideation: No Goal/Treatment Plan - Goal/Treatment Plan Progress Toward Problem(s) and Goals/Treatment Plan: Methaodne detox Seroquel was increased to 300 mg hs gabapentin for anxiety increased Support and psychoeducation [place] for abstinence
--- NOTE | 2017-01-01 13:16 | CP.PCM.DIS ---
Provider - Provider Date of Admission: 12/29/16 03:15 Attending physician: Wilfrido Alarcon MD Time Spent in preparation of Discharge (in minutes): 35 Hospital Course - Lab Results Lab Results: Micro Results 12/31/16 06:00 Naris MRSA Culture (Admit) - Final MRSA DETECTED Most Recent Lab Values WBC 22.0 K/uL (4.8-10.8) H 01/01/17 08:05 RBC 4.29 Mil/uL (4.40-5.90) L 01/01/17 08:05 Hgb 12.9 g/dL (12.0-18.0) 01/01/17 08:05 Hct 39.0 % (35.0-51.0) 01/01/17 08:05 MCV 90.8 fL (80.0-94.0) 01/01/17 08:05 MCH 30.0 pg (27.0-31.0) 01/01/17 08:05 MCHC 33.1 g/dL (33.0-37.0) 01/01/17 08:05 RDW 14.3 % (11.5-14.5) 01/01/17 08:05 Plt Count 214 K/uL (130-400) 01/01/17 08:05 MPV 8.7 fL (7.2-11.7) 01/01/17 08:05 Neut % (Auto) 92.1 % (50.0-75.0) H 01/01/17 08:05 Lymph % (Auto) 4.7 % (20.0-40.0) L 01/01/17 08:05 [place] % (Auto) 3.1 % (0.0-10.0) 01/01/17 08:05 Eos % (Auto) 0.0 % (0.0-4.0) 01/01/17 08:05 Baso % (Auto) 0.1 % (0.0-2.0) 01/01/17 08:05 Neut # 20.3 K/uL (1.8-7.0) H 01/01/17 08:05 Lymph # 1.0 K/uL (1.0-4.3) 01/01/17 08:05 [place] # 0.7 K/uL (0.0-0.8) 01/01/17 08:05 Eos # 0.0 K/uL (0.0-0.7) 01/01/17 08:05 Baso # 0.0 K/uL (0.0-0.2) 01/01/17 08:05 Neutrophils % (Manual) 94 % (50-75) H 01/01/17 08:05 Band Neutrophils % 12 % (0-2) H* 12/30/16 06:53 Lymphocytes % (Manual) 3 % (20-40) L 01/01/17 08:05 Monocytes % (Manual) 3 % (0-10) 01/01/17 08:05 Toxic Granulation Present 12/30/16 06:53 Platelet Estimate Normal (NORMAL) 01/01/17 08:05 RBC Morphology Normal 01/01/17 08:05 ESR 16 mm/hr (0-15) H 12/31/16 04:00 Puncture Site Rr 12/29/16 02:24 pCO2 48 mm/Hg (35-45) H 12/29/16 02:24 pO2 61 mm/Hg (80-100) L 12/29/16 02:24 HCO3 24.4 mmol/L (21-28) 12/29/16 02:24 ABG pH 7.34 (7.35-7.45) L 12/29/16 02:24 ABG Total CO2 27.4 mmol/L (22-28) 12/29/16 02:24 ABG O2 Saturation 95.2 % (95-98) 12/29/16 02:24 ABG Base Excess -0.4 mmol/L (-2.0-3.0) 12/29/16 02:24 ABG Hemoglobin 12.9 g/dL (11.7-17.4) 12/29/16 02:24 ABG Carboxyhemoglobin 6.7 % (0.5-1.5) H 12/29/16 02:24 POC ABG HHb (Measured) 4.4 % (0.0-5.0) 12/29/16 02:24 ABG Methemoglobin 1.5 % (0.0-3.0) 12/29/16 02:24 Giovanni Test Pos 12/29/16 02:24 A-a O2 Difference 29.0 mm/Hg 12/29/16 02:24 Respiratory Index 0.5 12/29/16 02:24 Hgb O2 Saturation 87.4 % (95.0-98.0) L 12/29/16 02:24 FiO2 21.0 % 12/29/16 02:24 Sodium 140 mmol/L (132-148) 01/01/17 08:05 Potassium 3.7 mmol/L (3.6-5.2) 01/01/17 08:05 Chloride 102 mmol/L (98-107) 01/01/17 08:05 Carbon Dioxide 26 mmol/L (22-30) 01/01/17 08:05 Anion Gap 16 (10-20) 01/01/17 08:05 BUN 14 mg/dL (9-20) 01/01/17 08:05 Creatinine 0.7 MG/DL (0.8-1.5) L 01/01/17 08:05 Est GFR ( Amer) > 60 01/01/17 08:05 Est GFR (Non-Af Amer) > 60 01/01/17 08:05 Random Glucose 128 mg/dL (75-110) H 01/01/17 08:05 Calcium 8.5 mg/dl (8.6-10.4) L 01/01/17 08:05 Total Bilirubin 0.4 mg/dL (0.2-1.3) 01/01/17 08:05 Direct Bilirubin 0.4 mg/dL (0.0-0.4) 01/01/17 08:05 AST 14 U/L (17-59) L D 01/01/17 08:05 ALT 41 U/L (21-72) 01/01/17 08:05 Alkaline Phosphatase 90 U/L (38-126) 01/01/17 08:05 Lactate Dehydrogenase 338 U/L (313-618) 12/31/16 07:28 C-React Prot High Sens 1.62 mg/L (1.00-3.00) 12/31/16 07:28 Total Protein 5.9 g/dL (6.3-8.3) L 01/01/17 08:05 Albumin 3.3 g/dL (3.5-5.0) L 01/01/17 08:05 Globulin 2.5 gm/dL (2.2-3.9) 01/01/17 08:05 Albumin/Globulin Ratio 1.3 (1.0-2.1) 01/01/17 08:05 Urine Opiates Screen Positive (NEGATIVE) 12/29/16 15:57 Urine Methadone Screen Negative (NEGATIVE) 12/29/16 15:57 Ur Barbiturates Screen Negative (NEGATIVE) 12/29/16 15:57 Ur Phencyclidine Scrn Negative (NEGATIVE) 12/29/16 15:57 Ur Amphetamines Screen Negative (NEGATIVE) 12/29/16 15:57 U Benzodiazepines Scrn Negative (NEGATIVE) 12/29/16 15:57 U Oth Cocaine Metabols Negative (NEGATIVE) 12/29/16 15:57 U Cannabinoids Screen Negative (NEGATIVE) 12/29/16 15:57 Serum Cryoglobulins Negative (NEGATIVE) 12/31/16 07:28 Mycoplasma pneumon IgM Negative (NEGATIVE) 12/31/16 07:28 - Hospital Course Hospital Course: HPI Patient is a 36 year old male with a PMHx of asthma who presents to the ER with a complaint of SOB, productive cough with yellow sputum and wheezing for the last few days. Patient reports having PNA one month ago. Denies fever or chills. PT WAS TREATED BY IV STEROIDS AND AB PER ID PSYCH TREATED PT FOR HIS ADDICTION AND WITHDRAWAL PT SIGHED OUT AMA MRSA IN NARES AND WBC 22K WILL CONTACT PT Discharge Exam - Head Exam Head Exam: NORMAL INSPECTION Discharge Plan - Follow Up Plan Condition: STABLE Disposition: HOME/ ROUTINE
[2017-01-01] MEDS ORDERED: MethylPREDNISolone 40 mg Vial IVP SCH (14:00)
== END 2017-01-01 11:00 | disposition left against medical advice (07) | DRG 89 ==
LOC: C.ER 22:21 → C.9E 12-29 03:15 → C.5T 12-29 07:55
PROVIDERS: ADMIT Internal Medicine Cardiovascular Disease; ATTEND Internal Medicine Cardiovascular Disease
PROC: HZ2ZZZZ Detoxification Services for Substance Abuse Treatment (ICD-10-PCS; principal; 2016-12-29)
PROC: HZ81ZZZ Medication Management for Substance Abuse Treatment, Methadone Maintenance (ICD-10-PCS; 2016-12-29)
PROC: HZ56ZZZ Individual Psychotherapy for Substance Abuse Treatment, Psychoeducation (ICD-10-PCS; 2016-12-29)
PROC: HZ59ZZZ Individual Psychotherapy for Substance Abuse Treatment, Supportive (ICD-10-PCS; 2016-12-29)
DX: J18.9 Pneumonia, unspecified organism (principal); B19.20 Unspecified viral hepatitis C without hepatic coma; J45.901 Unspecified asthma with (acute) exacerbation; F11.23 Opioid dependence with withdrawal; F14.90 Cocaine use, unspecified, uncomplicated; F17.210 Nicotine dependence, cigarettes, uncomplicated; F32.9 Major depressive disorder, single episode, unspecified; F41.9 Anxiety disorder, unspecified; F60.9 Personality disorder, unspecified; A49.02 Methicillin resistant Staphylococcus aureus infection, unspecified site; Z87.01 Personal history of pneumonia (recurrent)

== ENCOUNTER 2017-01-10 18:04 | Emergency (ER) | payer OTHER ==
[2017-01-10 18:04] VITALS: BMI 21.9
[2017-01-10 18:14] VITALS: O2SAT 95
[2017-01-10] MEDS ORDERED: Albuterol-Ipratrop 3 mg / 0.5 (3 ml) UD ONE (18:29)
[2017-01-10] MEDS ORDERED: Sodium Chloride 0.9% 1,000 ML IV ONE (18:51)
[2017-01-10] MEDS ORDERED: Albuterol-Ipratrop 3 mg / 0.5 (3 ml) UD IH STA (18:53)
[2017-01-10] MEDS ORDERED: Sodium Chloride 0.9% 1,000 ML ONE (18:58)
[2017-01-10 19:07] LABS: BASO # 0.1 K/uL (0.0-0.2); BASO % 0.7 % (0.0-2.0); EOS # 0.6 K/uL (0.0-0.7); EOS % 7.7 % (0.0-4.0); HEMATOCRIT 38.5 % (35.0-51.0); LYMPH # 2.3 K/uL (1.0-4.3); LYMPH % 27.3 % (20.0-40.0); MEAN CELL VOLUME 91.9 fL (80.0-94.0); MEAN CORPUSCULAR HEMOGLOBIN 30.1 pg (27.0-31.0); MEAN CORPUSCULAR HGB CONC 32.7 g/dL (33.0-37.0); MEAN PLATELET VOLUME 8.2 fL (7.2-11.7); MONO % 12.5 % (0.0-10.0); WHITE BLOOD COUNT 8.3 K/uL (4.8-10.8)
[2017-01-10 19:17] LABS: CHLORIDE 106 mmol/L (98-107)
[2017-01-10 19:18] LABS: POTASSIUM 4.1 mmol/L (3.6-5.2); SODIUM 139 mmol/L (132-148)
[2017-01-10 19:20] LABS: ALB/GLOB RATIO 1.3 (1.0-2.1); ALKALINE PHOSPHATASE 74 U/L (38-126); AST/SGOT 42 U/L (17-59); BILIRUBIN,TOTAL 0.7 mg/dL (0.2-1.3); BLOOD UREA NITROGEN 13 mg/dL (9-20); CARBON DIOXIDE 23 mmol/L (22-30); GFR AFRICAN-AMERICAN > 60; TOTAL PROTEIN 6.6 g/dL (6.3-8.3)
[2017-01-10 19:21] LABS: ALT/SGPT 64 U/L (21-72); CALCIUM 8.9 mg/dl (8.6-10.4); GLUCOSE,RANDOM 93 mg/dL (75-110); MAGNESIUM 2.1 mg/dL (1.6-2.3)
--- NOTE | 2017-01-10 20:37 | C.PDOC ---
Time Seen by Provider: 01/10/17 18:45 Chief Complaint (Nursing): Shortness Of Breath History Per: Patient Onset/Duration Of Symptoms: Days (few) Current Symptoms Are (Timing): Still Present Current Respiratory Medications: See Home Med List Severity: Moderate Associated Symptoms: Chest Pain, Productive Cough Reports Recently: Hospitalized Additional History Per: Prior Records Past Medical History Reviewed: Historical Data, Nursing Documentation, Vital Signs Vital Signs: Last Vital Signs Temp 98.4 F 01/10/17 18:10 Pulse 92 H 01/10/17 18:10 Resp 22 01/10/17 18:30 BP 119/80 01/10/17 18:10 Pulse Ox 95 01/10/17 18:10 - Medical History PMH: Anxiety, Asthma, Bronchitis, Depression, Pneumonia Surgical History: No Surg Hx - [facility] Procedures DETOXIFICATION SERVICES FOR SUBSTANCE ABUSE TREATMENT (12/29/16) GROUP COMPENSATION SPECIALIST FOR SUBSTANCE ABUSE TREATMENT, PSYCHOEDUCATION (11/16/16) GROUP PSYCHOTHERAPY (11/16/16) INDIV COMPENSATION SPECIALIST FOR SUBSTANCE ABUSE TREATMENT, PSYCHOEDUCATION (11/30/16) INDIV COMPENSATION SPECIALIST FOR SUBSTANCE ABUSE, COGNITIVE BEHAVIORAL (11/30/16) INDIV PSYCHOTHERAPY FOR SUBSTANCE ABUSE TREATMENT, SUPPORT (12/29/16) INDIV PSYCHOTHERAPY FOR SUBSTANCE ABUSE, PSYCHOEDUCATION (12/29/16) INDIVIDUAL PSYCHOTHERAPY, SUPPORTIVE (11/16/16) MEDICATION MANAGEMENT (11/16/16) MEDS MGMT FOR SUBSTANCE ABUSE TREATMENT, METHADONE MAINT (12/29/16) PHARMACOTHERAPY FOR SUBSTANCE ABUSE, METHADONE MAINT (11/16/16) Family History: States: Unknown Family Hx - Social History Hx Tobacco Use: Yes (heavy smoker) Hx Alcohol Use: No Hx Substance Use: Yes (heroin) - Immunization History Hx Tetanus Toxoid Vaccination: No Hx Influenza Vaccination: No (08/2015) Hx Pneumococcal Vaccination: No Review Of Systems Except As Marked, All Systems Reviewed And Found Negative. Constitutional: Negative for: Fever Cardiovascular: Positive for: Chest Pain Respiratory: Positive for: Cough, Shortness of Breath, Sputum, Wheezing. Negative for: Hemoptysis Gastrointestinal: Negative for: Vomiting, Abdominal Pain Musculoskeletal: Negative for: Neck Pain Skin: Negative for: Rash Neurological: Negative for: Weakness, Numbness, Seizures, Altered Mental Status Physical Exam - Physical Exam Appears: Non-toxic, No Acute Distress Skin: Normal Color, Warm, Dry, No Rash Head: Atraumatic, Normacephalic Eye(s): bilateral: Normal Inspection, PERRL, EOMI Neck: Normal ROM, Supple Cardiovascular: Rhythm Regular Respiratory: No Accessory Muscle Use, Wheezing (mild scattered) Gastrointestinal/Abdominal: Soft, No Tenderness Back: No CVA Tenderness Extremity: Normal ROM, No Pedal Edema, No Calf Tenderness Neurological/Psych: Oriented x3, Normal Motor, Normal Sensation ED Course And Treatment - Laboratory Results Result Diagrams: 01/10/17 19:01 01/10/17 19:01 Lab Interpretation: No Acute Changes ECG: Interpreted By Me, Viewed By Me ECG Rhythm: Sinus Rhythm, Nonspecific Changes ECG Interpretation: No Acute Changes Rate From EC O2 Sat by Pulse Oximetry: 95 Pulse Ox Interpretation: Normal - Radiology CXR: Interpreted by Me, Viewed By Me CXR Interpretation: Yes: Infiltrates (but improving from prior) Progress Note: Lungs clear. Leukocytosis resolved. Will d/c home on PO Abx. Reassessment Condition: Improved Progress - Interventions Interventions:: Observation - Medications Administered Inhaled nebulized: Anticholinergic, Beta-2 agonist Intravenous: Corticosteroid - Data Reviewed Data Reviewed: Lab, Diagnostic imaging, Old records - Patient Status Patient status: Mostly improved - Continuity of Care Discussed patient case with:: Patient, ED Nurse - Patient Plan Patient Plan: Discharge, F/U with PCP Disposition Counseled Patient/Family Regarding: Studies Performed, Diagnosis, Need For Followup, Rx Given, Smoking Cessation - Disposition Disposition: HOME/ ROUTINE Disposition Time: 20:39 Condition: IMPROVED Additional Instructions: Stop smoking. Follow up with a primary doctor. Return to the ER if you develop fever, shortness of breath, worsening of symptoms or if you have any other concerns. Prescriptions: Moxifloxacin [Avelox] 400 mg PO DAILY #7 tab Instructions: Community Acquired Pneumonia (ED) - Clinical Impression Clinical Impression: Community acquired pneumonia
[2017-01-10 20:53] VITALS: BP 116/67; PULSE 81; RESP 14; TEMP 98
--- NOTE | 2017-01-10 21:44 | RAD ---
HISTORY: SOB, cough COMPARISON: No prior. TECHNIQUE: Chest PA and lateral FINDINGS: LUNGS: Hyperinflation suggestive for COPD and or emphysematous changes. Somewhat consolidative changes at the right infrahilar region extending into the right lung base. Clinical correlation. Additional patchy increased markings at the left lung base. Bilateral hilar prominence. Upper lobe granulomatous changes. PLEURA: No significant pleural effusion identified. No pneumothorax apparent. CARDIOVASCULAR: Normal. OSSEOUS STRUCTURES: No significant abnormalities. VISUALIZED UPPER ABDOMEN: Normal. OTHER FINDINGS: None. IMPRESSION: Hyperinflation suggestive for COPD and or emphysematous changes. Somewhat consolidative changes at the right infrahilar region extending into the right lung base. Clinical correlation. Additional patchy increased markings at the left lung base. Bilateral hilar prominence. Upper lobe granulomatous changes.
== END 2017-01-10 21:10 | disposition home or self-care (01) ==
LOC: C.ER 18:04
DX: J18.9 Pneumonia, unspecified organism (principal); F17.210 Nicotine dependence, cigarettes, uncomplicated
CPT/HCPCS: 71020; 80053; 83735; 85025; 87040; 96361; 96374; 99284; J2930; J7040

== ENCOUNTER 2017-01-10 22:27 | Emergency (ER) | payer OTHER ==
[2017-01-10 22:28] VITALS: BMI 21.9
[2017-01-10 23:10] VITALS: O2SAT 98
--- NOTE | 2017-01-10 23:54 | C.PDOC ---
History Of Present Illness A 36 y/o male with a Hx of bipolar disorder, presents to the ER verbalizing he wants to hurt someone. Pt has had numerous visits at [facility] for various complaints. Pt denies suicidal ideation or any physical complaints. Time Seen by Provider: 01/10/17 23:53 Chief Complaint (Nursing): Psychiatric Evaluation History Per: Patient History/Exam Limitations: no limitations Onset/Duration Of Symptoms: Hrs Current Symptoms Are (Timing): Still Present Suicide/Self Injury Attempted (Context): None Modifying Factor(s): None Severity: None Associated Symptoms: denies: Suicidal Thoughts, Suicidal Plan Involuntary Hold By: None Recent travel outside of the [place]: No Additional History Per: Patient Past Medical History Reviewed: Historical Data, Nursing Documentation, Vital Signs Vital Signs: Last Vital Signs Temp 98.4 F 01/10/17 23:04 Pulse 72 01/10/17 23:04 Resp 16 01/10/17 23:04 BP 117/77 01/10/17 23:04 Pulse Ox 98 01/11/17 00:33 - Medical History PMH: Anxiety, Asthma, Bipolar Disorder, Bronchitis, Depression, Pneumonia Denies: Crohn's Disease, Diverticulitis, Gastritis, Gall Bladder Disease, HIV , HTN, Hyperthyroidism, Hypothyroidism, Kidney Stones, Pancreatitis, Chronic Kidney Disease, Seizures, Sexually Transmitted Disease, TIA Surgical History: Denies: Appendectomy, CABG, Carotid Endarterectomy, Cholecystectomy, Coronary Stent, Tonsillectomy - [facility] Procedures DETOXIFICATION SERVICES FOR SUBSTANCE ABUSE TREATMENT (12/29/16) GROUP LUMBER HANDLER FOR SUBSTANCE ABUSE TREATMENT, PSYCHOEDUCATION (11/16/16) GROUP PSYCHOTHERAPY (11/16/16) INDIV LUMBER HANDLER FOR SUBSTANCE ABUSE TREATMENT, PSYCHOEDUCATION (11/30/16) INDIV LUMBER HANDLER FOR SUBSTANCE ABUSE, COGNITIVE BEHAVIORAL (11/30/16) INDIV PSYCHOTHERAPY FOR SUBSTANCE ABUSE TREATMENT, SUPPORT (12/29/16) INDIV PSYCHOTHERAPY FOR SUBSTANCE ABUSE, PSYCHOEDUCATION (12/29/16) INDIVIDUAL PSYCHOTHERAPY, SUPPORTIVE (11/16/16) MEDICATION MANAGEMENT (11/16/16) MEDS MGMT FOR SUBSTANCE ABUSE TREATMENT, METHADONE MAINT (12/29/16) PHARMACOTHERAPY FOR SUBSTANCE ABUSE, METHADONE MAINT (11/16/16) Family History: States: Unknown Family Hx - Social History Hx Tobacco Use: Yes (heavy smoker) Hx Alcohol Use: No Hx Substance Use: No (on methadone) - Immunization History Hx Tetanus Toxoid Vaccination: No Hx Influenza Vaccination: No (08/2015) Hx Pneumococcal Vaccination: No Review Of Systems Constitutional: Negative for: Fever, Chills ENT: Negative for: Throat Pain Cardiovascular: Negative for: Chest Pain, Palpitations Respiratory: Negative for: Shortness of Breath Gastrointestinal: Negative for: Nausea, Vomiting, Abdominal Pain, Diarrhea Musculoskeletal: Negative for: Back Pain Skin: Negative for: Rash Neurological: Negative for: Weakness, Headache, Dizziness Psych: Positive for: Other (Homicidal ideation). Negative for: Suicidal ideation Physical Exam - Physical Exam Appears: Non-toxic, No Acute Distress Skin: Warm, Dry Head: Normacephalic Eye(s): bilateral: Normal Inspection Oral Mucosa: Moist Neck: Trachea Midline, Supple Chest: Symmetrical Cardiovascular: Rhythm Regular Respiratory: No Rales, No Rhonchi, No Wheezing Gastrointestinal/Abdominal: Soft, No Tenderness Back: No CVA Tenderness Extremity: Normal ROM Extremity: Bilateral: Normal Color And Temperature Neurological/Psych: Oriented x3 (Awake and alert), Normal Speech Gait: Steady ED Course And Treatment - Laboratory Results Result Diagrams: 01/11/17 00:16 01/11/17 00:16 O2 Sat by Pulse Oximetry: 98 (RA) Pulse Ox Interpretation: Normal Progress Note: Pt was cleared for discharge by dr cervantes ED OBSERVATION Discharge: Yes Date of observation admission: 01/10/17 Time of observation admission: 23:55 - Observation admission statement Patient is being placed in observation because:: bipolar - Goals of Observation Goals of observation are:: crisis eval - Progress Note Progress Note: 01/10/17 23:55 vitals stable Disposition Counseled Patient/Family Regarding: Studies Performed, Diagnosis, Need For Followup - Disposition Referrals: Community Mental Health [Outside] Disposition: HOME/ ROUTINE Disposition Time: 23:53 Condition: FAIR Instructions: Depression (DC) - Clinical Impression Clinical Impression: Depression, Opioid abuse - Scribe Statement The provider has reviewed the documentation as recorded by the Donaldibjeanne jones All medical record entries made by the Donaldibjeanne were at my direction and personally dictated by me. I have reviewed the chart and agree that the record accurately reflects my personal performance of the history, physical exam, medical decision making, and the department course for this patient. I have also personally directed, reviewed, and agree with the discharge instructions and disposition.
[2017-01-11 00:21] LABS: BASO % 0.2 % (0.0-2.0); EOS % 0.2 % (0.0-4.0); LYMPH # 0.5 K/uL (1.0-4.3); LYMPH % 4.8 % (20.0-40.0); MEAN CELL VOLUME 92.6 fL (80.0-94.0); MEAN CORPUSCULAR HEMOGLOBIN 30.7 pg (27.0-31.0); MEAN CORPUSCULAR HGB CONC 33.2 g/dL (33.0-37.0); MEAN PLATELET VOLUME 8.2 fL (7.2-11.7); MONO # 0.1 K/uL (0.0-0.8); MONO % 0.8 % (0.0-10.0); NRBC % 0.1 % (0.0-2.0); PLATELET COUNT 276 K/uL (130-400); RED CELL DISTRIBUTION WIDTH 14.7 % (11.5-14.5); WHITE BLOOD COUNT 10.7 K/uL (4.8-10.8)
[2017-01-11 00:39] LABS: CHLORIDE 106 mmol/L (98-107)
[2017-01-11 00:40] LABS: POTASSIUM 3.9 mmol/L (3.6-5.2); SODIUM 138 mmol/L (132-148)
[2017-01-11 00:42] LABS: ALB/GLOB RATIO 1.4 (1.0-2.1); ALKALINE PHOSPHATASE 78 U/L (38-126); ALT/SGPT 71 U/L (21-72); AST/SGOT 41 U/L (17-59); BILIRUBIN,TOTAL 0.6 mg/dL (0.2-1.3); BLOOD UREA NITROGEN 12 mg/dL (9-20); CARBON DIOXIDE 23 mmol/L (22-30); GFR AFRICAN-AMERICAN > 60; GLUCOSE,RANDOM 134 mg/dL (75-110)
[2017-01-11 00:43] LABS: ALCOHOL SERUM < 10 mg/dl (0-10)
[2017-01-11 00:47] LABS: RBC URINE < 1 /hpf (0-3); URINE BILIRUBIN NEGATIVE (NEGATIVE); URINE BLOOD NEGATIVE (NEGATIVE); URINE COLOR Yellow (YELLOW); URINE GLUCOSE (UA) NORMAL (Normal); URINE KETONE NEGATIVE (NEGATIVE); URINE LEUKOCYTE ESTERASE NEG Leu/uL (Negative); URINE PROTEIN NEGATIVE (NEGATIVE); URINE UROBILINOGEN NORMAL mg/dL (0.2-1.0); WBC URINE < 1 /hpf (0-5)
[2017-01-11 01:09] VITALS: BP 110/80; PULSE 80; RESP 14; TEMP 98.2
[2017-01-11 04:08] LABS: NEUTROPHIL 95 % (50-75); TOTAL CELLS COUNTED 100
== END 2017-01-11 01:09 | disposition home or self-care (01) ==
LOC: C.ER 22:27
DX: F32.89 Other specified depressive episodes (principal); F11.10 Opioid abuse, uncomplicated

== ENCOUNTER 2017-01-16 23:21 | Inpatient (IN) | payer OTHER ==
[2017-01-16 23:21] VITALS: BMI 21.9
[2017-01-16] MEDS ORDERED: Albuterol-Ipratrop 3 mg / 0.5 (3 ml) UD INH STA (23:48)
[2017-01-17] MEDS ORDERED: Albuterol-Ipratrop 3 mg / 0.5 (3 ml) UD ONE ×4 (00:01→08:02)
[2017-01-17] MEDS ORDERED: Sodium Chloride 0.9% 1,000 ML IV ONE (00:25)
[2017-01-17 00:48] LABS: BASO # 0.1 K/uL (0.0-0.2); BASO % 0.4 % (0.0-2.0); EOS % 6.1 % (0.0-4.0); HEMATOCRIT 39.5 % (35.0-51.0); LYMPH # 2.1 K/uL (1.0-4.3); LYMPH % 13.4 % (20.0-40.0); MEAN CELL VOLUME 91.7 fL (80.0-94.0); MEAN CORPUSCULAR HEMOGLOBIN 30.7 pg (27.0-31.0); MEAN CORPUSCULAR HGB CONC 33.4 g/dL (33.0-37.0); MEAN PLATELET VOLUME 7.7 fL (7.2-11.7); MONO # 1.3 K/uL (0.0-0.8); MONO % 8.7 % (0.0-10.0); RED CELL DISTRIBUTION WIDTH 14.2 % (11.5-14.5); WHITE BLOOD COUNT 15.5 K/uL (4.8-10.8)
[2017-01-17 01:11] LABS: CHLORIDE 105 mmol/L (98-107); SODIUM 141 mmol/L (132-148)
[2017-01-17 01:12] LABS: ALB/GLOB RATIO 1.2 (1.0-2.1); ALKALINE PHOSPHATASE 67 U/L (38-126); ALT/SGPT 43 U/L (21-72); AST/SGOT 33 U/L (17-59); BILIRUBIN,TOTAL 0.8 mg/dL (0.2-1.3); BLOOD UREA NITROGEN 12 mg/dL (9-20); CALCIUM 8.5 mg/dl (8.6-10.4); CARBON DIOXIDE 25 mmol/L (22-30); GFR AFRICAN-AMERICAN > 60; GLUCOSE,RANDOM 88 mg/dL (75-110); MAGNESIUM 2.1 mg/dL (1.6-2.3)
[2017-01-17 01:22] LABS: POTASSIUM 4.5 mmol/L (3.6-5.2)
[2017-01-17] MEDS ORDERED: Sodium Chloride 0.9% 1,000 ML ONE (01:24)
[2017-01-17] MEDS: Albuterol-Ipratrop 3 mg / 0.5 (3 ml) UD IH SCH (01:50)
[2017-01-17] MEDS ORDERED: Azithromycin 500 MG in Sodium Chloride 0.9% 250 ML IVPB STA (03:19)
[2017-01-17] MEDS ORDERED: Azithromycin 500mg/250ML NS 500 MG/250 ML BAG IVPB ONE (03:35)
--- NOTE | 2017-01-17 04:33 | C.PDOC ---
Time Seen by Provider: 01/17/17 00:21 Chief Complaint (Nursing): Shortness Of Breath History Per: Patient Onset/Duration Of Symptoms: Days Current Symptoms Are (Timing): Still Present Current Respiratory Medications: See Home Med List Severity: Moderate Associated Symptoms: Productive Cough Reports Recently: Seen In ED Additional History Per: Prior Records Past Medical History Reviewed: Historical Data, Nursing Documentation, Vital Signs Vital Signs: Last Vital Signs Temp 98.3 F 01/16/17 23:40 Pulse 98 H 01/17/17 02:41 Resp 18 01/17/17 02:41 BP 137/84 01/17/17 02:41 Pulse Ox 94 L 01/17/17 02:41 - Medical History PMH: Anxiety, Asthma, Bipolar Disorder, Bronchitis, Depression, Pneumonia - [facility] Procedures DETOXIFICATION SERVICES FOR SUBSTANCE ABUSE TREATMENT (12/29/16) GROUP TINSMITH APPRENTICE FOR SUBSTANCE ABUSE TREATMENT, PSYCHOEDUCATION (11/16/16) GROUP PSYCHOTHERAPY (11/16/16) INDIV TINSMITH APPRENTICE FOR SUBSTANCE ABUSE TREATMENT, PSYCHOEDUCATION (11/30/16) INDIV TINSMITH APPRENTICE FOR SUBSTANCE ABUSE, COGNITIVE BEHAVIORAL (11/30/16) INDIV PSYCHOTHERAPY FOR SUBSTANCE ABUSE TREATMENT, SUPPORT (12/29/16) INDIV PSYCHOTHERAPY FOR SUBSTANCE ABUSE, PSYCHOEDUCATION (12/29/16) INDIVIDUAL PSYCHOTHERAPY, SUPPORTIVE (11/16/16) MEDICATION MANAGEMENT (11/16/16) MEDS MGMT FOR SUBSTANCE ABUSE TREATMENT, METHADONE MAINT (12/29/16) PHARMACOTHERAPY FOR SUBSTANCE ABUSE, METHADONE MAINT (11/16/16) Family History: States: Unknown Family Hx - Social History Hx Tobacco Use: Yes (heavy smoker) Hx Alcohol Use: No Hx Substance Use: No (on methadone) - Immunization History Hx Tetanus Toxoid Vaccination: No Hx Influenza Vaccination: No (08/2015) Hx Pneumococcal Vaccination: No Review Of Systems Except As Marked, All Systems Reviewed And Found Negative. Constitutional: Negative for: Fever Cardiovascular: Negative for: Chest Pain Respiratory: Positive for: Cough, Shortness of Breath, Wheezing. Negative for: Hemoptysis Gastrointestinal: Negative for: Vomiting, Abdominal Pain Musculoskeletal: Negative for: Neck Pain, Leg Pain Skin: Negative for: Rash Neurological: Negative for: Weakness, Numbness, Seizures, Altered Mental Status Physical Exam - Physical Exam Appears: In Acute Distress (mild) Skin: Normal Color, Warm, Dry, No Rash Head: Atraumatic, Normacephalic Eye(s): bilateral: PERRL, EOMI Neck: Normal ROM, Supple Cardiovascular: Rhythm Regular Respiratory: No Accessory Muscle Use, Wheezing Gastrointestinal/Abdominal: Soft, No Tenderness Back: No CVA Tenderness Extremity: Normal ROM, No Pedal Edema, No Calf Tenderness Neurological/Psych: Oriented x3, Normal Motor, Normal Sensation ED Course And Treatment - Laboratory Results Result Diagrams: 01/17/17 00:45 01/17/17 00:45 O2 Sat by Pulse Oximetry: 94 Pulse Ox Interpretation: Other Interpretation Of Abnormal: Borderline - Radiology CXR: Interpreted by Me, Viewed By Me CXR Interpretation: Yes: COPD Progress Note: Pt is still wheezing after meds. Will admit. Progress - Interventions Interventions:: Observation, Intravenous fluid, Oxygen - Medications Administered Inhaled nebulized: Anticholinergic, Beta-2 agonist Intravenous: Corticosteroid - Data Reviewed Data Reviewed: Lab, Diagnostic imaging, Old records - Patient Status Patient status: Partially improved - Critical Care Citical Care: Excluding Proc Time Critical Care Time: 45 minutes - Continuity of Care Discussed patient case with:: Patient, ED Nurse, On-call PMD-pt unassigned - Patient Plan Patient Plan: Admission Disposition Discussed With : Refugio Slater Comment: He accepted pt on his service and gave admitting orders to the nurse. Doctor Will See Patient In The: Hospital Counseled Patient/Family Regarding: Studies Performed, Diagnosis, Smoking Cessation - Disposition Disposition: HOSPITALIZED Disposition Time: 04:34 Condition: FAIR - Clinical Impression Clinical Impression: Status asthmaticus, Bronchitis
[2017-01-17] MEDS ORDERED: Enoxaparin 40 mg Syringe SC ONE (04:56)
[2017-01-17] MEDS ORDERED: Moxifloxacin IV 400mg/250ml NS 400 MG/250 ML BAG IVPB SCH ×2 (05:00→15:30)
[2017-01-17] MEDS ORDERED: MethylPREDNISolone 40 mg Vial IVP SCH ×2 (06:00→10:00)
[2017-01-17] MEDS ORDERED: Moxifloxacin IV 400mg/250ml NS 0 MG/0 ML BAG IVPB ONE (06:14)
[2017-01-17] MEDS ORDERED: MethylPREDNISolone 40 mg Vial ONE (06:14)
[2017-01-17] MEDS: Albuterol-Ipratrop 3 mg / 0.5 (3 ml) UD INH SCH ×3 (08:09→19:21)
[2017-01-17] MEDS ORDERED: Fluticasone-Salmeterol 250-50mcg Diskus INH SCH (10:00)
[2017-01-17] MEDS ORDERED: Moxifloxacin IV 400mg/250ml NS 400 MG/250 ML BAG IVPB ONE (10:00)
--- NOTE | 2017-01-17 14:57 | RAD ---
PROCEDURE: CHEST RADIOGRAPH, 1 VIEW HISTORY: SOB COMPARISON: 01/10/2017 FINDINGS: LUNGS: Clear. PLEURA: No pneumothorax or pleural fluid seen. CARDIOVASCULAR: Normal. OSSEOUS STRUCTURES: No significant abnormalities. VISUALIZED UPPER ABDOMEN: Normal. OTHER FINDINGS: None. IMPRESSION: No active disease.
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
--- NOTE | 2017-01-17 15:22 | CP.PCM.HP ---
Past Patient History - Infectious Disease Hx of Infectious Diseases: None - Past Medical History & Family History Past Medical History?: Yes - Past Social History Smoking Status: Heavy Smoker > 10 Cigarettes Daily - CARDIAC Hx Cardiac Disorders: No Hx Hypertension: No - PULMONARY Hx Asthma: Yes Hx Bronchitis: Yes Hx Pneumonia: Yes - NEUROLOGICAL HX Cerebrovascular Accident: No Hx Seizures: No - HEENT Hx HEENT Problems: No Hx Cataracts: No Hx Deafness: No Hx Difficulty Chewing: No Hx Epistaxis: No Hx Glaucoma: No Hx Macular Degeneration: No - RENAL Hx Chronic Kidney Disease: No Hx Kidney Stones: No - ENDOCRINE/METABOLIC Hx Hyperthyroidism: No Hx Hypothyroidism: No - HEMATOLOGICAL/ONCOLOGICAL Hx Cancer: No Hx Human Immunodeficiency Virus (HIV): No (HIV negative) - INTEGUMENTARY Hx Dermatological Problems: No Hx Basil Cell: No Hx Barrera: No Hx Cellulitis: No Hx Eczema: No Hx Melanoma: No Hx Psoriasis: No Hx Squamous Cell: No - MUSCULOSKELETAL/RHEUMATOLOGICAL Hx Falls: No - GASTROINTESTINAL Hx Crohn's Disease: No Hx Diverticulitis: No Hx Gall Bladder Disease: No Hx Gastritis: No Hx Pancreatitis: No - GENITOURINARY/GYNECOLOGICAL Hx Sexually Transmitted Disorders: No - PSYCHIATRIC Hx Anxiety: Yes Hx Bipolar Disorder: Yes Hx Depression: Yes Hx Substance Use: Yes - SURGICAL HISTORY Hx Appendectomy: No Hx Carotid Endarterectomy: No Hx Cholecystectomy: No Hx Coronary Artery Bypass Graft: No Hx Coronary Stent: No Hx Tonsillectomy: No - ANESTHESIA Hx Anesthesia: No Meds Allergies/Adverse Reactions: Allergies Allergy/AdvReac Type Severity Reaction Status Date / Time shellfish derived Allergy Verified 01/16/17 23:43 Results - Vital Signs Recent Vital Signs: Last Vital Signs Temp 98.6 F 01/17/17 10:53 Pulse 86 01/17/17 10:53 Resp 25 H 01/17/17 12:00 BP 127/76 01/17/17 10:53 Pulse Ox 93 L 01/17/17 10:53 - Labs Result Diagrams: 01/17/17 00:45 01/17/17 00:45 Assessment & Plan (1) Bronchitis Status: Acute (2) Status asthmaticus Status: Acute (3) Asthma Status: Acute (4) Asthma exacerbation Status: Acute (5) Asthma with status asthmaticus Status: Acute (6) Bronchitis Status: Acute (7) Cellulitis, leg Status: Chronic (8) Community acquired pneumonia Status: Acute (9) Depression Status: Acute (10) Depression Status: Acute (11) Drug dependence Status: Acute (12) Exacerbation of asthma Status: Acute (13) Gastritis Status: Acute (14) Hepatitis C Status: Chronic (15) Heroin dependence Status: Chronic (16) Hordeolum externum (stye) Status: Resolved (17) Left against medical advice Status: Acute (18) Major depressive disorder Status: Acute (19) Medical assessment Status: Acute (20) Medication reaction Status: Resolved (21) Nausea Status: Acute (22) Opiate addiction Status: Acute (23) Opioid abuse Status: Acute (24) Pneumonia Status: Acute (25) Pneumonia Status: Acute (26) Upper respiratory infection Status: Acute - Assessment and Plan (Free Text) Plan: duoneb protonix lovenox avelox psych consult sin same
[2017-01-17] MEDS ORDERED: Methadone 40 mg Tab PO STA (15:32)
[2017-01-17] MEDS: MethylPREDNISolone 40 mg Vial IVP SCH (21:59)
[2017-01-18] MEDS: Albuterol-Ipratrop 3 mg / 0.5 (3 ml) UD INH SCH ×4 (01:24→21:00)
[2017-01-18] MEDS: MethylPREDNISolone 40 mg Vial IVP SCH ×3 (05:26→21:07)
[2017-01-18 06:38] LABS: CHLORIDE 98 mmol/L (98-107); POTASSIUM 4.3 mmol/L (3.6-5.2); SODIUM 135 mmol/L (132-148)
[2017-01-18 06:41] LABS: ALB/GLOB RATIO 1.2 (1.0-2.1); ALKALINE PHOSPHATASE 89 U/L (38-126); ALT/SGPT 40 U/L (21-72); AST/SGOT 23 U/L (17-59); BILIRUBIN,TOTAL 0.4 mg/dL (0.2-1.3); BLOOD UREA NITROGEN 18 mg/dL (9-20); CALCIUM 8.9 mg/dl (8.6-10.4); CARBON DIOXIDE 26 mmol/L (22-30); GFR AFRICAN-AMERICAN > 60; GLUCOSE,RANDOM 275 mg/dL (75-110); TOTAL PROTEIN 6.3 g/dL (6.3-8.3)
[2017-01-18 06:52] LABS: BASO % 0.1 % (0.0-2.0); HEMATOCRIT 38.1 % (35.0-51.0); LYMPH # 0.6 K/uL (1.0-4.3); LYMPH % 3.4 % (20.0-40.0); MEAN CELL VOLUME 92.1 fL (80.0-94.0); MEAN CORPUSCULAR HEMOGLOBIN 30.4 pg (27.0-31.0); MEAN PLATELET VOLUME 8.5 fL (7.2-11.7); MONO # 0.4 K/uL (0.0-0.8); MONO % 2.3 % (0.0-10.0); PLATELET COUNT 279 K/uL (130-400); RED CELL DISTRIBUTION WIDTH 14.6 % (11.5-14.5); WHITE BLOOD COUNT 17.4 K/uL (4.8-10.8)
[2017-01-18] MEDS: Fluticasone-Salmeterol 250-50mcg Diskus INH SCH ×2 (08:13→21:00)
[2017-01-18 08:14] LABS: NEUTROPHIL 92 % (50-75); TOTAL CELLS COUNTED 100
--- NOTE | 2017-01-18 09:13 | CP.PCM.PN ---
Subjective - Date & Time of Evaluation Date of Evaluation: 01/18/17 Time of Evaluation: 08:40 - Subjective Subjective: clinically same Objective - Vital Signs/Intake and Output Vital Signs (last 24 hours): Temp Pulse Resp BP Pulse Ox 98.6 F 86 25 H 127/76 93 L 01/17/17 10:53 01/17/17 10:53 01/17/17 12:00 01/17/17 10:53 01/17/17 10:53 Intake and Output: 01/18/17 01/18/17 06:59 18:59 Intake Total 820 Balance 820 - Medications Medications: Current Medications Albuterol/Ipratropium (Duoneb 3 Mg/0.5 Mg (3 Ml) Ud) 3 ml INH RQ6 [facility] Last Admin: 01/18/17 08:13 Dose: 3 ml Alprazolam (Xanax) 0.25 mg PO HS PRN PRN Reason: Anxiety Stop: 01/24/17 22:01 Last Admin: 01/17/17 22:00 Dose: 0.25 mg Moxifloxacin HCl (Avelox Iv 400mg/250ml Ns) 400 mg in 250 mls @ 167 mls/hr IVPB Q24H [facility] Stop: 01/27/17 15:31 Last Admin: 01/17/17 16:20 Dose: 167 mls/hr Methylprednisolone (Solu-Medrol) 40 mg IVP Q8 [facility] Last Admin: 01/18/17 05:26 Dose: 40 mg Montelukast Sodium (Singulair) 10 mg PO HS [facility] Last Admin: 01/17/17 21:58 Dose: 10 mg Pantoprazole Sodium (Protonix Inj) 40 mg IVP DAILY [facility] Fluticasone/Salmeterol (Advair Diskus 250/50) 1 puff INH RQ12 [facility] Last Admin: 01/18/17 08:13 Dose: 1 puff - Labs Labs: 01/18/17 06:18 01/18/17 06:18 - Constitutional Appears: Well - Head Exam Head Exam: ATRAUMATIC, NORMAL INSPECTION, NORMOCEPHALIC - Eye Exam Eye Exam: EOMI, Normal appearance, PERRL Pupil Exam: NORMAL ACCOMODATION, PERRL - ENT Exam ENT Exam: Mucous Membranes Moist, Normal Exam - Neck Exam Neck Exam: Full ROM, Normal Inspection. absent: Lymphadenopathy - Respiratory Exam Respiratory Exam: Decreased Breath Sounds - Cardiovascular Exam Cardiovascular Exam: REGULAR RHYTHM, +S1, +S2 - GI/Abdominal Exam GI & Abdominal Exam: Soft, Diminished Bowel Sounds - Rectal Exam Rectal Exam: Deferred Assessment and Plan (1) Bronchitis Status: Acute (2) Status asthmaticus Status: Acute (3) Asthma Status: Acute (4) Asthma exacerbation Status: Acute (5) Asthma with status asthmaticus Status: Acute (6) Bronchitis Status: Acute (7) Cellulitis, leg Status: Chronic (8) Community acquired pneumonia Status: Acute (9) Depression Status: Acute (10) Depression Status: Acute (11) Drug dependence Status: Acute (12) Exacerbation of asthma Status: Acute (13) Gastritis Status: Acute (14) Hepatitis C Status: Chronic (15) Heroin dependence Status: Chronic (16) Left against medical advice Status: Acute (17) Major depressive disorder Status: Acute (18) Medical assessment Status: Acute (19) Nausea Status: Acute (20) Opiate addiction Status: Acute (21) Opioid abuse Status: Acute (22) Pneumonia Status: Acute (23) Pneumonia Status: Acute (24) Upper respiratory infection Status: Acute
--- NOTE | 2017-01-18 09:52 | CP.PCM.PN ---
Subjective - Date & Time of Evaluation Date of Evaluation: 01/18/17 Time of Evaluation: 07:20 - Subjective Subjective: This is a 36 yo male with PMHx of asthma, pneumonia and heroin abuse - presents on 01/17/17 c/o SOB for the past few days. He states it has been getting worse. Pt was recently [facility] from [facility] for similar issues. He reports cough productive of yellow sputum. He admits that his cigarette smoking worsens his asthma. He uses an albuterol pump prn for his asthma, but has found himself using it more and more frequently prior to admission (nearly 10 times per day for several days). He currently denies f/c, chest pain, n/v, d/c, dysuria, LE edema, or any additional complaints. PMH: Asthma, heroin abuse, pneumonia PSH: None Allergies: NKDA Current meds: see EMR (Albuterol pump) FH: asthma in family Social hx: Smokes 3 cigs/day for over 10 yrs. Past hx of heavy drinking. Active heroin user. Has been abusing for 4 yrs now. Lives in retirement in [place]. Objective - Vital Signs/Intake and Output Vital Signs (last 24 hours): Temp Pulse Resp BP Pulse Ox 98.6 F 86 25 H 127/76 93 L 01/17/17 10:53 01/17/17 10:53 01/17/17 12:00 01/17/17 10:53 01/17/17 10:53 Intake and Output: 01/18/17 01/18/17 06:59 18:59 Intake Total 820 Balance 820 - Medications Medications: Current Medications Albuterol/Ipratropium (Duoneb 3 Mg/0.5 Mg (3 Ml) Ud) 3 ml INH RQ6 [facility] Last Admin: 01/18/17 08:13 Dose: 3 ml Alprazolam (Xanax) 0.25 mg PO HS PRN PRN Reason: Anxiety Stop: 01/24/17 22:01 Last Admin: 01/17/17 22:00 Dose: 0.25 mg Moxifloxacin HCl (Avelox Iv 400mg/250ml Ns) 400 mg in 250 mls @ 167 mls/hr IVPB Q24H [facility] Stop: 01/27/17 15:31 Last Admin: 06/25/17 16:20 Dose: 167 mls/hr Methylprednisolone (Solu-Medrol) 40 mg IVP Q8 [facility] Last Admin: 01/18/17 05:26 Dose: 40 mg Montelukast Sodium (Singulair) 10 mg PO HS [facility] Last Admin: 01/17/17 21:58 Dose: 10 mg Pantoprazole Sodium (Protonix Inj) 40 mg IVP DAILY [facility] Fluticasone/Salmeterol (Advair Diskus 250/50) 1 puff INH RQ12 [facility] Last Admin: 01/18/17 08:13 Dose: 1 puff - Labs Labs: 01/18/17 06:18 01/18/17 06:18 - Additional Findings Additional findings: - Constitutional Appears: Non-toxic, No Acute Distress - Head Exam Head Exam: ATRAUMATIC, NORMAL INSPECTION, NORMOCEPHALIC - Eye Exam Eye Exam: EOMI - ENT Exam ENT Exam: Mucous Membranes Moist - Neck Exam Neck exam: Positive for: Full Rom, Normal Inspection - Respiratory Exam Respiratory Exam: Wheezes. absent: Respiratory Distress, NORMAL BREATHING PATTERN - Cardiovascular Exam Cardiovascular Exam: +S1, +S2 - GI/Abdominal Exam GI & Abdominal Exam: Normal Bowel Sounds, Soft. absent: Tenderness - Extremities Exam Extremities exam: Positive for: full ROM. Negative for: normal inspection Additional comments: Track snigh along L Arm - Neurological Exam Neurological exam: Alert, CN II-XII Intact, Oriented x3 - Psychiatric Exam Psychiatric exam: Normal Affect, Normal Mood - Skin Skin Exam: Dry, Intact, Normal Color, Warm Assessment and Plan - Assessment and Plan (Free Text) Assessment: Asthma exacerbation -Pulmonology consult, Dr. Jeff, f/u recs -Duoneb 3 ml INH RQ6 [facility] Solu-Medrol 40 mg IVP Q8 [facility] Singulair 10 mg PO HS [facility] Advair Diskus 250/50 1 puff INH RQ12 [facility] -CXR - no active disease Bronchitis Avelox 400 mg IVPB Q24H [facility] Solu-Medrol 40 mg IVP Q8 [facility] Singulair 10 mg PO HS [facility] Advair Diskus 250/50 1 puff INH RQ12 [facility] Heroin abuse -psych consult, Dr. Arriaga, f/u recs Methadone 10 mg PO ONCE ONE Methadone 5 mg PO ONCE ONE Prophylaxis Xanax 0.25 mg PO HS PRN Protonix 40 mg IVP DAILY [facility] -SCDs
--- NOTE | 2017-01-18 10:08 | CARD ---
APPROVED REPORT EKG Measurement Heart [id number] <Conclusion> Normal sinus rhythm Early repolarization Normal ECG
--- NOTE | 2017-01-18 10:21 | CP.PCM.CON ---
Past Patient History - Infectious Disease Hx of Infectious Diseases: None - Past Medical History & Family History Past Medical History?: Yes - Past Social History Smoking Status: Heavy Smoker > 10 Cigarettes Daily - CARDIAC Hx Cardiac Disorders: No Hx Hypertension: No - PULMONARY Hx Asthma: Yes Hx Bronchitis: Yes Hx Pneumonia: Yes - NEUROLOGICAL HX Cerebrovascular Accident: No Hx Seizures: No - HEENT Hx HEENT Problems: No Hx Cataracts: No Hx Deafness: No Hx Difficulty Chewing: No Hx Epistaxis: No Hx Glaucoma: No Hx Macular Degeneration: No - RENAL Hx Chronic Kidney Disease: No Hx Kidney Stones: No - ENDOCRINE/METABOLIC Hx Hyperthyroidism: No Hx Hypothyroidism: No - HEMATOLOGICAL/ONCOLOGICAL Hx Cancer: No Hx Human Immunodeficiency Virus (HIV): No (HIV negative) - INTEGUMENTARY Hx Dermatological Problems: No Hx Basil Cell: No Hx Barrera: No Hx Cellulitis: No Hx Eczema: No Hx Melanoma: No Hx Psoriasis: No Hx Squamous Cell: No - MUSCULOSKELETAL/RHEUMATOLOGICAL Hx Falls: No - GASTROINTESTINAL Hx Crohn's Disease: No Hx Diverticulitis: No Hx Gall Bladder Disease: No Hx Gastritis: No Hx Pancreatitis: No - GENITOURINARY/GYNECOLOGICAL Hx Sexually Transmitted Disorders: No - PSYCHIATRIC Hx Anxiety: Yes Hx Bipolar Disorder: Yes Hx Depression: Yes Hx Substance Use: Yes - SURGICAL HISTORY Hx Appendectomy: No Hx Carotid Endarterectomy: No Hx Cholecystectomy: No Hx Coronary Artery Bypass Graft: No Hx Coronary Stent: No Hx Tonsillectomy: No - ANESTHESIA Hx Anesthesia: No Meds Allergies/Adverse Reactions: Allergies Allergy/AdvReac Type Severity Reaction Status Date / Time shellfish derived Allergy Verified 01/16/17 23:43 - Medications Medications: Current Medications Albuterol/Ipratropium (Duoneb 3 Mg/0.5 Mg (3 Ml) Ud) 3 ml INH RQ6 [facility] Last Admin: 01/18/17 08:13 Dose: 3 ml Alprazolam (Xanax) 0.25 mg PO HS PRN PRN Reason: Anxiety Stop: 01/24/17 22:01 Last Admin: 01/17/17 22:00 Dose: 0.25 mg Moxifloxacin HCl (Avelox Iv 400mg/250ml Ns) 400 mg in 250 mls @ 167 mls/hr IVPB Q24H [facility] Stop: 01/27/17 15:31 Last Admin: 06/25/17 16:20 Dose: 167 mls/hr Methadone HCl (Methadone) 10 mg PO ONCE ONE Stop: 01/19/17 09:01 Methadone HCl (Methadone) 5 mg PO ONCE ONE Stop: 01/20/17 09:01 Methylprednisolone (Solu-Medrol) 40 mg IVP Q8 [facility] Last Admin: 01/18/17 05:26 Dose: 40 mg Montelukast Sodium (Singulair) 10 mg PO HS [facility] Last Admin: 01/17/17 21:58 Dose: 10 mg Pantoprazole Sodium (Protonix Inj) 40 mg IVP DAILY [facility] Fluticasone/Salmeterol (Advair Diskus 250/50) 1 puff INH RQ12 [facility] Last Admin: 01/18/17 08:13 Dose: 1 puff Results - Vital Signs Recent Vital Signs: Last Vital Signs Temp 98.6 F 01/17/17 10:53 Pulse 86 01/17/17 10:53 Resp 25 H 01/17/17 12:00 BP 127/76 01/17/17 10:53 Pulse Ox 93 L 01/17/17 10:53 - Labs Result Diagrams: 01/18/17 06:18 01/18/17 06:18 Labs: Laboratory Results - last 24 hr 01/18/17 01/18/17 06:18 06:18 WBC 17.4 H RBC 4.13 L Hgb 12.6 Hct 38.1 MCV 92.1 MCH 30.4 MCHC 33.0 RDW 14.6 H Plt Count 279 MPV 8.5 Neut % (Auto) 94.2 H Lymph % (Auto) 3.4 L Real % (Auto) 2.3 Eos % (Auto) 0.0 Baso % (Auto) 0.1 Neut # 16.4 H Lymph # 0.6 L Real # 0.4 Eos # 0.0 Baso # 0.0 Neutrophils % (Manual) 92 H Lymphocytes % (Manual) 5 L Monocytes % (Manual) 3 Platelet Estimate Normal RBC Morphology Normal Sodium 135 Potassium 4.3 Chloride 98 Carbon Dioxide 26 Anion Gap 15 BUN 18 Creatinine 0.7 L Est GFR ( Amer) > 60 Est GFR (Non-Af Amer) > 60 Random Glucose 275 H Calcium 8.9 Total Bilirubin 0.4 AST 23 ALT 40 Alkaline Phosphatase 89 Total Protein 6.3 Albumin 3.5 Globulin 2.8 Albumin/Globulin Ratio 1.2
[2017-01-18] MEDS ORDERED: Albuterol-Ipratrop 3 mg / 0.5 (3 ml) UD INH ONE (11:30)
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
[2017-01-18] MEDS: Pantoprazole 40 mg EC Tab PO SCH (13:39)
[2017-01-18] MEDS ORDERED: Moxifloxacin IV 400mg/250ml NS 400 MG/250 ML BAG IVPB SCH (17:00)
[2017-01-18 17:09] VITALS: RESP 20
[2017-01-18] MEDS: Moxifloxacin IV 400mg/250ml NS 400 MG/250 ML BAG IVPB SCH (17:28)
[2017-01-19] MEDS: Albuterol-Ipratrop 3 mg / 0.5 (3 ml) UD INH SCH ×4 (01:07→19:22)
[2017-01-19] MEDS: MethylPREDNISolone 40 mg Vial IVP SCH ×3 (05:31→21:10)
[2017-01-19 06:36] LABS: BASO % 0.1 % (0.0-2.0); HEMATOCRIT 38.9 % (35.0-51.0); LYMPH # 0.7 K/uL (1.0-4.3); LYMPH % 3.6 % (20.0-40.0); MEAN CELL VOLUME 92.8 fL (80.0-94.0); MEAN CORPUSCULAR HEMOGLOBIN 30.1 pg (27.0-31.0); MEAN CORPUSCULAR HGB CONC 32.4 g/dL (33.0-37.0); MEAN PLATELET VOLUME 8.4 fL (7.2-11.7); MONO # 0.6 K/uL (0.0-0.8); MONO % 3.3 % (0.0-10.0); NRBC % 0.2 % (0.0-2.0); PLATELET COUNT 312 K/uL (130-400); RED CELL DISTRIBUTION WIDTH 14.7 % (11.5-14.5); WHITE BLOOD COUNT 18.2 K/uL (4.8-10.8)
[2017-01-19 06:49] LABS: CHLORIDE 102 mmol/L (98-107); SODIUM 138 mmol/L (132-148)
[2017-01-19 06:51] LABS: AST/SGOT 13 U/L (17-59); BILIRUBIN,TOTAL 0.6 mg/dL (0.2-1.3); CARBON DIOXIDE 27 mmol/L (22-30); GFR AFRICAN-AMERICAN > 60
[2017-01-19 06:52] LABS: ALB/GLOB RATIO 1.4 (1.0-2.1); ALKALINE PHOSPHATASE 77 U/L (38-126); ALT/SGPT 27 U/L (21-72); BLOOD UREA NITROGEN 19 mg/dL (9-20); CALCIUM 9.2 mg/dl (8.6-10.4); GLUCOSE,RANDOM 187 mg/dL (75-110); PHOSPHOROUS 3.8 mg/dL (2.5-4.5); TOTAL PROTEIN 6.1 g/dL (6.3-8.3)
[2017-01-19 08:29] LABS: NEUTROPHIL 95 % (50-75); TOTAL CELLS COUNTED 100
[2017-01-19] MEDS: Fluticasone-Salmeterol 250-50mcg Diskus INH SCH (08:43)
[2017-01-19] MEDS: Pantoprazole 40 mg EC Tab PO SCH (09:11)
--- NOTE | 2017-01-19 14:20 | CP.PCM.PN ---
Subjective - Date & Time of Evaluation Date of Evaluation: 01/19/17 Time of Evaluation: 08:00 - Subjective Subjective: clinically same Objective - Vital Signs/Intake and Output Vital Signs (last 24 hours): Temp Pulse Resp BP Pulse Ox 97.7 F 76 20 145/76 96 01/19/17 07:37 01/19/17 07:37 01/19/17 07:37 01/19/17 07:37 01/19/17 07:37 Intake and Output: 01/19/17 01/19/17 06:59 18:59 Intake Total 240 Balance 240 - Medications Medications: Current Medications Albuterol/Ipratropium (Duoneb 3 Mg/0.5 Mg (3 Ml) Ud) 3 ml INH RQ6 [facility] Last Admin: 01/19/17 13:46 Dose: 3 ml Alprazolam (Xanax) 0.25 mg PO HS PRN PRN Reason: Anxiety Stop: 01/24/17 22:01 Last Admin: 01/18/17 21:11 Dose: 0.25 mg Hydroxyzine HCl (Atarax) 50 mg PO Q6H PRN PRN Reason: Anxiety Last Admin: 01/19/17 13:16 Dose: 50 mg Moxifloxacin HCl (Avelox Iv 400mg/250ml Ns) 400 mg in 250 mls @ 167 mls/hr IVPB Q24H [facility] Last Admin: 01/18/17 17:28 Dose: 167 mls/hr Methadone HCl (Methadone) 5 mg PO ONCE ONE Stop: 01/20/17 09:01 Methylprednisolone (Solu-Medrol) 40 mg IVP Q8 [facility] Last Admin: 01/19/17 13:16 Dose: 40 mg Montelukast Sodium (Singulair) 10 mg PO HS [facility] Last Admin: 01/18/17 21:08 Dose: 10 mg Pantoprazole Sodium (Protonix Ec Tab) 40 mg PO DAILY [facility] Last Admin: 01/19/17 09:11 Dose: 40 mg Quetiapine Fumarate (Seroquel) 100 mg PO HS [facility] Last Admin: 01/18/17 21:08 Dose: 100 mg Fluticasone/Salmeterol (Advair Diskus 250/50) 1 puff INH RQ12 [facility] Last Admin: 01/19/17 08:43 Dose: 1 puff - Labs Labs: 01/19/17 06:23 01/19/17 06:23 - Constitutional Appears: Well - Head Exam Head Exam: ATRAUMATIC, NORMAL INSPECTION, NORMOCEPHALIC - Eye Exam Eye Exam: EOMI, Normal appearance, PERRL Pupil Exam: NORMAL ACCOMODATION, PERRL - ENT Exam ENT Exam: Mucous Membranes Moist, Normal Exam - Neck Exam Neck Exam: Full ROM, Normal Inspection. absent: Lymphadenopathy - Respiratory Exam Respiratory Exam: Decreased Breath Sounds - Cardiovascular Exam Cardiovascular Exam: REGULAR RHYTHM, +S1, +S2 - GI/Abdominal Exam GI & Abdominal Exam: Soft, Diminished Bowel Sounds - Rectal Exam Rectal Exam: Deferred Assessment and Plan (1) Bronchitis Status: Acute (2) Status asthmaticus Status: Acute (3) Asthma Status: Acute (4) Asthma exacerbation Status: Acute (5) Asthma with status asthmaticus Status: Acute (6) Bronchitis Status: Acute (7) Cellulitis, leg Status: Chronic (8) Community acquired pneumonia Status: Acute (9) Depression Status: Acute (10) Depression Status: Acute (11) Drug dependence Status: Acute (12) Exacerbation of asthma Status: Acute (13) Gastritis Status: Acute (14) Hepatitis C Status: Chronic (15) Heroin dependence Status: Chronic (16) Left against medical advice Status: Acute (17) Major depressive disorder Status: Acute (18) Medical assessment Status: Acute (19) Nausea Status: Acute (20) Opiate addiction Status: Acute (21) Opioid abuse Status: Acute (22) Pneumonia Status: Acute (23) Pneumonia Status: Acute (24) Upper respiratory infection Status: Acute
[2017-01-19] MEDS: Moxifloxacin IV 400mg/250ml NS 400 MG/250 ML BAG IVPB SCH (17:14)
--- NOTE | 2017-01-19 17:20 | CP.PCM.PN ---
Subjective - Date & Time of Evaluation Date of Evaluation: 01/19/17 Time of Evaluation: 17:20 Objective - Vital Signs/Intake and Output Vital Signs (last 24 hours): Temp Pulse Resp BP Pulse Ox 98.5 F 94 H 20 137/80 95 01/19/17 15:00 01/19/17 15:00 01/19/17 15:00 01/19/17 15:00 01/19/17 15:00 Intake and Output: 01/19/17 01/19/17 06:59 18:59 Intake Total 720 Balance 720 - Medications Medications: Current Medications Albuterol/Ipratropium (Duoneb 3 Mg/0.5 Mg (3 Ml) Ud) 3 ml INH RQ6 [facility] Last Admin: 01/19/17 13:46 Dose: 3 ml Alprazolam (Xanax) 0.25 mg PO HS PRN PRN Reason: Anxiety Stop: 01/24/17 22:01 Last Admin: 01/18/17 21:11 Dose: 0.25 mg Hydroxyzine HCl (Atarax) 50 mg PO Q6H PRN PRN Reason: Anxiety Last Admin: 01/19/17 13:16 Dose: 50 mg Moxifloxacin HCl (Avelox Iv 400mg/250ml Ns) 400 mg in 250 mls @ 167 mls/hr IVPB Q24H [facility] Last Admin: 01/19/17 17:14 Dose: 167 mls/hr Methadone HCl (Methadone) 5 mg PO ONCE ONE Stop: 01/20/17 09:01 Methylprednisolone (Solu-Medrol) 40 mg IVP Q8 [facility] Last Admin: 01/19/17 13:16 Dose: 40 mg Montelukast Sodium (Singulair) 10 mg PO HS [facility] Last Admin: 01/18/17 21:08 Dose: 10 mg Pantoprazole Sodium (Protonix Ec Tab) 40 mg PO DAILY [facility] Last Admin: 01/19/17 09:11 Dose: 40 mg Quetiapine Fumarate (Seroquel) 100 mg PO HS [facility] Last Admin: 01/18/17 21:08 Dose: 100 mg Fluticasone/Salmeterol (Advair Diskus 250/50) 1 puff INH RQ12 [facility] Last Admin: 01/19/17 08:43 Dose: 1 puff - Labs Labs: 01/19/17 06:23 01/19/17 06:23
--- NOTE | 2017-01-19 18:08 | CP.PCM.PN ---
Subjective - Date & Time of Evaluation Date of Evaluation: 01/19/17 Time of Evaluation: 08:20 - Subjective Subjective: PGY2 Medicine Note - Dr. Rachel Slater's service: Patient seen and examined this AM. No overnight events per nursing. Patient states that he still remains SOB while ambulating around the hallway, however he is breathing better now than when he came in. He admits this always happens when he smokes, and he was encouraged to quit. Patient refused nicotine patch while in hospital. Objective - Vital Signs/Intake and Output Vital Signs (last 24 hours): Temp Pulse Resp BP Pulse Ox 98.5 F 94 H 20 137/80 95 01/19/17 15:00 01/19/17 15:00 01/19/17 15:00 01/19/17 15:00 01/19/17 15:00 Intake and Output: 01/19/17 01/19/17 06:59 18:59 Intake Total 720 Balance 720 - Medications Medications: Current Medications Albuterol/Ipratropium (Duoneb 3 Mg/0.5 Mg (3 Ml) Ud) 3 ml INH RQ6 [facility] Last Admin: 01/19/17 13:46 Dose: 3 ml Alprazolam (Xanax) 0.25 mg PO HS PRN PRN Reason: Anxiety Stop: 01/24/17 22:01 Last Admin: 01/18/17 21:11 Dose: 0.25 mg Hydroxyzine HCl (Atarax) 50 mg PO Q6H PRN PRN Reason: Anxiety Last Admin: 01/19/17 13:16 Dose: 50 mg Moxifloxacin HCl (Avelox Iv 400mg/250ml Ns) 400 mg in 250 mls @ 167 mls/hr IVPB Q24H [facility] Last Admin: 01/19/17 17:14 Dose: 167 mls/hr Methadone HCl (Methadone) 5 mg PO ONCE ONE Stop: 01/20/17 09:01 Methylprednisolone (Solu-Medrol) 40 mg IVP Q8 [facility]LE[facility] Last Admin: 01/19/17 13:16 Dose: 40 mg Montelukast Sodium (Singulair) 10 mg PO HS [facility] Last Admin: 01/18/17 21:08 Dose: 10 mg Pantoprazole Sodium (Protonix Ec Tab) 40 mg PO DAILY [facility] Last Admin: 01/19/17 09:11 Dose: 40 mg Quetiapine Fumarate (Seroquel) 100 mg PO HS [facility] Last Admin: 01/18/17 21:08 Dose: 100 mg Fluticasone/Salmeterol (Advair Diskus 250/50) 1 puff INH RQ12 [facility] Last Admin: 01/19/17 08:43 Dose: 1 puff - Labs Labs: 01/19/17 06:23 01/19/17 06:23 - Additional Findings Additional findings: - Constitutional Appears: Non-toxic, No Acute Distress - Head Exam Head Exam: ATRAUMATIC, NORMAL INSPECTION, NORMOCEPHALIC - Eye Exam Eye Exam: EOMI - ENT Exam ENT Exam: Mucous Membranes Moist - Neck Exam Neck exam: Positive for: Full Rom, Normal Inspection - Respiratory Exam Respiratory Exam: Wheezes (diffuse, bilateral). absent: Respiratory Distress, NORMAL BREATHING PATTERN - Cardiovascular Exam Cardiovascular Exam: +S1, +S2 - GI/Abdominal Exam GI & Abdominal Exam: Normal Bowel Sounds, Soft. absent: Tenderness - Extremities Exam Extremities exam: Positive for: full ROM. Negative for: normal inspection Additional comments: Track singh along L Arm - Neurological Exam Neurological exam: Alert, CN II-XII Intact, Oriented x3 - Psychiatric Exam Psychiatric exam: Normal Affect, Normal Mood - Skin Skin Exam: Dry, Intact, Normal Color, Warm Assessment and Plan - Assessment and Plan (Free Text) Assessment: Asthma exacerbation 01/19: patient reports feeling better. f/u PT O2sat while ambulating. -Pulmonology consult, Dr. Jeff, f/u recs -Duoneb 3 ml INH RQ6 [facility] Solu-Medrol 40 mg IVP Q8 [facility] Singulair 10 mg PO HS [facility] Advair Diskus 250/50 1 puff INH RQ12 [facility] -CXR - no active disease Bronchitis Avelox 400 mg IVPB Q24H [facility] (started 01/18). Solu-Medrol 40 mg IVP Q8 [facility] Singulair 10 mg PO HS [facility] Advair Diskus 250/50 1 puff INH RQ12 [facility] Heroin abuse -psych consult, Dr. Arriaga, f/u recs Methadone being tapered per psych Prophylaxis Xanax 0.25 mg PO HS PRN Protonix 40 mg IVP DAILY [facility] -SCDs All Medical management as per Dr. Rachel Slater.
[2017-01-20] MEDS: Albuterol-Ipratrop 3 mg / 0.5 (3 ml) UD INH SCH ×2 (01:06→09:01)
[2017-01-20] MEDS: MethylPREDNISolone 40 mg Vial IVP SCH (05:39)
[2017-01-20 06:47] LABS: BASO % 0.1 % (0.0-2.0); HEMATOCRIT 37.8 % (35.0-51.0); LYMPH # 0.8 K/uL (1.0-4.3); LYMPH % 3.9 % (20.0-40.0); MEAN CORPUSCULAR HEMOGLOBIN 30.6 pg (27.0-31.0); MEAN CORPUSCULAR HGB CONC 32.9 g/dL (33.0-37.0); MEAN PLATELET VOLUME 8.5 fL (7.2-11.7); MONO # 0.8 K/uL (0.0-0.8); MONO % 4.3 % (0.0-10.0); PLATELET COUNT 285 K/uL (130-400); RED CELL DISTRIBUTION WIDTH 14.5 % (11.5-14.5); WHITE BLOOD COUNT 19.2 K/uL (4.8-10.8)
[2017-01-20 06:55] LABS: CHLORIDE 101 mmol/L (98-107); SODIUM 137 mmol/L (132-148)
[2017-01-20 06:57] LABS: BILIRUBIN,TOTAL 0.4 mg/dL (0.2-1.3); CARBON DIOXIDE 28 mmol/L (22-30); GFR AFRICAN-AMERICAN > 60
[2017-01-20 06:58] LABS: ALB/GLOB RATIO 1.4 (1.0-2.1); ALKALINE PHOSPHATASE 95 U/L (38-126); ALT/SGPT 25 U/L (21-72); AST/SGOT 16 U/L (17-59); BLOOD UREA NITROGEN 20 mg/dL (9-20); CALCIUM 9.3 mg/dl (8.6-10.4); GLUCOSE,RANDOM 160 mg/dL (75-110); MAGNESIUM 2.1 mg/dL (1.6-2.3); PHOSPHOROUS 3.9 mg/dL (2.5-4.5); TOTAL PROTEIN 5.9 g/dL (6.3-8.3)
--- NOTE | 2017-01-20 07:50 | CP.PCM.PN ---
Subjective - Date & Time of Evaluation Date of Evaluation: 01/20/17 Time of Evaluation: 07:35 - Subjective Subjective: Patient has decided to leave the hospital against medical advice. The patient is competent and understands the risks of leaving, including permanent disability and/or , and has had an opportunity to ask questions about his/ her condition. Patient accepts all risk and liability. Paper work filed. The patient has been informed that he/she may return for care at any time. Patient also instructed to follow up in Dr. Rachel Slater's office this Wednesday (address/phone # provided). Patient was provided with the following scripts: Advair Diskus 250/50 1puff INH RQ12 #1 Proventil 6.7Gm HFA 0.09mg INH PRN #1 Prednisone 5mg PO qD #5 Avelox 400mg PO daily #5 Objective - Vital Signs/Intake and Output Vital Signs (last 24 hours): Temp Pulse Resp BP Pulse Ox 97.8 F 76 20 129/72 94 L 01/20/17 00:00 01/20/17 00:00 01/20/17 00:00 01/20/17 00:00 01/20/17 00:00 Intake and Output: 01/20/17 01/20/17 06:59 18:59 Intake Total 240 Balance 240 - Medications Medications: Current Medications Albuterol/Ipratropium (Duoneb 3 Mg/0.5 Mg (3 Ml) Ud) 3 ml INH RQ6 [facility] Last Admin: 01/20/17 01:06 Dose: Not Given Alprazolam (Xanax) 0.25 mg PO HS PRN PRN Reason: Anxiety Stop: 01/24/17 22:01 Last Admin: 01/19/17 21:10 Dose: 0.25 mg Hydroxyzine HCl (Atarax) 50 mg PO Q6H PRN PRN Reason: Anxiety Last Admin: 01/19/17 13:16 Dose: 50 mg Moxifloxacin HCl (Avelox Iv 400mg/250ml Ns) 400 mg in 250 mls @ 167 mls/hr IVPB Q24H [facility] Last Admin: 01/19/17 17:14 Dose: 167 mls/hr Methadone HCl (Methadone) 5 mg PO ONCE ONE Stop: 01/20/17 09:01 Methylprednisolone (Solu-Medrol) 40 mg IVP Q8 [facility] Last Admin: 01/20/17 05:39 Dose: 40 mg Montelukast Sodium (Singulair) 10 mg PO HS [facility] Last Admin: 01/19/17 21:10 Dose: 10 mg Pantoprazole Sodium (Protonix Ec Tab) 40 mg PO DAILY [facility] Last Admin: 01/19/17 09:11 Dose: 40 mg Quetiapine Fumarate (Seroquel) 100 mg PO HS [facility] Last Admin: 01/19/17 21:10 Dose: 100 mg Fluticasone/Salmeterol (Advair Diskus 250/50) 1 puff INH RQ12 [facility] Last Admin: 01/19/17 08:43 Dose: 1 puff - Labs Labs: 01/20/17 06:19 01/20/17 06:19 - Additional Findings Additional findings: - Constitutional Appears: Non-toxic, No Acute Distress - Head Exam Head Exam: ATRAUMATIC, NORMAL INSPECTION, NORMOCEPHALIC - Eye Exam Eye Exam: EOMI - ENT Exam ENT Exam: Mucous Membranes Moist - Neck Exam Neck exam: Positive for: Full Rom, Normal Inspection - Respiratory Exam Respiratory Exam: Wheezes (diffuse, bilateral, improving). absent: Respiratory Distress, NORMAL BREATHING PATTERN - Cardiovascular Exam Cardiovascular Exam: +S1, +S2 - GI/Abdominal Exam GI & Abdominal Exam: Normal Bowel Sounds, Soft. absent: Tenderness - Extremities Exam Extremities exam: Positive for: full ROM. Negative for: normal inspection Additional comments: Track singh along L Arm - Neurological Exam Neurological exam: Alert, CN II-XII Intact, Oriented x3 - Psychiatric Exam Psychiatric exam: Normal Affect, Normal Mood - Skin Skin Exam: Dry, Intact, Normal Color, Warm Assessment and Plan - Assessment and Plan (Free Text) Assessment: Asthma exacerbation 01/20: Patient left AMA prior to being tested for ambulatory O2 saturation by PT. 01/19: patient reports feeling better. f/u PT O2sat while ambulating. -Pulmonology consult, Dr. Jeff, f/u recs -Duoneb 3 ml INH RQ6 [facility] Solu-Medrol 40 mg IVP Q8 [facility] Singulair 10 mg PO HS [facility] Advair Diskus 250/50 1 puff INH RQ12 [facility] -CXR - no active disease Bronchitis Avelox 400 mg IVPB Q24H [facility] (started 6/26). Solu-Medrol 40 mg IVP Q8 [facility] Singulair 10 mg PO HS [facility] Advair Diskus 250/50 1 puff INH RQ12 [facility] Heroin abuse -psych consult, Dr. Arriaga, f/u recs Methadone being tapered per psych Prophylaxis Xanax 0.25 mg PO HS PRN Protonix 40 mg IVP DAILY [facility] -SCDs All Medical management as per Dr. Rachel Slater.
[2017-01-20 08:13] VITALS: BP 156/83; PULSE 62; TEMP 97.5; O2SAT 97
[2017-01-20 08:22] LABS: NEUTROPHIL 91 % (50-75); TOTAL CELLS COUNTED 100
[2017-01-20] MEDS: Pantoprazole 40 mg EC Tab PO SCH ×2 (08:54→10:01)
[2017-01-20] MEDS: Fluticasone-Salmeterol 250-50mcg Diskus INH SCH (09:01)
--- NOTE | 2017-01-20 10:34 | PCM.PYCHPN ---
Psychiatric Progress Note - Psychiatric Progress Note Patient seen today, length of contact: 15 min Patient Chief Complaint: "I am leaving" Problems Identified/Issues Discussed: The pt is seen, chart reviewed and case discussed. Support and psychoed given He is stable and not in acute distress. No SI/HI or AVH No wdw sxs Medication Change: No Medical Record Reviewed: Yes Mental Status Examination - Cognitive Function Orientation: Person, Place, Situation, Time Memory: Intact Attention: WNL Concentration: WNL Association: WNL Fund of Knowledge: WNL - Mood Mood: Anxious - Affect Affect: Constricted - Speech Speech: Appropriate - Formal Thought Process Formal Thought Process: No Impairment - Suicidal Ideation Suicidal Ideation: No - Homicidal Ideation Homicidal Ideation: No Goal/Treatment Plan - Goal/Treatment Plan Progress Toward Problem(s) and Goals/Treatment Plan: Continue with Andrew (methadone maint.) Continue meds (has rx)
== END 2017-01-20 10:32 | disposition left against medical advice (07) | DRG 96 ==
LOC: C.ER 23:21 → C.9OBSV 01-17 04:35 → C.9E 01-17 07:18 → C.3T 01-17 10:40
PROVIDERS: ADMIT Internal Medicine Nephrology; ATTEND Internal Medicine Nephrology
DX: J45.902 Unspecified asthma with status asthmaticus (principal); F11.23 Opioid dependence with withdrawal; J18.9 Pneumonia, unspecified organism; F31.9 Bipolar disorder, unspecified; F41.9 Anxiety disorder, unspecified; F60.3 Borderline personality disorder; F60.2 Antisocial personality disorder; J40 Bronchitis, not specified as acute or chronic; F17.210 Nicotine dependence, cigarettes, uncomplicated; H00.019 Hordeolum externum unspecified eye, unspecified eyelid

== ENCOUNTER 2017-01-28 10:01 | Emergency (ER) | payer OTHER ==
[2017-01-28 10:02] VITALS: BMI 21.9
--- NOTE | 2017-01-28 10:26 | C.PDOC ---
History Of Present Illness 36-YEAR-OLD MALE, PRESENTS TO THE EMERGENCY CO PERSIST WHEEZE, COUGH, SOB. SP AMA 01/20 S/P COPD, BRONCHITIS. PS UNABLE TO FILL ABX RX DUE TO COST. COMPLETED PREDNISONE 3 DAYS AGO. USING MDI W LIMITED RELIEF. NO FEVER. +SMOKE. DC RX = Advair Diskus 250/50 1puff INH RQ12 #1 Proventil 6.7Gm HFA 0.09mg INH PRN #1 Prednisone 5mg PO qD #5 Avelox 400mg PO daily #5 ALSO W NEW ONSET URINARY INCON X 2. PS AWOKE W INCONT. +URINARY URGENCY. NO ABD PAIN EXAM NONTOXIC NARD LUNGS +BRONCHIAL SOUNDS NO WHEEZE RETRACTINS SPEAKING FULL SENTENCES ABD NEG Time Seen by Provider: 01/28/17 10:15 Chief Complaint (Nursing): Male Genitourinary Past Medical History Reviewed: Historical Data, Nursing Documentation, Vital Signs Vital Signs: Last Vital Signs Temp 98.8 F 01/28/17 12:57 Pulse 98 H 01/28/17 12:57 Resp 15 01/28/17 12:57 BP 134/87 01/28/17 12:57 Pulse Ox 97 01/28/17 18:31 - Medical History PMH: Anxiety, Asthma, Bipolar Disorder, Bronchitis, Depression, Pneumonia Denies: HIV (HIV negative) - [facility] Procedures DETOXIFICATION SERVICES FOR SUBSTANCE ABUSE TREATMENT (12/29/16) GROUP PHARMACY CONSULTANT FOR SUBSTANCE ABUSE TREATMENT, PSYCHOEDUCATION (11/16/16) GROUP PSYCHOTHERAPY (11/16/16) INDIV PHARMACY CONSULTANT FOR SUBSTANCE ABUSE TREATMENT, PSYCHOEDUCATION (11/30/16) INDIV PHARMACY CONSULTANT FOR SUBSTANCE ABUSE, COGNITIVE BEHAVIORAL (11/30/16) INDIV PSYCHOTHERAPY FOR SUBSTANCE ABUSE TREATMENT, SUPPORT (12/29/16) INDIV PSYCHOTHERAPY FOR SUBSTANCE ABUSE, PSYCHOEDUCATION (12/29/16) INDIVIDUAL PSYCHOTHERAPY, SUPPORTIVE (11/16/16) MEDICATION MANAGEMENT (11/16/16) MEDS MGMT FOR SUBSTANCE ABUSE TREATMENT, METHADONE MAINT (12/29/16) PHARMACOTHERAPY FOR SUBSTANCE ABUSE, METHADONE MAINT (11/16/16) Family History: States: No Known Family Hx - Social History Hx Tobacco Use: Yes (heavy smoker) Hx Alcohol Use: Yes Hx Substance Use: Yes - Immunization History Hx Tetanus Toxoid Vaccination: No Hx Influenza Vaccination: No (08/2015) Hx Pneumococcal Vaccination: No Review Of Systems Except As Marked, All Systems Reviewed And Found Negative. Constitutional: Negative for: Fever, Chills Cardiovascular: Negative for: Chest Pain, Palpitations Respiratory: Positive for: Cough, Shortness of Breath, Wheezing. Negative for: Sputum Gastrointestinal: Negative for: Nausea, Vomiting Genitourinary: Positive for: Incontinence ((+)urgency) Physical Exam - Physical Exam Appears: Non-toxic, No Acute Distress, Other (NARD) Skin: Warm, Dry, No Rash Head: Atraumatic, Normacephalic Eye(s): bilateral: Normal Inspection, PERRL, EOMI Nose: Normal Oral Mucosa: Moist Lips: Normal Appearing Neck: Normal ROM Cardiovascular: Rhythm Regular, No Murmur Respiratory: No Accessory Muscle Use, Other (+BRONCHIAL SOUNDS NO WHEEZE RETRACTIONS SPEAKING FULL SENTENCES) Gastrointestinal/Abdominal: No Tenderness Extremity: Normal ROM Neurological/Psych: Oriented x3 ED Course And Treatment - Laboratory Results Result Diagrams: 01/28/17 11:18 01/28/17 11:18 O2 Sat by Pulse Oximetry: 97 - Radiology CXR: Viewed By Me, Read By Radiologist CXR Interpretation: Yes: Other (Mild medial right lower lobe patchy opacity may reflect atelectasis or pneumonia in the proper clinical setting. Correlate clinically.) Progress - Data Reviewed Data Reviewed: Lab, Diagnostic imaging, Old records Disposition Counseled Patient/Family Regarding: Studies Performed, Diagnosis, Need For Followup, Rx Given, Smoking Cessation - Disposition Referrals: [facility] [Outside] [facility] [Outside] Disposition: HOME/ ROUTINE Disposition Time: 13:09 Condition: IMPROVED Prescriptions: Azithromycin 250 mg PO DAILY #6 tab Instructions: Acute Bronchitis (ED) - Clinical Impression Clinical Impression: Bronchitis, Asthma exacerbation - Scribe Statement The provider has reviewed the documentation as recorded by the Scribe (Lesly Haile) All medical record entries made by the Scribe were at my direction and personally dictated by me. I have reviewed the chart and agree that the record accurately reflects my personal performance of the history, physical exam, medical decision making, and the department course for this patient. I have also personally directed, reviewed, and agree with the discharge instructions and disposition.
[2017-01-28] MEDS: Albuterol-Ipratrop 3 mg / 0.5 (3 ml) UD IH SCH ×3 (10:30→11:00)
[2017-01-28 11:21] LABS: BASO % 0.4 % (0.0-2.0); EOS # 0.2 K/uL (0.0-0.7); EOS % 1.7 % (0.0-4.0); HEMOGLOBIN 14.3 g/dL (12.0-18.0); LYMPH # 1.3 K/uL (1.0-4.3); LYMPH % 10.4 % (20.0-40.0); MEAN CELL VOLUME 92.7 fL (80.0-94.0); MEAN CORPUSCULAR HEMOGLOBIN 30.1 pg (27.0-31.0); MEAN CORPUSCULAR HGB CONC 32.5 g/dL (33.0-37.0); MEAN PLATELET VOLUME 8.1 fL (7.2-11.7); MONO # 0.8 K/uL (0.0-0.8); MONO % 6.6 % (0.0-10.0); NEUT # 9.9 K/uL (1.8-7.0); NEUT % 80.9 % (50.0-75.0); NRBC % 0.1 % (0.0-2.0); RBC 4.75 Mil/uL (4.40-5.90); RED CELL DISTRIBUTION WIDTH 14.5 % (11.5-14.5); WHITE BLOOD COUNT 12.3 K/uL (4.8-10.8)
[2017-01-28 11:24] LABS: SQUAMOUS EPITHIAL < 1 /hpf (0-5); URINE BILIRUBIN NEGATIVE (NEGATIVE); URINE BLOOD NEGATIVE (NEGATIVE); URINE CLARITY Clear (Clear); URINE COLOR Yellow (YELLOW); URINE GLUCOSE (UA) NORMAL (Normal); URINE LEUKOCYTE ESTERASE NEG Leu/uL (Negative); URINE NITRATE NEGATIVE (NEGATIVE); URINE PROTEIN NEGATIVE (NEGATIVE)
[2017-01-28] MEDS ORDERED: Albuterol-Ipratrop 3 mg / 0.5 (3 ml) UD ONE (11:29)
[2017-01-28 11:32] LABS: BLOOD UREA NITROGEN 9 mg/dL (9-20); GFR AFRICAN-AMERICAN > 60; GFR NON-AFRICAN AMERICAN > 60
[2017-01-28 11:33] LABS: CALCIUM 9.3 mg/dl (8.6-10.4)
[2017-01-28] MEDS ORDERED: Moxifloxacin IV 400mg/250ml NS 0 MG/0 ML BAG IVPB ONE (11:49)
--- NOTE | 2017-01-28 12:43 | RAD ---
HISTORY: COUGH COMPARISON: Chest x-ray performed 01/17/17 TECHNIQUE: Chest PA and lateral FINDINGS: LUNGS: Mild medial right lower lobe patchy opacity may reflect atelectasis or pneumonia in the proper clinical setting. Correlate clinically. Please note that chest x-ray has limited sensitivity for the detection of pulmonary masses. PLEURA: No significant pleural effusion identified. No definite pneumothorax . CARDIOVASCULAR: Heart size appears within normal limits. OSSEOUS STRUCTURES: No acute osseous abnormality identified. VISUALIZED UPPER ABDOMEN: Unremarkable. OTHER FINDINGS: None. IMPRESSION: Mild medial right lower lobe patchy opacity may reflect atelectasis or pneumonia in the proper clinical setting. Correlate clinically. Findings discussed with Dr. Dawson on 01/28/17 at 11:28 a.m..
[2017-01-28 12:57] VITALS: BP 134/87; PULSE 98; RESP 15; TEMP 98.8
[2017-01-28 13:12] VITALS: O2SAT 97
== END 2017-01-28 13:40 | disposition home or self-care (01) ==
LOC: C.ER 10:01
DX: J45.901 Unspecified asthma with (acute) exacerbation (principal)

== ENCOUNTER 2017-02-01 00:59 | Emergency (ER) | payer OTHER ==
[2017-02-01 00:59] VITALS: BMI 21.9
[2017-02-01] MEDS ORDERED: Albuterol-Ipratrop 3 mg / 0.5 (3 ml) UD ONE ×2 (01:13→01:57)
--- NOTE | 2017-02-01 01:29 | C.PDOC ---
History Of Present Illness Patient presents to the ED for evaluation of cough which began several weeks ago. Patient also reports shortness of breath. Patient admits to social history of smoking, stating he smokes around 1-2 cigarettes/day. Patient denies fever, chills, chest pain. Time Seen by Provider: 02/01/17 01:29 Chief Complaint (Nursing): Shortness Of Breath History Per: Patient History/Exam Limitations: no limitations Onset/Duration Of Symptoms: Other (weeks ) Current Symptoms Are (Timing): Still Present Initiating Event: Exposure To Smoke Quality: denies: "Pain" Current Respiratory Medications: See Home Med List Severity: Mild Pain Scale Rating Of: 3 Associated Symptoms: denies: Fever, Chills Recent travel outside of the [place]: No Additional History Per: Patient Past Medical History Reviewed: Historical Data, Nursing Documentation, Vital Signs Vital Signs: Last Vital Signs Temp 98 F 02/01/17 01:16 Pulse 98 H 02/01/17 01:16 Resp 22 02/01/17 01:33 BP 112/79 02/01/17 01:16 Pulse Ox 92 L 02/01/17 01:54 - Medical History PMH: Anxiety, Asthma, Bipolar Disorder, Bronchitis, Depression, Pneumonia - [facility] Procedures DETOXIFICATION SERVICES FOR SUBSTANCE ABUSE TREATMENT (12/29/16) GROUP STRIP CUTTER FOR SUBSTANCE ABUSE TREATMENT, PSYCHOEDUCATION (11/16/16) GROUP PSYCHOTHERAPY (11/16/16) INDIV STRIP CUTTER FOR SUBSTANCE ABUSE TREATMENT, PSYCHOEDUCATION (11/30/16) INDIV STRIP CUTTER FOR SUBSTANCE ABUSE, COGNITIVE BEHAVIORAL (11/30/16) INDIV PSYCHOTHERAPY FOR SUBSTANCE ABUSE TREATMENT, SUPPORT (12/29/16) INDIV PSYCHOTHERAPY FOR SUBSTANCE ABUSE, PSYCHOEDUCATION (12/29/16) INDIVIDUAL PSYCHOTHERAPY, SUPPORTIVE (11/16/16) MEDICATION MANAGEMENT (11/16/16) MEDS MGMT FOR SUBSTANCE ABUSE TREATMENT, METHADONE MAINT (12/29/16) PHARMACOTHERAPY FOR SUBSTANCE ABUSE, METHADONE MAINT (11/16/16) Family History: States: Unknown Family Hx - Social History Hx Tobacco Use: Yes (heavy smoker) Hx Alcohol Use: Yes Hx Substance Use: Yes - Immunization History Hx Tetanus Toxoid Vaccination: No Hx Influenza Vaccination: No (08/2015) Hx Pneumococcal Vaccination: No Review Of Systems Constitutional: Negative for: Fever, Chills ENT: Negative for: Throat Pain Cardiovascular: Negative for: Chest Pain, Palpitations Respiratory: Positive for: Cough, Shortness of Breath Gastrointestinal: Negative for: Nausea, Vomiting, Abdominal Pain Musculoskeletal: Negative for: Back Pain Skin: Negative for: Rash, Lesions, Jaundice, Bruising Neurological: Negative for: Weakness, Numbness Physical Exam - Physical Exam Appears: Non-toxic, No Acute Distress Skin: Warm, Dry Head: Normacephalic Eye(s): bilateral: Normal Inspection Oral Mucosa: Moist Neck: Supple Chest: Symmetrical, No Deformity, No Tenderness Cardiovascular: Rhythm Regular, No Murmur Respiratory: No Rales, Rhonchi (scattered ), Wheezing (mild ), Other (+patient is speaking in complete sentences ) Back: Normal Inspection Extremity: Normal ROM, Capillary Refill (less than 2 seconds ) Extremity: Bilateral: Atraumatic Neurological/Psych: Oriented x3 Gait: Steady ED Course And Treatment O2 Sat by Pulse Oximetry: 92 Pulse Ox Interpretation: Abnormal - Radiology CXR: Interpreted by Me Progress Note: EKG ordered and reviewed. Patient received Duoneb IH, Zithromax PO and Prednisone PO. Reevaluation Time: 02:21 Reassessment Condition: Improved Critical Care Time - Critical Care Note Total Time (in mins): 30 Documented critical care: time excludes all time spent performing seperately billable procedures. Disposition Counseled Patient/Family Regarding: Studies Performed, Diagnosis, Need For Followup, Rx Given - Disposition Referrals: [facility] [Outside] [facility] [Outside] Disposition: HOME/ ROUTINE Disposition Time: 01:29 Condition: FAIR Additional Instructions: Please return if symptoms recur Prescriptions: Albuterol HFA [Ventolin HFA 90 mcg/actuation (8 g)] 2 puff IH [id number] #1 puff Prednisone [Deltasone] 20 mg PO DAILY #5 tablet Instructions: Asthma (DC) - Clinical Impression Clinical Impression: Asthma exacerbation - Scribe Statement The provider has reviewed the documentation as recorded by the Scribe (Meenakshi Slater) Provider Attestation: All medical record entries made by the Scribe were at my direction and personally dictated by me. I have reviewed the chart and agree that the record accurately reflects my personal performance of the history, physical exam, medical decision making, and the department course for this patient. I have also personally directed, reviewed, and agree with the discharge instructions and disposition. Decision To Admit - . Patient Diagnosis: Asthma exacerbation
[2017-02-01] MEDS: Albuterol-Ipratrop 3 mg / 0.5 (3 ml) UD IH SCH ×3 (01:53→02:20)
[2017-02-01 03:06] VITALS: BP 121/81; PULSE 119; RESP 20; TEMP 97.8; O2SAT 100
== END 2017-02-01 03:05 | disposition home or self-care (01) ==
LOC: C.ER 00:59
DX: J45.901 Unspecified asthma with (acute) exacerbation (principal)

== ENCOUNTER 2017-02-08 00:13 | Inpatient (IN) | payer OTHER ==
[2017-02-08 00:15] VITALS: BMI 21.9
[2017-02-08] MEDS ORDERED: Albuterol-Ipratrop 3 mg / 0.5 (3 ml) UD ONE ×2 (00:24→02:07)
[2017-02-08] MEDS ORDERED: Sodium Chloride 0.9% 1,000 ML IV ONE (00:50)
[2017-02-08] MEDS ORDERED: Sodium Chloride 0.9% 1,000 ML ONE (01:05)
[2017-02-08 01:18] LABS: BASO # 0.1 K/uL (0.0-0.2); BASO % 0.5 % (0.0-2.0); EOS % 8.2 % (0.0-4.0); LYMPH # 1.6 K/uL (1.0-4.3); LYMPH % 13.9 % (20.0-40.0); MEAN CELL VOLUME 92.2 fL (80.0-94.0); MEAN CORPUSCULAR HEMOGLOBIN 30.1 pg (27.0-31.0); MEAN CORPUSCULAR HGB CONC 32.6 g/dL (33.0-37.0); MEAN PLATELET VOLUME 8.2 fL (7.2-11.7); MONO # 1.1 K/uL (0.0-0.8); MONO % 9.8 % (0.0-10.0); NEUT # 7.9 K/uL (1.8-7.0); NEUT % 67.6 % (50.0-75.0); RBC 3.97 Mil/uL (4.40-5.90); RED CELL DISTRIBUTION WIDTH 14.4 % (11.5-14.5); WHITE BLOOD COUNT 11.6 K/uL (4.8-10.8)
[2017-02-08 01:20] LABS: ALBUMIN 3.6 g/dL (3.5-5.0)
[2017-02-08 01:23] LABS: AST/SGOT 56 U/L (17-59); GFR AFRICAN-AMERICAN > 60; GFR NON-AFRICAN AMERICAN > 60
[2017-02-08 01:24] LABS: ALB/GLOB RATIO 1.4 (1.0-2.1); ALT/SGPT 106 U/L (21-72); BLOOD UREA NITROGEN 12 mg/dL (9-20); CALCIUM 8.8 mg/dl (8.6-10.4)
[2017-02-08 01:35] LABS: B-TYPE NATRIURETIC PEPTIDE 61.7 pg/mL (0-450)
[2017-02-08] MEDS: Albuterol-Ipratrop 3 mg / 0.5 (3 ml) UD IH SCH ×3 (01:37→02:04)
[2017-02-08] MEDS ORDERED: Magnesium Sulfate 1 gm in D5W 1 GM/100 ML BAG IVPB ONE ×2 (03:44→03:51)
--- NOTE | 2017-02-08 03:48 | C.PDOC ---
Time Seen by Provider: 02/08/17 00:44 Chief Complaint (Nursing): Shortness Of Breath History Per: Patient Onset/Duration Of Symptoms: Worse Since (today) Current Symptoms Are (Timing): Worse Current Respiratory Medications: See Home Med List Severity: Moderate Associated Symptoms: Productive Cough Reports Recently: Seen In ED, Treated By A Physician, Hospitalized Additional History Per: Prior Records Past Medical History Reviewed: Historical Data, Nursing Documentation, Vital Signs Vital Signs: Last Vital Signs Temp 98.2 F 02/08/17 01:11 Pulse 100 H 02/08/17 01:11 Resp 14 02/08/17 01:11 BP 111/74 02/08/17 01:11 Pulse Ox 96 02/08/17 01:11 - Medical History PMH: Anxiety, Asthma, Bipolar Disorder, Bronchitis, Depression, Pneumonia Denies: HIV (HIV negative) - [facility] Procedures DETOXIFICATION SERVICES FOR SUBSTANCE ABUSE TREATMENT (12/29/16) GROUP VACCINES SOLUTIONS SPECIALIST FOR SUBSTANCE ABUSE TREATMENT, PSYCHOEDUCATION (11/16/16) GROUP PSYCHOTHERAPY (11/16/16) INDIV VACCINES SOLUTIONS SPECIALIST FOR SUBSTANCE ABUSE TREATMENT, PSYCHOEDUCATION (11/30/16) INDIV VACCINES SOLUTIONS SPECIALIST FOR SUBSTANCE ABUSE, COGNITIVE BEHAVIORAL (11/30/16) INDIV PSYCHOTHERAPY FOR SUBSTANCE ABUSE TREATMENT, SUPPORT (12/29/16) INDIV PSYCHOTHERAPY FOR SUBSTANCE ABUSE, PSYCHOEDUCATION (12/29/16) INDIVIDUAL PSYCHOTHERAPY, SUPPORTIVE (11/16/16) MEDICATION MANAGEMENT (11/16/16) MEDS MGMT FOR SUBSTANCE ABUSE TREATMENT, METHADONE MAINT (12/29/16) PHARMACOTHERAPY FOR SUBSTANCE ABUSE, METHADONE MAINT (11/16/16) Family History: States: Unknown Family Hx - Social History Hx Tobacco Use: Yes (heavy smoker) Hx Alcohol Use: Yes Hx Substance Use: Yes - Immunization History Hx Tetanus Toxoid Vaccination: No Hx Influenza Vaccination: No (08/2015) Hx Pneumococcal Vaccination: No Review Of Systems Except As Marked, All Systems Reviewed And Found Negative. Constitutional: Negative for: Fever, Weakness Cardiovascular: Negative for: Chest Pain Respiratory: Positive for: Cough, Shortness of Breath, Sputum, Wheezing. Negative for: Hemoptysis Gastrointestinal: Negative for: Vomiting, Abdominal Pain Musculoskeletal: Negative for: Neck Pain Skin: Negative for: Rash Neurological: Positive for: Headache. Negative for: Weakness, Numbness, Seizures Physical Exam - Physical Exam Appears: In Acute Distress (mild) Skin: Normal Color, Warm, Dry, No Rash Head: Atraumatic, Normacephalic Eye(s): bilateral: PERRL, EOMI Neck: Normal ROM, Supple Cardiovascular: Rhythm Regular Respiratory: No Accessory Muscle Use, Wheezing Gastrointestinal/Abdominal: Soft, No Tenderness Back: No CVA Tenderness Extremity: Normal ROM, No Pedal Edema, No Calf Tenderness Neurological/Psych: Oriented x3, Normal Motor, Normal Sensation ED Course And Treatment - Laboratory Results Result Diagrams: 02/08/17 01:04 02/08/17 01:04 O2 Sat by Pulse Oximetry: 96 Pulse Ox Interpretation: Normal - Radiology CXR: Interpreted by Me, Viewed By Me CXR Interpretation: Yes: Infiltrates (vs atelectasis in LLL) Progress - Interventions Interventions:: Observation, Intravenous fluid, Oxygen - Medications Administered Inhaled nebulized: Anticholinergic, Beta-2 agonist Intravenous: Corticosteroid - Data Reviewed Data Reviewed: Lab, Diagnostic imaging, Old records - Patient Status Patient status: Partially improved - Critical Care Citical Care: Excluding Proc Time Critical Care Time: 45 minutes - Continuity of Care Discussed patient case with:: Patient, ED Nurse, On-call PMD-pt unassigned - Patient Plan Patient Plan: Admission Disposition Discussed With : Refugio Slater Comment: He accepted pt on his service and gave admitting orders to the nurse. Doctor Will See Patient In The: Hospital Counseled Patient/Family Regarding: Studies Performed, Diagnosis, Smoking Cessation - Disposition Disposition: HOSPITALIZED Disposition Time: 03:50 Condition: FAIR - Clinical Impression Clinical Impression: Asthma with status asthmaticus, Bronchitis
[2017-02-08 04:01] VITALS: RESP 20
[2017-02-08] MEDS: Moxifloxacin IV 400mg/250ml NS 400 MG/250 ML BAG IVPB SCH (04:35)
[2017-02-08] MEDS: MethylPREDNISolone 40 mg Vial IVP SCH ×3 (05:41→22:03)
[2017-02-08] MEDS: Fluticasone-Salmeterol 250-50mcg Diskus INH SCH ×2 (08:54→19:59)
[2017-02-08] MEDS: Albuterol-Ipratrop 3 mg / 0.5 (3 ml) UD INH SCH ×4 (08:54→19:59)
[2017-02-08] MEDS: Enoxaparin 40 mg Syringe SC SCH ×2 (10:02→10:03)
[2017-02-08] MEDS: Pantoprazole 40 mg EC Tab PO SCH (10:02)
--- NOTE | 2017-02-08 11:19 | CP.PCM.HP ---
Past Patient History - Infectious Disease Hx of Infectious Diseases: None - Past Medical History & Family History Past Medical History?: Yes - Past Social History Smoking Status: Heavy Smoker > 10 Cigarettes Daily - CARDIAC Hx Cardiac Disorders: No - PULMONARY Hx Respiratory Disorders: Yes Hx Asthma: Yes Hx Bronchitis: Yes Hx Emphysema: No Hx Lung Cancer: No Hx Pneumonia: Yes Hx Pulmonary Edema: No Hx Pulmonary Embolism: No Hx Respiratory Aspiration: No Hx Respiratory Tract Infection: Yes Hx Sleep Apnea: No Hx Tuberculosis: No - NEUROLOGICAL Hx Neurological Disorder: No - HEENT Hx HEENT Problems: No - RENAL Hx Chronic Kidney Disease: No - ENDOCRINE/METABOLIC Hx Endocrine Disorders: No - HEMATOLOGICAL/ONCOLOGICAL Hx Blood Disorders: No Hx Human Immunodeficiency Virus (HIV): No (HIV negative) - INTEGUMENTARY Hx Dermatological Problems: No Hx Basil Cell: No Hx Barrera: No Hx Cellulitis: No Hx Eczema: No Hx Melanoma: No Hx Psoriasis: No Hx Squamous Cell: No - MUSCULOSKELETAL/RHEUMATOLOGICAL Hx Musculoskeletal Disorders: No - GASTROINTESTINAL Hx Gastrointestinal Disorders: Yes Hx Bowel Surgery: No Hx Clostridium Difficile: No Hx Colitis: No Hx Colostomy: No Hx Constipation: No Hx Crohn's Disease: No Hx Diarrhea: No Hx Diverticulitis: No Hx Esophageal Varices: No Hx Fatty Liver Disease: No Hx Gall Bladder Disease: No Hx Gastritis: Yes Hx Gastroesophageal Reflux: No Hx Hemorrhoids: No Hx Ileostomy: No Hx Irritable Bowel: No Hx Liver Failure: No Hx Nausea: No Hx Pancreatitis: No HX Swallowing Problems: No Hx Ulcer: No Hx Vomiting: No - GENITOURINARY/GYNECOLOGICAL Hx Genitourinary Disorders: No - PSYCHIATRIC Hx Psychophysiologic Disorder: Yes Hx Anxiety: Yes Hx Bipolar Disorder: Yes Hx Depression: Yes Hx Emotional Abuse: No Hx Hallucinations: No Hx Panic Symptoms: No Hx Paranoia: No Hx Post Traumatic Stress Disorder: No Hx Psychosis: No Hx Physical Abuse: No Hx Schizophrenia: No Hx Sexual Abuse: No Hx Substance Use: Yes - SURGICAL HISTORY Hx Surgeries: No - ANESTHESIA Hx Anesthesia: No Hx Anesthesia Reactions: No Hx Malignant Hyperthermia: No Has any member of the family had a problem w/ anesthesia?: No Meds Allergies/Adverse Reactions: Allergies Allergy/AdvReac Type Severity Reaction Status Date / Time shellfish derived Allergy RASH Verified 02/08/17 00:25 Physical Exam - Constitutional Appears: Well - Head Exam Head Exam: ATRAUMATIC, NORMAL INSPECTION, NORMOCEPHALIC - Eye Exam Eye Exam: EOMI, Normal appearance, PERRL Pupil Exam: NORMAL ACCOMODATION, PERRL - ENT Exam ENT Exam: Mucous Membranes Moist, Normal Exam - Neck Exam Neck exam: Positive for: Normal Inspection - Respiratory Exam Respiratory Exam: Decreased Breath Sounds - Cardiovascular Exam Cardiovascular Exam: REGULAR RHYTHM, +S1, +S2 - GI/Abdominal Exam GI & Abdominal Exam: Diminished Bowel Sounds, Soft - Rectal Exam Rectal Exam: Deferred Results - Vital Signs Recent Vital Signs: Last Vital Signs Temp 98.4 F 02/08/17 10:32 Pulse 100 H 02/08/17 10:38 Resp 20 02/08/17 10:32 BP 132/61 02/08/17 10:32 Pulse Ox 91 L 02/08/17 10:32 - Labs Result Diagrams: 02/08/17 01:04 02/08/17 01:04
--- NOTE | 2017-02-08 12:00 | RAD ---
PROCEDURE: CHEST RADIOGRAPH, 1 VIEW HISTORY: SOB, cough COMPARISON: Comparison chest 01/28/2017 FINDINGS: LUNGS: Mild left basilar atelectasis and or scarring. PLEURA: No pneumothorax or pleural fluid seen. CARDIOVASCULAR: Heart size is upper limits of normal/ borderline enlarged OSSEOUS STRUCTURES: No significant abnormalities. VISUALIZED UPPER ABDOMEN: Normal. OTHER FINDINGS: None. IMPRESSION: Mild left basilar atelectasis or scarring.
[2017-02-08 13:28] LABS: BARBITURATES, UR NEGATIVE (NEGATIVE)
[2017-02-08 13:29] LABS: BENZODIAZEPINES, UR NEGATIVE (NEGATIVE)
[2017-02-08 13:33] LABS: PHENCYCLIDINE, UR NEGATIVE (NEGATIVE)
[2017-02-08 13:51] LABS: OPIATES, UR POSITIVE (NEGATIVE)
--- NOTE | 2017-02-08 14:11 | PCM.PSYCH ---
Initial Psychiatric Evaluation - Initial Psychiatric Evaluation Type of Admission: Voluntary Legal Status: Capacity Chief Complaint (in patient's own words): "I am in the mood to talk" History of Present Illness and Precipitating Events: The pt is seen, chart reviewed and case discussed. 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 He is a 36 yo LM, single, unemployed and lives with his GF now, used to stay in shelters. He was supposed to go to [facility] program, which is an outreach psych program and he claims he missed an appointment and is not accepted. This is very hard to believe as [facility] is very flexible by nature as they work with homeless and care home patients. He was also supposed to go to [facility] or a [facility] methadone program, as he would say a different plan in each visit. He admits to not doing any of them and just use heroin. He uses around 10 bags iv Denies other drugs but cocaine is positive and he claims he may have used or may be cut into his heroin. He is on probation. He is irate and depressed, anxious... Not suicidal/homicidal. Non-comp with psych meds but blames insurance Past psych: admissions, for depression or subs-induced depression mostly Medical: Asthma Current Medications: Active Medications Generic Name Dose Route Start Last Admin Trade Name Carlos PRN Reason Stop Dose Admin Albuterol/Ipratropium 3 ml 02/08/17 08:00 02/08/17 10:30 Duoneb 3 Mg/0.5 Mg (3 Ml) Ud INH 3 ml RQ6 KAYLEE Administration Enoxaparin Sodium 40 mg 02/08/17 10:00 02/08/17 10:03 Lovenox SC Not Given DAILY KAYLEE Moxifloxacin HCl 400 mg in 250 mls @ 167 mls/hr 02/08/17 04:30 02/08/17 04:35 Avelox Iv 400mg/250ml Ns IVPB 167 mls/hr Q24H KAYLEE Administration Methylprednisolone 40 mg 02/08/17 06:00 02/08/17 14:06 Solu-Medrol IVP 40 mg Q8 KAYLEE Administration Montelukast Sodium 10 mg 02/08/17 22:00 Singulair PO HS KAYLEE Nicotine 1 patch 02/08/17 12:00 02/08/17 14:06 Nicoderm Cq TD 1 patch DAILY KAYLEE Administration Pantoprazole Sodium 40 mg 02/08/17 10:00 02/08/17 10:02 Protonix Ec Tab PO 40 mg DAILY KAYLEE Administration Fluticasone/Salmeterol 1 puff 02/08/17 08:00 02/08/17 08:54 Advair Diskus 250/50 INH Not Given RQ12 KAYLEE Past Psychiatric History - Past Psychiatric History Previous Treatment History: Inpatient Pertinent Medical Hx (Current Medical&Sleep Prob, Allergies): Allergies Allergy/AdvReac Type Severity Reaction Status Date / Time shellfish derived Allergy RASH Verified 02/08/17 00:25 Albuterol HFA [Ventolin HFA 90 mcg/actuation (8 g)] 2 puff IH [id number] #1 puff Review of Systems - Psychiatric Psychiatric: Abnormal Sleep Pattern, Anhedonia, Anxiety, Behavioral Changes, Depression. absent: Hallucinations, Homicidal Ideation, Suicidal Ideation Mental Status Examination - Personal Presentation Personal Presentation: Looks stated age - Affect Affect: Constricted - Motor Activity Motor Activity: Other (restless, withdrawing from opioids) - Reliability in Providing Information Reliability in Providing Information: Fair - Speech Speech: Organized - Mood Mood: Depressed, Anxious - Formal Thought Process Formal Thought Process: No Impairment - Cognitive Functions Orientation: Person, Place, Situation, Time Sensorium: Alert Attention/Concentration: Attentive Estimate of Intelligence: Average Judgement: Intact, as evidence by: Insight regarding need for hospitalization Memory: Recent intact, as evidence by: Ability to recall events of the day, Remote impaired as evidenced by: Inability to recall sig life events - Risk Risk: Withdrawal, Diminished functioning - Strength & Assets Inventory Strength & Assets Inventory: Cooperative - Limitations Limitations: Living alone DSM 5 DX - DSM 5 DSM 5 Diagnosis: Opioid withdrawal Opioid use d/o - severe Cocaine use d/o - moderate Depressive d/o - unspecified anxiety d/o - unspecified Personality d/o - unspecified - Recommended/Plan of Treatment Treatment Recommendations and Plan of Treatment: Methadone detox As needed meds Seroquel for depression and irritability Gabapentin for anxiety and cocaine wdw Refer to Methadone or vivitrol 31 min
--- NOTE | 2017-02-08 14:40 | CP.PCM.PN ---
Subjective - Date & Time of Evaluation Date of Evaluation: 02/08/17 Time of Evaluation: 14:36 - Subjective Subjective: PGY [address] Slater 36 year old male with past medical history of asthma with prior intubation in 2013 and history of polysubstance abuse with heroin and cocaine is admitted for acute asthma exacerbation. Patient states that shortness of breath began around yesterday progressively worsening. Patient uses Ventolin inhaler at home which provided him with little relief. He states that his last use of heroin was yesterday morning. He uses about 12 bags of heroin daily. Patient denies having any CP, abd pain, N/V/D/C, f/c, sick contacts. Patient does c/o of TROY located in temporal region B/L with photophobia. Patient does also have history of headaches. No history of EOTH abuse. 12 point ROS are negative except for the above mentioned. Objective - Vital Signs/Intake and Output Vital Signs (last 24 hours): Temp Pulse Resp BP Pulse Ox 98.4 F 100 H 20 132/61 91 L 02/08/17 10:32 02/08/17 10:38 02/08/17 10:32 02/08/17 10:32 02/08/17 10:32 Intake and Output: 02/08/17 02/08/17 06:59 18:59 Intake Total 270 Balance 270 - Medications Medications: Current Medications Albuterol/Ipratropium (Duoneb 3 Mg/0.5 Mg (3 Ml) Ud) 3 ml INH RQ6 [facility] Last Admin: 02/08/17 10:30 Dose: 3 ml Enoxaparin Sodium (Lovenox) 40 mg SC DAILY [facility] Last Admin: 02/08/17 10:03 Dose: Not Given Moxifloxacin HCl (Avelox Iv 400mg/250ml Ns) 400 mg in 250 mls @ 167 mls/hr IVPB Q24H [facility] Last Admin: 02/08/17 04:35 Dose: 167 mls/hr Methadone HCl (Methadone) 0 mg PO Q24H KAYLEE PRN Reason: Taper Stop: 02/13/17 09:59 Methylprednisolone (Solu-Medrol) 40 mg IVP Q8 [facility] Last Admin: 02/08/17 14:06 Dose: 40 mg Montelukast Sodium (Singulair) 10 mg PO HS KAYLEE Nicotine (Nicoderm Cq) 1 patch TD DAILY [facility] Last Admin: 02/08/17 14:06 Dose: 1 patch Pantoprazole Sodium (Protonix Ec Tab) 40 mg PO DAILY [facility] Last Admin: 02/08/17 10:02 Dose: 40 mg Fluticasone/Salmeterol (Advair Diskus 250/50) 1 puff INH RQ12 [facility] Last Admin: 02/08/17 08:54 Dose: Not Given - Constitutional Appears: Non-toxic, No Acute Distress - Head Exam Head Exam: ATRAUMATIC - Eye Exam Eye Exam: EOMI - ENT Exam ENT Exam: Mucous Membranes Moist - Respiratory Exam Respiratory Exam: Clear to Ausculation Bilateral, NORMAL BREATHING PATTERN. absent: Accessory Muscle Use, Rales, Rhonchi, Wheezes, Respiratory Distress - Cardiovascular Exam Cardiovascular Exam: REGULAR RHYTHM, +S1, +S2. absent: Gallop, Rubs, Murmur - GI/Abdominal Exam GI & Abdominal Exam: Soft, Normal Bowel Sounds. absent: Firm, Guarding, Rigid, Tenderness, Organomegaly - Extremities Exam Extremities Exam: absent: Pedal Edema, Tenderness - Neurological Exam Neurological Exam: Alert, Awake, Normal Gait, Oriented x3 - Psychiatric Exam Psychiatric exam: Normal Affect, Normal Mood - Skin Skin Exam: Dry, Intact, Normal Color, Warm Assessment and Plan - Assessment and Plan (Free Text) Assessment: 36 year old male with pats medical history of asthma and IV polysubstance abuse is admitted for shortness of breath likely due to asthma exacerbation Asthma exacerbation - CXR on admission showed mild left bibasial atelectasis - Patient is started on solumedrol 40 mg IVP q8, Duoneb q6m singulai 10 mg po HS and Advair 1 puff q12 Polysubstance abuse - Pt is counselled on adverse effects of polysubstance abuse and recommend cessation - [facility], Dr. cervantes is consulted - Patient is started on methadone taper - Clonidine 0.1 mg patch, thiamine, folic acid, Multivitamin started - Librium 5 mg po q8 prn anxiety - UDS positive for cocaine and opiates Tobacco abuse - Nicotin patch ordered - Discussed risks of tobacco abuse and recommend cessation Headache - CT head without contrast ordered to r/o CVA - Toradol 30 mg IVP stat ordered Prophylaxis - Protonix - Lovenox sc - SCDs Orders and management per Dr. Slater
[2017-02-08] MEDS: Multiple Vitamins Oral Solution PO SCH ×2 (15:39→16:20)
--- NOTE | 2017-02-08 15:43 | CT ---
PROCEDURE: CT HEAD WITHOUT CONTRAST. HISTORY: headache COMPARISON: Noncontrast head CT performed 10/17/16 TECHNIQUE: Axial computed tomography images were obtained through the head/brain without intravenous contrast. Radiation dose: Total exam DLP = 1031.51 mGy-cm. This CT exam was performed using one or more of the following dose reduction techniques: Automated exposure control, adjustment of the mA and/or kV according to patient size, and/or use of iterative reconstruction technique. FINDINGS: HEMORRHAGE: No intracranial hemorrhage. BRAIN: No mass effect or edema. The espinoza-white matter differentiation appears intact. Please note that MRI with diffusion imaging is more sensitive in the detection of acute ischemic event. VENTRICLES: No hydrocephalus. CALVARIUM: Unremarkable. PARANASAL SINUSES: Unremarkable as visualized. No significant inflammatory changes. MASTOID AIR CELLS: Unremarkable as visualized. No inflammatory changes. OTHER FINDINGS: None. IMPRESSION: No acute intracranial pathology identified.
--- NOTE | 2017-02-08 17:29 | CP.PCM.CON ---
Past Patient History - Infectious Disease Hx of Infectious Diseases: None - Past Medical History & Family History Past Medical History?: Yes - Past Social History Smoking Status: Heavy Smoker > 10 Cigarettes Daily - CARDIAC Hx Cardiac Disorders: No - PULMONARY Hx Respiratory Disorders: Yes Hx Asthma: Yes Hx Bronchitis: Yes Hx Emphysema: No Hx Lung Cancer: No Hx Pneumonia: Yes Hx Pulmonary Edema: No Hx Pulmonary Embolism: No Hx Respiratory Aspiration: No Hx Respiratory Tract Infection: Yes Hx Sleep Apnea: No Hx Tuberculosis: No - NEUROLOGICAL Hx Neurological Disorder: No - HEENT Hx HEENT Problems: No - RENAL Hx Chronic Kidney Disease: No - ENDOCRINE/METABOLIC Hx Endocrine Disorders: No - HEMATOLOGICAL/ONCOLOGICAL Hx Blood Disorders: No Hx Human Immunodeficiency Virus (HIV): No (HIV negative) - INTEGUMENTARY Hx Dermatological Problems: No Hx Basil Cell: No Hx Barrera: No Hx Cellulitis: No Hx Eczema: No Hx Melanoma: No Hx Psoriasis: No Hx Squamous Cell: No - MUSCULOSKELETAL/RHEUMATOLOGICAL Hx Musculoskeletal Disorders: No - GASTROINTESTINAL Hx Gastrointestinal Disorders: Yes Hx Bowel Surgery: No Hx Clostridium Difficile: No Hx Colitis: No Hx Colostomy: No Hx Constipation: No Hx Crohn's Disease: No Hx Diarrhea: No Hx Diverticulitis: No Hx Esophageal Varices: No Hx Fatty Liver Disease: No Hx Gall Bladder Disease: No Hx Gastritis: Yes Hx Gastroesophageal Reflux: No Hx Hemorrhoids: No Hx Ileostomy: No Hx Irritable Bowel: No Hx Liver Failure: No Hx Nausea: No Hx Pancreatitis: No HX Swallowing Problems: No Hx Ulcer: No Hx Vomiting: No - GENITOURINARY/GYNECOLOGICAL Hx Genitourinary Disorders: No - PSYCHIATRIC Hx Psychophysiologic Disorder: Yes Hx Anxiety: Yes Hx Bipolar Disorder: Yes Hx Depression: Yes Hx Emotional Abuse: No Hx Hallucinations: No Hx Panic Symptoms: No Hx Paranoia: No Hx Post Traumatic Stress Disorder: No Hx Psychosis: No Hx Physical Abuse: No Hx Schizophrenia: No Hx Sexual Abuse: No Hx Substance Use: Yes - SURGICAL HISTORY Hx Surgeries: No - ANESTHESIA Hx Anesthesia: No Hx Anesthesia Reactions: No Hx Malignant Hyperthermia: No Has any member of the family had a problem w/ anesthesia?: No Meds Allergies/Adverse Reactions: Allergies Allergy/AdvReac Type Severity Reaction Status Date / Time shellfish derived Allergy RASH Verified 02/08/17 00:25 - Medications Medications: Current Medications Albuterol/Ipratropium (Duoneb 3 Mg/0.5 Mg (3 Ml) Ud) 3 ml INH RQ6 [facility] Last Admin: 02/08/17 14:46 Dose: 3 ml Chlordiazepoxide (Librium) 5 mg PO Q8 PRN PRN Reason: Anxiety Clonidine HCl (Catapres Tts1 0.1 Mg/24 Hr) 1 patch TD Q7D@1000 KAYLEE Enoxaparin Sodium (Lovenox) 40 mg SC DAILY [facility] Last Admin: 02/08/17 10:03 Dose: Not Given Folic Acid (Folic Acid) 1 mg PO DAILY [facility] Last Admin: 02/08/17 16:20 Dose: 1 mg Moxifloxacin HCl (Avelox Iv 400mg/250ml Ns) 400 mg in 250 mls @ 167 mls/hr IVPB Q24H [facility] Last Admin: 02/08/17 04:35 Dose: 167 mls/hr Methadone HCl (Methadone) 0 mg PO Q24H KAYLEE PRN Reason: Taper Stop: 02/13/17 09:59 Methylprednisolone (Solu-Medrol) 40 mg IVP Q8 [facility] Last Admin: 02/08/17 14:06 Dose: 40 mg Montelukast Sodium (Singulair) 10 mg PO HS [facility] Multivitamins/Vitamin C (Multi-Delyn Liquid) 5 ml PO DAILY [facility] Last Admin: 02/08/17 16:20 Dose: 5 ml Nicotine (Nicoderm Cq) 1 patch TD DAILY [facility] Last Admin: 02/08/17 14:06 Dose: 1 patch Pantoprazole Sodium (Protonix Ec Tab) 40 mg PO DAILY [facility] Last Admin: 02/08/17 10:02 Dose: 40 mg Fluticasone/Salmeterol (Advair Diskus 250/50) 1 puff INH RQ12 [facility] Last Admin: 02/08/17 08:54 Dose: Not Given Thiamine HCl (Vitamin B1 Tab) 100 mg PO DAILY [facility] Last Admin: 02/08/17 16:20 Dose: 100 mg Results - Vital Signs Recent Vital Signs: Last Vital Signs Temp 98.1 F 02/08/17 15:00 Pulse 105 H 02/08/17 15:00 Resp 20 02/08/17 15:00 BP 123/66 02/08/17 15:00 Pulse Ox 94 L 02/08/17 15:00 - Labs Result Diagrams: 02/08/17 01:04 02/08/17 01:04 Labs: Laboratory Results - last 24 hr 02/08/17 13:08 Urine Opiates Screen Positive Urine Methadone Screen Negative Ur Barbiturates Screen Negative Ur Phencyclidine Scrn Negative Ur Amphetamines Screen Negative U Benzodiazepines Scrn Negative U Oth Cocaine Metabols Positive U Cannabinoids Screen Negative
[2017-02-09] MEDS: Albuterol-Ipratrop 3 mg / 0.5 (3 ml) UD INH SCH ×4 (01:34→19:31)
[2017-02-09] MEDS: Moxifloxacin IV 400mg/250ml NS 400 MG/250 ML BAG IVPB SCH (04:25)
[2017-02-09] MEDS: MethylPREDNISolone 40 mg Vial IVP SCH ×2 (06:04→21:29)
[2017-02-09] MEDS: Fluticasone-Salmeterol 250-50mcg Diskus INH SCH ×2 (08:01→19:31)
[2017-02-09 08:37] LABS: HEMOGLOBIN 11.8 g/dL (12.0-18.0); MEAN CELL VOLUME 92.4 fL (80.0-94.0); MEAN CORPUSCULAR HEMOGLOBIN 30.4 pg (27.0-31.0); MEAN CORPUSCULAR HGB CONC 32.8 g/dL (33.0-37.0); MEAN PLATELET VOLUME 8.4 fL (7.2-11.7); RBC 3.88 Mil/uL (4.40-5.90); RED CELL DISTRIBUTION WIDTH 14.4 % (11.5-14.5)
[2017-02-09 08:51] LABS: ALBUMIN 3.5 g/dL (3.5-5.0)
[2017-02-09 08:54] LABS: ALB/GLOB RATIO 1.3 (1.0-2.1); ALT/SGPT 77 U/L (21-72); AST/SGOT 30 U/L (17-59); BLOOD UREA NITROGEN 15 mg/dL (9-20); GFR AFRICAN-AMERICAN > 60; GFR NON-AFRICAN AMERICAN > 60
[2017-02-09 08:55] LABS: CALCIUM 9.1 mg/dl (8.6-10.4)
[2017-02-09] MEDS: Multiple Vitamins Oral Solution PO SCH (09:39)
[2017-02-09] MEDS: Pantoprazole 40 mg EC Tab PO SCH (09:40)
[2017-02-09] MEDS: Enoxaparin 40 mg Syringe SC SCH (09:47)
--- NOTE | 2017-02-09 10:04 | CP.PCM.PN ---
Subjective - Date & Time of Evaluation Date of Evaluation: 02/09/17 Time of Evaluation: 09:20 - Subjective Subjective: PGY [address] Rachel Slater Patient seen and examined at bedside this AM. Patient reports SOB with walking. Patient denies having any CP, abd pain, N/V/D/C, f/c, sick contacts. Patient does c/o of TROY located in temporal region B/L with photophobia. Patient does also have history of headaches. No history of ETOH abuse. 12 point ROS are negative except for the above mentioned. Objective - Vital Signs/Intake and Output Vital Signs (last 24 hours): Temp Pulse Resp BP Pulse Ox 98.1 F 100 H 20 120/46 L 95 02/09/17 09:36 02/09/17 09:36 02/09/17 09:36 02/09/17 09:36 02/09/17 09:36 Intake and Output: 02/09/17 02/09/17 06:59 18:59 Intake Total 500 Balance 500 - Medications Medications: Current Medications Albuterol/Ipratropium (Duoneb 3 Mg/0.5 Mg (3 Ml) Ud) 3 ml INH RQ6 [facility] Last Admin: 02/09/17 08:00 Dose: 3 ml Alprazolam (Xanax) 0.25 mg PO BID PRN PRN Reason: Anxiety Last Admin: 02/08/17 19:04 Dose: 0.25 mg Clonidine HCl (Catapres Tts1 0.1 Mg/24 Hr) 1 patch TD Q7D@1000 [facility] Enoxaparin Sodium (Lovenox) 40 mg SC DAILY [facility] Last Admin: 02/09/17 09:47 Dose: Not Given Folic Acid (Folic Acid) 1 mg PO DAILY [facility] Last Admin: 02/09/17 09:40 Dose: 1 mg Gabapentin (Neurontin) 300 mg PO TID [facility] Last Admin: 02/09/17 09:40 Dose: 300 mg Hydroxyzine HCl (Atarax) 50 mg PO Q6H PRN PRN Reason: Anxiety Moxifloxacin HCl (Avelox Iv 400mg/250ml Ns) 400 mg in 250 mls @ 167 mls/hr IVPB Q24H [facility] Last Admin: 02/09/17 04:25 Dose: 167 mls/hr Ketorolac Tromethamine (Toradol) 30 mg IVP Q6 PRN PRN Reason: Pain, moderate (4-7) Methadone HCl (Methadone) 15 mg PO Q24H [facility] PRN Reason: Taper Stop: 02/13/17 09:59 Last Admin: 02/09/17 09:40 Dose: 15 mg Methylprednisolone (Solu-Medrol) 40 mg IVP Q8 [facility] Last Admin: 02/09/17 06:04 Dose: 40 mg Montelukast Sodium (Singulair) 10 mg PO HS [facility] Last Admin: 02/08/17 22:02 Dose: 10 mg Multivitamins/Vitamin C (Multi-Delyn Liquid) 5 ml PO DAILY [facility] Last Admin: 02/09/17 09:39 Dose: 5 ml Nicotine (Nicoderm Cq) 1 patch TD DAILY [facility] Last Admin: 02/09/17 09:39 Dose: 1 patch Pantoprazole Sodium (Protonix Ec Tab) 40 mg PO DAILY [facility] Last Admin: 02/09/17 09:40 Dose: 40 mg Quetiapine Fumarate (Seroquel) 100 mg PO HS [facility] Last Admin: 02/08/17 22:03 Dose: 100 mg Fluticasone/Salmeterol (Advair Diskus 250/50) 1 puff INH RQ12 [facility] Last Admin: 02/09/17 08:01 Dose: 1 puff Thiamine HCl (Vitamin B1 Tab) 100 mg PO DAILY [facility] Last Admin: 02/09/17 09:40 Dose: 100 mg - Labs Labs: 02/09/17 08:22 02/09/17 08:22 - Constitutional Appears: Non-toxic, No Acute Distress - Head Exam Head Exam: NORMAL INSPECTION - Eye Exam Eye Exam: EOMI - ENT Exam ENT Exam: Mucous Membranes Moist - Respiratory Exam Respiratory Exam: Clear to Ausculation Bilateral, NORMAL BREATHING PATTERN. absent: Rales, Rhonchi, Wheezes - Cardiovascular Exam Cardiovascular Exam: REGULAR RHYTHM, +S1, +S2. absent: Gallop, Rubs, Murmur - GI/Abdominal Exam GI & Abdominal Exam: Soft, Normal Bowel Sounds. absent: Distended, Firm, Tenderness - Extremities Exam Extremities Exam: absent: Pedal Edema - Neurological Exam Neurological Exam: Alert, Awake, Oriented x3 - Psychiatric Exam Psychiatric exam: Normal Affect, Normal Mood - Skin Skin Exam: Normal Color, Warm Assessment and Plan - Assessment and Plan (Free Text) Assessment: 36 year old male with pats medical history of asthma and IV polysubstance abuse is admitted for shortness of breath likely due to asthma exacerbation Asthma exacerbation - CXR on admission showed mild left bibasial atelectasis - solumedrol 40 mg IVP q8, Duoneb q6h, singulair 10 mg po HS and Advair 1 puff q12 - pending sputum culture Polysubstance abuse - Pt is counselled on adverse effects of polysubstance abuse and recommend cessation - [facility], Dr. cervantes is consulted - Patient is started on methadone taper finished 02/13/17 - Clonidine 0.1 mg patch, thiamine, folic acid, Multivitamin started - Librium 5 mg po q8 prn anxiety - UDS positive for cocaine and opiates Tobacco abuse - Nicotine patch ordered - Discussed risks of tobacco abuse and recommend cessation Headache - CT head without contrast negative (please see full report) - Toradol 30 mg IVP stat ordered Prophylaxis - Protonix - Lovenox sc - SCDs Orders and management per Dr. Slater
--- NOTE | 2017-02-09 11:21 | CP.PCM.PN ---
Subjective - Date & Time of Evaluation Date of Evaluation: 02/09/17 Time of Evaluation: 10:00 - Subjective Subjective: clinically same Objective - Vital Signs/Intake and Output Vital Signs (last 24 hours): Temp Pulse Resp BP Pulse Ox 98.1 F 100 H 20 120/46 L 95 02/09/17 09:36 02/09/17 09:36 02/09/17 09:36 02/09/17 09:36 02/09/17 09:36 Intake and Output: 02/09/17 02/09/17 06:59 18:59 Intake Total 500 Balance 500 - Medications Medications: Current Medications Albuterol/Ipratropium (Duoneb 3 Mg/0.5 Mg (3 Ml) Ud) 3 ml INH RQ6 [facility] Last Admin: 02/09/17 08:00 Dose: 3 ml Alprazolam (Xanax) 0.25 mg PO BID PRN PRN Reason: Anxiety Last Admin: 02/08/17 19:04 Dose: 0.25 mg Clonidine HCl (Catapres Tts1 0.1 Mg/24 Hr) 1 patch TD Q7D@1000 [facility] Enoxaparin Sodium (Lovenox) 40 mg SC DAILY [facility] Last Admin: 02/09/17 09:47 Dose: Not Given Folic Acid (Folic Acid) 1 mg PO DAILY [facility] Last Admin: 02/09/17 09:40 Dose: 1 mg Gabapentin (Neurontin) 300 mg PO TID [facility] Last Admin: 02/09/17 09:40 Dose: 300 mg Hydroxyzine HCl (Atarax) 50 mg PO Q6H PRN PRN Reason: Anxiety Moxifloxacin HCl (Avelox Iv 400mg/250ml Ns) 400 mg in 250 mls @ 167 mls/hr IVPB Q24H [facility] Last Admin: 02/09/17 04:25 Dose: 167 mls/hr Ketorolac Tromethamine (Toradol) 30 mg IVP Q6 PRN PRN Reason: Pain, moderate (4-7) Methadone HCl (Methadone) 15 mg PO Q24H [facility] PRN Reason: Taper Stop: 02/13/17 09:59 Last Admin: 02/09/17 09:40 Dose: 15 mg Methylprednisolone (Solu-Medrol) 40 mg IVP Q8 [facility] Last Admin: 02/09/17 06:04 Dose: 40 mg Montelukast Sodium (Singulair) 10 mg PO HS [facility] Last Admin: 02/08/17 22:02 Dose: 10 mg Multivitamins/Vitamin C (Multi-Delyn Liquid) 5 ml PO DAILY [facility] Last Admin: 02/09/17 09:39 Dose: 5 ml Nicotine (Nicoderm Cq) 1 patch TD DAILY [facility] Last Admin: 02/09/17 09:39 Dose: 1 patch Pantoprazole Sodium (Protonix Ec Tab) 40 mg PO DAILY [facility] Last Admin: 02/09/17 09:40 Dose: 40 mg Quetiapine Fumarate (Seroquel) 100 mg PO HS [facility] Last Admin: 02/08/17 22:03 Dose: 100 mg Fluticasone/Salmeterol (Advair Diskus 250/50) 1 puff INH RQ12 [facility] Last Admin: 02/09/17 08:01 Dose: 1 puff Thiamine HCl (Vitamin B1 Tab) 100 mg PO DAILY [facility] Last Admin: 02/09/17 09:40 Dose: 100 mg - Labs Labs: 02/09/17 08:22 02/09/17 08:22 - Constitutional Appears: Well - Head Exam Head Exam: ATRAUMATIC, NORMAL INSPECTION, NORMOCEPHALIC - Eye Exam Eye Exam: EOMI, Normal appearance, PERRL Pupil Exam: NORMAL ACCOMODATION, PERRL - ENT Exam ENT Exam: Mucous Membranes Moist, Normal Exam - Neck Exam Neck Exam: Full ROM, Normal Inspection. absent: Lymphadenopathy - Respiratory Exam Respiratory Exam: Decreased Breath Sounds - Cardiovascular Exam Cardiovascular Exam: REGULAR RHYTHM, +S1, +S2 - GI/Abdominal Exam GI & Abdominal Exam: Soft, Diminished Bowel Sounds - Rectal Exam Rectal Exam: Deferred
--- NOTE | 2017-02-09 14:18 | CP.PCM.PN ---
Subjective - Date & Time of Evaluation Date of Evaluation: 02/09/17 Time of Evaluation: 14:17 Objective - Vital Signs/Intake and Output Vital Signs (last 24 hours): Temp Pulse Resp BP Pulse Ox 98.1 F 100 H 20 120/46 L 95 02/09/17 09:36 02/09/17 09:36 02/09/17 09:36 02/09/17 09:36 02/09/17 09:36 Intake and Output: 02/09/17 02/09/17 06:59 18:59 Intake Total 500 Balance 500 - Medications Medications: Current Medications Albuterol/Ipratropium (Duoneb 3 Mg/0.5 Mg (3 Ml) Ud) 3 ml INH RQ6 [facility] Last Admin: 02/09/17 13:46 Dose: 3 ml Alprazolam (Xanax) 0.25 mg PO BID PRN PRN Reason: Anxiety Last Admin: 02/09/17 13:39 Dose: 0.25 mg Clonidine HCl (Catapres Tts1 0.1 Mg/24 Hr) 1 patch TD Q7D@1000 [facility] Enoxaparin Sodium (Lovenox) 40 mg SC DAILY [facility] Last Admin: 02/09/17 09:47 Dose: Not Given Folic Acid (Folic Acid) 1 mg PO DAILY [facility] Last Admin: 02/09/17 09:40 Dose: 1 mg Gabapentin (Neurontin) 300 mg PO TID [facility] Last Admin: 02/09/17 13:36 Dose: 300 mg Hydroxyzine HCl (Atarax) 50 mg PO Q6H PRN PRN Reason: Anxiety Moxifloxacin HCl (Avelox Iv 400mg/250ml Ns) 400 mg in 250 mls @ 167 mls/hr IVPB Q24H [facility] Last Admin: 02/09/17 04:25 Dose: 167 mls/hr Ketorolac Tromethamine (Toradol) 30 mg IVP Q6 PRN PRN Reason: Pain, moderate (4-7) Methadone HCl (Methadone) 15 mg PO Q24H [facility] PRN Reason: Taper Stop: 02/13/17 09:59 Last Admin: 02/09/17 09:40 Dose: 15 mg Methylprednisolone (Solu-Medrol) 40 mg IVP Q12 [facility] Montelukast Sodium (Singulair) 10 mg PO HS [facility] Last Admin: 02/08/17 22:02 Dose: 10 mg Multivitamins/Vitamin C (Multi-Delyn Liquid) 5 ml PO DAILY [facility] Last Admin: 02/09/17 09:39 Dose: 5 ml Nicotine (Nicoderm Cq) 1 patch TD DAILY [facility] Last Admin: 02/09/17 09:39 Dose: 1 patch Pantoprazole Sodium (Protonix Ec Tab) 40 mg PO DAILY [facility] Last Admin: 02/09/17 09:40 Dose: 40 mg Quetiapine Fumarate (Seroquel) 100 mg PO HS [facility] Last Admin: 02/08/17 22:03 Dose: 100 mg Fluticasone/Salmeterol (Advair Diskus 250/50) 1 puff INH RQ12 [facility] Last Admin: 02/09/17 08:01 Dose: 1 puff Thiamine HCl (Vitamin B1 Tab) 100 mg PO DAILY [facility] Last Admin: 02/09/17 09:40 Dose: 100 mg - Labs Labs: 02/09/17 08:22 02/09/17 08:22
[2017-02-10] MEDS: Albuterol-Ipratrop 3 mg / 0.5 (3 ml) UD INH SCH ×3 (02:10→13:39)
[2017-02-10] MEDS: Moxifloxacin IV 400mg/250ml NS 400 MG/250 ML BAG IVPB SCH (05:00)
[2017-02-10] MEDS: Fluticasone-Salmeterol 250-50mcg Diskus INH SCH (07:22)
[2017-02-10 08:11] VITALS: BP 146/80; PULSE 83; TEMP 96.7; O2SAT 95
[2017-02-10 08:16] LABS: BASO % 0.1 % (0.0-2.0); HEMOGLOBIN 11.6 g/dL (12.0-18.0); LYMPH # 0.8 K/uL (1.0-4.3); LYMPH % 4.3 % (20.0-40.0); MEAN CELL VOLUME 92.8 fL (80.0-94.0); MEAN CORPUSCULAR HEMOGLOBIN 29.7 pg (27.0-31.0); MEAN CORPUSCULAR HGB CONC 32.1 g/dL (33.0-37.0); MEAN PLATELET VOLUME 8.4 fL (7.2-11.7); MONO % 5.1 % (0.0-10.0); NEUT # 17.8 K/uL (1.8-7.0); NEUT % 90.5 % (50.0-75.0); PLATELET COUNT 302 K/uL (130-400); RBC 3.89 Mil/uL (4.40-5.90); RED CELL DISTRIBUTION WIDTH 14.8 % (11.5-14.5); WHITE BLOOD COUNT 19.6 K/uL (4.8-10.8)
[2017-02-10 08:25] LABS: ALBUMIN 3.3 g/dL (3.5-5.0)
[2017-02-10 08:28] LABS: ALB/GLOB RATIO 1.3 (1.0-2.1); ALT/SGPT 64 U/L (21-72); AST/SGOT 20 U/L (17-59); BLOOD UREA NITROGEN 20 mg/dL (9-20); GFR AFRICAN-AMERICAN > 60; GFR NON-AFRICAN AMERICAN > 60
[2017-02-10 08:29] LABS: CALCIUM 9.1 mg/dl (8.6-10.4)
[2017-02-10] MEDS: MethylPREDNISolone 40 mg Vial IVP SCH (09:30)
[2017-02-10] MEDS: Enoxaparin 40 mg Syringe SC SCH ×2 (09:30→10:00)
[2017-02-10] MEDS: Multiple Vitamins Oral Solution PO SCH (09:31)
[2017-02-10] MEDS ORDERED: MethylPREDNISolone 40 mg Vial IVP SCH (10:00)
[2017-02-10 10:06] LABS: BANDS 5 % (0-2); LYMPHOCYTE 5 % (20-40); MONOCYTE 8 % (0-10); NEUTROPHIL 82 % (50-75); PLATELET ESTIMATE NORMAL (NORMAL); TOTAL CELLS COUNTED 100
[2017-02-10 10:07] LABS: TOXIC GRANULATION PRESENT
--- NOTE | 2017-02-10 15:46 | PCM.PYCHPN ---
Psychiatric Progress Note - Psychiatric Progress Note Patient seen today, length of contact: 15 min Patient Chief Complaint: "Not doing well, just got my methadone" Problems Identified/Issues Discussed: The pt is seen, chart reviewed, case discussed with staff. The pt is compliant with medications and reports no side-effects. Symptoms are improving but needs more time to stabilize. He was very irate again After care discussed, support and psychoeducation given. Seroquel increased bc he reported poor sleep Medication Change: Yes (detox changes daily and seroquel is increased) Medical Record Reviewed: Yes Mental Status Examination - Cognitive Function Orientation: Person, Place, Situation, Time Memory: Impaired Attention: Poor Concentration: Poor Association: WNL Fund of Knowledge: WNL - Mood Mood: Depressed, Anxious - Affect Affect: Constricted - Speech Speech: Appropriate - Formal Thought Process Formal Thought Process: No Impairment - Suicidal Ideation Suicidal Ideation: No - Homicidal Ideation Homicidal Ideation: No Goal/Treatment Plan - Goal/Treatment Plan Need for Continued Stay: Severe functional impairment, Other (medical) Progress Toward Problem(s) and Goals/Treatment Plan: Methadone detox As needed meds Seroquel for depression and irritability Gabapentin for anxiety and cocaine wdw Refer to Methadone or vivitrol
--- NOTE | 2017-02-10 15:56 | CP.PCM.PN ---
Subjective - Date & Time of Evaluation Date of Evaluation: 02/10/17 Time of Evaluation: 15:53 - Subjective Subjective: PGY2 progress note for Dr. Slater Pt is seen and examined at bedside. No acute events overnight. Patient is seen walking around the hallways without any difficulty with breathing. patient denies having any SOB, CP, abd pain, N/V/D/C, F/C. 12 point ROS are negative except for the above mentioned. Objective - Vital Signs/Intake and Output Vital Signs (last 24 hours): Temp Pulse Resp BP Pulse Ox 96.7 F L 83 20 146/80 95 02/10/17 08:10 02/10/17 08:10 02/10/17 08:10 02/10/17 08:10 02/10/17 08:10 Intake and Output: 02/10/17 02/10/17 06:59 18:59 Intake Total 650 Output Total 800 Balance -150 - Medications Medications: Current Medications Albuterol/Ipratropium (Duoneb 3 Mg/0.5 Mg (3 Ml) Ud) 3 ml INH RQ6 [facility] Last Admin: 02/10/17 13:39 Dose: 3 ml Alprazolam (Xanax) 0.25 mg PO BID PRN PRN Reason: Anxiety Last Admin: 02/10/17 13:52 Dose: 0.25 mg Clonidine HCl (Catapres Tts1 0.1 Mg/24 Hr) 1 patch TD Q7D@1000 [facility] Enoxaparin Sodium (Lovenox) 40 mg SC DAILY [facility] Last Admin: 02/10/17 10:00 Dose: Not Given Folic Acid (Folic Acid) 1 mg PO DAILY [facility] Last Admin: 02/10/17 09:45 Dose: 1 mg Gabapentin (Neurontin) 400 mg PO TID [facility] Last Admin: 02/10/17 13:52 Dose: 400 mg Hydroxyzine HCl (Atarax) 50 mg PO Q6H PRN PRN Reason: Anxiety Last Admin: 02/10/17 10:24 Dose: 50 mg Moxifloxacin HCl (Avelox Iv 400mg/250ml Ns) 400 mg in 250 mls @ 167 mls/hr IVPB Q24H [facility] Last Admin: 02/10/17 05:00 Dose: 167 mls/hr Ketorolac Tromethamine (Toradol) 30 mg IVP Q6 PRN PRN Reason: Pain, moderate (4-7) Last Admin: 02/10/17 01:31 Dose: 30 mg Methadone HCl (Methadone) 10 mg PO Q24H [facility] PRN Reason: Taper Stop: 02/14/17 09:44 Last Admin: 02/10/17 09:49 Dose: 10 mg Methylprednisolone (Solu-Medrol) 40 mg IVP DAILY [facility] Montelukast Sodium (Singulair) 10 mg PO HS [facility] Last Admin: 02/09/17 21:26 Dose: 10 mg Multivitamins/Vitamin C (Multi-Delyn Liquid) 5 ml PO DAILY [facility] Last Admin: 02/10/17 09:31 Dose: 5 ml Nicotine (Nicoderm Cq) 1 patch TD DAILY [facility] Last Admin: 02/10/17 09:31 Dose: 1 patch Pantoprazole Sodium (Protonix Ec Tab) 40 mg PO DAILY [facility] Last Admin: 02/09/17 09:40 Dose: 40 mg Quetiapine Fumarate (Seroquel) 200 mg PO HS [facility] Fluticasone/Salmeterol (Advair Diskus 250/50) 1 puff INH RQ12 [facility] Last Admin: 02/10/17 07:22 Dose: 1 puff Thiamine HCl (Vitamin B1 Tab) 100 mg PO DAILY [facility] Last Admin: 02/10/17 09:35 Dose: 100 mg - Labs Labs: 02/10/17 08:04 02/10/17 08:04 - Constitutional Appears: Non-toxic, No Acute Distress - Head Exam Head Exam: ATRAUMATIC - Eye Exam Eye Exam: EOMI - ENT Exam ENT Exam: Mucous Membranes Moist - Respiratory Exam Respiratory Exam: Clear to Ausculation Bilateral, NORMAL BREATHING PATTERN. absent: Accessory Muscle Use, Rales, Rhonchi, Wheezes, Respiratory Distress - Cardiovascular Exam Cardiovascular Exam: REGULAR RHYTHM, +S1, +S2. absent: Gallop, Rubs, Murmur - GI/Abdominal Exam GI & Abdominal Exam: Soft, Normal Bowel Sounds. absent: Distended, Firm, Guarding, Rigid, Tenderness, Organomegaly - Extremities Exam Extremities Exam: absent: Pedal Edema, Tenderness - Neurological Exam Neurological Exam: Alert, Awake, Oriented x3 - Psychiatric Exam Psychiatric exam: Normal Affect, Normal Mood - Skin Skin Exam: Dry, Intact, Normal Color, Warm Assessment and Plan - Assessment and Plan (Free Text) Assessment: 36 year old male with pats medical history of asthma and IV polysubstance abuse is admitted for shortness of breath likely due to asthma exacerbation Asthma exacerbation - Improved - CXR on admission showed mild left bibasial atelectasis - solumedrol 40 mg qd, Duoneb q6h, singulair 10 mg po HS and Advair 1 puff q12 - Sputum culture negative Polysubstance abuse - Pt is counselled on adverse effects of polysubstance abuse and recommend cessation - [facility], Dr. cervantes is consulted - Patient is started on methadone taper finished 02/13/17 - Clonidine 0.1 mg patch, thiamine, folic acid, Multivitamin started - Librium 5 mg po q8 prn anxiety - UDS positive for cocaine and opiates Tobacco abuse - Nicotine patch ordered - Discussed risks of tobacco abuse and recommend cessation Headache - CT head without contrast negative (please see full report) - Toradol 30 mg IVP stat ordered Prophylaxis - Protonix - Lovenox sc - SCDs Orders and management per Dr. Slater Patient is stable for discharge home per Dr. Slater Patient is to follow up with PMD upon discharge. Patient is told to follow up with methadone clinic for methadone tapering. Patient is discharged on the following medications: Ventolin Inhaler, Zihromax 500 mg po q24 x 3 days, Medrol dose pack. If symptoms return, please return to ED.
--- NOTE | 2017-02-10 16:40 | CP.PCM.PN ---
Subjective - Date & Time of Evaluation Date of Evaluation: 02/10/17 Time of Evaluation: 16:40 Objective - Vital Signs/Intake and Output Vital Signs (last 24 hours): Temp Pulse Resp BP Pulse Ox 96.7 F L 83 20 146/80 95 02/10/17 08:10 02/10/17 08:10 02/10/17 08:10 02/10/17 08:10 02/10/17 08:10 Intake and Output: 02/10/17 02/10/17 06:59 18:59 Intake Total 650 Output Total 800 Balance -150 - Medications Medications: Current Medications Albuterol/Ipratropium (Duoneb 3 Mg/0.5 Mg (3 Ml) Ud) 3 ml INH RQ6 [facility] Last Admin: 02/10/17 13:39 Dose: 3 ml Alprazolam (Xanax) 0.25 mg PO BID PRN PRN Reason: Anxiety Last Admin: 02/10/17 13:52 Dose: 0.25 mg Clonidine HCl (Catapres Tts1 0.1 Mg/24 Hr) 1 patch TD Q7D@1000 [facility] Enoxaparin Sodium (Lovenox) 40 mg SC DAILY [facility] Last Admin: 02/10/17 10:00 Dose: Not Given Folic Acid (Folic Acid) 1 mg PO DAILY [facility] Last Admin: 02/10/17 09:45 Dose: 1 mg Gabapentin (Neurontin) 400 mg PO TID [facility] Last Admin: 02/10/17 13:52 Dose: 400 mg Hydroxyzine HCl (Atarax) 50 mg PO Q6H PRN PRN Reason: Anxiety Last Admin: 02/10/17 10:24 Dose: 50 mg Moxifloxacin HCl (Avelox Iv 400mg/250ml Ns) 400 mg in 250 mls @ 167 mls/hr IVPB Q24H [facility] Last Admin: 02/10/17 05:00 Dose: 167 mls/hr Ketorolac Tromethamine (Toradol) 30 mg IVP Q6 PRN PRN Reason: Pain, moderate (4-7) Last Admin: 02/10/17 01:31 Dose: 30 mg Methadone HCl (Methadone) 10 mg PO Q24H [facility] PRN Reason: Taper Stop: 02/14/17 09:44 Last Admin: 02/10/17 09:49 Dose: 10 mg Methylprednisolone (Solu-Medrol) 40 mg IVP DAILY [facility] Montelukast Sodium (Singulair) 10 mg PO HS [facility] Last Admin: 02/09/17 21:26 Dose: 10 mg Multivitamins/Vitamin C (Multi-Delyn Liquid) 5 ml PO DAILY [facility] Last Admin: 02/10/17 09:31 Dose: 5 ml Nicotine (Nicoderm Cq) 1 patch TD DAILY [facility] Last Admin: 02/10/17 09:31 Dose: 1 patch Pantoprazole Sodium (Protonix Ec Tab) 40 mg PO DAILY [facility] Last Admin: 02/09/17 09:40 Dose: 40 mg Quetiapine Fumarate (Seroquel) 200 mg PO HS [facility] Fluticasone/Salmeterol (Advair Diskus 250/50) 1 puff INH RQ12 [facility] Last Admin: 02/10/17 07:22 Dose: 1 puff Thiamine HCl (Vitamin B1 Tab) 100 mg PO DAILY [facility] Last Admin: 02/10/17 09:35 Dose: 100 mg - Labs Labs: 02/10/17 08:04 02/10/17 08:04
--- NOTE | 2017-02-10 17:38 | CP.PCM.PN ---
Subjective - Date & Time of Evaluation Date of Evaluation: 02/10/17 Time of Evaluation: 09:40 - Subjective Subjective: clinically same Objective - Vital Signs/Intake and Output Vital Signs (last 24 hours): Temp Pulse Resp BP Pulse Ox 96.7 F L 83 20 146/80 95 02/10/17 08:10 02/10/17 08:10 02/10/17 08:10 02/10/17 08:10 02/10/17 08:10 Intake and Output: 02/10/17 02/10/17 06:59 18:59 Intake Total 650 300 Output Total 800 Balance -150 300 - Medications Medications: Current Medications Albuterol/Ipratropium (Duoneb 3 Mg/0.5 Mg (3 Ml) Ud) 3 ml INH RQ6 [facility] Last Admin: 02/10/17 13:39 Dose: 3 ml Alprazolam (Xanax) 0.25 mg PO BID PRN PRN Reason: Anxiety Last Admin: 02/10/17 13:52 Dose: 0.25 mg Clonidine HCl (Catapres Tts1 0.1 Mg/24 Hr) 1 patch TD Q7D@1000 [facility] Enoxaparin Sodium (Lovenox) 40 mg SC DAILY [facility] Last Admin: 02/10/17 10:00 Dose: Not Given Folic Acid (Folic Acid) 1 mg PO DAILY [facility] Last Admin: 02/10/17 09:45 Dose: 1 mg Gabapentin (Neurontin) 400 mg PO TID [facility] Last Admin: 02/10/17 17:21 Dose: Not Given Hydroxyzine HCl (Atarax) 50 mg PO Q6H PRN PRN Reason: Anxiety Last Admin: 02/10/17 10:24 Dose: 50 mg Moxifloxacin HCl (Avelox Iv 400mg/250ml Ns) 400 mg in 250 mls @ 167 mls/hr IVPB Q24H [facility] Last Admin: 02/10/17 05:00 Dose: 167 mls/hr Ketorolac Tromethamine (Toradol) 30 mg IVP Q6 PRN PRN Reason: Pain, moderate (4-7) Last Admin: 02/10/17 01:31 Dose: 30 mg Methadone HCl (Methadone) 10 mg PO Q24H [facility] PRN Reason: Taper Stop: 02/14/17 09:44 Last Admin: 02/10/17 09:49 Dose: 10 mg Methylprednisolone (Solu-Medrol) 40 mg IVP DAILY [facility] Montelukast Sodium (Singulair) 10 mg PO HS [facility] Last Admin: 02/09/17 21:26 Dose: 10 mg Multivitamins/Vitamin C (Multi-Delyn Liquid) 5 ml PO DAILY [facility] Last Admin: 02/10/17 09:31 Dose: 5 ml Nicotine (Nicoderm Cq) 1 patch TD DAILY [facility] Last Admin: 02/10/17 09:31 Dose: 1 patch Pantoprazole Sodium (Protonix Ec Tab) 40 mg PO DAILY [facility] Last Admin: 02/09/17 09:40 Dose: 40 mg Quetiapine Fumarate (Seroquel) 200 mg PO HS [facility] Fluticasone/Salmeterol (Advair Diskus 250/50) 1 puff INH RQ12 [facility] Last Admin: 02/10/17 07:22 Dose: 1 puff Thiamine HCl (Vitamin B1 Tab) 100 mg PO DAILY [facility] Last Admin: 02/10/17 09:35 Dose: 100 mg - Labs Labs: 02/10/17 08:04 02/10/17 08:04 - Constitutional Appears: Well - Head Exam Head Exam: ATRAUMATIC, NORMAL INSPECTION, NORMOCEPHALIC - Eye Exam Eye Exam: EOMI, Normal appearance, PERRL Pupil Exam: NORMAL ACCOMODATION, PERRL - ENT Exam ENT Exam: Mucous Membranes Moist, Normal Exam - Neck Exam Neck Exam: Full ROM, Normal Inspection. absent: Lymphadenopathy - Respiratory Exam Respiratory Exam: Decreased Breath Sounds - Cardiovascular Exam Cardiovascular Exam: REGULAR RHYTHM, +S1, +S2 - GI/Abdominal Exam GI & Abdominal Exam: Soft, Diminished Bowel Sounds - Rectal Exam Rectal Exam: Deferred
[2017-02-11] MEDS ORDERED: MethylPREDNISolone 40 mg Vial IVP SCH (10:00)
== END 2017-02-10 17:20 | disposition home or self-care (01) | DRG 96 ==
LOC: C.ER 00:13 → C.3T 03:50
PROVIDERS: ADMIT Internal Medicine Nephrology; ATTEND Internal Medicine Nephrology
DX: J45.902 Unspecified asthma with status asthmaticus (principal); F11.23 Opioid dependence with withdrawal; F14.10 Cocaine abuse, uncomplicated; J98.11 Atelectasis; J40 Bronchitis, not specified as acute or chronic; F32.9 Major depressive disorder, single episode, unspecified; F60.9 Personality disorder, unspecified; F41.9 Anxiety disorder, unspecified; F31.9 Bipolar disorder, unspecified; F17.210 Nicotine dependence, cigarettes, uncomplicated; Z59.0 Homelessness; Z87.01 Personal history of pneumonia (recurrent)

== ENCOUNTER 2017-02-24 02:47 | Emergency (ER) | payer OTHER ==
[2017-02-24 02:47] VITALS: BMI 21.9
[2017-02-24] MEDS ORDERED: Albuterol-Ipratrop 3 mg / 0.5 (3 ml) UD ONE (03:06)
[2017-02-24] MEDS ORDERED: Albuterol-Ipratrop 3 mg / 0.5 (3 ml) UD INH STA (03:14)
--- NOTE | 2017-02-24 03:31 | C.PDOC ---
History Of Present Illness 36 year old male with a Hx of asthma who presents to the ER for a complaint of chest pain that worsens with with deep breathing, movement, and coughing. Patient reports he ran out of his medication; denies fever, chills, SOB, or vomiting. Chief Complaint (Nursing): Chest Pain History Per: Patient History/Exam Limitations: no limitations Onset/Duration Of Symptoms: Hrs Current Symptoms Are (Timing): Still Present Associated Symptoms: denies: Nausea, Dyspnea, Diaphoresis Modifying Factors: None Exacerbating Factors: None Alleviating Factors: None Recent travel outside of the [place]: No Past Medical History Reviewed: Historical Data, Nursing Documentation, Vital Signs Vital Signs: Last Vital Signs Temp 98.3 F 02/24/17 03:07 Pulse 97 H 02/24/17 03:07 Resp 16 02/24/17 03:07 BP 148/73 02/24/17 03:07 Pulse Ox 95 02/24/17 03:36 - Medical History PMH: Anxiety, Asthma, Bipolar Disorder, Bronchitis, Depression, Gastritis, Pneumonia Surgical History: No Surg Hx - [facility] Procedures DETOXIFICATION SERVICES FOR SUBSTANCE ABUSE TREATMENT (12/29/16) GROUP GRID OPERATOR FOR SUBSTANCE ABUSE TREATMENT, PSYCHOEDUCATION (11/16/16) GROUP PSYCHOTHERAPY (11/16/16) INDIV GRID OPERATOR FOR SUBSTANCE ABUSE TREATMENT, PSYCHOEDUCATION (11/30/16) INDIV GRID OPERATOR FOR SUBSTANCE ABUSE, COGNITIVE BEHAVIORAL (11/30/16) INDIV PSYCHOTHERAPY FOR SUBSTANCE ABUSE TREATMENT, SUPPORT (12/29/16) INDIV PSYCHOTHERAPY FOR SUBSTANCE ABUSE, PSYCHOEDUCATION (12/29/16) INDIVIDUAL PSYCHOTHERAPY, SUPPORTIVE (11/16/16) MEDICATION MANAGEMENT (11/16/16) MEDS MGMT FOR SUBSTANCE ABUSE TREATMENT, METHADONE MAINT (12/29/16) PHARMACOTHERAPY FOR SUBSTANCE ABUSE, METHADONE MAINT (11/16/16) Family History: States: Unknown Family Hx - Social History Hx Tobacco Use: Yes (heavy smoker) Hx Alcohol Use: No Hx Substance Use: No - Immunization History Hx Tetanus Toxoid Vaccination: No Hx Influenza Vaccination: No (08/2015) Hx Pneumococcal Vaccination: No Review Of Systems Constitutional: Negative for: Fever, Chills Cardiovascular: Positive for: Chest Pain Respiratory: Negative for: Shortness of Breath, Wheezing Gastrointestinal: Negative for: Vomiting Physical Exam - Physical Exam Appears: Non-toxic, No Acute Distress Skin: Normal Color, Warm, Dry Head: Atraumatic, Normacephalic Oral Mucosa: Moist Chest: Symmetrical, No Tenderness Cardiovascular: Rhythm Regular, No Murmur Respiratory: Normal Breath Sounds, No Rales, No Rhonchi, No Wheezing Gastrointestinal/Abdominal: Soft, No Tenderness Neurological/Psych: Oriented x3, Normal Speech, Normal Cognition ED Course And Treatment - Laboratory Results Result Diagrams: 02/24/17 03:34 02/24/17 03:34 O2 Sat by Pulse Oximetry: 95 (Room air) Pulse Ox Interpretation: Normal Progress Note: EKG, blood work, and CXR ordered. Duoneb administered. Disposition Counseled Patient/Family Regarding: Diagnosis - Disposition Referrals: [facility] [Outside] Disposition: HOME/ ROUTINE Disposition Time: 04:01 Condition: STABLE Prescriptions: Albuterol HFA [Ventolin HFA 90 mcg/actuation (8 g)] 2 puff IH D6VPTPT #1 inhaler Azithromycin [Zithromax] 250 mg PO DAILY #6 tab Instructions: Asthma (DC), Acute Bronchitis (ED), Bronchospasm (ED) Forms: [employer] (Uruguayan) - POA Present On Arrival: None - Clinical Impression Clinical Impression: Asthma, Bronchitis - Scribe Statement The provider has reviewed the documentation as recorded by the Scribjeanne Cameron All medical record entries made by the Scribe were at my direction and personally dictated by me. I have reviewed the chart and agree that the record accurately reflects my personal performance of the history, physical exam, medical decision making, and the department course for this patient. I have also personally directed, reviewed, and agree with the discharge instructions and disposition.
[2017-02-24 03:37] LABS: BASO # 0.1 K/uL (0.0-0.2); BASO % 0.4 % (0.0-2.0); EOS # 0.1 K/uL (0.0-0.7); EOS % 0.5 % (0.0-4.0); HEMATOCRIT 38.1 % (35.0-51.0); LYMPH # 0.7 K/uL (1.0-4.3); MEAN CELL VOLUME 92.4 fL (80.0-94.0); MEAN CORPUSCULAR HEMOGLOBIN 30.9 pg (27.0-31.0); MEAN CORPUSCULAR HGB CONC 33.4 g/dL (33.0-37.0); MEAN PLATELET VOLUME 8.7 fL (7.2-11.7); MONO # 0.4 K/uL (0.0-0.8); MONO % 2.4 % (0.0-10.0); PLATELET COUNT 269 K/uL (130-400); RED CELL DISTRIBUTION WIDTH 14.5 % (11.5-14.5)
[2017-02-24 03:47] LABS: CHLORIDE 101 mmol/L (98-107)
[2017-02-24 03:48] LABS: SODIUM 140 mmol/L (132-148)
[2017-02-24 03:49] LABS: POTASSIUM 4.9 mmol/L (3.6-5.2)
[2017-02-24 03:50] LABS: ALB/GLOB RATIO 1.4 (1.0-2.1); ALKALINE PHOSPHATASE 69 U/L (38-126); AST/SGOT 48 U/L (17-59); CARBON DIOXIDE 26 mmol/L (22-30); GFR AFRICAN-AMERICAN > 60; TOTAL PROTEIN 6.9 g/dL (6.3-8.3)
[2017-02-24 03:51] LABS: ALT/SGPT 63 U/L (21-72); BLOOD UREA NITROGEN 15 mg/dL (9-20); CALCIUM 8.9 mg/dl (8.6-10.4); GLUCOSE,RANDOM 168 mg/dL (75-110)
[2017-02-24 04:15] VITALS: BP 140/82; PULSE 89; RESP 20; TEMP 98; O2SAT 98
[2017-02-24 04:15] LABS: NEUTROPHIL 89 % (50-75); TOTAL CELLS COUNTED 100
--- NOTE | 2017-02-24 10:12 | RAD ---
HISTORY: COMPARISON: 02/08/2017. TECHNIQUE: Chest PA and lateral FINDINGS: LINES AND TUBES: None. LUNG AND PLEURA: There is linear atelectasis/ scarring in the lung bases. No focal consolidation. There are no pleural effusions or pneumothorax. HEART AND MEDIASTINUM: The heart is not enlarged. The hilar and mediastinal contours are within normal limits. SKELETAL STRUCTURES: The bony structures are within normal limits for the patient's age. VISUALIZED UPPER ABDOMEN: Normal. OTHER FINDINGS: None. IMPRESSION: Linear atelectasis/ scarring in the lung bases. No active pulmonary disease.
== END 2017-02-24 04:14 | disposition home or self-care (01) ==
LOC: C.ER 02:47
DX: J45.909 Unspecified asthma, uncomplicated (principal); Z87.891 Personal history of nicotine dependence

== ENCOUNTER 2017-02-27 21:53 | Emergency (ER) | payer OTHER ==
[2017-02-27 21:54] VITALS: BMI 21.9
[2017-02-27] MEDS ORDERED: Albuterol-Ipratrop 3 mg / 0.5 (3 ml) UD ONE ×2 (22:12→23:24)
[2017-02-27] MEDS ORDERED: Albuterol-Ipratrop 3 mg / 0.5 (3 ml) UD INH STA (22:48)
--- NOTE | 2017-02-27 22:50 | C.PDOC ---
History Of Present Illness 36 year old male with a history of asthma presents to the ED with complaints of SOB and productive cough with white mucus for one week. Patient denies chest pain or labored breathing. Chief Complaint (Nursing): Shortness Of Breath History Per: Patient History/Exam Limitations: no limitations Onset/Duration Of Symptoms: Days (1 week ) Current Symptoms Are (Timing): Still Present Current Respiratory Medications: See Home Med List Associated Symptoms: Productive Cough. denies: Fever Recent travel outside of the [place]: No Past Medical History Reviewed: Historical Data, Nursing Documentation, Vital Signs Vital Signs: Last Vital Signs Temp 98.3 F 02/28/17 02:38 Pulse 74 02/28/17 02:38 Resp 16 02/28/17 02:38 BP 100/60 02/28/17 02:38 Pulse Ox 99 02/28/17 03:49 - Medical History PMH: Anxiety, Asthma, Bipolar Disorder, Bronchitis, Depression, Gastritis, Pneumonia Surgical History: Denies: Appendectomy, CABG, Carotid Endarterectomy, Cholecystectomy, Coronary Stent, Tonsillectomy - [facility] Procedures DETOXIFICATION SERVICES FOR SUBSTANCE ABUSE TREATMENT (12/29/16) GROUP BUTTON SPINDLER FOR SUBSTANCE ABUSE TREATMENT, PSYCHOEDUCATION (11/16/16) GROUP PSYCHOTHERAPY (11/16/16) INDIV BUTTON SPINDLER FOR SUBSTANCE ABUSE TREATMENT, PSYCHOEDUCATION (11/30/16) INDIV BUTTON SPINDLER FOR SUBSTANCE ABUSE, COGNITIVE BEHAVIORAL (11/30/16) INDIV PSYCHOTHERAPY FOR SUBSTANCE ABUSE TREATMENT, SUPPORT (12/29/16) INDIV PSYCHOTHERAPY FOR SUBSTANCE ABUSE, PSYCHOEDUCATION (12/29/16) INDIVIDUAL PSYCHOTHERAPY, SUPPORTIVE (11/16/16) MEDICATION MANAGEMENT (11/16/16) MEDS MGMT FOR SUBSTANCE ABUSE TREATMENT, METHADONE MAINT (12/29/16) PHARMACOTHERAPY FOR SUBSTANCE ABUSE, METHADONE MAINT (11/16/16) Family History: States: Unknown Family Hx - Social History Hx Tobacco Use: Yes (heavy smoker) Hx Alcohol Use: No Hx Substance Use: Yes - Immunization History Hx Tetanus Toxoid Vaccination: No Hx Influenza Vaccination: No (08/2015) Hx Pneumococcal Vaccination: No Review Of Systems Constitutional: Negative for: Fever, Chills Cardiovascular: Negative for: Chest Pain Respiratory: Positive for: Cough, Shortness of Breath Gastrointestinal: Negative for: Nausea, Vomiting Physical Exam - Physical Exam Appears: Non-toxic, Other (Moderately dyspneic ) Skin: Warm, Dry Head: Atraumatic Eye(s): bilateral: Normal Inspection, PERRL, EOMI Oral Mucosa: Moist Neck: Supple Chest: Symmetrical, No Deformity Cardiovascular: Rhythm Regular Respiratory: Rhonchi (especially in right lower lung ), Wheezing (especially in right lower lung ) Neurological/Psych: Oriented x3, Normal Speech, Normal Cognition, Normal Cranial Nerves, Normal Motor, Normal Sensation ED Course And Treatment - Laboratory Results Result Diagrams: 02/27/17 23:19 02/27/17 23:19 O2 Sat by Pulse Oximetry: 99 (room air ) Disposition Counseled Patient/Family Regarding: Diagnosis - Disposition Referrals: [facility] [Outside] Disposition: HOME/ ROUTINE Disposition Time: 03:44 Condition: STABLE Prescriptions: Albuterol/Ipratropium [Combivent Respimat] 1 puff IH Q4 #1 inhaler Methylprednisolone [Medrol Dose Pack (21 tabs)] 4 mg PO DAILY #21 mg Potassium Chloride [K-Tab ER] 10 meq PO DAILY #10 tablet.er traMADol/Acetaminophen [Ultracet 325 MG-37.5 MG] 1 tab PO Q6 #14 tab Instructions: Asthma (DC), Pleurisy (ED), Noncardiac Chest Pain (ED), Hypokalemia (DC) Forms: [employer] (Mohawk) - POA Present On Arrival: None - Clinical Impression Clinical Impression: Asthma, Pleurisy, Chest pain, non-cardiac - Scribe Statement The provider has reviewed the documentation as recorded by the Scribe Dinorah Puente All medical record entries made by the Scribe were at my direction and personally dictated by me. I have reviewed the chart and agree that the record accurately reflects my personal performance of the history, physical exam, medical decision making, and the department course for this patient. I have also personally directed, reviewed, and agree with the discharge instructions and disposition.
[2017-02-27 23:22] LABS: BASO # 0.1 K/uL (0.0-0.2); BASO % 0.6 % (0.0-2.0); EOS # 0.5 K/uL (0.0-0.7); EOS % 3.5 % (0.0-4.0); HEMOGLOBIN 12.8 g/dL (12.0-18.0); LYMPH % 15.4 % (20.0-40.0); MEAN CELL VOLUME 91.4 fL (80.0-94.0); MEAN CORPUSCULAR HEMOGLOBIN 31.1 pg (27.0-31.0); MEAN PLATELET VOLUME 8.1 fL (7.2-11.7); MONO # 1.2 K/uL (0.0-0.8); MONO % 9.1 % (0.0-10.0); NEUT # 9.2 K/uL (1.8-7.0); NEUT % 71.4 % (50.0-75.0); RBC 4.11 Mil/uL (4.40-5.90); RED CELL DISTRIBUTION WIDTH 14.6 % (11.5-14.5); WHITE BLOOD COUNT 12.9 K/uL (4.8-10.8)
[2017-02-27 23:33] LABS: ALBUMIN 3.7 g/dL (3.5-5.0)
[2017-02-27 23:35] LABS: GFR AFRICAN-AMERICAN > 60; GFR NON-AFRICAN AMERICAN > 60
[2017-02-27 23:36] LABS: ALB/GLOB RATIO 1.5 (1.0-2.1); AST/SGOT 37 U/L (17-59); BLOOD UREA NITROGEN 7 mg/dL (9-20)
[2017-02-27 23:37] LABS: ALT/SGPT 74 U/L (21-72); CALCIUM 9.1 mg/dl (8.6-10.4)
[2017-02-28 02:39] VITALS: BP 100/60; PULSE 74; RESP 16; TEMP 98.3
--- NOTE | 2017-02-28 02:47 | CT ---
EXAM: CT Chest Without Intravenous Contrast CLINICAL HISTORY: 36 years old, male; Pain; Chest pain; Right-sided chest pain; Additional info: Right sided chest pain TECHNIQUE: Axial computed tomography images of the chest without intravenous contrast. This CT exam was performed using one or more of the following dose reduction techniques: automated exposure control, adjustment of the mA and/or kV according to patient size, and/or use of iterative reconstruction technique. Coronal and sagittal reformatted images were created and reviewed. COMPARISON: CT - CHEST W/O CONTRAST 12/02/2016 2:35:51 PM FINDINGS: Limitations: Lack of intravenous contrast. Lungs: Mild linear atelectasis/scarring. No consolidation. 0.5 cm spiculated nodular opacity LEFT upper lobe, grossly stable. Calcified granuloma LEFT lower lobe. Pleural space: No pneumothorax. No significant effusion. Heart: No cardiomegaly. No significant pericardial effusion. Mediastinum: Minimal mucus within trachea. Bones/joints: No acute fracture. Soft tissues: Mild RIGHT gynecomastia. Vasculature: Unremarkable. No aneurysm. Lymph nodes: No pathologically enlarged lymph nodes. IMPRESSION: 1. Pulmonary nodule, indeterminate. Followup as clinically warranted. 2. Incidental/non-acute findings are described above.
[2017-02-28 03:47] VITALS: O2SAT 99
--- NOTE | 2017-02-28 08:31 | RAD ---
HISTORY: Shortness of breath COMPARISON: 02/24/2017 TECHNIQUE: Chest PA and lateral FINDINGS: LUNGS: Mild venous congestion. Linear atelectasis at the left lung base. Right hilar prominence. Diffuse increased interstitial lung markings. Upper lobe granulomatous changes. Scattered nodularity throughout both lungs. PLEURA: No significant pleural effusion identified. No pneumothorax apparent. CARDIOVASCULAR: Normal. OSSEOUS STRUCTURES: No significant abnormalities. VISUALIZED UPPER ABDOMEN: Normal. OTHER FINDINGS: None. IMPRESSION: Mild venous congestion. Linear atelectasis at the left lung base. Right hilar prominence. Diffuse increased interstitial lung markings. Upper lobe granulomatous changes. Scattered nodularity throughout both lungs.
--- NOTE | 2017-03-01 14:17 | CARD ---
APPROVED REPORT EKG Measurement Heart [id number] <Conclusion> Normal sinus rhythm Possible Left atrial enlargement Septal infarct, age undetermined Abnormal ECG
== END 2017-02-28 04:30 | disposition home or self-care (01) ==
LOC: C.ER 21:53
DX: J45.909 Unspecified asthma, uncomplicated (principal); R09.1 Pleurisy; R07.89 Other chest pain
CPT/HCPCS: 71020; 71250; 80053; 84484; 85025; 85378; 87040; 93005; 96374; 96375; 99284; J1885; J2930

== ENCOUNTER 2017-03-03 03:30 | Emergency (ER) | payer OTHER ==
[2017-03-03 03:30] VITALS: BMI 21.9
[2017-03-03 04:05] VITALS: PULSE 83; O2SAT 98
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
[2017-03-03 05:47] VITALS: BP 119/70; RESP 18; TEMP 97.5
== END 2017-03-03 05:55 | disposition home or self-care (01) ==
LOC: C.ER 03:30
DX: F41.9 Anxiety disorder, unspecified (principal)

== ENCOUNTER 2017-03-14 03:22 | Emergency (ER) | payer OTHER ==
[2017-03-14 03:23] VITALS: BMI 21.9
[2017-03-14] MEDS ORDERED: Albuterol 0.083% Inhal Sol (2.5 mg/3 mL) UD IH STA ×2 (04:27→04:28)
[2017-03-14] MEDS ORDERED: Albuterol 0.083% Inhal Sol (2.5 mg/3 mL) UD ONE (04:38)
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
[2017-03-14 05:11] VITALS: RESP 18
[2017-03-14 05:26] VITALS: BP 159/81; PULSE 78; TEMP 98.3
[2017-03-14 06:06] VITALS: O2SAT 96
== END 2017-03-14 05:26 | disposition home or self-care (01) ==
LOC: C.ER 03:22
DX: J45.909 Unspecified asthma, uncomplicated (principal); Z48.00 Encounter for change or removal of nonsurgical wound dressing

== ENCOUNTER 2017-03-14 08:03 | Emergency (ER) | payer OTHER ==
[2017-03-14 08:04] VITALS: BMI 21.9
[2017-03-14 08:13] VITALS: TEMP 98.3
[2017-03-14 09:05] LABS: BASO # 0.1 K/uL (0.0-0.2); BASO % 0.7 % (0.0-2.0); EOS # 0.4 K/uL (0.0-0.7); EOS % 2.8 % (0.0-4.0); HEMATOCRIT 39.2 % (35.0-51.0); LYMPH # 2.4 K/uL (1.0-4.3); LYMPH % 15.9 % (20.0-40.0); MEAN CELL VOLUME 91.9 fL (80.0-94.0); MEAN CORPUSCULAR HEMOGLOBIN 30.4 pg (27.0-31.0); MEAN CORPUSCULAR HGB CONC 33.1 g/dL (33.0-37.0); MONO # 1.9 K/uL (0.0-0.8); MONO % 12.7 % (0.0-10.0); RED CELL DISTRIBUTION WIDTH 14.9 % (11.5-14.5); WHITE BLOOD COUNT 15.1 K/uL (4.8-10.8)
[2017-03-14 09:19] LABS: CHLORIDE 101 mmol/L (98-107); POTASSIUM 3.9 mmol/L (3.6-5.2); SODIUM 136 mmol/L (132-148)
[2017-03-14 09:21] LABS: BILIRUBIN,TOTAL 0.5 mg/dL (0.2-1.3); GFR AFRICAN-AMERICAN > 60
[2017-03-14 09:22] LABS: ALB/GLOB RATIO 1.4 (1.0-2.1); ALKALINE PHOSPHATASE 64 U/L (38-126); ALT/SGPT 72 U/L (21-72); AST/SGOT 30 U/L (17-59); BLOOD UREA NITROGEN 14 mg/dL (9-20); CARBON DIOXIDE 25 mmol/L (22-30); GLUCOSE,RANDOM 88 mg/dL (75-110); TOTAL PROTEIN 6.4 g/dL (6.3-8.3)
[2017-03-14 09:23] LABS: ALCOHOL SERUM < 10 mg/dl (0-10)
[2017-03-14 09:26] LABS: VALPROIC ACID < 10.0 ug/mL (50.0-100.0)
--- NOTE | 2017-03-14 09:31 | RAD ---
PROCEDURE: Right Wrist Radiographs. HISTORY: Pain s/p injury today COMPARISON: None available. FINDINGS: BONES: No acute displaced fracture. JOINTS: No dislocation. SOFT TISSUES: Unremarkable. No evidence of radiopaque foreign body OTHER FINDINGS: None. IMPRESSION: No acute displaced fracture, dislocation, or significant joint effusion identified. If symptoms persist, or if there is continued clinical concern, x-ray follow-up in 7-10 days should be considered.
[2017-03-14 09:39] LABS: RBC URINE < 1 /hpf (0-3); URINE BILIRUBIN NEGATIVE (NEGATIVE); URINE BLOOD NEGATIVE (NEGATIVE); URINE COLOR Yellow (YELLOW); URINE GLUCOSE (UA) NORMAL (Normal); URINE KETONE NEGATIVE (NEGATIVE); URINE LEUKOCYTE ESTERASE NEG Leu/uL (Negative); URINE PROTEIN NEGATIVE (NEGATIVE); WBC URINE < 1 /hpf (0-5)
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
[2017-03-14 11:38] VITALS: BP 121/78; PULSE 90; RESP 16
[2017-03-14 12:28] VITALS: O2SAT 97
== END 2017-03-14 12:34 | disposition home or self-care (01) ==
LOC: C.ER 08:03
DX: S69.91XA Unspecified injury of right wrist, hand and finger(s), initial encounter (principal); W22.01XA Walked into wall, initial encounter; F32.9 Major depressive disorder, single episode, unspecified
CPT/HCPCS: 29125; 73110; 80053; 80164; 80320; 80324; 80329; 80345; 80346; 80349; 80353; 80358; 80361; 81001; 83992; 85025; 96372; 99285; J1885

== ENCOUNTER 2017-03-20 12:08 | Emergency (ER) | payer OTHER ==
[2017-03-20 12:08] VITALS: BMI 21.9
[2017-03-20 12:17] VITALS: BP 160/88; PULSE 72; RESP 16; TEMP 97.8; O2SAT 96
[2017-03-20] MEDS ORDERED: Albuterol 0.083% Inhal Sol (2.5 mg/3 mL) UD IH STA (12:50)
[2017-03-20] MEDS ORDERED: Albuterol-Ipratrop 3 mg / 0.5 (3 ml) UD INH STA (12:50)
--- NOTE | 2017-03-20 12:54 | C.PDOC ---
History Of Present Illness Patient presents to ED c/o wheezing, states his asthma is flaring up. He is also c/o right wrist pain, was seen in this ED on 03/14. Xrays done, negative for fracture, and patient placed in removable splint and instructed to follow up with ortho. He states he has not done so, and was not told to do that. Patient denies new injuries. Time Seen by Provider: 03/20/17 12:22 Chief Complaint (Nursing): Cough, Cold, Congestion History Per: Patient Onset/Duration Of Symptoms: Days Current Symptoms Are (Timing): Still Present Severity: Mild Past Medical History Reviewed: Historical Data, Nursing Documentation, Vital Signs Vital Signs: Last Vital Signs Temp 97.8 F 03/20/17 12:17 Pulse 72 03/20/17 12:17 Resp 16 03/20/17 12:17 BP 160/88 H 03/20/17 12:17 Pulse Ox 96 03/20/17 12:17 - Medical History PMH: Anxiety, Asthma, Bipolar Disorder, Bronchitis, Depression, Gastritis, Hepatitis (C), Pneumonia Surgical History: No Surg Hx - [facility] Procedures DETOXIFICATION SERVICES FOR SUBSTANCE ABUSE TREATMENT (12/29/16) GROUP AUTO GLASS TECHNICIAN FOR SUBSTANCE ABUSE TREATMENT, PSYCHOEDUCATION (11/16/16) GROUP PSYCHOTHERAPY (11/16/16) INDIV AUTO GLASS TECHNICIAN FOR SUBSTANCE ABUSE TREATMENT, PSYCHOEDUCATION (11/30/16) INDIV AUTO GLASS TECHNICIAN FOR SUBSTANCE ABUSE, COGNITIVE BEHAVIORAL (11/30/16) INDIV PSYCHOTHERAPY FOR SUBSTANCE ABUSE TREATMENT, SUPPORT (12/29/16) INDIV PSYCHOTHERAPY FOR SUBSTANCE ABUSE, PSYCHOEDUCATION (12/29/16) INDIVIDUAL PSYCHOTHERAPY, SUPPORTIVE (11/16/16) MEDICATION MANAGEMENT (11/16/16) MEDS MGMT FOR SUBSTANCE ABUSE TREATMENT, METHADONE MAINT (12/29/16) PHARMACOTHERAPY FOR SUBSTANCE ABUSE, METHADONE MAINT (11/16/16) Family History: States: No Known Family Hx - Social History Hx Tobacco Use: Yes (heavy smoker) Hx Alcohol Use: No Hx Substance Use: Yes - Immunization History Hx Tetanus Toxoid Vaccination: No Hx Influenza Vaccination: No (08/2015) Hx Pneumococcal Vaccination: No Review Of Systems Except As Marked, All Systems Reviewed And Found Negative. Cardiovascular: Negative for: Chest Pain Respiratory: Positive for: Shortness of Breath, Wheezing. Negative for: Cough Gastrointestinal: Negative for: Nausea, Vomiting Musculoskeletal: Positive for: Other (right wrist pain) Physical Exam - Physical Exam Appears: Well, Non-toxic, No Acute Distress, Other (bizarre affect) Skin: Normal Color, Warm, Dry Cardiovascular: Rhythm Regular Respiratory: No Accessory Muscle Use, No Rales, No Rhonchi, Wheezing ( expiratory wheezing B/L) Gastrointestinal/Abdominal: Normal Exam, Bowel Sounds, Soft, No Tenderness Extremity: Tenderness (right wrist diffuse TTP and mildly swollen), Capillary Refill (< 2 sec all digits ) Extremity: Bilateral: Normal Color And Temperature Neurological/Psych: Oriented x3 ED Course And Treatment O2 Sat by Pulse Oximetry: 96 (RA) Pulse Ox Interpretation: Normal Progress Note: Prior records reviewed - patient placed in removable cock up splint. He states he removed it, does not want it. Patient instructed to follow up with Dr. Haile as previously instructed, and offered print out of prior discharge instructions. Patient also ofdered pain medication now. PO Prednisone and nebulizer treatments ordered. Reevaluation Time: 12:50 Reassessment Condition: Unchanged (Patient eloped from ED prior to medications.) Disposition - Disposition Disposition: ELOPEMENT - ER ONLY Disposition Time: 12:50 Condition: STABLE Forms: [facility] (Occitan) - Clinical Impression Clinical Impression: Asthma exacerbation, Wrist pain
== END 2017-03-20 12:25 | disposition left against medical advice (07) ==
LOC: C.ER 12:08
DX: J45.901 Unspecified asthma with (acute) exacerbation (principal); Z72.0 Tobacco use; M25.531 Pain in right wrist

== ENCOUNTER 2017-03-30 22:29 | Emergency (ER) | payer OTHER ==
[2017-03-30 22:29] VITALS: BMI 21.9
[2017-03-30] MEDS ORDERED: Albuterol-Ipratrop 3 mg / 0.5 (3 ml) UD ONE ×3 (22:54→23:29)
[2017-03-30] MEDS ORDERED: Albuterol-Ipratrop 3 mg / 0.5 (3 ml) UD INH STA (23:01)
--- NOTE | 2017-03-30 23:17 | C.PDOC ---
History Of Present Illness 36 y/o male c/o SOB and wheezing that has been worsening over the last couple of days. Patient smokes 3-4 cigarettes a day. Patient is speaking in full sentences and denies fever, chills, nausea, vomiting, or any other complaints. Time Seen by Provider: 03/30/17 23:17 Chief Complaint (Nursing): Shortness Of Breath History Per: Patient History/Exam Limitations: no limitations Onset/Duration Of Symptoms: Days (couple of days) Current Symptoms Are (Timing): Still Present Initiating Event: Other Exacerbating Factor(s): Coughing Current Respiratory Medications: See Home Med List Severity: Mild Pain Scale Rating Of: 4 Associated Symptoms: denies: Fever, Chills Reports Recently: Treated By A Physician Recent travel outside of the [place]: No Additional History Per: Patient Past Medical History Reviewed: Historical Data, Nursing Documentation, Vital Signs Vital Signs: Last Vital Signs Temp 97.6 F 03/31/17 01:20 Pulse 74 03/31/17 01:20 Resp 18 03/31/17 01:20 BP 122/74 03/31/17 01:20 Pulse Ox 95 03/31/17 01:20 - Medical History PMH: Anxiety, Asthma, Bipolar Disorder, Bronchitis, Depression, Gastritis, Hepatitis (C), Pneumonia Denies: HIV, HTN, Hyperthyroidism, Hypothyroidism, Kidney Stones, Post Traumatic Stress Disorder, Pulmonary Embolism, Chronic Kidney Disease - [facility] Procedures DETOXIFICATION SERVICES FOR SUBSTANCE ABUSE TREATMENT (12/29/16) GROUP WEB PRODUCTION ARTIST FOR SUBSTANCE ABUSE TREATMENT, PSYCHOEDUCATION (11/16/16) GROUP PSYCHOTHERAPY (11/16/16) INDIV WEB PRODUCTION ARTIST FOR SUBSTANCE ABUSE TREATMENT, PSYCHOEDUCATION (11/30/16) INDIV WEB PRODUCTION ARTIST FOR SUBSTANCE ABUSE, COGNITIVE BEHAVIORAL (11/30/16) INDIV PSYCHOTHERAPY FOR SUBSTANCE ABUSE TREATMENT, SUPPORT (12/29/16) INDIV PSYCHOTHERAPY FOR SUBSTANCE ABUSE, PSYCHOEDUCATION (12/29/16) INDIVIDUAL PSYCHOTHERAPY, SUPPORTIVE (11/16/16) MEDICATION MANAGEMENT (11/16/16) MEDS MGMT FOR SUBSTANCE ABUSE TREATMENT, METHADONE MAINT (12/29/16) PHARMACOTHERAPY FOR SUBSTANCE ABUSE, METHADONE MAINT (11/16/16) Family History: States: Unknown Family Hx - Social History Hx Tobacco Use: Yes (heavy smoker) Hx Alcohol Use: No Hx Substance Use: No - Immunization History Hx Tetanus Toxoid Vaccination: No Hx Influenza Vaccination: No (08/2015) Hx Pneumococcal Vaccination: No Review Of Systems Constitutional: Negative for: Fever, Chills Cardiovascular: Negative for: Chest Pain Respiratory: Positive for: Shortness of Breath, Wheezing Gastrointestinal: Negative for: Nausea, Vomiting Musculoskeletal: Negative for: Back Pain Skin: Negative for: Rash Neurological: Negative for: Weakness Psych: Negative for: Anxiety Physical Exam - Physical Exam Appears: Non-toxic, No Acute Distress Skin: Warm, Dry Head: Normacephalic Oral Mucosa: Moist Neck: Supple Chest: Symmetrical Cardiovascular: Rhythm Regular Respiratory: No Rales, No Rhonchi, Wheezing (Scattered ) Gastrointestinal/Abdominal: Soft, No Tenderness Back: No CVA Tenderness Extremity: Normal ROM Extremity: Bilateral: Atraumatic Neurological/Psych: Oriented x3, Normal Speech, Normal Cognition Gait: Steady ED Course And Treatment O2 Sat by Pulse Oximetry: 96 (RA) Pulse Ox Interpretation: Normal Reevaluation Time: 01:36 Reassessment Condition: Improved Disposition Counseled Patient/Family Regarding: Studies Performed, Diagnosis, Need For Followup, Rx Given - Disposition Referrals: Refugio Slater MD [Staff Provider] - Disposition: HOME/ ROUTINE Disposition Time: 23:17 Condition: FAIR Prescriptions: Azithromycin [Zithromax Tri-Freedom] 500 mg PO TID #3 tablet Prednisone [Deltasone] 20 mg PO DAILY #5 tablet Instructions: Asthma (DC) Forms: [facility] (Kittitian) - Clinical Impression Clinical Impression: Asthma exacerbation - Scribe Statement The provider has reviewed the documentation as recorded by the Donaldibjeanne jones All medical record entries made by the Donaldibjeanne were at my direction and personally dictated by me. I have reviewed the chart and agree that the record accurately reflects my personal performance of the history, physical exam, medical decision making, and the department course for this patient. I have also personally directed, reviewed, and agree with the discharge instructions and disposition.
[2017-03-30] MEDS: Albuterol-Ipratrop 3 mg / 0.5 (3 ml) UD IH SCH ×2 (23:30→23:41)
[2017-03-31 01:25] VITALS: BP 122/74; PULSE 74; RESP 18; TEMP 97.6
[2017-03-31 01:38] VITALS: O2SAT 96
== END 2017-03-31 01:55 | disposition home or self-care (01) ==
LOC: C.ER 22:29
DX: J45.901 Unspecified asthma with (acute) exacerbation (principal); F17.210 Nicotine dependence, cigarettes, uncomplicated

== ENCOUNTER 2017-04-01 14:27 | Inpatient (IN) | payer MEDICAID, OTHER ==
[2017-04-01 14:33] VITALS: BMI 22.6
[2017-04-01] MEDS ORDERED: Albuterol 0.042% Inhal Sol (1.25 mg/3 mL) UD ONE (15:45)
[2017-04-01] MEDS ORDERED: Albuterol-Ipratrop 3 mg / 0.5 (3 ml) UD INH STA (15:46)
[2017-04-01] MEDS ORDERED: Albuterol 0.083% Inhal Sol (2.5 mg/3 mL) UD IH STA ×2 (15:46)
[2017-04-01 15:48] LABS: BASO % 0.2 % (0.0-2.0); EOS % 0.1 % (0.0-4.0); LYMPH # 2.1 K/uL (1.0-4.3); LYMPH % 14.9 % (20.0-40.0); MEAN CORPUSCULAR HEMOGLOBIN 31.4 pg (27.0-31.0); MEAN CORPUSCULAR HGB CONC 33.8 g/dL (33.0-37.0); MEAN PLATELET VOLUME 8.1 fL (7.2-11.7); MONO # 1.5 K/uL (0.0-0.8); MONO % 10.6 % (0.0-10.0); RED CELL DISTRIBUTION WIDTH 14.6 % (11.5-14.5)
[2017-04-01 15:52] LABS: URINE BILIRUBIN NEGATIVE (NEGATIVE); URINE BLOOD NEGATIVE (NEGATIVE); URINE COLOR Yellow (YELLOW); URINE GLUCOSE (UA) NORMAL (Normal); URINE KETONE NEGATIVE (NEGATIVE); URINE LEUKOCYTE ESTERASE NEG Leu/uL (Negative); URINE PROTEIN NEGATIVE (NEGATIVE); URINE UROBILINOGEN NORMAL mg/dL (0.2-1.0); WBC URINE < 1 /hpf (0-5)
--- NOTE | 2017-04-01 15:58 | C.PDOC ---
History Of Present Illness Patient presents to ED c/o feeling depressed, states he is having auditory hallucinations. Patient also wheezing and nonproductive cough, has h/o asthma. He denies CP, fever, abdominal pain, suicidal/homicidal ideations. Time Seen by Provider: 04/01/17 14:57 Chief Complaint (Nursing): Psychiatric Evaluation History Per: Patient History/Exam Limitations: no limitations Onset/Duration Of Symptoms: Persistent Current Symptoms Are (Timing): Still Present Severity: Moderate Associated Symptoms: Depression. denies: Suicidal Thoughts Past Medical History Reviewed: Historical Data, Nursing Documentation, Vital Signs Vital Signs: Last Vital Signs Temp 98.5 F 04/01/17 17:20 Pulse 67 04/01/17 17:20 Resp 18 04/01/17 14:33 BP 127/74 04/01/17 17:20 Pulse Ox 97 04/01/17 17:55 - Medical History PMH: Anxiety, Asthma, Bipolar Disorder, Bronchitis, Depression, Gastritis, Hepatitis (C), Pneumonia Surgical History: No Surg Hx - [facility] Procedures DETOXIFICATION SERVICES FOR SUBSTANCE ABUSE TREATMENT (12/29/16) GROUP AUDIO INSTALLER FOR SUBSTANCE ABUSE TREATMENT, PSYCHOEDUCATION (11/16/16) GROUP PSYCHOTHERAPY (11/16/16) INDIV AUDIO INSTALLER FOR SUBSTANCE ABUSE TREATMENT, PSYCHOEDUCATION (11/30/16) INDIV AUDIO INSTALLER FOR SUBSTANCE ABUSE, COGNITIVE BEHAVIORAL (11/30/16) INDIV PSYCHOTHERAPY FOR SUBSTANCE ABUSE TREATMENT, SUPPORT (12/29/16) INDIV PSYCHOTHERAPY FOR SUBSTANCE ABUSE, PSYCHOEDUCATION (12/29/16) INDIVIDUAL PSYCHOTHERAPY, SUPPORTIVE (11/16/16) MEDICATION MANAGEMENT (11/16/16) MEDS MGMT FOR SUBSTANCE ABUSE TREATMENT, METHADONE MAINT (12/29/16) PHARMACOTHERAPY FOR SUBSTANCE ABUSE, METHADONE MAINT (11/16/16) Family History: States: No Known Family Hx - Social History Hx Tobacco Use: Yes (heavy smoker) Hx Alcohol Use: No Hx Substance Use: No - Immunization History Hx Tetanus Toxoid Vaccination: No Hx Influenza Vaccination: No (08/2015) Hx Pneumococcal Vaccination: No Review Of Systems Except As Marked, All Systems Reviewed And Found Negative. Constitutional: Negative for: Fever, Chills Cardiovascular: Negative for: Chest Pain, Palpitations Respiratory: Positive for: Cough, Shortness of Breath (mild), Wheezing Gastrointestinal: Negative for: Nausea, Vomiting, Abdominal Pain, Diarrhea Psych: Positive for: Depression, Other (auditory hallucinations). Negative for : Suicidal ideation Physical Exam - Physical Exam Appears: Well, Non-toxic, No Acute Distress, Other (speaking in full sentences) Skin: Normal Color, Warm, Dry Eye(s): bilateral: Normal Inspection Oral Mucosa: Moist Chest: Symmetrical Cardiovascular: Rhythm Regular Respiratory: No Accessory Muscle Use, No Rales, No Rhonchi, Wheezing ( expiratory wheezing B/L) Gastrointestinal/Abdominal: Normal Exam, Bowel Sounds, Soft, No Tenderness Extremity: No Pedal Edema, No Calf Tenderness Neurological/Psych: Oriented x3 Gait: Steady ED Course And Treatment - Laboratory Results Result Diagrams: 04/01/17 15:42 04/01/17 15:42 O2 Sat by Pulse Oximetry: 97 (RA) Pulse Ox Interpretation: Normal - Radiology CXR: Interpreted by Me, Viewed By Me CXR Interpretation: Yes: No Acute Disease. No: Infiltrates Progress Note: Blood work, UA, UDS, CXr ordered and reviewed. Patient given PO Prednisone and nebulizer treatments. 5:35pm- On reassessment, patient states his breating has improved and he feels better. On exam, he has occasional scant wheezing, improved air entry B/L without accesory muscle use. Pending CXR to r/o pneumonia, for medical clearance for crisis. 5:52pm- Patient is medically cleared. CXR (-) for pneumonia, however since patient has asthma history and cough, will treat empirically for bronchitis. Recommend Azithromycin 250 mg PO once daily days 2-5 (first dose of 500mg given in ER), prednisone 40mg PO daily x 4 days (starting tomorrow), and albuterol nebulizer treatments as needed. Patient pending crisis eval/dispo. 6:25pm- Patient accepted for psychiatric admission - depression, auditory hallucinations, under Dr. ramírez. Disposition - Disposition Forms: [employer] [facility] (Palestinian)
[2017-04-01] MEDS ORDERED: Albuterol-Ipratrop 3 mg / 0.5 (3 ml) UD ONE (16:01)
[2017-04-01 16:14] LABS: CHLORIDE 106 mmol/L (98-107); POTASSIUM 3.8 mmol/L (3.6-5.2); SODIUM 143 mmol/L (132-148)
[2017-04-01 16:16] LABS: ALB/GLOB RATIO 1.6 (1.0-2.1); ALKALINE PHOSPHATASE 58 U/L (38-126); AST/SGOT 24 U/L (17-59); BILIRUBIN,TOTAL 0.5 mg/dL (0.2-1.3); BLOOD UREA NITROGEN 15 mg/dL (9-20); CARBON DIOXIDE 27 mmol/L (22-30); GFR AFRICAN-AMERICAN > 60; TOTAL PROTEIN 6.2 g/dL (6.3-8.3)
[2017-04-01 16:17] LABS: ALCOHOL SERUM < 10 mg/dl (0-10); ALT/SGPT 39 U/L (21-72); CALCIUM 9.2 mg/dl (8.6-10.4); GLUCOSE,RANDOM 78 mg/dL (75-110)
--- NOTE | 2017-04-01 18:07 | RAD ---
HISTORY: cough COMPARISON: Chest x-ray performed 02/27/17 TECHNIQUE: Chest PA and lateral FINDINGS: LUNGS: Minimal linear atelectasis at the right left lung bases. No focal consolidation. Please note that chest x-ray has limited sensitivity for the detection of pulmonary masses. PLEURA: No significant pleural effusion identified. No definite pneumothorax . CARDIOVASCULAR: The cardiomediastinal silhouette appears within normal limits of size. OSSEOUS STRUCTURES: No acute osseous abnormality identified. VISUALIZED UPPER ABDOMEN: Unremarkable. OTHER FINDINGS: None. IMPRESSION: No acute findings identified. See above.
--- NOTE | 2017-04-01 21:02 | PCM.BM ---
<ChrisSara markanta - Last Filed: 04/01/17 21:01> Treatment Plan Problems - Problems identified on initial assessmt Depression Date Initiated: 04/01/17 Time Initiated: 21:02 Assessment reference: NA Status: Active Priority: 1 Opiate Abuse Date Initiated: 04/01/17 Time Initiated: 21:02 Assessment reference: NA Status: Active Priority: 2 <Jasper Arriaga - Last Filed: 04/02/17 11:28> - Diagnosis (1) Bipolar disorder, curr episode mixed, severe, w/o psychotic features Status: Acute Interventions: 04/02/17 11:29 * Assess/adjust medications daily and /or as needed * See patient on an individual basis 7x/week to assess level of manic behaviors and stability * Discuss risks, benefits, side effects and alternatives of medications * (2) Opioid use disorder, severe, dependence Status: Acute Interventions: 04/02/17 11:29 * Assess 7x/week regarding severity of withdrawal * Educate regarding risks, benefits, side effects and alternatives of medications * Use Motivational Interviewing for abstinence * Use CBT for relapse prevention * Medication management for withdrawal symptoms * Encourage medication assisted treatment * <Lorena Hutson - Last Filed: 04/02/17 11:36> Family Contact Family involvement: Famliy/SO not involved - Goals for Treatment Patient goals for treatment: "[facility] back to [facility] Discharge/Continuing Care - Education Needs Education Needs: Patient Medication, Patient Coping Skills, Patient Placement options, Patient Community resources - Discharge Discharge Criteria: Tolerates medication w/o severe side effects, No longer exhibiting s/s of withdrawal Discharge to:: [facility] - Treatment Team Participation Discussed with Family/SO: No Was Patient/Family/SO present at Treatment Team Meeting: Yes
[2017-04-02] MEDS ORDERED: Albuterol-Ipratrop 3 mg / 0.5 (3 ml) UD IH STA (00:26)
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
[2017-04-02] MEDS: Divalproex 250 mg DR Tab PO SCH (17:10)
[2017-04-02] MEDS: Albuterol-Ipratrop 3 mg / 0.5 (3 ml) UD INH PRN (18:34)
[2017-04-02] MEDS: Albuterol HFA 90 mcg/actuation (8 g) INH PRN (22:19)
[2017-04-03 09:04] VITALS: O2SAT 98
[2017-04-03] MEDS: Divalproex 250 mg DR Tab PO SCH (09:47)
--- NOTE | 2017-04-03 11:05 | PCM.PYCHPN ---
Psychiatric Progress Note - Psychiatric Progress Note Patient seen today, length of contact: 17 min Patient Chief Complaint: "not doing well" Problems Identified/Issues Discussed: The pt is seen, chart reviewed, case discussed with staff. Support given, CBT and NV used briefly No new symptoms reported, improving slowly and needs more time No SEs from medications, risks discussed. After care discussed He is well-known to the senior grant writer from numerous previous admissions. Less med-seeking today. Remeron helped a bit at night but he still believes he needs benzos to sleep His after care plans are murky; [facility] or rehab or [facility] (but he skipped many days) Medication Change: Yes (detox changes, remeron) Medical Record Reviewed: Yes Mental Status Examination - Cognitive Function Orientation: Person, Place, Situation, Time Memory: Impaired Attention: Poor Concentration: Poor Association: WNL Fund of Knowledge: WNL - Mood Mood: Depressed, Anxious - Affect Affect: Constricted, Depressed - Speech Speech: Appropriate - Formal Thought Process Formal Thought Process: No Impairment - Suicidal Ideation Suicidal Ideation: No - Homicidal Ideation Homicidal Ideation: No Goal/Treatment Plan - Goal/Treatment Plan Need for Continued Stay: Discharge may exacerbated symptoms, Severe functional impairment Progress Toward Problem(s) and Goals/Treatment Plan: Continue medications Support and psychoeducation daily Attend groups and activities daily After care planning by SW - likely rehab or [facility] Estimated Date of D/C: 04/08/17
[2017-04-03] MEDS: Divalproex 500 mg DR Tab PO SCH (17:13)
[2017-04-03] MEDS: Albuterol-Ipratrop 3 mg / 0.5 (3 ml) UD INH PRN (17:43)
[2017-04-04] MEDS: Albuterol-Ipratrop 3 mg / 0.5 (3 ml) UD INH PRN (07:15)
[2017-04-04] MEDS: Divalproex 500 mg DR Tab PO SCH ×2 (09:20→17:00)
[2017-04-04] MEDS: Albuterol HFA 90 mcg/actuation (8 g) INH PRN (16:57)
[2017-04-05] MEDS: Albuterol-Ipratrop 3 mg / 0.5 (3 ml) UD INH PRN (02:34)
[2017-04-05 07:45] VITALS: BP 98/67; PULSE 77; RESP 18; TEMP 98.4
--- NOTE | 2017-04-05 08:48 | PCM.PYCHPN ---
Psychiatric Progress Note - Psychiatric Progress Note Patient seen today, length of contact: 16 min Patient Chief Complaint: "I slept better" Problems Identified/Issues Discussed: The pt is seen, chart reviewed, case discussed with staff. The pt is compliant with medications and reports no side-effects. Symptoms are improving but needs more time to stabilize. After care discussed, support and psychoeducation given. He says he found out that Trazodone caused the restless leg in him Medication Change: Yes Medical Record Reviewed: Yes Mental Status Examination - Cognitive Function Orientation: Person, Place, Situation, Time Memory: Impaired Attention: Poor Concentration: Poor Association: WNL Fund of Knowledge: WNL - Mood Mood: Depressed, Anxious - Affect Affect: Constricted, Depressed - Speech Speech: Appropriate - Formal Thought Process Formal Thought Process: No Impairment - Suicidal Ideation Suicidal Ideation: No - Homicidal Ideation Homicidal Ideation: No Goal/Treatment Plan - Goal/Treatment Plan Need for Continued Stay: Severe depression anxiety, Discharge may exacerbated symptoms, Severe functional impairment Progress Toward Problem(s) and Goals/Treatment Plan: Continue medications Support and psychoeducation daily Attend groups and activities daily After care planning by JOSE MIGUEL Relaxation skills MAT Estimated Date of D/C: 04/08/17
[2017-04-05] MEDS: Divalproex 500 mg DR Tab PO SCH (09:22)
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
== END 2017-04-05 12:50 | disposition home or self-care (01) | DRG 430 ==
LOC: C.ER 14:27 → C.9E 18:27 → C.5E 18:59
PROVIDERS: ADMIT Psychiatry & Neurology Psychiatry; ATTEND Psychiatry & Neurology Psychiatry
PROC: GZ56ZZZ Individual Psychotherapy, Supportive (ICD-10-PCS; principal; 2017-04-01)
DX: F31.63 Bipolar disorder, current episode mixed, severe, without psychotic features (principal); R45.851 Suicidal ideations; F17.213 Nicotine dependence, cigarettes, with withdrawal; F11.23 Opioid dependence with withdrawal; F41.9 Anxiety disorder, unspecified; G25.81 Restless legs syndrome; J45.909 Unspecified asthma, uncomplicated

== ENCOUNTER 2017-04-10 18:08 | Emergency (ER) | payer MEDICAID, OTHER ==
[2017-04-10 18:09] VITALS: BMI 22.6
[2017-04-10 18:13] VITALS: BP 132/89; PULSE 84; RESP 20; TEMP 97.5; O2SAT 95
[2017-04-10] MEDS ORDERED: Albuterol-Ipratrop 3 mg / 0.5 (3 ml) UD ONE ×2 (19:03→19:51)
[2017-04-10] MEDS ORDERED: Albuterol-Ipratrop 3 mg / 0.5 (3 ml) UD INH SCH ×2 (19:45→21:15)
[2017-04-10] MEDS ORDERED: Albuterol-Ipratrop 3 mg / 0.5 (3 ml) UD INH STA ×3 (20:45→21:12)
--- NOTE | 2017-04-10 21:11 | C.PDOC ---
History Of Present Illness 36 year old male who presents to the ER with a complaint of asthma exacerbation and wheezing. Patient states he is a persistent heroin user and note he recently quit smoking yesterday. Patient is argumentative and confrontational making discussion difficult. Denies chest pain, nausea, or vomiting. Time Seen by Provider: 04/10/17 20:16 Chief Complaint (Nursing): Shortness Of Breath History Per: Patient History/Exam Limitations: no limitations Onset/Duration Of Symptoms: Days Current Symptoms Are (Timing): Still Present Initiating Event: Other (Not known) Current Respiratory Medications: Albuterol Associated Symptoms: denies: Fever, Chills, Chest Pain Recent travel outside of the [place]: No Past Medical History Reviewed: Historical Data, Nursing Documentation, Vital Signs Vital Signs: Last Vital Signs Temp 97.5 F L 04/10/17 18:11 Pulse 84 04/10/17 20:55 Resp 20 04/10/17 18:11 BP 132/89 04/10/17 18:11 Pulse Ox 95 04/10/17 21:11 - Medical History PMH: Anxiety, Asthma, Bipolar Disorder, Bronchitis, Depression, Gastritis, Hepatitis (C), Pneumonia Denies: Sleep Apnea Surgical History: No Surg Hx - [facility] Procedures DETOXIFICATION SERVICES FOR SUBSTANCE ABUSE TREATMENT (12/29/16) GROUP TAPPER HELPER FOR SUBSTANCE ABUSE TREATMENT, PSYCHOEDUCATION (11/16/16) GROUP PSYCHOTHERAPY (11/16/16) INDIV TAPPER HELPER FOR SUBSTANCE ABUSE TREATMENT, PSYCHOEDUCATION (11/30/16) INDIV TAPPER HELPER FOR SUBSTANCE ABUSE, COGNITIVE BEHAVIORAL (11/30/16) INDIV PSYCHOTHERAPY FOR SUBSTANCE ABUSE TREATMENT, SUPPORT (12/29/16) INDIV PSYCHOTHERAPY FOR SUBSTANCE ABUSE, PSYCHOEDUCATION (12/29/16) INDIVIDUAL PSYCHOTHERAPY, SUPPORTIVE (04/01/17) MEDICATION MANAGEMENT (11/16/16) MEDS MGMT FOR SUBSTANCE ABUSE TREATMENT, METHADONE MAINT (12/29/16) PHARMACOTHERAPY FOR SUBSTANCE ABUSE, METHADONE MAINT (11/16/16) Family History: States: Unknown Family Hx - Social History Hx Tobacco Use: Yes (heavy smoker) Hx Alcohol Use: No Hx Substance Use: No - Immunization History Hx Tetanus Toxoid Vaccination: No Hx Influenza Vaccination: No (08/2015) Hx Pneumococcal Vaccination: No Review Of Systems Constitutional: Negative for: Fever, Chills Cardiovascular: Negative for: Chest Pain, Palpitations Respiratory: Positive for: Wheezing Gastrointestinal: Negative for: Nausea, Vomiting Physical Exam - Physical Exam Appears: Non-toxic, Combative, Agitated, Other (Irritable, Confrontational, Foul mouth) Skin: Normal Color, Warm, Dry Head: Atraumatic, Normacephalic Eye(s): bilateral: Normal Inspection, EOMI Oral Mucosa: Moist Neck: Normal, Supple Chest: Symmetrical, No Tenderness Cardiovascular: Rhythm Regular, No Murmur Respiratory: Normal Breath Sounds, No Rales, No Rhonchi, No Wheezing Gastrointestinal/Abdominal: Soft, No Tenderness Extremity: Normal ROM (x4) Neurological/Psych: Oriented x3, Normal Speech, Normal Cognition ED Course And Treatment O2 Sat by Pulse Oximetry: 95 (Room air) Pulse Ox Interpretation: Normal - Radiology CXR: Interpreted by Me, Viewed By Me CXR Interpretation: Yes: No Acute Disease Progress Note: Duoneb administered. Medical Decision Making Medical Decision Making: continued heroine abuse staying with his girlfriend, not at [facility] has safe place to stay tonight Sleeping comfortably in ED no further w/u for asthma indicated pt became upset and wants immediate d/c. Disposition Doctor Will See Patient In The: Office Counseled Patient/Family Regarding: Studies Performed, Diagnosis - Disposition Referrals: [facility] [Outside] [facility] [Outside] [facility] [Outside] Disposition: HOME/ ROUTINE Disposition Time: 21:10 Condition: GOOD Prescriptions: Albuterol HFA [Ventolin HFA 90 mcg/actuation (8 g)] 2 puff IH Q4H PRN #1 unit PRN Reason: asthma Instructions: Asthma (ED) Forms: [facility] ([place]) - Clinical Impression Clinical Impression: Opioid abuse, Asthma - Scribe Statement The provider has reviewed the documentation as recorded by the Scribe Walt Cameron All medical record entries made by the Scribe were at my direction and personally dictated by me. I have reviewed the chart and agree that the record accurately reflects my personal performance of the history, physical exam, medical decision making, and the department course for this patient. I have also personally directed, reviewed, and agree with the discharge instructions and disposition.
--- NOTE | 2017-04-11 08:24 | RAD ---
HISTORY: SOB COMPARISON: Comparison is made to 04/01/2017 TECHNIQUE: Chest PA and lateral FINDINGS: LUNGS: Dense of new infiltrate or consolidation in the lungs. PLEURA: No significant pleural effusion identified. No pneumothorax apparent. CARDIOVASCULAR: Normal. OSSEOUS STRUCTURES: No significant abnormalities. VISUALIZED UPPER ABDOMEN: Normal. OTHER FINDINGS: None. IMPRESSION: No significant interval change.
== END 2017-04-10 21:20 | disposition home or self-care (01) ==
LOC: C.ER 18:08
DX: J45.909 Unspecified asthma, uncomplicated (principal); F17.210 Nicotine dependence, cigarettes, uncomplicated; F11.10 Opioid abuse, uncomplicated

== ENCOUNTER 2017-04-20 23:48 | Emergency (ER) | payer OTHER ==
[2017-04-20 23:48] VITALS: BMI 22.6
[2017-04-20 23:59] VITALS: RESP 20
[2017-04-21] MEDS ORDERED: Albuterol-Ipratrop 3 mg / 0.5 (3 ml) UD ONE ×2 (00:04→01:28)
--- NOTE | 2017-04-21 00:56 | C.PDOC ---
History Of Present Illness presents with wheezing and some headache. speaking in complete sentences. No f/c /n/v. No chest pain. States he has no inhaler. Time Seen by Provider: 04/21/17 00:56 Chief Complaint (Nursing): Shortness Of Breath History/Exam Limitations: no limitations Onset/Duration Of Symptoms: Days Current Symptoms Are (Timing): Still Present Initiating Event: Out Of Medications Exacerbating Factor(s): Coughing Current Respiratory Medications: See Home Med List Severity: Moderate Pain Scale Rating Of: 4 Associated Symptoms: denies: Fever, Chills, Sweating, Chest Pain, Heart Racing Reports Recently: Seen In ED Recent travel outside of the [place]: No Additional History Per: Patient Past Medical History Reviewed: Historical Data, Nursing Documentation, Vital Signs Vital Signs: Last Vital Signs Temp 97.5 F L 04/21/17 01:16 Pulse 74 04/21/17 01:16 Resp 20 04/21/17 01:16 BP 115/73 04/21/17 01:16 Pulse Ox 94 L 04/21/17 02:06 - Medical History PMH: Anxiety, Asthma, Bipolar Disorder, Bronchitis, Depression, Gastritis, Hepatitis (C), Pneumonia Denies: Diabetes, Gall Bladder Disease, HIV, HTN, Hyperthyroidism, Hypothyroidism, Kidney Stones, Post Traumatic Stress Disorder, Pulmonary Embolism, Chronic Kidney Disease, Schizophrenia, Seizures, Sexually Transmitted Disease, Sleep Apnea Surgical History: Denies: Appendectomy, CABG, Carotid Endarterectomy, Cholecystectomy, Coronary Stent, Tonsillectomy - [facility] Procedures DETOXIFICATION SERVICES FOR SUBSTANCE ABUSE TREATMENT (12/29/16) GROUP TELE MARKETING EXECUTIVE FOR SUBSTANCE ABUSE TREATMENT, PSYCHOEDUCATION (11/16/16) GROUP PSYCHOTHERAPY (11/16/16) INDIV TELE MARKETING EXECUTIVE FOR SUBSTANCE ABUSE TREATMENT, PSYCHOEDUCATION (11/30/16) INDIV TELE MARKETING EXECUTIVE FOR SUBSTANCE ABUSE, COGNITIVE BEHAVIORAL (11/30/16) INDIV PSYCHOTHERAPY FOR SUBSTANCE ABUSE TREATMENT, SUPPORT (12/29/16) INDIV PSYCHOTHERAPY FOR SUBSTANCE ABUSE, PSYCHOEDUCATION (12/29/16) INDIVIDUAL PSYCHOTHERAPY, SUPPORTIVE (04/01/17) MEDICATION MANAGEMENT (11/16/16) MEDS MGMT FOR SUBSTANCE ABUSE TREATMENT, METHADONE MAINT (12/29/16) PHARMACOTHERAPY FOR SUBSTANCE ABUSE, METHADONE MAINT (11/16/16) Family History: States: No Known Family Hx, Unknown Family Hx - Social History Hx Tobacco Use: Yes (heavy smoker) Hx Alcohol Use: No Hx Substance Use: No - Immunization History Hx Tetanus Toxoid Vaccination: No Hx Influenza Vaccination: No (08/2015) Hx Pneumococcal Vaccination: No Review Of Systems Eyes: Negative for: Redness ENT: Negative for: Throat Pain Cardiovascular: Negative for: Chest Pain Gastrointestinal: Negative for: Nausea, Vomiting Musculoskeletal: Negative for: Back Pain Skin: Negative for: Rash Neurological: Negative for: Weakness Psych: Negative for: Anxiety Physical Exam - Physical Exam Appears: Non-toxic, No Acute Distress Skin: Warm, Dry Head: Normacephalic Eye(s): bilateral: Normal Inspection Oral Mucosa: Moist Neck: Supple Chest: Symmetrical Cardiovascular: Rhythm Regular Respiratory: No Rales, No Rhonchi, Wheezing (few) Gastrointestinal/Abdominal: Soft, No Tenderness, No Distention Back: No CVA Tenderness Extremity: No Tenderness Extremity: Bilateral: Atraumatic Neurological/Psych: Oriented x3, Normal Speech, Normal Cognition Gait: Steady ED Course And Treatment O2 Sat by Pulse Oximetry: 94 Pulse Ox Interpretation: Abnormal Reevaluation Time: 02:04 Reassessment Condition: Improved Medical Decision Making Medical Decision Making: Upon provider reevaluation patient is feeling better, is medically stable, and requires no further treatment in the ED at this time. Patient will be discharged home with Rx for albuterol, prednisone . Counseling was provided and all questions were answered regarding diagnosis and need for follow up withdr Janes Slater. There is agreement to discharge plan. Return if symptoms persist or worsen. Disposition Counseled Patient/Family Regarding: Studies Performed, Diagnosis, Need For Followup, Rx Given - Disposition Referrals: Refugio Slater MD [Staff Provider] - Disposition: HOME/ ROUTINE Disposition Time: 00:56 Condition: FAIR Prescriptions: Albuterol HFA [Ventolin HFA 90 mcg/actuation (8 g)] 2 puff IH [id number] #1 puff Prednisone [Deltasone] 20 mg PO DAILY #5 tablet Instructions: Asthma (DC) Forms: [facility] (Japanese) - Clinical Impression Clinical Impression: Asthma exacerbation
[2017-04-21 01:17] VITALS: BP 115/73; PULSE 74; TEMP 97.5
[2017-04-21] MEDS: Albuterol-Ipratrop 3 mg / 0.5 (3 ml) UD IH SCH (01:23)
[2017-04-21 02:06] VITALS: O2SAT 94
== END 2017-04-21 02:11 | disposition home or self-care (01) ==
LOC: C.ER 23:48
DX: J45.901 Unspecified asthma with (acute) exacerbation (principal); F17.210 Nicotine dependence, cigarettes, uncomplicated

== ENCOUNTER 2017-04-21 13:53 | Observation (INO) | payer OTHER ==
[2017-04-21 13:53] VITALS: BMI 22.6
--- NOTE | 2017-04-21 14:50 | C.PDOC ---
History Of Present Illness 36 year old male presents to the ED requesting heroin detox. Patient reports his last use was yesterday. Patient denies using any other substances as well as suicidal/homicidal ideation at this time. Time Seen by Provider: 04/21/17 14:22 Chief Complaint (Nursing): Substance Abuse History Per: Patient History/Exam Limitations: intoxication Onset/Duration Of Symptoms: Hrs Current Symptoms Are (Timing): Still Present Suicide/Self Injury Attempted (Context): None Modifying Factor(s): Narcotics (heroin) Associated Symptoms: denies: Suicidal Thoughts, Suicidal Plan Involuntary Hold By: None Recent travel outside of the [place]: No Additional History Per: Patient Past Medical History Reviewed: Historical Data, Nursing Documentation, Vital Signs Vital Signs: Last Vital Signs Temp 98.1 F 04/21/17 18:22 Pulse 74 04/21/17 18:22 Resp 20 04/21/17 18:22 BP 124/74 04/21/17 18:22 Pulse Ox 94 L 04/21/17 18:22 - Medical History PMH: Anxiety, Asthma, Bipolar Disorder, Bronchitis, Depression, Gastritis, Hepatitis (C), Pneumonia Denies: Diabetes, Gall Bladder Disease, HIV, HTN, Hyperthyroidism, Hypothyroidism, Kidney Stones, Post Traumatic Stress Disorder, Pulmonary Embolism, Chronic Kidney Disease, Schizophrenia, Seizures, Sexually Transmitted Disease, Sleep Apnea Surgical History: No Surg Hx Denies: Appendectomy, CABG, Carotid Endarterectomy, Cholecystectomy, Coronary Stent, Tonsillectomy - [facility] Procedures DETOXIFICATION SERVICES FOR SUBSTANCE ABUSE TREATMENT (12/29/16) GROUP LVN FOR SUBSTANCE ABUSE TREATMENT, PSYCHOEDUCATION (11/16/16) GROUP PSYCHOTHERAPY (11/16/16) INDIV LVN FOR SUBSTANCE ABUSE TREATMENT, PSYCHOEDUCATION (11/30/16) INDIV LVN FOR SUBSTANCE ABUSE, COGNITIVE BEHAVIORAL (11/30/16) INDIV PSYCHOTHERAPY FOR SUBSTANCE ABUSE TREATMENT, SUPPORT (12/29/16) INDIV PSYCHOTHERAPY FOR SUBSTANCE ABUSE, PSYCHOEDUCATION (12/29/16) INDIVIDUAL PSYCHOTHERAPY, SUPPORTIVE (04/01/17) MEDICATION MANAGEMENT (11/16/16) MEDS MGMT FOR SUBSTANCE ABUSE TREATMENT, METHADONE MAINT (12/29/16) PHARMACOTHERAPY FOR SUBSTANCE ABUSE, METHADONE MAINT (11/16/16) Family History: States: Unknown Family Hx - Social History Hx Tobacco Use: Yes (heavy smoker) Hx Alcohol Use: No Hx Substance Use: Yes - Immunization History Hx Tetanus Toxoid Vaccination: No Hx Influenza Vaccination: Yes Hx Pneumococcal Vaccination: No Review Of Systems Psych: Positive for: Other (heroin detox ). Negative for: Suicidal ideation Physical Exam - Physical Exam Appears: Non-toxic, No Acute Distress Skin: Normal Color, Warm, Dry Head: Atraumatic Eye(s): bilateral: Normal Inspection Oral Mucosa: Moist Neck: Supple Chest: Symmetrical, No Deformity Cardiovascular: Rhythm Regular Respiratory: Normal Breath Sounds Extremity: Normal ROM Neurological/Psych: Normal Speech, Normal Cognition Gait: Steady ED Course And Treatment - Laboratory Results Result Diagrams: 04/21/17 16:14 04/21/17 16:14 O2 Sat by Pulse Oximetry: 97 (on RA) Pulse Ox Interpretation: Normal Medical Decision Making Medical Decision Making: Progress: On reassessment, patient is resting comfortably and showing no signs of distress.Patient is informed about the unavailability of detox beds at this time. Patient is stable for discharge and is provided with information to inquire about future availability of beds. ED OBSERVATION Discharge: Yes Date of observation admission: 04/21/17 Time of observation admission: 15:51 - Observation admission statement Patient is being placed in observation because:: suicidal ideation - Goals of Observation Goals of observation are:: psych evaluation and observation - Progress Note Progress Note: The patient reports that he want sdetox from heroin. The patient was evaluated by the crisis team and instructed to follow up. The patient states that since there is no detox beds, he now feels suicidal. Patient placed on 1:1 observation. 04/21/17 19:13 The case was discussed with psych and patient was cleared for discharge. Disposition - Disposition Referrals: Refugio Slater MD [Staff Provider] - Disposition: HOME/ ROUTINE Condition: FAIR Additional Instructions: Follow up with the medical doctor within 1-2 days. Return if worsened. Instructions: Narcotic Abuse (ED) Forms: [facility] (Tristanian) - Clinical Impression Clinical Impression: Opiate dependence - PA / TEST PREPARER / Resident Statement MD/DO has reviewed & agrees with the documentation as recorded. - Scribe Statement The provider has reviewed the documentation as recorded by the Scribe (Meenakshi Slater) All medical record entries made by the Scribe were at my direction and personally dictated by me. I have reviewed the chart and agree that the record accurately reflects my personal performance of the history, physical exam, medical decision making, and the department course for this patient. I have also personally directed, reviewed, and agree with the discharge instructions and disposition.
[2017-04-21 16:28] LABS: CHLORIDE 94 mmol/L (98-107); POTASSIUM 3.7 mmol/L (3.6-5.2); SODIUM 141 mmol/L (132-148)
[2017-04-21 16:30] LABS: ALB/GLOB RATIO 1.5 (1.0-2.1); AST/SGOT 23 U/L (17-59); BASO % 0.2 % (0.0-2.0); BILIRUBIN,TOTAL 0.9 mg/dL (0.2-1.3); CARBON DIOXIDE 29 mmol/L (22-30); EOS % 0.2 % (0.0-4.0); GFR AFRICAN-AMERICAN > 60; HEMATOCRIT 41.4 % (35.0-51.0); LYMPH # 2.1 K/uL (1.0-4.3); LYMPH % 16.6 % (20.0-40.0); MEAN CORPUSCULAR HEMOGLOBIN 31.4 pg (27.0-31.0); MEAN CORPUSCULAR HGB CONC 33.8 g/dL (33.0-37.0); MEAN PLATELET VOLUME 8.1 fL (7.2-11.7); MONO # 0.9 K/uL (0.0-0.8); MONO % 6.9 % (0.0-10.0); RED CELL DISTRIBUTION WIDTH 14.2 % (11.5-14.5); TOTAL PROTEIN 7.2 g/dL (6.3-8.3); WHITE BLOOD COUNT 12.9 K/uL (4.8-10.8)
[2017-04-21 16:31] LABS: ALCOHOL SERUM < 10 mg/dl (0-10); ALKALINE PHOSPHATASE 61 U/L (38-126); ALT/SGPT 48 U/L (21-72); BLOOD UREA NITROGEN 13 mg/dL (9-20); CALCIUM 9.7 mg/dl (8.6-10.4); GLUCOSE,RANDOM 83 mg/dL (75-110); RBC URINE 6 /hpf (0-3); URINE BACTERIA RARE (<OCC); URINE BILIRUBIN NEGATIVE (NEGATIVE); URINE BLOOD NEGATIVE (NEGATIVE); URINE COLOR Yellow (YELLOW); URINE GLUCOSE (UA) NORMAL (Normal); URINE KETONE 1+ mg/dL (NEGATIVE); URINE LEUKOCYTE ESTERASE NEG Leu/uL (Negative); URINE PROTEIN 1+ mg/dL (NEGATIVE); WBC URINE 4 /hpf (0-5)
[2017-04-21 18:22] VITALS: RESP 20
[2017-04-21 19:27] VITALS: BP 121/73; PULSE 67; TEMP 98.2; O2SAT 96
== END 2017-04-21 19:17 | disposition home or self-care (01) ==
LOC: C.ER 13:53 → C.9OBSV 15:52
PROVIDERS: ADMIT Emergency Medicine; ATTEND Emergency Medicine
DX: F11.20 Opioid dependence, uncomplicated (principal); F31.9 Bipolar disorder, unspecified; J45.909 Unspecified asthma, uncomplicated; B19.20 Unspecified viral hepatitis C without hepatic coma; F41.9 Anxiety disorder, unspecified; K29.70 Gastritis, unspecified, without bleeding; R45.851 Suicidal ideations; F17.210 Nicotine dependence, cigarettes, uncomplicated
CPT/HCPCS: 80053; 80320; 80324; 80345; 80346; 80349; 80353; 80358; 80361; 81001; 83992; 85025; 99285; G0378

== ENCOUNTER 2017-05-19 01:28 | Emergency (ER) | payer MEDICAID, OTHER ==
[2017-05-19 01:28] VITALS: BMI 22.6
[2017-05-19 01:58] VITALS: TEMP 98.1
[2017-05-19] MEDS ORDERED: Sodium Chloride 0.9% 1,000 ML IV ONE (02:10)
[2017-05-19] MEDS ORDERED: Sodium Chloride 0.9% 1,000 ML ONE (02:26)
[2017-05-19 02:31] LABS: BASO # 0.1 K/uL (0.0-0.2); BASO % 0.9 % (0.0-2.0); EOS # 0.4 K/uL (0.0-0.7); EOS % 4.9 % (0.0-4.0); HEMATOCRIT 41.9 % (35.0-51.0); LYMPH # 1.9 K/uL (1.0-4.3); LYMPH % 24.5 % (20.0-40.0); MEAN CELL VOLUME 93.3 fL (80.0-94.0); MEAN CORPUSCULAR HEMOGLOBIN 31.8 pg (27.0-31.0); MEAN CORPUSCULAR HGB CONC 34.1 g/dL (33.0-37.0); MEAN PLATELET VOLUME 8.6 fL (7.2-11.7); MONO # 1.2 K/uL (0.0-0.8); MONO % 15.1 % (0.0-10.0); NRBC % 0.1 % (0.0-2.0); RED CELL DISTRIBUTION WIDTH 13.6 % (11.5-14.5); WHITE BLOOD COUNT 7.7 K/uL (4.8-10.8)
[2017-05-19 02:39] LABS: CHLORIDE 101 mmol/L (98-107); POTASSIUM 4.1 mmol/L (3.6-5.2); SODIUM 136 mmol/L (132-148)
[2017-05-19 02:40] LABS: RBC URINE 1 /hpf (0-3); URINE BILIRUBIN NEGATIVE (NEGATIVE); URINE BLOOD NEGATIVE (NEGATIVE); URINE COLOR Yellow (YELLOW); URINE GLUCOSE (UA) NORMAL (Normal); URINE KETONE TRACE mg/dL (NEGATIVE); URINE LEUKOCYTE ESTERASE NEG Leu/uL (Negative); URINE PROTEIN 1+ mg/dL (NEGATIVE); URINE UROBILINOGEN NORMAL mg/dL (0.2-1.0); WBC URINE 1 /hpf (0-5)
[2017-05-19 02:41] LABS: ALKALINE PHOSPHATASE 58 U/L (38-126); AST/SGOT 28 U/L (17-59); BILIRUBIN,TOTAL 0.7 mg/dL (0.2-1.3); CARBON DIOXIDE 22 mmol/L (22-30); GFR AFRICAN-AMERICAN > 60; TOTAL PROTEIN 6.2 g/dL (6.3-8.3)
[2017-05-19 02:42] LABS: ALCOHOL SERUM < 10 mg/dl (0-10); ALT/SGPT 51 U/L (21-72); BLOOD UREA NITROGEN 19 mg/dL (9-20); CALCIUM 8.6 mg/dl (8.6-10.4); GLUCOSE,RANDOM 113 mg/dL (75-110)
--- NOTE | 2017-05-19 04:56 | C.PDOC ---
History Of Present Illness Pt states that he took 20 pills of 800mg Gabapentin (his own medication) over the course of several hours prior to arrival. Time Seen by Provider: 05/19/17 02:04 Chief Complaint (Nursing): Psychiatric Evaluation History Per: Patient Onset/Duration Of Symptoms: Days (1) Current Symptoms Are (Timing): Still Present Suicide/Self Injury Attempted (Context): Ingestion Ingestion Of Substance: Gabapentin 800mg x 20 pills. Severity: Moderate Associated Symptoms: Depression Additional History Per: Prior Records Past Medical History Reviewed: Historical Data, Nursing Documentation, Vital Signs Vital Signs: Last Vital Signs Temp 98.1 F 05/19/17 01:51 Pulse 84 05/19/17 06:58 Resp 13 05/19/17 06:58 BP 102/69 05/19/17 06:58 Pulse Ox 99 05/19/17 06:58 - Medical History PMH: Anxiety, Asthma, Bipolar Disorder, Bronchitis, Depression, Gastritis, Hepatitis (C), Pneumonia - [facility] Procedures DETOXIFICATION SERVICES FOR SUBSTANCE ABUSE TREATMENT (12/29/16) GROUP VENDING MACHINE ATTENDANT FOR SUBSTANCE ABUSE TREATMENT, PSYCHOEDUCATION (11/16/16) GROUP PSYCHOTHERAPY (11/16/16) INDIV VENDING MACHINE ATTENDANT FOR SUBSTANCE ABUSE TREATMENT, PSYCHOEDUCATION (11/30/16) INDIV VENDING MACHINE ATTENDANT FOR SUBSTANCE ABUSE, COGNITIVE BEHAVIORAL (11/30/16) INDIV PSYCHOTHERAPY FOR SUBSTANCE ABUSE TREATMENT, SUPPORT (12/29/16) INDIV PSYCHOTHERAPY FOR SUBSTANCE ABUSE, PSYCHOEDUCATION (12/29/16) INDIVIDUAL PSYCHOTHERAPY, SUPPORTIVE (04/01/17) MEDICATION MANAGEMENT (11/16/16) MEDS MGMT FOR SUBSTANCE ABUSE TREATMENT, METHADONE MAINT (12/29/16) PHARMACOTHERAPY FOR SUBSTANCE ABUSE, METHADONE MAINT (11/16/16) Family History: States: Unknown Family Hx - Social History Hx Tobacco Use: Yes (heavy smoker) Hx Alcohol Use: No Hx Substance Use: Yes (heroin) - Immunization History Hx Tetanus Toxoid Vaccination: No Hx Influenza Vaccination: Yes Hx Pneumococcal Vaccination: No Review Of Systems Except As Marked, All Systems Reviewed And Found Negative. Constitutional: Negative for: Fever Cardiovascular: Negative for: Chest Pain Respiratory: Negative for: Shortness of Breath Gastrointestinal: Positive for: Abdominal Pain, Diarrhea. Negative for: Vomiting, Melena, Hematochezia, Hematemesis Genitourinary: Negative for: Dysuria Musculoskeletal: Negative for: Neck Pain Skin: Negative for: Rash Neurological: Negative for: Weakness, Numbness, Seizures Physical Exam - Physical Exam Appears: Non-toxic, No Acute Distress Skin: Normal Color, Warm, Dry, No Rash Head: Atraumatic, Normacephalic Eye(s): bilateral: PERRL, EOMI Neck: Normal ROM, Supple Cardiovascular: Rhythm Regular Respiratory: Normal Breath Sounds, No Accessory Muscle Use Gastrointestinal/Abdominal: Soft, No Distention Back: No CVA Tenderness Extremity: Normal ROM Neurological/Psych: Oriented x3, Normal Speech, Normal Cognition, Normal Motor, Normal Sensation ED Course And Treatment - Laboratory Results Result Diagrams: 05/19/17 02:24 05/19/17 02:24 Lab Interpretation: No Acute Changes ECG: Interpreted By Me, Viewed By Me ECG Rhythm: Sinus Rhythm, Nonspecific Changes ECG Interpretation: No Acute Changes Rate From EC O2 Sat by Pulse Oximetry: 97 Pulse Ox Interpretation: Normal Progress Note: Pt was d/w Luis at [facility]. He states that pt may be medically cleared at this point. 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
[2017-05-19 06:59] VITALS: BP 102/69; PULSE 84; RESP 13
[2017-05-19 07:08] VITALS: O2SAT 97
--- NOTE | 2017-05-20 23:07 | CARD ---
APPROVED REPORT EKG Measurement Heart [id number] <Conclusion> Normal sinus rhythm Possible Left atrial enlargement Septal infarct, age undetermined Abnormal ECG
== END 2017-05-19 08:17 | disposition home or self-care (01) ==
LOC: C.ER 01:28
DX: T42.6X1A Poisoning by other antiepileptic and sedative-hypnotic drugs, accidental (unintentional), initial encounter (principal); F32.9 Major depressive disorder, single episode, unspecified
CPT/HCPCS: 80053; 80164; 80320; 80324; 80329; 80345; 80346; 80349; 80353; 80358; 80361; 81001; 83690; 83992; 85025; 93005; 96361; 96374; 99285; C9113; J7040

== ENCOUNTER 2017-05-19 21:13 | Emergency (ER) | payer MEDICAID, OTHER ==
[2017-05-19 21:13] VITALS: BMI 22.6
[2017-05-19 21:35] VITALS: RESP 20
[2017-05-19] MEDS ORDERED: Sodium Chloride 0.9% 1,000 ML IV ONE (21:58)
--- NOTE | 2017-05-19 22:11 | C.PDOC ---
History Of Present Illness Patient states that he was seen here last night for a Neurontin overdose. He was medically cleared and discharged at 8:00 AM today. He went home to rest but states that once home he felt dizzy and lightheaded. He then developed abdominal pain and bloating associated with vomiting and diarrhea. He has no fever or chills. He feels shaky and weak and was unable to tolerate anything by mouth all day. Time Seen by Provider: 05/19/17 21:46 Chief Complaint (Nursing): Abdominal Pain History Per: Patient History/Exam Limitations: no limitations Onset/Duration Of Symptoms: Hrs Current Symptoms Are (Timing): Still Present Severity: Severe Location Of Pain/Discomfort: Epigastric Radiation Of Pain To:: Back Quality Of Discomfort: Cramping Associated Symptoms: Nausea, Vomiting, Diarrhea Exacerbating Factors: Movement, Food Past Medical History Vital Signs: Last Vital Signs Temp 97.7 F 05/19/17 21:31 Pulse 82 05/19/17 21:31 Resp 20 05/19/17 21:31 BP 136/97 H 05/19/17 21:31 Pulse Ox 96 05/19/17 23:47 - Medical History PMH: Anxiety, Asthma, Bipolar Disorder, Bronchitis, Depression, Gastritis, Hepatitis (C), Pneumonia Surgical History: No Surg Hx - [facility] Procedures DETOXIFICATION SERVICES FOR SUBSTANCE ABUSE TREATMENT (12/29/16) GROUP AIRFLIGHT ATTENDANTS SUPERVISOR FOR SUBSTANCE ABUSE TREATMENT, PSYCHOEDUCATION (11/16/16) GROUP PSYCHOTHERAPY (11/16/16) INDIV AIRFLIGHT ATTENDANTS SUPERVISOR FOR SUBSTANCE ABUSE TREATMENT, PSYCHOEDUCATION (11/30/16) INDIV AIRFLIGHT ATTENDANTS SUPERVISOR FOR SUBSTANCE ABUSE, COGNITIVE BEHAVIORAL (11/30/16) INDIV PSYCHOTHERAPY FOR SUBSTANCE ABUSE TREATMENT, SUPPORT (12/29/16) INDIV PSYCHOTHERAPY FOR SUBSTANCE ABUSE, PSYCHOEDUCATION (12/29/16) INDIVIDUAL PSYCHOTHERAPY, SUPPORTIVE (04/01/17) MEDICATION MANAGEMENT (11/16/16) MEDS MGMT FOR SUBSTANCE ABUSE TREATMENT, METHADONE MAINT (12/29/16) PHARMACOTHERAPY FOR SUBSTANCE ABUSE, METHADONE MAINT (11/16/16) Family History: States: Unknown Family Hx - Social History Hx Tobacco Use: Yes (heavy smoker) Hx Alcohol Use: No Hx Substance Use: Yes (heroin) - Immunization History Hx Tetanus Toxoid Vaccination: No Hx Influenza Vaccination: Yes Hx Pneumococcal Vaccination: No Review Of Systems Except As Marked, All Systems Reviewed And Found Negative. Constitutional: Positive for: Sweats, Weakness Gastrointestinal: Positive for: Nausea, Vomiting, Abdominal Pain, Diarrhea Physical Exam - Physical Exam Appears: No Acute Distress (but appears weak and uncomfortable) Skin: Normal Color, Warm Eye(s): bilateral: Normal Inspection, PERRL, EOMI Oral Mucosa: Moist Neck: Normal, Normal ROM Lymphatic: No Adenopathy Chest: Symmetrical Cardiovascular: Rhythm Regular Respiratory: Normal Breath Sounds Gastrointestinal/Abdominal: Bowel Sounds, Tenderness (periumbilical) Extremity: Normal ROM Neurological/Psych: Oriented x3, Normal Speech, Normal Cognition, Normal Cranial Nerves, Normal Motor, Normal Sensation ED Course And Treatment - Laboratory Results Result Diagrams: 05/19/17 22:30 05/19/17 22:30 Lab Interpretation: No Changes Compared To Prior Results O2 Sat by Pulse Oximetry: 96 Pulse Ox Interpretation: Normal Reevaluation Time: 23:47 Reassessment Condition: Unchanged (Patient still c/o feeling shaky, dizzy and weak. he is requesting to speak to crisis again because he feels as if his depression and stress are going to continue.) Disposition - Disposition Disposition Time: 00:50 Condition: STABLE Forms: [facility] (Icelandic) - Clinical Impression Clinical Impression: Abdominal discomfort, Vomiting, Diarrhea Physician Patient Turnover Patient Signed Over To: Jono Lucero DO Handoff Comments: pending crisis evaluation
[2017-05-19] MEDS ORDERED: Sodium Chloride 0.9% 1,000 ML ONE (22:20)
[2017-05-19 22:36] LABS: BASO # 0.1 K/uL (0.0-0.2); BASO % 0.5 % (0.0-2.0); EOS # 0.2 K/uL (0.0-0.7); HEMATOCRIT 38.2 % (35.0-51.0); LYMPH # 1.3 K/uL (1.0-4.3); LYMPH % 10.9 % (20.0-40.0); MEAN CELL VOLUME 93.4 fL (80.0-94.0); MEAN CORPUSCULAR HEMOGLOBIN 31.1 pg (27.0-31.0); MEAN CORPUSCULAR HGB CONC 33.3 g/dL (33.0-37.0); MEAN PLATELET VOLUME 8.4 fL (7.2-11.7); MONO # 1.5 K/uL (0.0-0.8); MONO % 12.5 % (0.0-10.0); RED CELL DISTRIBUTION WIDTH 13.6 % (11.5-14.5)
[2017-05-19 22:37] LABS: WHITE BLOOD COUNT 12.1 K/uL (4.8-10.8)
[2017-05-19 22:44] LABS: CHLORIDE 101 mmol/L (98-107)
[2017-05-19 22:45] LABS: POTASSIUM 4.3 mmol/L (3.6-5.2); SODIUM 136 mmol/L (132-148)
[2017-05-19 22:47] LABS: ALB/GLOB RATIO 2.1 (1.0-2.1); ALKALINE PHOSPHATASE 52 U/L (38-126); AST/SGOT 24 U/L (17-59); BILIRUBIN,TOTAL 0.6 mg/dL (0.2-1.3); BLOOD UREA NITROGEN 14 mg/dL (9-20); CARBON DIOXIDE 24 mmol/L (22-30); GFR AFRICAN-AMERICAN > 60; TOTAL PROTEIN 5.9 g/dL (6.3-8.3)
[2017-05-19 22:48] LABS: ALT/SGPT 55 U/L (21-72); CALCIUM 8.8 mg/dl (8.6-10.4); GLUCOSE,RANDOM 106 mg/dL (75-110)
[2017-05-19 23:35] LABS: RBC URINE < 1 /hpf (0-3); URINE BACTERIA RARE (<OCC); URINE BILIRUBIN NEGATIVE (NEGATIVE); URINE BLOOD NEGATIVE (NEGATIVE); URINE COLOR Yellow (YELLOW); URINE GLUCOSE (UA) NORMAL (Normal); URINE KETONE NEGATIVE (NEGATIVE); URINE LEUKOCYTE ESTERASE NEG Leu/uL (Negative); URINE PROTEIN 1+ mg/dL (NEGATIVE); URINE UROBILINOGEN NORMAL mg/dL (0.2-1.0); WBC URINE 1 /hpf (0-5)
[2017-05-20] MEDS ORDERED: Sodium Chloride 0.9% 1,000 ML IV ONE (00:10)
[2017-05-20] MEDS ORDERED: Sodium Chloride 0.9% 1,000 ML ONE (00:16)
[2017-05-20] MEDS ORDERED: Albuterol-Ipratrop 3 mg / 0.5 (3 ml) UD ONE (05:39)
[2017-05-20 05:40] VITALS: BP 136/85; PULSE 84; TEMP 97.5; O2SAT 98
== END 2017-05-20 05:40 | disposition home or self-care (01) ==
LOC: C.ER 21:13
DX: R10.33 Periumbilical pain (principal); R11.10 Vomiting, unspecified; R19.7 Diarrhea, unspecified
CPT/HCPCS: 80053; 81001; 83690; 85025; 96361; 96374; 96375; 99284; J2405; J7040